=== PATIENT | female | born 1960 | race Caucasian/White ===

== ENCOUNTER → 2016-10-07 | Outpatient (CLI) | payer OTHER ==
[~2016-10-07] MED LIST: ATEN-174 PO; AZAT50TA5 PO; CALCTAB73 PO; CYCL10TA6 PO; CYCL5TAB PO; ESTR0.3T PO; GABA-113 PO; GLCSR500 PO; HYDR25TA4 PO; INSDGI SC; LISI-725 PO; LPT/40 PO; METH1TAB81 PO; MILK1CAP PO; NAPR250T43 PO; ONDA4TAB46 PO; OXYC-57 PO; PANT1TAB48 PO; PREG150C PO; PREG75CA PO; PROM25TA9 PO; PRT/20 PO; TRAM-10 PO; [UNRECOGNIZED DRUG - CODE] PO
[2016-10-10 14:39] LABS: QUANTIF TB AG-NIL 0.01 IU/ML; QUANTIFERON NIL 0.02 IU/ML
== END | disposition home or self-care (01) ==
LOC: C.LAB1850 16:31
PROVIDERS: ATTEND Physician Assistant
DX: R22.9 Localized swelling, mass and lump, unspecified (principal)

== ENCOUNTER → 2016-10-28 | Outpatient (CLI) | payer OTHER | END | disposition home or self-care (01) | LOC: C.LABSPEC 11:00 | PROVIDERS: ATTEND Orthopaedic Surgery | DX: R22.31 Localized swelling, mass and lump, right upper limb (principal) ==

== ENCOUNTER → 2016-10-28 | Outpatient (CLI) | payer OTHER | END | disposition home or self-care (01) | LOC: C.PATHSPEC 10:52 | PROVIDERS: ATTEND Orthopaedic Surgery | DX: R22.31 Localized swelling, mass and lump, right upper limb (principal) ==

== ENCOUNTER → 2017-03-08 | Outpatient (CLI) | payer OTHER ==
[~2017-03-08] MED LIST changes: -CALCTAB73 PO; -CYCL10TA6 PO; -ESTR0.3T PO; -NAPR250T43 PO; -PREG150C PO; -PREG75CA PO; -PROM25TA9 PO; -PRT/20 PO
--- NOTE | 2017-03-08 13:43 | MAMMOGRAPHY REPORT ---
BILATERAL DIGITAL SCREENING MAMMOGRAM TOMOSYNTHESIS WITH CAD: 03/08/2017 CLINICAL HISTORY: Routine screening examination. TECHNIQUE: Breast tomosynthesis in addition to standard 2D mammography was performed. Current study was also evaluated with a Computer Aided Detection (CAD) system. COMPARISON: Comparison is made to exams dated: 03/02/2016 mammogram, 02/05/2015 mammogram, 4 mammogram, 01/24/2013 mammogram, 01/23/2012 mammogram, and 01/21/2011 mammogram - [facility]. BREAST COMPOSITION: There are scattered areas of fibroglandular density in both breasts. FINDINGS: There are mild vascular calcifications bilaterally. Numerous scattered benign round and c oarse calcifications. It to stable circumscribed subcentimeter masses in the left breast are unchang ed in size dating back to at least 01/24/2013, therefore likely benign. No suspicious spiculated or irregular mass, architectural distortion or cluster of microcalcifications is seen. IMPRESSION: ACR BI-RADS CATEGORY 2: BENIGN There is no mammographic evidence of malignancy. A 1 year screening mammogram is recommended. The pa tient will receive written notification of the results. Approximately 10% of breast cancers are not detected with mammography. A negative mammographic report should not delay biopsy if a clinically suggestive mass is present. Kiera Crooks M.D. ay/:03/08/2017 12:51:45 Analysis Engineer: Jeanette KRISHNAMURTHY)(Kris), [facility] letter sent: Normal 1/2 BI-RADS Code: ACR BI-RADS Category 2: Benign
== END | disposition home or self-care (01) ==
LOC: C.MAMM 10:06
PROVIDERS: ATTEND Family Medicine
DX: Z12.31 Encounter for screening mammogram for malignant neoplasm of breast (principal)

== ENCOUNTER 2017-06-16 21:56 | Inpatient (IN) | payer OTHER ==
[~2017-06-16] VITALS: Ht 165.1 cm; Wt 79.1 kg
[~2017-06-16 21:56] MED LIST changes: +AZAT50TA33 PO; -AZAT50TA5 PO; +CEPH500C PO; +PANT1TAB3 PO; -PANT1TAB48 PO; +SULF800T23 PO
[2017-06-16 23:05] LABS: BASO % 0.2 %; BASO ABS # 0.01 K/uL (0-0.2); HEMATOCRIT 31.8 % (37-47); HEMOGLOBIN 10.7 g/dL (12.0-16.0); IG# 0.01 K/uL (0.00-0.02); LYMPH % 8.9 %; LYMPH ABS # 0.39 K/uL (1.2-3.4); MEAN CELL VOLUME 89.6 fL (80-100); MEAN CORPUSCULAR HEMOGLOBIN 30.1 pg (25-34); MEAN CORPUSCULAR HGB CONC 33.6 g/dl (32-36); MEAN PLATELET VOLUME 9.8 fL (7.4-10.4); MONO % 0.5 %; MONO ABS # 0.02 K/uL (0.11-0.59); NEUT % 90.2 %; NEUT ABS # 3.97 K/uL (1.4-6.5); PLATELET COUNT 366 K/uL (130-400); RED CELL DISTRIBUTION WIDTH CV 16.7 % (11.5-14.5); RED CELL DISTRIBUTION WIDTH SD 54.4 fL (36.4-46.3)
[2017-06-16 23:22] LABS: CALCIUM 8.9 mg/dl (8.5-10.1); CREATININE 1.28 mg/dl (0.60-1.20)
[2017-06-17] MEDS ORDERED: SODIUM CHLORIDE 0.9% IV STA (01:26)
[2017-06-17] MEDS ORDERED: VANCOMYCIN INJ 1,500 MG in SODIUM CHLORIDE 0.9% 500ML 500 ML IV SCH (01:26)
[2017-06-17] MEDS ORDERED: VANCOMYCIN IV STA (01:26)
[2017-06-17] MEDS ORDERED: VANCOMYCIN CONSULT ACTIVE PRN ×2 (01:30→02:00)
[2017-06-17] MEDS ORDERED: HYDR-5688 PO (02:16)
[2017-06-17] MEDS ORDERED: NAPR1TAB48 PO (02:17)
--- NOTE | 2017-06-17 02:17 | Pharmacy Progress Note ---
Pharmacy Antibiotic Consult Date of Service: Jun 17, 2017. Pharmacy Dosing Scope Pharmacy is consulted to initiate VANCOMYCIN IV dosing therapy, order appropriate labs and adjust drug dose/frequency. Subjective The patient is a 57 year old female admitted on 06/17/17. Objective Height (Feet): 5 Height (Inches): 5.00 Weight (Kilograms): 79.500 Lab Results (24hrs): Test 06/16/17 22:50 White Blood Count 4.40 K/uL (4.8-10.8) Red Blood Count 3.55 M/uL (4.2-5.4) Hemoglobin 10.7 g/dL (12.0-16.0) Hematocrit 31.8 % (37-47) Mean Corpuscular Volume 89.6 fL (80-100) Mean Corpuscular Hemoglobin 30.1 pg (25-34) Mean Corpuscular Hemoglobin Concent 33.6 g/dl (32-36) Platelet Count 366 K/uL (130-400) Mean Platelet Volume 9.8 fL (7.4-10.4) Neutrophils (%) (Auto) 90.2 % Lymphocytes (%) (Auto) 8.9 % Monocytes (%) (Auto) 0.5 % Eosinophils (%) (Auto) 0.0 % Basophils (%) (Auto) 0.2 % Neutrophils # (Auto) 3.97 K/uL (1.4-6.5) Lymphocytes # (Auto) 0.39 K/uL (1.2-3.4) Monocytes # (Auto) 0.02 K/uL (0.11-0.59) Eosinophils # (Auto) 0.00 K/uL (0-0.5) Basophils # (Auto) 0.01 K/uL (0-0.2) RDW Standard Deviation 54.4 fL (36.4-46.3) RDW Coefficient of Variation 16.7 % (11.5-14.5) Immature Granulocyte % (Auto) 0.2 % Immature Granulocyte # (Auto) 0.01 K/uL (0.00-0.02) Sodium Level 136 mmol/L (136-145) Potassium Level 4.0 mmol/L (3.5-5.1) Chloride Level 102 mmol/L (98-107) Carbon Dioxide Level 24 mmol/L (21-32) Anion Gap 10.0 mmol/L (3-11) Blood Urea Nitrogen 22 mg/dl (7-18) Creatinine 1.28 mg/dl (0.60-1.20) Est Creatinine Clear Calc Drug Dose 51.1 ml/min Estimated GFR () 54.1 Estimated GFR (Non- 46.7 BUN/Creatinine Ratio 17.0 (10-20) Random Glucose 211 mg/dl (70-99) Calcium Level 8.9 mg/dl (8.5-10.1) C-Reactive Protein 0.51 mg/dl (0-0.29) Assessment & Plan 57yo female ordered VANCOMYCIN for LUE cellulitis. Scr is elevated on admission at 1.28 from baseline of ~0.8. VANCOMYCIN: * Loading dose: VANCOMYCIN 1500mg (~19mg/kg) IV X 1 dose in the ER then VANCOMYCIN 1250mg (~15mg/kg) IV every 12 hours. * Estimated Pk parameters BASED ON BASELINE RENAL FUNCTION: Ke ~0.072 t1/2 ~ 10 hours * Goal trough level estimate: between 15 - 20 mcg/mL. * Dosed VANCOMYCIN assuming renal function will trend down towards her baseline. Pharmacy will adjust as needed. If no adjustment needed, will check a trough level prior to the 0200 dose on 06/19. Pharmacy will continue to follow and will adjust dose/frequency as necessary. Thank you
[2017-06-17] MEDS ORDERED: CALC-452 PO (02:18)
--- NOTE | 2017-06-17 02:20 | EMERGENCY ROOM VISIT NOTE ---
ED Visit Note First contact with patient: 22:25 Patient seen at bedside after discussion with physician magistrate assistant. Patient with area on the right lateral distal forearm of erythema and induration. Patient with 5 days of recent outpatient antibiotics with no improvement. 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 Patient with no prior similar episodes. Patient aware of her results and agreeable with plan for admission for additional antibiotics and evaluation of involved area. No evidence of systemic symptoms, I do not suspect bacteremia/sepsis, no evidence of septic arthritis.
[2017-06-17 02:30] VITALS: BP 119/69; PULSE 60; TEMP 36.5; O2SAT 93; Ht 165.1 cm; Wt 79.1 kg
--- NOTE | 2017-06-17 02:47 | EMERGENCY ROOM VISIT NOTE ---
History First contact with patient: 22:25 Chief Complaint: WRIST PAIN Stated Complaint: PAIN AND SWELLING IN R WRIST AREA History of Present Illness The patient is a 57 year old female who presents to the Emergency Room with complaints of pain and swelling of her right wrist. The patient states that she first noticed pain in her wrist one week ago. She saw her primary care provider 5 days ago and was diagnosed with cellulitis. She received an antibiotic injection and was placed on Keflex. She followed up 3 days after that and states that the symptoms had not improved, so she was also started on Bactrim. She has had no improvement of symptoms and returned to the office today for a visit. They gave her an injection of Solu-Medrol and performed x- rays which were negative. The patient reports redness on the ulnar side of her forearm. She reports a burning pain which is rated an 8/10. She denies any streaking of the arm or fevers. She has some pain with movement of the wrist, but denies difficulty moving the wrist. The patient is a diabetic. She additionally has a history of dermatomyositis. She takes prednisone chronically for this and also takes an immunosuppressant, which has been held since the onset of symptoms. Her PCP recommended that if her symptoms do not improve this afternoon, she should come here for admission. Review of Systems A complete 10 point review of systems was reviewed with the patient with pertinent positives and negatives as per history of present illness. All else were negative. Past Medical/Surgical History Medical Problems: (1) Autoimmune hepatitis (2) Cellulitis (3) Dermatomyositis (4) Diabetes (5) Hypertension (6) Trigeminal neuralgia Surgical Problems: (1) S/P cholecystectomy Family History Hypertension Social History Smoking Status: Never Smoker Alcohol Use: none Marital Status: Housing Status: lives with significant other Occupation Status: disabled Current/Historical Medications Scheduled Atenolol (Tenormin), 50 MG PO QAM Atorvastatin (Lipitor), 40 MG PO QAM Azathioprine (Imuran), 2 TABS PO QAM Calcium Carbonate-Cholecalcife (Calcium 600 + D 600-200 mg-Unit), 1 TAB PO TID Cephalexin Monohydrate (Keflex), 1 CAP PO BID Gabapentin (Neurontin), 300 MG PO TID Hydrochlorothiazide (Hctz), 25 MG PO QAM Lisinopril (Zestril), 20 MG PO QAM Metformin HCl (Metformin HCl ER), 1,000 MG PO BID Methylprednisolone (Medrol), 4 MG PO DAILY Milk Thistle (Silybum Marianum (Milk Thistle), 500 MG PO DAILY Pantoprazole (Protonix), 40 MG PO QAM Sulfamethoxazole-Trimethoprim (Bactrim Ds 800MG/160MG), 1 TAB PO Q12 Scheduled PRN Cyclobenzaprine Hcl (Flexeril), 5 MG PO HS PRN for Muscle Spasms Hydrocodone/Acetaminophen 5MG/325MG ([place] 5MG/325MG), 1 TABLET PO Q6 PRN for Mild Pain Naproxen (Naprosyn), 250 MG PO BID PRN for Pain Ondansetron Hcl (Zofran), 4 MG PO Q6 PRN for Nausea Tramadol (Ultram), 50 MG PO Q6 PRN for Pain Physical Exam Vital Signs Date Time Temp Pulse Resp B/P (MAP) Pulse Ox O2 Delivery O2 Flow Rate FiO2 06/17/17 00:43 63 18 119/72 94 Room Air 06/16/17 22:04 36.7 71 18 166/73 94 Room Air Physical Exam VITALS: Vitals are noted on the nurse's note and reviewed by myself. Vital signs stable. Afebrile. GENERAL: This is a 57-year-old female, in no acute distress, well-developed well -nourished. SKIN: There is an area of induration and erythema to the ulnar aspect of the right distal forearm which measures approximately 5 cm in diameter. There is mild surrounding erythema which extends slightly to the hand. No fluctuance. This is not circumferential. There is no lymphangitic streaking. HEART: Regular rate and rhythm without murmurs gallops or rubs. LUNGS: Clear to auscultation bilaterally without wheezes, rales or rhonchi. MUSCULOSKELETAL: Patient has chronic appearing deformities of the fingers of the right hand. Full range of motion of the right wrist. Radial pulse 2+. NEURO: Patient was alert and oriented to person place and time. Normal sensation of the right upper extremity. Medical Decision & Procedures ER Provider Diagnostic Interpretation: Per STATrad interpretation: US VENOUS RIGHT UPPER EXTREMITY: No venous thrombosis identified in the right upper extremity. Soft tissue edema noted in the lateral right forearm. No fluid collection or mass. Radiologist: Lokesh Shah MD Laboratory Results 06/16/17 22:50 Red Blood Count 3.55, Mean Corpuscular Volume 89.6, Mean Corpuscular Hemoglobin 30.1, Mean Corpuscular Hemoglobin Concent 33.6, Mean Platelet Volume 9.8, Neutrophils (%) (Auto) 90.2, Lymphocytes (%) (Auto) 8.9, Monocytes (%) (Auto) 0.5, Eosinophils (%) (Auto) 0.0, Basophils (%) (Auto) 0.2, Neutrophils # (Auto) 3.97, Lymphocytes # (Auto) 0.39, Monocytes # (Auto) 0.02, Eosinophils # (Auto) 0.00, Basophils # (Auto) 0.01 06/16/17 22:50 Test 06/16/17 22:50 White Blood Count 4.40 K/uL (4.8-10.8) Red Blood Count 3.55 M/uL (4.2-5.4) Hemoglobin 10.7 g/dL (12.0-16.0) Hematocrit 31.8 % (37-47) Mean Corpuscular Volume 89.6 fL (80-100) Mean Corpuscular Hemoglobin 30.1 pg (25-34) Mean Corpuscular Hemoglobin Concent 33.6 g/dl (32-36) Platelet Count 366 K/uL (130-400) Mean Platelet Volume 9.8 fL (7.4-10.4) Neutrophils (%) (Auto) 90.2 % Lymphocytes (%) (Auto) 8.9 % Monocytes (%) (Auto) 0.5 % Eosinophils (%) (Auto) 0.0 % Basophils (%) (Auto) 0.2 % Neutrophils # (Auto) 3.97 K/uL (1.4-6.5) Lymphocytes # (Auto) 0.39 K/uL (1.2-3.4) Monocytes # (Auto) 0.02 K/uL (0.11-0.59) Eosinophils # (Auto) 0.00 K/uL (0-0.5) Basophils # (Auto) 0.01 K/uL (0-0.2) RDW Standard Deviation 54.4 fL (36.4-46.3) RDW Coefficient of Variation 16.7 % (11.5-14.5) Immature Granulocyte % (Auto) 0.2 % Immature Granulocyte # (Auto) 0.01 K/uL (0.00-0.02) Anion Gap 10.0 mmol/L (3-11) Est Creatinine Clear Calc Drug Dose 51.1 ml/min Estimated GFR () 54.1 Estimated GFR (Non- 46.7 BUN/Creatinine Ratio 17.0 (10-20) Calcium Level 8.9 mg/dl (8.5-10.1) C-Reactive Protein 0.51 mg/dl (0-0.29) Medications Administered Medications (Trade) Dose Ordered Sig/Jesica Route Start Time Stop Time Status Last Admin Dose Admin Vancomycin HCl 1500 mg/Sodium Chloride 530 ml @ 200 mls/hr 0126 IV 06/17/17 01:26 06/17/17 04:04 06/17/17 01:59 200 MLS/HR ED Course The patient was evaluated as above. Labs were drawn and IV access was obtained. Ultrasound of the right arm was performed and read by statrad as above. Patient was reevaluated and findings were discussed. Vancomycin was ordered with the patient. Case was discussed with the [facility] hospitalist, Dr. Medina. They agreed to evaluate the patient for admission. Medical Decision Differential diagnosis includes cellulitis, abscess, inflammatory process, osteomyelitis, failed outpatient treatment, among others. The patient is a 57-year-old female with past medical history of dermatomyositis and diabetes mellitus who presents today complaining of pain and swelling in the right forearm. Patient has had ongoing symptoms for 1 week and these have not resolved despite treatment with Keflex and Bactrim. Records from the patient's outpatient visit earlier today were obtained and reviewed by myself. At that time, the patient had an x-ray of the forearm which showed osteoarthritic changes and no other acute findings. She was treated with an injection of Solu-Medrol at that time. Patient presents today stating that her symptoms have not improved, and she was told by her primary care provider to come here for admission. Labs revealed no leukocytosis. Patient mildly pancytopenic and creatinine is mildly elevated. I suspect these are baseline for the patient. CRP was found to be mildly elevated. Patient's physical exam is consistent with cellulitis, although inflammatory mass is possible given patient's history of autoimmune disease. She has failed outpatient therapy with both Keflex and Bactrim at this time and will need to be admitted for further treatment and IV antibiotics. She was given vancomycin in the ED. She was admitted to the [facility] service for further evaluation and care. The patient was independently evaluated by Dr. Adkins, ED attending physician , who agreed with my assessment and treatment plan. Medication Reconcilliation Current Medication List: was personally reviewed by me Blood Pressure Screening Patient's blood pressure: Normal blood pressure Impression Primary Impression: Cellulitis of forearm, right Additional Impression: Failure of outpatient treatment Departure Information Referrals Eddie Man M.D. (PCP) Patient Instructions [facility] Problem Qualifiers
[2017-06-17] MEDS ORDERED: ONDANSETRON INJ 2 MG/ML 2 ML VIAL IV PRN (05:00)
[2017-06-17] MEDS ORDERED: GLUCAGON FOR INJ 1 MG VIAL SQ PRN (05:00)
[2017-06-17] MEDS ORDERED: GLUCOSE 10 TABS/TUBE PO PRN (05:00)
[2017-06-17] MEDS ORDERED: GLUCOSE 40% GEL 15 GM TUBE PO PRN (05:00)
[2017-06-17] MEDS ORDERED: DEXTROSE 50% 50 ML SYR IV PRN (05:00)
[2017-06-17] MEDS ORDERED: CYCLOBENZAPRINE HCL 5 MG TAB PO PRN (05:00)
[2017-06-17] MEDS ORDERED: POLYETHYLENE (MIRALAX) 17 GM PACK PO PRN (05:00)
[2017-06-17] MEDS ORDERED: HYDROCODONE/ACETAMIN 5/325MG TAB PO PRN (05:00)
[2017-06-17] MEDS ORDERED: TRAMADOL HCL 50 MG TAB PO PRN (05:00)
[2017-06-17] MEDS ORDERED: ACETAMINOPHEN 325 MG TAB PO PRN (05:00)
--- NOTE | 2017-06-17 05:24 | History and Physical ---
History & Physical Date & Time of Service: Jun 17, 2017 at 05:12 Chief Complaint: Cellulitis Primary Care Physician: dEdie Man M.D. History of Present Illness Source: patient, clinic records, hospital records The patient is a 57-year-old female presents to the emergency room with complaints of pain and swelling in her right wrist. She first noticed the pain 1 week ago and was placed on Keflex with a Rocephin shot. She followed up 3 days later and the symptoms have not improved so she was also started on Bactrim. She remains on both antibiotics today. Today for a follow-up visit with her primary care doctor she was no better and was received and injection of Solu-Medrol and x-rays of the forearm which were negative. The patient does not denies any streaking of the redness or fevers or chills. She denies any worsening joint pain. She has a history of dermatomyositis and is on chronic steroids and immunosuppressants she is followed with beck operator Dr. Julio Oneal in [place]. She does have a history of hand nodules which were biopsied twice both of which showed necrotizing granulomas. Cultures for Mycobacterium and fungi were negative. She has a very small pulmonary nodule that needs to be follow-up followed up in 1 year. Rheumatoid factor is negative , she has no inflammatory arthritis, per rheumatology these nodules would be very myositis. Sarcoidosis remains in the differential. The patient denies any trauma to the wrist hand or forearm including trauma from manicures, gardening or other. Review of systems is negative for nausea vomiting GI upset diarrhea, shortness of breath or chest pain, or any other symptom at this time. Past Medical/Surgical History Medical Problems: (1) Autoimmune hepatitis Permanent Comment: s/p methotrexate usage Status: Resolved (2) Carpal tunnel syndrome of right wrist Status: Chronic (3) Dermatomyositis Status: Chronic (4) Diabetes Status: Chronic (5) Diabetic neuropathy Status: Chronic (6) Granulomatous disease Status: Chronic (7) H/O cytomegalovirus infection Status: Chronic (8) Hypertension Status: Chronic (9) VYAS (nonalcoholic steatohepatitis) Status: Chronic (10) Pancreatic cyst Status: Chronic (11) Renal artery aneurysm Status: Chronic (12) Splenic artery aneurysm Status: Chronic (13) Trigeminal neuralgia Status: Chronic Surgical Problems: (1) S/P cholecystectomy Status: Resolved Family History Hypertension Social History Smoking Status: Never Smoker Smokeless Tobacco Use: No Alcohol Use: none Drug Use: none Marital Status: Housing status: lives with significant other Occupational Status: disabled Immunizations History of Influenza Vaccine: Yes Influenza Vaccine Date: Mar 10, 2017 History of Tetanus Vaccine?: Yes Tetanus Immunization Date: Jul 06, 2009 History of Pneumococcal: Yes Pneumococcal Date: September 02, 2016 History of Hepatitis B Vaccine: Yes Hepatitis Immunization Date: Nov 04, 2013 Allergies Coded Allergies: No Known Allergies (Verified , 06/17/17) Home Medications Scheduled Atenolol (Tenormin), 50 MG PO QAM Atorvastatin (Lipitor), 40 MG PO QAM Azathioprine (Imuran), 2 TABS PO QAM Calcium Carbonate-Cholecalcife (Calcium 600 + D 600-200 mg-Unit), 1 TAB PO TID Cephalexin Monohydrate (Keflex), 1 CAP PO BID Gabapentin (Neurontin), 300 MG PO TID Hydrochlorothiazide (Hctz), 25 MG PO QAM Lisinopril (Zestril), 20 MG PO QAM Metformin HCl (Metformin HCl ER), 1,000 MG PO BID Methylprednisolone (Medrol), 4 MG PO DAILY Milk Thistle (Silybum Marianum (Milk Thistle), 500 MG PO DAILY Pantoprazole (Protonix), 40 MG PO QAM Sulfamethoxazole-Trimethoprim (Bactrim Ds 800MG/160MG), 1 TAB PO Q12 Scheduled PRN Cyclobenzaprine Hcl (Flexeril), 5 MG PO HS PRN for Muscle Spasms Hydrocodone/Acetaminophen 5MG/325MG ([place] 5MG/325MG), 1 TABLET PO Q6 PRN for Mild Pain Naproxen (Naprosyn), 250 MG PO BID PRN for Pain Ondansetron Hcl (Zofran), 4 MG PO Q6 PRN for Nausea Tramadol (Ultram), 50 MG PO Q6 PRN for Pain Review of Systems At least 10 systems were reviewed and negative except as indicated in HPI. Physical Exam Vital Signs Date Time Temp Pulse Resp B/P (MAP) Pulse Ox O2 Delivery O2 Flow Rate FiO2 06/17/17 02:30 36.5 60 18 119/69 93 Room Air 06/17/17 02:02 60 18 124/65 95 Room Air 06/17/17 00:43 63 18 119/72 94 Room Air 06/16/17 22:04 36.7 71 18 166/73 94 Room Air General Appearance: WD/WN, no apparent distress Head: normocephalic, atraumatic Eyes: normal inspection, sclerae normal ENT: hearing grossly normal, pharynx normal Neck: trachea midline Respiratory/Chest: lungs clear, normal breath sounds, no respiratory distress, no accessory muscle use Cardiovascular: regular rate, rhythm, no edema, no gallop, no JVD, normal peripheral pulses, + systolic murmur Abdomen/GI: normal bowel sounds, non tender, soft, no organomegaly Extremities/Musculoskelatal: + pertinent finding (Large immobile tender erythematous nodule on the ulnar side of the left wrist) 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, no motor/sensory deficits, alert, normal mood/affect, oriented x 3 Skin: normal color, warm/dry, no rash Diagnostics Laboratory Results 06/16/17 22:50 Red Blood Count 3.55, Mean Corpuscular Volume 89.6, Mean Corpuscular Hemoglobin 30.1, Mean Corpuscular Hemoglobin Concent 33.6, Mean Platelet Volume 9.8, Neutrophils (%) (Auto) 90.2, Lymphocytes (%) (Auto) 8.9, Monocytes (%) (Auto) 0.5, Eosinophils (%) (Auto) 0.0, Basophils (%) (Auto) 0.2, Neutrophils # (Auto) 3.97, Lymphocytes # (Auto) 0.39, Monocytes # (Auto) 0.02, Eosinophils # (Auto) 0.00, Basophils # (Auto) 0.01 06/16/17 22:50 Test 06/16/17 22:50 06/17/17 04:44 06/17/17 04:52 06/17/17 05:12 White Blood Count 4.40 K/uL (4.8-10.8) Red Blood Count 3.55 M/uL (4.2-5.4) Hemoglobin 10.7 g/dL (12.0-16.0) Hematocrit 31.8 % (37-47) Mean Corpuscular Volume 89.6 fL (80-100) Mean Corpuscular Hemoglobin 30.1 pg (25-34) Mean Corpuscular Hemoglobin Concent 33.6 g/dl (32-36) Platelet Count 366 K/uL (130-400) Mean Platelet Volume 9.8 fL (7.4-10.4) Neutrophils (%) (Auto) 90.2 % Lymphocytes (%) (Auto) 8.9 % Monocytes (%) (Auto) 0.5 % Eosinophils (%) (Auto) 0.0 % Basophils (%) (Auto) 0.2 % Neutrophils # (Auto) 3.97 K/uL (1.4-6.5) Lymphocytes # (Auto) 0.39 K/uL (1.2-3.4) Monocytes # (Auto) 0.02 K/uL (0.11-0.59) Eosinophils # (Auto) 0.00 K/uL (0-0.5) Basophils # (Auto) 0.01 K/uL (0-0.2) RDW Standard Deviation 54.4 fL (36.4-46.3) RDW Coefficient of Variation 16.7 % (11.5-14.5) Immature Granulocyte % (Auto) 0.2 % Immature Granulocyte # (Auto) 0.01 K/uL (0.00-0.02) Anion Gap 10.0 mmol/L (3-11) Est Creatinine Clear Calc Drug Dose 51.1 ml/min BUN/Creatinine Ratio 17.0 (10-20) Calcium Level 8.9 mg/dl (8.5-10.1) Results Past 24 Hours Test 06/16/17 22:50 06/17/17 04:44 06/17/17 04:52 Range/Units White Blood Count 4.40 4.8-10.8 K/uL Red Blood Count 3.55 4.2-5.4 M/uL Hemoglobin 10.7 12.0-16.0 g/dL Hematocrit 31.8 37-47 % Mean Corpuscular Volume 89.6 80-100 fL Mean Corpuscular Hemoglobin 30.1 25-34 pg Mean Corpuscular Hemoglobin Concent 33.6 32-36 g/dl Platelet Count 366 130-400 K/uL Mean Platelet Volume 9.8 7.4-10.4 fL Neutrophils (%) (Auto) 90.2 % Lymphocytes (%) (Auto) 8.9 % Monocytes (%) (Auto) 0.5 % Eosinophils (%) (Auto) 0.0 % Basophils (%) (Auto) 0.2 % Neutrophils # (Auto) 3.97 1.4-6.5 K/uL Lymphocytes # (Auto) 0.39 1.2-3.4 K/uL Monocytes # (Auto) 0.02 0.11-0.59 K/uL Eosinophils # (Auto) 0.00 0-0.5 K/uL Basophils # (Auto) 0.01 0-0.2 K/uL RDW Standard Deviation 54.4 36.4-46.3 fL RDW Coefficient of Variation 16.7 11.5-14.5 % Immature Granulocyte % (Auto) 0.2 % Immature Granulocyte # (Auto) 0.01 0.00-0.02 K/uL Sodium Level 136 136-145 mmol/L Potassium Level 4.0 3.5-5.1 mmol/L Chloride Level 102 98-107 mmol/L Carbon Dioxide Level 24 21-32 mmol/L Anion Gap 10.0 3-11 mmol/L Blood Urea Nitrogen 22 7-18 mg/dl Creatinine 1.28 0.60-1.20 mg/dl Est Creatinine Clear Calc Drug Dose 51.1 ml/min Estimated GFR () 54.1 Estimated GFR (Non- 46.7 BUN/Creatinine Ratio 17.0 10-20 Random Glucose 211 70-99 mg/dl Calcium Level 8.9 8.5-10.1 mg/dl C-Reactive Protein 0.51 0-0.29 mg/dl Diagnostic Radiology R VENOUS DOPPLER UPR EXT UNIL HISTORY: 57 years-old Female right wrist pain, redness, swelling acute right upper extremity pain and swelling COMPARISON: None available TECHNIQUE: Multiple real-time sonographic images of the right upper extremity deep venous structures were obtained assessing grayscale appearance, color and spectral flow FINDINGS: Within the distal forearm proximal to the right wrist. Within the area of concern there is mild subcutaneous edema within the distal lateral forearm. No focal fluid collections or masses identified. There is normal flow, phasicity, and flow within the right upper extremity deep venous structures. IMPRESSION: 1. No sonographic evidence of deep venous thrombosis. 2. Mild subcutaneous edema within the distal lateral forearm. EKG LBBB Impression Assessment and Plan 57-year-old female with history of dermatomyositis and possible sarcoid presents with erythematous nodule on ulnar side of right wrist that is painful the last week 1. Erythematous nodule on left wrist-differential diagnosis includes but is not limited to erythema nodosum, vasculitis, cellulitis. She is currently receiving IV vancomycin, however, with history of possible sarcoid and prior hand nodules, erythema nodosum is considered likely. If this is the case, supportive care and spontaneous resolution in the next 2-3 weeks would be expected. She is already taking Medrol daily. If no improvement on antibiotics would consider discharge with follow-up with PCP in that time. NSAIDs may be used for tenderness and pain. May consider rheumatology consult as well may also consider QuantiFERON. Chest x-ray in a.m. 2. Dermatomyositis-patient not in flare at this time. Imuran on hold, prednisone continued. Dr. Oneal in rheumatology at the end of aware of this. 3. Diabetes type 2-continue insulin sliding scale with carb coverage and glargine as an inpatient. 4. Hypertension controlled continue home medications including atenolol, lisinopril and hydrochlorothiazide. 5. AK I-likely secondary to Bactrim use versus NSAID use. Monitor off both for improvement. 6. Anemia-decreased from baseline, no active bleeding. Possibly related to anemia of chronic inflammation however with decreased from baseline will obtain iron studies. Colonoscopy is up-to-date. 7. Chronic left bundle branch block DVT prophylaxis-Lovenox Full code Disposition[facility] Existing Living Will: Yes Existing Power of Station Mechanic: Yes Resuscitation Status VTE Prophylaxis Will order VTE Prophylaxis: Yes
--- NOTE | 2017-06-17 06:05 | DIAGNOSTIC IMAGING REPORT ---
R VENOUS DOPPLER UPR EXT UNIL HISTORY: 57 years-old Female right wrist pain, redness, swelling acute right upper extremity pain and swelling COMPARISON: None available TECHNIQUE: Multiple real-time sonographic images of the right upper extremity deep venous structures were obtained assessing grayscale appearance, color and spectral flow FINDINGS: Within the distal forearm proximal to the right wrist. Within the area of concern there is mild subcutaneous edema within the distal lateral forearm. No focal fluid collections or masses identified. There is normal flow, phasicity, and flow within the right upper extremity deep venous structures. IMPRESSION: 1. No sonographic evidence of deep venous thrombosis. 2. Mild subcutaneous edema within the distal lateral forearm. The above report was generated using voice recognition software. It may contain grammatical, syntax or spelling errors. Electronically signed by: Gregory Graham M.D. 06/17/2017 6:03 AM Dictated Date/Time: 06/17/2017 6:01 AM
[2017-06-17] MEDS ORDERED: HYDROCHLOROTHIAZIDE 25 MG TAB PO SCH (08:00)
[2017-06-17] MEDS ORDERED: METHYLPREDNISOLONE 4 MG TAB PO SCH ×2 (08:00→19:00)
[2017-06-17 08:12] VITALS: BP 119/62; PULSE 69; TEMP 36.5; O2SAT 94
[2017-06-17] MEDS: CALCIUM 600MG + VIT D 400 IU TAB PO SCH ×2 (08:26→20:31)
[2017-06-17] MEDS: ATORVASTATIN 40 MG TAB PO SCH (08:27)
[2017-06-17] MEDS: GABAPENTIN 300 MG CAP PO SCH ×3 (08:27→20:31)
[2017-06-17] MEDS: LISINOPRIL 20 MG TAB PO SCH (08:28)
[2017-06-17] MEDS: PANTOprazole SOD 40 MG TAB PO SCH (08:28)
[2017-06-17] MEDS: INSULIN GLARGINE SOLOSTAR 100 UNITS/ML 3 ML PEN SC SCH ×2 (08:38→20:35)
[2017-06-17] MEDS: INSULIN ASPART 100 UNITS/ML 3 ML PEN SC SCH ×4 (08:38→20:35)
--- NOTE | 2017-06-17 09:09 | DIAGNOSTIC IMAGING REPORT ---
CHEST 2 VIEWS ROUTINE HISTORY: 57 years-old Female to assess for sarcoid type nodules or other abnormality on admis screening study for Sarcoidosis. Patient presents with acute cellulitis COMPARISON: Chest radiograph 06/15/2015 TECHNIQUE: PA and lateral views of the chest FINDINGS: Lungs are hypoinflated with mild bronchovascular crowding. Cardiac silhouette is mildly enlarged. Linear perihilar and bibasilar opacities suggest atelectasis. It is no pneumothorax, pleural effusion, focal airspace consolidation or overt pulmonary edema. The bones of the chest appear grossly intact. Degenerative changes noted within the shoulders and spine. Indeterminate 1.4 cm round radiodensity projects over the stomach. Cholecystectomy clips noted. IMPRESSION: 1. Hypoinflation with bronchovascular crowding and subsegmental perihilar and bibasilar atelectasis. 2. Cardiomegaly without pulmonary edema. The above report was generated using voice recognition software. It may contain grammatical, syntax or spelling errors. Electronically signed by: Gregory Graham M.D. 06/17/2017 9:08 AM Dictated Date/Time: 06/17/2017 9:05 AM
--- NOTE | 2017-06-17 09:24 | Progress Note ---
Medicine Progress Note Date & Time of Visit: Jun 17, 2017 at 09:15. Subjective seen resting in bed, comfortable states right forearm lesion seems to be less swollen, tender this morning right wrist pain also improved compared to yesterday denies other joint pains no fever/chills denies other symptoms Objective Last 8 Hrs Date Time Temp Pulse Resp B/P (MAP) Pulse Ox O2 Delivery O2 Flow Rate FiO2 06/17/17 08:12 36.5 69 20 119/62 (81) 94 Room Air 06/17/17 08:02 Room Air 06/17/17 02:30 36.5 60 18 119/69 93 Room Air 06/17/17 02:02 60 18 124/65 95 Room Air Physical Exam: General- oriented x 3, not in distress, speaks in sentences with no effort Head- atraumatic Eyes- PERRL, EOMI, anicteric ENT- oropharynx clear Neck- supple, no JVD, no adenopathy, no thyromegaly; carotids +2/2 Lungs- clear to auscultation bilaterally Heart- regular rhythm; normal rate, (+) gr 4/6 systolic murmur Abdomen- normal bowel sounds, soft, nontender Extremities- right distal forearm, ulnar aspect: around 3cm raised lesion , with moderate erythema/tenderness/warmth right wrist: no erythema/warmth/edema, mild limitation of ROM due to pain right fingers: arthritic joints but no erythema/warmth/tenderness, full ROM no pretibial edema, no calf tenderness; peripheral pulses intact Neuro- alert, oriented x 3; no gross focal deficits Skin- warm & dry Laboratory Results: Last 24 Hours Test 06/16/17 22:50 06/17/17 07:42 06/17/17 09:09 White Blood Count 4.40 K/uL Red Blood Count 3.55 M/uL Hemoglobin 10.7 g/dL Hematocrit 31.8 % Mean Corpuscular Volume 89.6 fL Mean Corpuscular Hemoglobin 30.1 pg Mean Corpuscular Hemoglobin Concent 33.6 g/dl Platelet Count 366 K/uL Mean Platelet Volume 9.8 fL Neutrophils (%) (Auto) 90.2 % Lymphocytes (%) (Auto) 8.9 % Monocytes (%) (Auto) 0.5 % Eosinophils (%) (Auto) 0.0 % Basophils (%) (Auto) 0.2 % Neutrophils # (Auto) 3.97 K/uL Lymphocytes # (Auto) 0.39 K/uL Monocytes # (Auto) 0.02 K/uL Eosinophils # (Auto) 0.00 K/uL Basophils # (Auto) 0.01 K/uL RDW Standard Deviation 54.4 fL RDW Coefficient of Variation 16.7 % Immature Granulocyte % (Auto) 0.2 % Immature Granulocyte # (Auto) 0.01 K/uL Sodium Level 136 mmol/L Potassium Level 4.0 mmol/L Chloride Level 102 mmol/L Carbon Dioxide Level 24 mmol/L Anion Gap 10.0 mmol/L Blood Urea Nitrogen 22 mg/dl Creatinine 1.28 mg/dl Est Creatinine Clear Calc Drug Dose 51.1 ml/min Estimated GFR () 54.1 Estimated GFR (Non- 46.7 BUN/Creatinine Ratio 17.0 Random Glucose 211 mg/dl Calcium Level 8.9 mg/dl C-Reactive Protein 0.51 mg/dl Bedside Glucose 230 mg/dl Assessment & Plan 57-year-old female with history of dermatomyositis and possible sarcoid presents with erythematous nodule on ulnar side of right wrist that is painful the last week RIGHT FOREARM LESION, POSSIBLE SARCOID NODULE, WITH POSSIBLE SUPERINFECTION? no response with PO Cephalexin, Bactrim started ~ 1 week ago given Solumedrol during outpatient yesterday started on Vancomycin last night this morning, lesion and right wrist improving Wrist US: no abscess will order MRI right wrist with contrast , pending crea consult Rheum consult Ortho continue usual Medrol dose Imuran on hold for possible infection Dermatomyositis Imuran has been on hold since ~1 week ago check CK level Rheum consulted Diabetes type 2 -continue insulin sliding scale with carb coverage and glargine as an inpatient. Hypertension -controlled continue home medications including atenolol, lisinopril and hydrochlorothiazide. -monitor crea AK I-likely secondary to Bactrim use versus NSAID use. - monitor crea Anemia - decreased from baseline, no active bleeding. - Possibly related to anemia of chronic inflammation however with decreased from baseline will obtain iron studies. Colonoscopy is up-to-date. - ff up anemia panel Chronic left bundle branch block DVT prophylaxis-Lovenox Full code Disposition - anticipate d/c home when medically stable Current Inpatient Medications: Current Inpatient Medications Medications (Trade) Dose Ordered Sig/Jesica Route Start Time Stop Time Status Last Admin Dose Admin Miscellaneous Information (Consult) 1 ea UD PRN N/A 06/17/17 02:00 07/17/17 01:59 Vancomycin HCl 1250 mg/Sodium Chloride 275 ml @ 125 mls/hr Q12H IV 06/17/17 14:00 06/27/17 13:59 Enoxaparin Sodium (Lovenox Inj) 40 mg DAILY SQ 06/17/17 08:00 07/17/17 07:59 UNV Acetaminophen (Tylenol Tab) 650 mg Q4H PRN PO 06/17/17 05:00 07/17/17 04:59 Polyethylene (Miralax Powder Packet) 17 gm DAILY PRN PO 06/17/17 05:00 07/17/17 04:59 Ondansetron HCl (Zofran Inj) 4 mg Q6H PRN IV 06/17/17 05:00 07/17/17 04:59 Insulin Glargine (Lantus Solostar Pen) 13 units Q12 SC 06/17/17 09:00 07/17/17 08:59 06/17/17 08:38 13 UNITS Insulin Aspart (novoLOG ASPART) SLIDING SCALE If C... ACHS SC 06/17/17 06:30 07/17/17 06:29 06/17/17 08:38 6 UNITS Glucose (Glucose 40% Gel) 15-30 GRAMS 15 GRAMS... UD PRN PO 06/17/17 05:00 07/17/17 04:59 Glucose (Glucose Chew Tab) 4-8 Tablets 4 Tabl... UD PRN PO 06/17/17 05:00 07/17/17 04:59 Dextrose (Dextrose 50% 50ML Syringe) 25-50ML OF 50% DW IV FOR... UD PRN IV 06/17/17 05:00 07/17/17 04:59 Glucagon (Glucagon Inj) 1 mg UD PRN SQ 06/17/17 05:00 07/17/17 04:59 Atenolol (Tenormin Tab) 50 mg QAM PO 06/17/17 08:00 07/17/17 07:59 06/17/17 08:27 50 MG Atorvastatin Calcium (Lipitor Tab) 40 mg QAM PO 06/17/17 08:00 07/17/17 07:59 06/17/17 08:27 40 MG Cyclobenzaprine HCl (Flexeril Tab) 5 mg HS PRN PO 06/17/17 05:00 07/17/17 04:59 Gabapentin (Neurontin Cap) 300 mg TID PO 06/17/17 08:00 07/17/17 07:59 06/17/17 08:27 300 MG Hydrochlorothiazide (Hydrochlorothiazide Tab) 25 mg QAM PO 06/17/17 08:00 07/17/17 07:59 06/17/17 08:28 25 MG Acetaminophen/ Hydrocodone Bitart ([place] 5/325 Tab) 1 tab Q6 PRN PO 06/17/17 05:00 07/01/17 04:59 Lisinopril (Zestril Tab) 20 mg QAM PO 06/17/17 08:00 07/17/17 07:59 06/17/17 08:28 20 MG Pantoprazole Sodium (Protonix Tab) 40 mg QAM PO 06/17/17 08:00 07/17/17 07:59 06/17/17 08:28 40 MG Tramadol HCl (Ultram Tab) 50 mg Q6 PRN PO 06/17/17 05:00 07/17/17 04:59 Calcium/Vitamin D (Caltrate Plus Tab) 1 tab BID PO 06/17/17 08:00 07/17/17 07:59 06/17/17 08:26 1 TAB Methylprednisolone (Medrol Tab) 4 mg DAILY PO 06/17/17 08:00 07/17/17 07:59 06/17/17 08:28 4 MG
[2017-06-17 09:34] LABS: PTT PATIENT 24.5 SECONDS (21.0-31.0)
[2017-06-17 09:58] LABS: CREATININE 0.97 mg/dl (0.60-1.20)
[2017-06-17] MEDS: SODIUM CHLORIDE 0.9% 1000ML 1,000 ML IV SCH (10:31)
[2017-06-17] MEDS: ENOXAPARIN 40 MG/0.4 ML SYR SQ SCH (10:33)
[2017-06-17] MEDS ORDERED: GADAVIST IV PRN (12:15)
--- NOTE | 2017-06-17 13:13 | DIAGNOSTIC IMAGING REPORT ---
R UPPER EXT JOINT COMBO HISTORY: 57 years-old Female r/o abscess, tenosynovitis acute swelling of the distal right forearm and wrist for one week. No improvement following oral antibiotics COMPARISON: Duplex venous Doppler of the right upper extremity 06/16/2017 TECHNIQUE: Multiplanar multisequence MRI of the right upper extremity was obtained both with and without the use of 7.5 and mild Gadavist FINDINGS: There is a moderate degree of enhancing subcutaneous and intramuscular edema about the distal forearm involving both the volar and dorsal portions, flexor and extensor compartments. Edema tracks along the myofascial boundaries. Trace fluid about the flexor compartments is likely physiologic without definite evidence of tenosynovitis. Imaged flexor and extensor tendons appear intact without tear or evidence of tendinosis. No bowing of the flexor retinaculum. Median and ulnar nerves appears unremarkable. No drainable fluid collections identified. No large joint effusion of the wrist. No acute fracture or subluxation is identified. Moderate subcortical cystic changes are noted involving the distal radius adjacent to the lunate. Moderate subcortical cystic changes are also present within the lunate and capitate to lesser extent within the triquetrum and hamate. No definite evidence of erosive arthropathy. Mild to moderate marginal spurring with joint space narrowing involves the first carpal metacarpal joint. Mild subchondral sclerosis and joint space narrowing of the radiocarpal joint. Study is not tailored to assess the pelvic structures of the wrist. IMPRESSION: 1. Moderate degree of enhancing subcutaneous and intramuscular edema about the distal forearm involving both the volar and dorsal portions, flexor and extensor compartments suggests cellulitis with myositis. No definite evidence of tenosynovitis or drainable fluid collection to suggest abscess. 2. Mild radiocarpal and mild to moderate first carpometacarpal osteoarthritis with likely degenerative subcortical cystic changes about the distal radius and carpus as above. 3. No acute fracture. The above report was generated using voice recognition software. It may contain grammatical, syntax or spelling errors. Electronically signed by: Gregory Graham M.D. 06/17/2017 1:12 PM Dictated Date/Time: 06/17/2017 12:31 PM
[2017-06-17] MEDS: VANCOMYCIN INJ 1,250 MG in SODIUM CHLORIDE 0.9% 250ML 250 ML IV SCH (13:18)
--- NOTE | 2017-06-17 15:14 | Rheumatology Consultation ---
Rheumatology Consultation Date of Consultation: Jun 17, 2017. Requesting Physician: Dr Nunez Attending Physician: Dr Nunez Reason for Consultation: Right forearm swelling, redness, pain, h/o dermatomyositis History of Present Illness Mrs Rice has a long history of dermatomyositis followed by Dr Julio Milligan ( Rheumatology in [place]) for many years. she reports she was diagnosed over 20 yrs ago and had pretty classic dermatomyositis with facial rash, myositis and gottrons papules. She has been treated with MTX and IVIG in the past with high doses of steroids and more recently has been maintained on imuran 100mg daily with medrol 4mg daily. 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 she also has had painful nodules on her right hand that were biopsied several times demonstrating a necrotizing granulomatosis disease but no signs of infection. Last weekend she started to note a painful lesion on her right forearm over the ulna. Her granddaughter was with her that and was diagnosed with strep throat. she was seen at the weekend clinic by Dr Quintero who gave her an IM recophin injection along with oral abx. Dr Milligan was contacted and he suggested stopping iumran which she did last monday. she was placed on bactrim but the lesion was not getting better. she saw Dr garcia yesterday who gave here an IM injection of medrol at 125mg and instructed her to go to the ED if not better later that day. it was not getting better so she came her last night and was admitted - concern for cellulitis vs erythema nodosum. she was placed on IV vanco as well. Her forearm is much better today and still has some nodularity and mild erythema to the ulnar aspect of the right forearm but the diffuse redness and swelling has improved. she underwent a MRI today that showed subcutaneous inflammation and underlying myositis but no tenosynovitis, inflammatory arthritis or abscess. her daughter is at bedside helping with history as well. she feels much better today. denies any flare of her DM - no muscle weakness, no worsening facial rash or rash on her hands. she has not trouble swallowing. she has seen pulmonology for 2 lung nodules that they are monitoring. there is a ? of sarcoid given her necrotizing skin nodules and now the lung nodules. her labs her showed normal ESR, slightly elevated CRP and CK slightly elevated at 245. Her CK in April was around 100. she is currently receiving another dose of vanco. she had some YANET when she was admitted felt possibly related to bactrim use which has since recovered. she has no other painful skin lesions. no GI symptoms, no cardiac issues. denies any joint pains. she does still have some mild numbness in her right hand that she mentioned to Dr Milligan in April and carpal tunnel bracing has not helped it. Past Medical/Surgical History Medical History: arthritis, diabetes, hypertension, other (dermatomyositis, autoimmune heaptitis, ? sARCOID) Surgical History: orthopedic surgery (HAND SURGERY, BIOPSY OF HAND NODULES) Family History no family history of autoimmune diseases in her parents her daughter had KARSTEN Social History Smoking Status: Never Smoker History of Alcohol Use: No Drug Use: none Marital Status: Housing Status: lives with significant other Occupation Status: disabled Review of Systems Constitutional: No fever, No chills Respiratory: No cough, No sputum, No shortness of breath Cardiac: No chest pain, No edema Abdomen: No pain, No nausea, No vomiting, No diarrhea Musculoskeletal: No joint pain, No swelling Neurologic: + numbness/tingling Skin: + see HPI All Other Systems: Reviewed and Negative Allergies Coded Allergies: No Known Allergies (Verified , 06/17/17) Medications Current Inpatient Medications Medications (Trade) Dose Ordered Sig/Jesica Route Start Time Stop Time Status Last Admin Dose Admin Miscellaneous Information (Consult) 1 ea UD PRN N/A 06/17/17 02:00 07/17/17 01:59 Vancomycin HCl 1250 mg/Sodium Chloride 275 ml @ 125 mls/hr Q12H IV 06/17/17 14:00 06/27/17 13:59 06/17/17 13:18 125 MLS/HR Enoxaparin Sodium (Lovenox Inj) 40 mg Q24H SQ 06/17/17 11:00 07/17/17 10:59 06/17/17 10:33 40 MG Acetaminophen (Tylenol Tab) 650 mg Q4H PRN PO 06/17/17 05:00 07/17/17 04:59 Polyethylene (Miralax Powder Packet) 17 gm DAILY PRN PO 06/17/17 05:00 07/17/17 04:59 Ondansetron HCl (Zofran Inj) 4 mg Q6H PRN IV 06/17/17 05:00 07/17/17 04:59 06/17/17 10:32 4 MG Insulin Glargine (Lantus Solostar Pen) 13 units Q12 SC 06/17/17 09:00 07/17/17 08:59 06/17/17 08:38 13 UNITS Insulin Aspart (novoLOG ASPART) SLIDING SCALE If C... ACHS SC 06/17/17 06:30 07/17/17 06:29 06/17/17 08:38 6 UNITS Glucose (Glucose 40% Gel) 15-30 GRAMS 15 GRAMS... UD PRN PO 06/17/17 05:00 07/17/17 04:59 Glucose (Glucose Chew Tab) 4-8 Tablets 4 Tabl... UD PRN PO 06/17/17 05:00 07/17/17 04:59 Dextrose (Dextrose 50% 50ML Syringe) 25-50ML OF 50% DW IV FOR... UD PRN IV 06/17/17 05:00 07/17/17 04:59 Glucagon (Glucagon Inj) 1 mg UD PRN SQ 06/17/17 05:00 07/17/17 04:59 Atenolol (Tenormin Tab) 50 mg QAM PO 06/17/17 08:00 07/17/17 07:59 06/17/17 08:27 50 MG Atorvastatin Calcium (Lipitor Tab) 40 mg QAM PO 06/17/17 08:00 07/17/17 07:59 06/17/17 08:27 40 MG Cyclobenzaprine HCl (Flexeril Tab) 5 mg HS PRN PO 06/17/17 05:00 07/17/17 04:59 Gabapentin (Neurontin Cap) 300 mg TID PO 06/17/17 08:00 07/17/17 07:59 06/17/17 14:39 300 MG Hydrochlorothiazide (Hydrochlorothiazide Tab) 25 mg QAM PO 06/17/17 08:00 07/17/17 07:59 06/17/17 08:28 25 MG Acetaminophen/ Hydrocodone Bitart ([place] 5/325 Tab) 1 tab Q6 PRN PO 06/17/17 05:00 07/01/17 04:59 Lisinopril (Zestril Tab) 20 mg QAM PO 06/17/17 08:00 07/17/17 07:59 06/17/17 08:28 20 MG Pantoprazole Sodium (Protonix Tab) 40 mg QAM PO 06/17/17 08:00 07/17/17 07:59 06/17/17 08:28 40 MG Tramadol HCl (Ultram Tab) 50 mg Q6 PRN PO 06/17/17 05:00 07/17/17 04:59 Calcium/Vitamin D (Caltrate Plus Tab) 1 tab BID PO 06/17/17 08:00 07/17/17 07:59 06/17/17 08:26 1 TAB Methylprednisolone (Medrol Tab) 4 mg DAILY PO 06/17/17 08:00 07/17/17 07:59 06/17/17 08:28 4 MG Sodium Chloride 1,000 ml @ 75 mls/hr [id number] IV 06/17/17 09:30 07/17/17 09:29 06/17/17 10:31 75 MLS/HR Gadobutrol (Gadavist) 7.5 mmol UD PRN IV 06/17/17 12:15 06/21/17 12:14 Physical Exam Date Time Temp Pulse Resp B/P (MAP) Pulse Ox O2 Delivery O2 Flow Rate FiO2 06/17/17 08:12 36.5 69 20 119/62 (81) 94 Room Air 06/17/17 08:02 Room Air 06/17/17 02:30 36.5 60 18 119/69 93 Room Air 06/17/17 02:02 60 18 124/65 95 Room Air 06/17/17 00:43 63 18 119/72 94 Room Air 06/16/17 22:04 36.7 71 18 166/73 94 Room Air General Appearance: WD/WN, no apparent distress Respiratory: chest non-tender, lungs clear, normal breath sounds, no respiratory distress Cardiovascular: regular rate, rhythm, no edema, + systolic murmur Abdomen: normal bowel sounds, non tender, soft Musculoskeletal: no synovitis or effusions reduced motion picture set grip strength on right as compared to left 1st CMC arthritis noted both thumbs Neurologic/Psychiatric: alert, normal mood/affect, oriented x 3, + pertinent finding (+ median nerve compression testing on right) Skin: + pertinent finding (skin nodularity noted over right ulna that was tender and mildly erythematous) Lymphatic: no adenopathy Laboratory Results Last 24 Hours Test 06/16/17 22:50 06/17/17 07:42 06/17/17 09:09 06/17/17 12:36 White Blood Count 4.40 K/uL Red Blood Count 3.55 M/uL Hemoglobin 10.7 g/dL Hematocrit 31.8 % Mean Corpuscular Volume 89.6 fL Mean Corpuscular Hemoglobin 30.1 pg Mean Corpuscular Hemoglobin Concent 33.6 g/dl Platelet Count 366 K/uL Mean Platelet Volume 9.8 fL Neutrophils (%) (Auto) 90.2 % Lymphocytes (%) (Auto) 8.9 % Monocytes (%) (Auto) 0.5 % Eosinophils (%) (Auto) 0.0 % Basophils (%) (Auto) 0.2 % Neutrophils # (Auto) 3.97 K/uL Lymphocytes # (Auto) 0.39 K/uL Monocytes # (Auto) 0.02 K/uL Eosinophils # (Auto) 0.00 K/uL Basophils # (Auto) 0.01 K/uL RDW Standard Deviation 54.4 fL RDW Coefficient of Variation 16.7 % Immature Granulocyte % (Auto) 0.2 % Immature Granulocyte # (Auto) 0.01 K/uL Sodium Level 136 mmol/L Potassium Level 4.0 mmol/L Chloride Level 102 mmol/L Carbon Dioxide Level 24 mmol/L Anion Gap 10.0 mmol/L Blood Urea Nitrogen 22 mg/dl Creatinine 1.28 mg/dl 0.97 mg/dl Est Creatinine Clear Calc Drug Dose 51.1 ml/min 67.3 ml/min Estimated GFR () 54.1 75.7 Estimated GFR (Non- 46.7 65.3 BUN/Creatinine Ratio 17.0 Random Glucose 211 mg/dl Calcium Level 8.9 mg/dl C-Reactive Protein 0.51 mg/dl 0.45 mg/dl Bedside Glucose 230 mg/dl 104 mg/dl Erythrocyte Sedimentation Rate 11 mm/hr Prothrombin Time 10.0 SECONDS Prothromb Time International Ratio 1.0 Activated Partial Thromboplast Time 24.5 SECONDS Partial Thromboplastin Ratio 0.9 Iron Level 23 mcg/dl Total Iron Binding Capacity 311 mcg/dl Ferritin 40.2 ng/ml Total Creatine Kinase 234 U/L Assessment & Plan Assessment & Plan: Assessment: Mrs Rice is a 57 y/o immunocompromised female with history of dermatomyositis and ? sarcoid who presented with worsening right forearm swelling, redness and pain. she today is significantly better today and I wonder if more related to the IM steroids than abx. if she truly had cellulitis it should of responded to the outpatient therapies she was receiving. 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 I would suggest stopping abx after today's dose (already receiving) and starting a medrol taper today. She can resume her imuran on monday and restart her medrol daily after the medrol dose pack. I also asked her to conteact her rheuamtologist next week with an update. I will also contact Dr Milligan as well. I also discussed her case with her hopsitalist Dr Nunez. Plan: 1. stop abx after today's dose 2. start medrol dose sasha today 3. can resume imuran on monday and resume daily medrol dosing once done with dose sasha 4. contact her cavalry officer Dr Milligan next week with update 5. if skin lesion worsens or develops new ones might be best to have her see dermatology for a possible biopsy 6. thank you for the consult and involving me in this patient's care
[2017-06-17 15:35] VITALS: BP 103/64; PULSE 57; TEMP 36.5; O2SAT 97
[2017-06-17] MEDS: METHYLPREDNISOLONE 4 MG TAB PO SCH ×2 (15:49→20:31)
[2017-06-17 16:00] VITALS: O2SAT 97
--- NOTE | 2017-06-17 19:20 | ORTHOPEDIC CONSULTATION ---
DATE OF CONSULTATION: 06/17/2017 REASON FOR CONSULTATION: This is a 57-year-old right hand dominant female seen at the request of Dr. Nunez and Dr. Eddie Man for right forearm pain and swelling. HISTORY OF PRESENT ILLNESS: This is a 57-year-old female who had been in her usual state of health until approximately 5-6 days ago. She noticed some redness and swelling on the ulnar aspect of her right wrist. She was then seen by her primary care provider and was diagnosed with cellulitis. She was given an antibiotic injection and was placed on oral Keflex. She followed up 3 days later and then noted the symptoms had not improved. She was also started on Bactrim. She had no improvement in her symptoms and was returned to the office on 06/16/2017 for a followup visit and was given Solu-Medrol injection, had x-rays and she was then asked to report to the Emergency Department for evaluation and admission. The patient has had autoimmune dysfunction for several years, approximately 20 years and has had recent surgery on her right hand by Dr. Whitley for granuloma excision. She had no complaints prior to that; however, had this new episode in her dorsal lateral aspect of her right wrist the last week or so. She has been on IV antibiotics after admission to the hospital and now she states she is feeling better. She has better range of motion with dorsiflexion, volar flexion, palm up and palm down. 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 PAST SURGICAL HISTORY: Cholecystectomy, excision of granuloma right hand and exostectomy of the metacarpophalangeal joint. ALLERGIES: No known drug allergies. MEDICATIONS: Tenormin 50 mg daily, Lipitor 40 mg daily, Imuran 2 tabs p.o. q.a.m., calcium 600 plus D 1 tab p.o. t.i.d., Keflex 500 mg 1 cap p.o. b.i.d., Neurontin 200 mg p.o. t.i.d., hydrochlorothiazide 25 mg p.o. q.a.m., Zestril 20 mg p.o. q.a.m., metformin 1000 mg p.o. b.i.d., Medrol 4 mg p.o. daily, milk thistle 500 mg p.o. daily, Protonix 40 mg p.o. q.a.m. and Bactrim-DS 1 tab p.o. q. 12, Flexeril 5 mg p.o. at bedtime p.r.n., [place] 5/325 mg 1 tablet p.o. q. 6 hours p.r.n. mild pain. Naprosyn 250 mg p.o. b.i.d. p.r.n. for pain, Zofran 4 mg p.o. q. 6 hours p.r.n. for nausea, Ultram 50 mg p.o. q. 6 hours p.r.n. for pain. SOCIAL HISTORY: Denies tobacco, alcohol or drug use. She is and lives with her spouse and she is disabled. PHYSICAL EXAMINATION: GENERAL: This is a 57-year-old female who is lying supine in her hospital room bed. She is alert and oriented x3. Speech clear and fluent. Affect is appropriate. She is wearing her glasses. EXTREMITIES: Examination of the right upper extremity demonstrates skin dry, warm and intact. Cap refill is brisk, less than 2 seconds. Radial pulses 2/4 bilateral upper extremities. She has full range of motion over the right upper extremity, hand, wrist and forearm for supination and pronation, radial and ulnar deviation, dorsiflexion and volar flexion. Paid Search Marketing Analyst strength is 4/5 on the right, 5/5 in the left. She has an erythematous circular region just proximal to her ulnar styloid on the dorsal ulnar aspect of her wrist measuring approximately 5 cm x 4.5 cm in an oval pattern. There appears to be no proximal or distal extension of this erythema. It is tender to palpation. There is no fluctuance, no central fluid collection and no evidence of heterogeneity within the pattern of erythema. The patient states that with palpation. This appears to feel better than over the last 24 hours. IMAGING STUDIES: MRI and upper extremity ultrasound were reviewed and no evidence of focal fluid collection or abscess formation. IMPRESSION: 1. Right forearm focal cellulitis. 2. 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 RECOMMENDATIONS: Continue IV antibiotics. Continue observation. Not a candidate for surgical intervention at this time. Thank you for the opportunity to consult in care of this patient.
[2017-06-17 23:31] VITALS: BP 132/74; PULSE 57; TEMP 36.6; O2SAT 97
[2017-06-18] MEDS: VANCOMYCIN INJ 1,250 MG in SODIUM CHLORIDE 0.9% 250ML 250 ML IV SCH (03:26)
[2017-06-18] MEDS: SODIUM CHLORIDE 0.9% 1000ML 1,000 ML IV SCH ×2 (05:45→12:31)
[2017-06-18] MEDS: METHYLPREDNISOLONE 4 MG TAB PO SCH ×2 (05:45→12:31)
[2017-06-18] MEDS: PANTOprazole SOD 40 MG TAB PO SCH (08:08)
[2017-06-18] MEDS: GABAPENTIN 300 MG CAP PO SCH ×2 (08:08→13:54)
[2017-06-18] MEDS: ATORVASTATIN 40 MG TAB PO SCH (08:08)
[2017-06-18] MEDS: LISINOPRIL 20 MG TAB PO SCH (08:08)
[2017-06-18] MEDS: CALCIUM 600MG + VIT D 400 IU TAB PO SCH (08:09)
[2017-06-18 08:18] VITALS: BP 150/68; PULSE 61; TEMP 36.5; O2SAT 95
[2017-06-18] MEDS: INSULIN GLARGINE SOLOSTAR 100 UNITS/ML 3 ML PEN SC SCH (08:31)
[2017-06-18] MEDS: INSULIN ASPART 100 UNITS/ML 3 ML PEN SC SCH ×2 (08:31→12:39)
[2017-06-18 09:28] VITALS: O2SAT 95
--- NOTE | 2017-06-18 11:11 | Orthopedic Progress Note ---
Orthopedic Progress Note Date of Service Jun 18, 2017. Subjective Reports: feeling well, pain controlled w PO medications, Denies: complaints, chest pain, SOB, nausea / vomiting, light headedness Additional Notes: Decreased pain and redness right arm/wrist since yesterday. No fever or chills. Objective calves soft nontender, N/V intact, capillary refill less than 2 sec., A&O x3 Right ulnar distal wrist with decreased erythema and warmth. Diminished swelling and induraton right wrist mass. No abscess. DNVSI. Pulses palpable. Date Time Temp Pulse Resp B/P (MAP) Pulse Ox O2 Delivery O2 Flow Rate FiO2 06/18/17 09:28 95 Room Air 06/18/17 08:18 36.5 61 16 150/68 (95) 95 Room Air 06/18/17 00:40 Room Air 06/17/17 23:31 36.6 57 18 132/74 (93) 97 Room Air 06/17/17 16:00 97 Room Air 06/17/17 15:35 36.5 57 18 103/64 (77) 97 Room Air Laboratory Results 24 Hours: Test 06/18/17 10:50 Assessment & Plan Assessment: Cellulitis right distal ulnar aspect wrist-improved Erythema nodosum right wrist-improved Plan: No heavy lifting or repetitive tasks Velcro brace for comfort Cont PO antibiotics x 5 days F/U w/ Rheumatology this week; F/U w/ Dr Joan flores Thank you
--- NOTE | 2017-06-18 11:22 | Progress Note ---
Medicine Progress Note Date & Time of Visit: Jun 18, 2017 at 11:22. Subjective seen resting in bed, comfortable states right forearm lesion is much better, pain much better no wrist or hand pain, can move them well denies other arthralgias and myalgias, fever/chills no other symptoms states she is ready for discharge today Objective Last 8 Hrs Date Time Temp Pulse Resp B/P (MAP) Pulse Ox O2 Delivery O2 Flow Rate FiO2 06/18/17 09:28 95 Room Air 06/18/17 08:18 36.5 61 16 150/68 (95) 95 Room Air Physical Exam: General- oriented x 3, not in distress, speaks in sentences with no effort Head- atraumatic Eyes- PERRL, EOMI, anicteric ENT- oropharynx clear Neck- supple, no JVD, no adenopathy Lungs- clear breath sounds bilaterally Heart- regular rhythm; normal rate, (+) gr 4/6 systolic murmur Abdomen- normal bowel sounds, soft, nontender Extremities- right distal forearm, ulnar aspect: around 3cm raised lesion- almost flat now , with moderate erythema/tenderness/warmth--> now only mild right wrist: no erythema/warmth/edema, NO limitation of ROM right fingers: arthritic joints but no erythema/warmth/tenderness, full ROM no pretibial edema, no calf tenderness; peripheral pulses intact Neuro- alert, oriented x 3; no gross focal deficits Skin- warm & dry Laboratory Results: Last 24 Hours Test 06/17/17 12:36 06/17/17 16:27 06/17/17 20:09 06/18/17 07:51 Bedside Glucose 104 mg/dl 135 mg/dl 126 mg/dl 145 mg/dl Test 06/18/17 10:50 Assessment & Plan 57-year-old female with history of dermatomyositis and possible sarcoid presents with erythematous nodule on ulnar side of right wrist that is painful the last week RIGHT FOREARM LESION, POSSIBLE SARCOID NODULE, WITH POSSIBLE SUPERINFECTION? no response with PO Cephalexin, Bactrim started ~ 1 week ago given Solumedrol during outpatient 1 day prior to admission started on Vancomycin IV on admission MRI Right forearm: IMPRESSION: 1. Moderate degree of enhancing subcutaneous and intramuscular edema about the distal forearm involving both the volar and dorsal portions, flexor and extensor compartments suggests cellulitis with myositis. No definite evidence of tenosynovitis or drainable fluid collection to suggest abscess. 2. Mild radiocarpal and mild to moderate first carpometacarpal osteoarthritis with likely degenerative subcortical cystic changes about the distal radius and carpus as above. 3. No acute fracture. evaluated by Rheum- Dr. Kirk: most likely Erythema Nodosum also consulted Ortho- Dr. Franco: possible Focal Cellulitis placed on Medrol Dosepak dosing received 3 doses of IV Vanco forearm lesion much improved wrist and hand pain resolved per discussion with Dr. Kirk and Dr. Franco: continue Medrol Dosepak dosing---> then resume 4mg po daily antibiotics x 5 more days: Clindamycin 300mg QID x 5 days and Levaquin 500mg daily x 5 days may resume Imuran 1 day post discharge ff up with [facility] S[facility] Grader this week Dr. Oneal or Dr. Kirk encouraged to drink plenty of fluids and take yogurt daily and 1 week after completion of antibiotics discussed plan of care at length with patient and she is comfortable with the plan Dermatomyositis Imuran has been on hold since 1 week prior to admission Rheum consulted Dr. Kirk- recommend to resume Imuran Diabetes type 2 - continue usual Metformin Hypertension -controlled continue home medications including atenolol, lisinopril and hydrochlorothiazide. YANET-likely secondary to Bactrim use versus NSAID use. - crea on admission 1.28, given IV NSS - now back to baseline encouraged to drink plenty of fluids monitor renal function on follow up with PCP Anemia - decreased from baseline, no active bleeding. - Possibly related to anemia of chronic inflammation however with decreased from baseline will obtain iron studies. Colonoscopy is up-to-date. - Hg ~10 - Iron level 23 will give supplement - monitor Hg and Fe levels Chronic left bundle branch block DVT prophylaxis-Lovenox Full code Disposition - d/c home ff up with PCP in 1 week ff up with [facility] S[facility] in 3-5 dayst Current Inpatient Medications: Current Inpatient Medications Medications (Trade) Dose Ordered Sig/Jesica Route Start Time Stop Time Status Last Admin Dose Admin Enoxaparin Sodium (Lovenox Inj) 40 mg Q24H SQ 06/17/17 11:00 07/17/17 10:59 06/17/17 10:33 40 MG Acetaminophen (Tylenol Tab) 650 mg Q4H PRN PO 06/17/17 05:00 07/17/17 04:59 Polyethylene (Miralax Powder Packet) 17 gm DAILY PRN PO 06/17/17 05:00 07/17/17 04:59 Ondansetron HCl (Zofran Inj) 4 mg Q6H PRN IV 06/17/17 05:00 07/17/17 04:59 06/17/17 10:32 4 MG Insulin Glargine (Lantus Solostar Pen) 13 units Q12 SC 06/17/17 09:00 07/17/17 08:59 06/18/17 08:31 13 UNITS Insulin Aspart (novoLOG ASPART) SLIDING SCALE If C... ACHS SC 06/17/17 06:30 07/17/17 06:29 06/18/17 08:31 5 UNITS Glucose (Glucose 40% Gel) 15-30 GRAMS 15 GRAMS... UD PRN PO 06/17/17 05:00 07/17/17 04:59 Glucose (Glucose Chew Tab) 4-8 Tablets 4 Tabl... UD PRN PO 06/17/17 05:00 07/17/17 04:59 Dextrose (Dextrose 50% 50ML Syringe) 25-50ML OF 50% DW IV FOR... UD PRN IV 06/17/17 05:00 07/17/17 04:59 Glucagon (Glucagon Inj) 1 mg UD PRN SQ 06/17/17 05:00 07/17/17 04:59 Atenolol (Tenormin Tab) 50 mg QAM PO 06/17/17 08:00 07/17/17 07:59 06/18/17 08:07 50 MG Atorvastatin Calcium (Lipitor Tab) 40 mg QAM PO 06/17/17 08:00 07/17/17 07:59 06/18/17 08:08 40 MG Cyclobenzaprine HCl (Flexeril Tab) 5 mg HS PRN PO 06/17/17 05:00 07/17/17 04:59 Gabapentin (Neurontin Cap) 300 mg TID PO 06/17/17 08:00 07/17/17 07:59 06/18/17 08:08 300 MG Acetaminophen/ Hydrocodone Bitart ([place] 5/325 Tab) 1 tab Q6 PRN PO 06/17/17 05:00 07/01/17 04:59 Lisinopril (Zestril Tab) 20 mg QAM PO 06/17/17 08:00 07/17/17 07:59 06/18/17 08:08 20 MG Pantoprazole Sodium (Protonix Tab) 40 mg QAM PO 06/17/17 08:00 07/17/17 07:59 06/18/17 08:08 40 MG Tramadol HCl (Ultram Tab) 50 mg Q6 PRN PO 06/17/17 05:00 07/17/17 04:59 Calcium/Vitamin D (Caltrate Plus Tab) 1 tab BID PO 06/17/17 08:00 07/17/17 07:59 06/18/17 08:09 1 TAB Methylprednisolone (Medrol Tab) 4 mg DAILY PO 06/17/17 08:00 07/17/17 07:59 Future Hold 06/17/17 08:28 4 MG Sodium Chloride 1,000 ml @ 75 mls/hr [id number] IV 06/17/17 09:30 07/17/17 09:29 06/18/17 05:45 75 MLS/HR Gadobutrol (Gadavist) 7.5 mmol UD PRN IV 06/17/17 12:15 06/21/17 12:14 Methylprednisolone (Medrol Tab) 4 mg ,,18 PO 06/18/17 07:00 06/18/17 18:01 06/18/17 05:45 4 MG Methylprednisolone (Medrol Tab) 8 mg HS PO 06/18/17 22:00 06/18/17 22:01 Methylprednisolone (Medrol Tab) 4 mg 07,13,18,21 PO 06/19/17 07:00 06/19/17 21:01 Methylprednisolone (Medrol Tab) 4 mg 07,13,21 PO 06/20/17 07:00 06/20/17 21:01 Methylprednisolone (Medrol Tab) 4 mg 07,21 PO 06/21/17 07:00 06/21/17 21:01 Methylprednisolone (Medrol Tab) 4 mg 07 PO 06/22/17 07:00 06/22/17 07:01
[2017-06-18 11:59] LABS: BASO % 0.1 %; BASO ABS # 0.01 K/uL (0-0.2); HEMATOCRIT 28.5 % (37-47); HEMOGLOBIN 9.7 g/dL (12.0-16.0); IG# 0.02 K/uL (0.00-0.02); LYMPH % 9.5 %; LYMPH ABS # 0.73 K/uL (1.2-3.4); MEAN CELL VOLUME 91.3 fL (80-100); MEAN CORPUSCULAR HEMOGLOBIN 31.1 pg (25-34); MEAN PLATELET VOLUME 10.3 fL (7.4-10.4); MONO % 9.1 %; NEUT ABS # 6.23 K/uL (1.4-6.5); PLATELET COUNT 287 K/uL (130-400); RED CELL DISTRIBUTION WIDTH CV 16.6 % (11.5-14.5); RED CELL DISTRIBUTION WIDTH SD 55.3 fL (36.4-46.3); WHITE BLOOD COUNT 7.69 K/uL (4.8-10.8)
[2017-06-18 12:01] LABS: CALCIUM 8.6 mg/dl (8.5-10.1); CREATININE 0.8 mg/dl (0.60-1.20); POTASSIUM 4.3 mmol/L (3.5-5.1)
[2017-06-18] MEDS: ENOXAPARIN 40 MG/0.4 ML SYR SQ SCH (12:31)
[2017-06-18 13:35] VITALS: BP 150/68; PULSE 61; TEMP 36.5; O2SAT 95
[2017-06-18] MEDS ORDERED: CEFD300C2 PO (14:05)
[2017-06-18] MEDS ORDERED: [UNRECOGNIZED DRUG - CODE] PO (14:05)
[2017-06-18] MEDS ORDERED: FRRS300 PO (14:08)
--- NOTE | 2017-06-18 14:12 | Discharge Summary ---
Discharge Summary Date of Service Jun 18, 2017. Discharge Summary Admission Date: Jun 17, 2017 at 01:49 Discharge Date: Jun 18, 2017 Discharge Disposition: Home Principal Diagnosis: RIGHT FOREARM LESION, POSSIBLE ERYTHEMA NODOSUM WITH FOCAL CELLULITIS Secondary Diagnoses/Problems: PLEASE REFER TO HOSPITAL COURSE BELOW. Procedures: CHEST 2 VIEWS ROUTINE HISTORY: 57 years-old Female to assess for sarcoid type nodules or other abnormality on admis screening study for Sarcoidosis. Patient presents with acute cellulitis COMPARISON: Chest radiograph 06/15/2015 TECHNIQUE: PA and lateral views of the chest FINDINGS: Lungs are hypoinflated with mild bronchovascular crowding. Cardiac silhouette is mildly enlarged. Linear perihilar and bibasilar opacities suggest atelectasis. It is no pneumothorax, pleural effusion, focal airspace consolidation or overt pulmonary edema. The bones of the chest appear grossly intact. Degenerative changes noted within the shoulders and spine. Indeterminate 1.4 cm round radiodensity projects over the stomach. Cholecystectomy clips noted. IMPRESSION: 1. Hypoinflation with bronchovascular crowding and subsegmental perihilar and bibasilar atelectasis. 2. Cardiomegaly without pulmonary edema. The above report was generated using voice recognition software. It may contain grammatical, syntax or spelling errors. Electronically signed by: Gregory Graham M.D. 06/17/2017 9:08 AM R UPPER EXT JOINT COMBO HISTORY: 57 years-old Female r/o abscess, tenosynovitis acute swelling of the distal right forearm and wrist for one week. No improvement following oral antibiotics COMPARISON: Duplex venous Doppler of the right upper extremity 06/16/2017 TECHNIQUE: Multiplanar multisequence MRI of the right upper extremity was obtained both with and without the use of 7.5 and mild Gadavist FINDINGS: There is a moderate degree of enhancing subcutaneous and intramuscular edema about the distal forearm involving both the volar and dorsal portions, flexor and extensor compartments. Edema tracks along the myofascial boundaries. Trace fluid about the flexor compartments is likely physiologic without definite evidence of tenosynovitis. Imaged flexor and extensor tendons appear intact without tear or evidence of tendinosis. No bowing of the flexor retinaculum. Median and ulnar nerves appears unremarkable. No drainable fluid collections identified. No large joint effusion of the wrist. No acute fracture or subluxation is identified. Moderate subcortical cystic changes are noted involving the distal radius adjacent to the lunate. Moderate subcortical cystic changes are also present within the lunate and capitate to lesser extent within the triquetrum and hamate. No definite evidence of erosive arthropathy. Mild to moderate marginal spurring with joint space narrowing involves the first carpal metacarpal joint. Mild subchondral sclerosis and joint space narrowing of the radiocarpal joint. Study is not tailored to assess the pelvic structures of the wrist. IMPRESSION: 1. Moderate degree of enhancing subcutaneous and intramuscular edema about the distal forearm involving both the volar and dorsal portions, flexor and extensor compartments suggests cellulitis with myositis. No definite evidence of tenosynovitis or drainable fluid collection to suggest abscess. 2. Mild radiocarpal and mild to moderate first carpometacarpal osteoarthritis with likely degenerative subcortical cystic changes about the distal radius and carpus as above. 3. No acute fracture. The above report was generated using voice recognition software. It may contain grammatical, syntax or spelling errors. Electronically signed by: Gregory Graham M.D. 06/17/2017 1:12 PM Consultations: RHEUMATOLOGY DR. KIRK, ORTHOPEDIC DR. FRANCO Pending Studies/Follow-Up: PLEASE REFER TO HOSPITAL COURSE BELOW. Medication Reconciliation New Medications: Cefdinir (Omnicef) 300 Mg Cap 1 CAP PO BID for 5 Days, #10 CAP Ferrous Sulfate (Ferrous Sulfate) 325 Mg Tab 1 TAB PO BID for 30 Days, #60 TAB 2 Refills Methylprednisolone (Medrol) 4 Mg Tab 1 TAB PO UD for 30 Days, #40 TAB 2 Refills please take as directed Continued Medications: Atenolol (Tenormin) 50 Mg Tab 50 MG PO QAM, TAB Atorvastatin (Lipitor) 40 Mg Tab 40 MG PO QAM Azathioprine (Imuran) 50 Mg Tab 2 TABS PO QAM Calcium Carbonate-Cholecalcife (Calcium 600 + D 600-200 mg-Unit) 1 Tab Tab 1 TAB PO TID Cyclobenzaprine Hcl (Flexeril) 5 Mg Tab 5 MG PO HS PRN for Muscle Spasms Gabapentin (Neurontin) 300 Mg Cap 300 MG PO TID Hydrochlorothiazide (Hctz) 25 Mg Tab 25 MG PO QAM Hydrocodone/Acetaminophen 5MG/325MG ([place] 5MG/325MG) Tab 1 TABLET PO Q6 PRN for Mild Pain Lisinopril (Zestril) 20 Mg Tab 20 MG PO QAM Metformin HCl (Metformin HCl ER) 500 Mg Tabcr 1000 MG PO BID Methylprednisolone (Medrol) 4 Mg Tab 4 MG PO DAILY Milk Thistle (Silybum Marianum (Milk Thistle) 500 Mg Cap 500 MG PO DAILY Naproxen (Naprosyn) 250 Mg Tab 250 MG PO BID PRN for Pain take with food Pantoprazole (Protonix) 40 Mg Tab 40 MG PO QAM Tramadol (Ultram) 50 Mg Tab 50 MG PO Q6 PRN for Pain Discontinued Medications: Cephalexin Monohydrate (Keflex) 500 Mg Cap 1 CAP PO BID for 7 Days Ondansetron Hcl (Zofran) 4 Mg Tab 4 MG PO Q6 PRN for Nausea Sulfamethoxazole-Trimethoprim (Bactrim Ds 800MG/160MG) 1 Tab Tab 1 TAB PO Q12 for 10 Days Admission Information HPI (per Admitting provider): The patient is a 57-year-old female presents to the emergency room with complaints of pain and swelling in her right wrist. She first noticed the pain 1 week ago and was placed on Keflex with a Rocephin shot. She followed up 3 days later and the symptoms have not improved so she was also started on Bactrim. She remains on both antibiotics today. Today for a follow-up visit with her primary care doctor she was no better and was received and injection of Solu-Medrol and x-rays of the forearm which were negative. The patient does not denies any streaking of the redness or fevers or chills. She denies any worsening joint pain. She has a history of dermatomyositis and is on chronic steroids and immunosuppressants she is followed with slotter operator helper Dr. Julio Ferguson in [place]. She does have a history of hand nodules which were biopsied twice both of which showed necrotizing granulomas. Cultures for Mycobacterium and fungi were negative. She has a very small pulmonary nodule that needs to be follow-up followed up in 1 year. Rheumatoid factor is negative , she has no inflammatory arthritis, per rheumatology these nodules would be very myositis. Sarcoidosis remains in the differential. The patient denies any trauma to the wrist hand or forearm including trauma from manicures, gardening or other. Review of systems is negative for nausea vomiting GI upset diarrhea, shortness of breath or chest pain, or any other symptom at this time. Physical Exam (per Admitting): General Appearance: WD/WN, no apparent distress Head: normocephalic, atraumatic Eyes: normal inspection, sclerae normal ENT: hearing grossly normal, pharynx normal Neck: trachea midline Respiratory/Chest: lungs clear, normal breath sounds, no respiratory distress, no accessory muscle use Cardiovascular: regular rate, rhythm, no edema, no gallop, no JVD, normal peripheral pulses, + systolic murmur Abdomen/GI: normal bowel sounds, non tender, soft, no organomegaly Extremities/Musculoskelatal: + pertinent finding (Large immobile tender erythematous nodule on the ulnar side of the left wrist) 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 Moderate degree of enhancing subcutaneous and intramuscular edema about the distal forearm involving both the volar and dorsal portions, flexor and extensor compartments suggests cellulitis with myositis. No definite evidence of tenosynovitis or drainable fluid collection to suggest abscess. 2. Mild radiocarpal and mild to moderate first carpometacarpal osteoarthritis with likely degenerative subcortical cystic changes about the distal radius and carpus as above. 3. No acute fracture. evaluated by Rheum- Dr. Kirk: most likely Erythema Nodosum also consulted Ortho- Dr. Franco: possible Focal Cellulitis Medrol increased to Medrol Dosepak received 3 doses of IV Vanco while admitted forearm lesion much improved, afebrile, no leukocytosis wrist and hand pain resolved per discussion with Dr. Kirk and Dr. Franco: continue Medrol Dosepak dosing---> then resume 4mg po daily antibiotics x 5 more days: Clindamycin 300mg QID x 5 days and Levaquin 500mg daily x 5 days may resume Imuran 1 day post discharge ff up with Assistant Football Coach this week Dr. Ferguson or Dr. Kirk encouraged to drink plenty of fluids and take yogurt daily and 1 week after completion of antibiotics discussed plan of care at length with patient and she is comfortable with the plan Dermatomyositis Imuran has been on hold since 1 week prior to admission Dr. Kirk recommends to resume Imuran 06/19/17 Diabetes type 2 - continue usual Metformin Hypertension -controlled continue home medications including atenolol, lisinopril and hydrochlorothiazide. ACUTE KIDNEY INJURY - likely secondary to Bactrim use versus NSAID use. - crea on admission 1.28, given IV NSS - now back to baseline encouraged to drink plenty of fluids monitor renal function on follow up with PCP Anemia - decreased from baseline, no active bleeding. - Possibly related to anemia of chronic inflammation however with decreased from baseline will obtain iron studies. Colonoscopy is up-to-date. - Hg ~10 - Iron level 23 will give Ferrous Gluc BID - monitor Hg and Fe levels Chronic left bundle branch block QT prolonged at 512--> hold Zofran PO monitor EKG Disposition - d/c home ff up with PCP in 1 week ff up with Assistant Football Coach in 3-5 dayst Total time spent on discharge = 35 MINUTES This includes examination of the patient, discharge planning, medication reconciliation, and communication with other providers. Discharge Instructions Discharge Instructions Date of Service Jun 18, 2017. Admission Reason for Admission: Cellulitis Discharge Discharge Diagnosis / Problem: Right Forearm Erythema Nodosum, Focal Cellulitis Discharge Goals Goal(s): Diagnostic testing, Therapeutic intervention Activity Recommendations Activity Limitations: resume your previous activity . Instructions / Follow-Up Instructions / Follow-Up PLEASE REVIEW YOUR NEW MEDICATION LIST AND FOLLOW INSTRUCTIONS CAREFULLY. TAKE MEDROL FOLLOWS: june 18, 2017: take 1 tab at 6pm and 2 tabs at bedtime june 19, 2017: take 1 tab at 7am, 1 pm, 6pm and at bedtime june 20, 2017: take 1 tab at 7am, 1 pm, 6pm june 21, 2017: take 1 tab at 7am, and 6pm june 22, 2017: resume taking 1 tab daily CALL THE [facility] OR PRIMARY CARE PHYSICIAN IF WITH WORSENING OF SYMPTOMS. FOLLOW UP WITH DR. FERGUSON OR DR. KIRK IN 3-5 DAYS. FOLLOW UP WITH DR. TOM ON FRIDAY JUNE 23, 2017 AT 10:25AM. Current Hospital Diet Patient's current hospital diet: AHA Diet (Heart Healthy), Diabetes Type 2 Diet Discharge Diet Recommended Diet: AHA Diet (Heart Healthy), Diabetes Type 2 Diet Procedures Procedures Performed: MRI RIGHT FOREARM Pending Studies Studies pending at discharge: no Medical Emergencies . Who to Call and When: Medical Emergencies: If at any time you feel your situation is an emergency, please call 911 immediately. . Non-Emergent Contact Non-Emergency issues call your: Primary Care Provider, Specialist ( [facility]) Call Non-Emergent contact if: you have a fever, your pain is not controlled, your pain is worsening, you have any medication questions . . "Provider Documentation" section prepared by Bob Nunez. .
[2017-06-18] MEDS ORDERED: METHYLPREDNISOLONE 4 MG TAB PO SCH (22:00)
[2017-06-19] MEDS ORDERED: VANCOMYCIN TROUGH ONE (01:30)
[2017-06-19] MEDS ORDERED: METHYLPREDNISOLONE 4 MG TAB PO SCH (07:00)
[2017-06-20] MEDS ORDERED: METHYLPREDNISOLONE 4 MG TAB PO SCH (07:00)
[2017-06-21] MEDS ORDERED: METHYLPREDNISOLONE 4 MG TAB PO SCH (07:00)
[2017-06-22] MEDS ORDERED: METHYLPREDNISOLONE 4 MG TAB PO SCH (07:00)
== END 2017-06-18 15:09 | disposition home or self-care (01) | DRG 596 ==
LOC: C.EDB 21:57 → C.MS4W 06-17 01:49 → ENRESERV 06-17 02:09
PROVIDERS: ADMIT Hospitalist; ATTEND Internal Medicine
DX: L52 Erythema nodosum (principal); L03.113 Cellulitis of right upper limb; M33.90 Dermatopolymyositis, unspecified, organ involvement unspecified; N17.9 Acute kidney failure, unspecified; T37.0X5A Adverse effect of sulfonamides, initial encounter; T39.315A Adverse effect of propionic acid derivatives, initial encounter; E11.9 Type 2 diabetes mellitus without complications; I10 Essential (primary) hypertension; D64.9 Anemia, unspecified; I44.7 Left bundle-branch block, unspecified; K75.4 Autoimmune hepatitis; G50.0 Trigeminal neuralgia; Z79.52 Long term (current) use of systemic steroids; Z79.84 Long term (current) use of oral hypoglycemic drugs; Z79.899 Other long term (current) drug therapy; Z90.49 Acquired absence of other specified parts of digestive tract; Z98.890 Other specified postprocedural states; Z82.61 Family history of arthritis; Z82.49 Family history of ischemic heart disease and other diseases of the circulatory system

== ENCOUNTER 2020-06-20 09:59 | Inpatient (IN) ==
[2020-06-20] MEDS ORDERED: MoRPHine SULFATE 4 MG/ML 1 ML CARP\\VIAL IV PRN (10:06)
--- NOTE | 2020-06-20 10:11 | Emergency Department Note ---
History of Present Illness General Chief complaint: Hip Pain Time Seen by Provider: 06/20/20 10:01 Source: patient Mode of arrival: EMS Limitations: patient cooperation and clinical acuity History of Present Illness Provider complaint: Fall, right hip pain Onset (ago): hour(s) Location: hip Radiation: non-radiation Severity: severe Pain Consistency: + constant Quality: + constant Exacerbated By: + movement Associated symptoms: + denies other symptoms Treatments prior to arrival: none This is a 60-year-old female brought in by EMS after a fall at home. Patient states she excellently tripped, and fell landing on her right hip. Patient denied any head injury or loss of consciousness. Patient denies any pain at her upper extremity. Patient does have history of prior back surgery she states that the lower lumbar spine. No prior hip injury or accompanying hip pain. Patient states she was feeling in her usual state of health prior to the fall. No treatment given by EMS prior to arrival. Patient unable to get up so EMS was summoned. Patient does not take any anticoagulation. Patient denies any recent exposure to coronavirus or known sick contact otherwise. Pt seen during a time of high acuity and national emergency pandemic while wearing PPE. Home Medications Medication Instructions Recorded Confirmed Type atorvastatin [Lipitor] 40 mg PO QAM 08/15/19 06/20/20 History calcium carbonate-vitamin D3 1 tab PO DAILY 08/15/19 06/20/20 History [Calcium 500 + D] cyanocobalamin (vitamin B-12) 1,000 mcg PO QPM 08/15/19 06/20/20 History [Vitamin B-12] cyclobenzaprine 5 mg PO HS 08/15/19 06/20/20 History hydrochlorothiazide 25 mg PO QAM 08/15/19 06/20/20 History hydroxychloroquine [Plaquenil] 400 mg PO HS 08/15/19 06/20/20 History methylprednisolone [Medrol] 4 mg PO QAM 08/15/19 06/20/20 History milk thistle 500 mg PO QPM 08/15/19 06/20/20 History ondansetron HCl [Zofran] 4 mg PO Q6H PRN 08/15/19 06/20/20 History pantoprazole [Protonix] 40 mg PO QAM 08/15/19 06/20/20 History pregabalin [Lyrica] 75 mg PO TID 08/15/19 06/20/20 History topiramate 50 mg PO BID 08/15/19 06/20/20 History tramadol 50 mg PO Q6H PRN #30 tab 08/22/19 06/20/20 Rx diclofenac sodium 1 g TOPICAL QID PRN 06/20/20 06/20/20 History duloxetine 60 mg PO DAILY 06/20/20 06/20/20 History losartan 25 mg PO DAILY 06/20/20 06/20/20 History metformin 1,000 mg PO DAILY 06/20/20 06/20/20 History naproxen 500 mg PO BID PRN 06/20/20 06/20/20 History potassium chloride 10 meq PO DAILY 06/20/20 06/20/20 History Allergies Allergy/AdvReac Type Severity Reaction Status Date / Time No Known Allergies Allergy Verified 06/20/20 11:30 Past Med/Surg History Medical History (Updated 06/20/20 @ 18:18 by Laura Flowers PA-C) Autoimmune hepatitis follows with GI (Dr. Rahman) Chronic back pain TO LEGS Chronic steroid use Dermatomyositis follows with rheumatology (Dr. 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- on chronic steroids*/plaquenil per rheumatology Renal artery aneurysm under surveillance Splenic artery aneurysm under surveillance Trigeminal neuralgia Surgical History History of appendectomy History of arthroscopy of left knee History of cholecystectomy History of colonoscopy W/ POLYPECTOMY History of esophagogastroduodenoscopy (EGD) History of hand surgery REMOVAL GRANULOMA RT HAND X 2 History of hernia repair left inguinal History of hysterectomy partial with left ovary and tubes History of lumbar spinal fusion (~08/2019) History of oophorectomy, unilateral right History of tonsillectomy and adenoidectomy Status post lumbar surgery Family History Other No family history of adverse response to anesthesia No significant family history Social History Smoking Status: Never smoker Second Hand Exposure: Yes (parents smoked); Hx Alcohol Use: Yes Alcohol type: wine Hx Substance Use: No Preferred Language: Estonian Communication Ability: Effective Gre Instructor Required: No Beliefs That Will Affect Care: None marital status: Current Living Situation: Spouse Other Information That Helps Us Care for You: No Feels Safe at Home: Yes Safety Concerns: Feels Safe At This Time Assistive Devices: Glasses Review of Systems See HPI for pertinent positives & negatives. and A total of 10 systems reviewed and were otherwise negative Physical Exam Vital Signs Vital Signs - 24 hr 06/20/20 10:08 06/20/20 11:16 06/20/20 12:08 Temperature 36.7 C Temperature Source Oral Pulse Rate 69 Pulse Rate [Finger] 64 63 Respiratory Rate 24 20 16 Respiratory Effort / Characteristics Non-Labored Spontaneous Respiratory Depth Normal Blood Pressure 168/69 H Blood Pressure [Right Arm] 160/61 H 146/77 H Blood Pressure Mean 102 Blood Pressure Mean [Right Arm] 94 100 Pulse Oximetry 100 97 99 Oxygen Delivery Method Room Air Room Air Room Air Sepsis Recent Fever Within 48 Hours No Sepsis New/Unexplained Change in Mental Status N/A Sepsis Action Taken by Nursing No Action Required GENERAL: alert, uncomfortable appearing, well nourished, moderate distress, non- toxic, laying left lateral recumbent EYE EXAM: normal conjunctiva, PERRL and EOM's grossly intact OROPHARYNX: no exudate, no erythema, lips, buccal mucosa, and tongue normal and mucous membranes are moist NECK: supple, no nuchal rigidity, no adenopathy, non-tender LUNGS: Clear to auscultation. Normal chest wall mechanics, no w/r/r HEART: no murmurs, S1 normal and S2 normal ABDOMEN: abdomen soft, non-tender, normo-active bowel sounds, no masses, no rebound or guarding. BACK: Back is symmetrical on inspection and there is no deformity, no midline tenderness, no CVA tenderness. SKIN: no rashes and no bruising UPPER EXTREMITIES: upper extremities are grossly normal. FROM, nml pulses b/l. LOWER EXTREMITIES: No pitting edema. nml pulses b/l. Pain over the area of the right lateral hip, no overlying ecchymosis, pain with palpation, significantly decreased range of motion secondary to pain, mild deformity noted. Sensation is intact, patient can wiggle toes. Compartments soft. No obvious joint effusions. NEURO EXAM: Normal sensorium, cranial nerves II-XII grossly intact, normal speech, no gross weakness of arms, unable to perform additional testing of the lower extremities due to pain. Gross sensation intact. Course Course 1045: Repeat exam in the patient now that she has had some pain medication and is in a supine position and appears slightly more comfortable. Patient still complains of pain at the right lateral hip, nonradiating, no accompanying numbness or tingling. Patient's pelvis is stable to compression, no pain on the left hemipelvis or over the left hip. Patient able to wiggle toes bilaterally, normal sensation bilaterally, no other evidence of obvious deformity or joint effusion. Patient again denies any other concern for pain or injury, denies head injury or LOC. Patient states she is slightly nauseated since receiving the pain medication. We will add Zofran. 1140: Patient updated on results. At the patient's request, I also updated the via her phone. Patient has previously seen Dr. Hester for back problems, he would like to stay with [facility] for any orthopedic care. 1203: Patient now states she would like to have Dr. Flowers for orthopedics. 1215: Discussed with Laura Flowers, [facility]. 1218: Discussed with Dr. Flowers, computer [facility] orthopedics. Administered Medications Acetaminophen (Acetaminophen 500 Mg Tab) 1,000 mg PO Q8 NIXON Stop: 07/20/20 16:59 Last Admin: 06/20/20 17:17 Dose: 1,000 mg Documented by: [id number] Insulin Aspart (Insulin Aspart 100 Units/Ml 3 Ml Pen) 0 units SC ACHS NIXON Stop: 07/20/20 16:59 Last Admin: 06/20/20 17:49 Dose: Not Given Documented by: [id number] Discontinued Medications Diphenhydramine HCl (Diphenhydramine 50 Mg/Ml Vial) 12.5 mg IV NOW STA Stop: 06/20/20 11:57 Last Admin: 06/20/20 12:09 Dose: 12.5 mg Documented by: [id number] Famotidine (Famotidine 20mg/5ml Iv Push) 20 mg IV ONE STA Stop: 06/20/20 10:59 Last Admin: 06/20/20 11:02 Dose: 20 mg Documented by: [id number] Lactated Ringer's (Lr) 1,000 mls @ 100 mls/hr IV .Q10H NIXON Stop: 07/20/20 10:14 Last Infusion: 06/20/20 17:12 Dose: 0 mls/hr Documented by: [id number] Admin: 06/20/20 15:49 Dose: 100 mls/hr Documented by: [id number] Infusion: 06/20/20 15:49 Dose: 150 mls/hr Documented by: [id number] Admin: 06/20/20 10:14 Dose: 150 mls/hr Documented by: [id number] Prochlorperazine (Compazine) 1 mls @ 1 mls/min IV ONE ONE Stop: 06/20/20 11:57 Last Admin: 06/20/20 12:09 Dose: 1 mls/min Documented by: [id number] Morphine Sulfate (Morphine Sulfate 4 Mg/Ml 1 Ml Carp\Vial) 4 mg IV Q1H PRN PRN Reason: Severe Pain (Rating 7,8,9,10) Stop: 07/04/20 10:05 Last Admin: 06/20/20 10:14 Dose: 4 mg Documented by: [id number] Morphine Sulfate (Morphine Sulfate 4 Mg/Ml 1 Ml Carp\Vial) 4 mg IV NOW STA Stop: 06/20/20 10:59 Last Admin: 06/20/20 11:02 Dose: 4 mg Documented by: [id number] Ondansetron HCl (Ondansetron Inj 2 Mg/Ml 2 Ml Vial) 4 mg IV NOW STA Stop: 06/20/20 10:42 Last Admin: 06/20/20 10:48 Dose: 4 mg Documented by: [id number] Ondansetron HCl (Ondansetron Inj 2 Mg/Ml 2 Ml Vial) 4 mg IV NOW STA Stop: 06/20/20 10:59 Last Admin: 06/20/20 11:02 Dose: 4 mg Documented by: [id number] Medical Decision Making Differential Diagnosis Fracture, subluxation, dislocation, contusion, ligamentous injury, neurovascular, compartment syndrome, rhabdomyolysis, as well as other pathologies. Medical Records Attestation: I reviewed the patient's medical records. Home Medications Current Medication List: was personally reviewed by me Laboratory Data Attestation: I reviewed the patient's lab results. Result diagrams: 06/20/20 10:10 06/20/20 10:10 Lab Results 06/20/20 06/20/20 06/20/20 Range/Units 10:07 10:07 10:10 WBC 7.17 (4.8-10.8) K/uL RBC 4.34 (4.2-5.4) M/uL Hgb 13.3 (12.0-16.0) g/dL Hct 40.9 (37-47) % MCV 94.2 (80-100) fL MCH 30.6 (25-34) pg MCHC 32.5 (32-36) g/dL RDW Std Deviation 45.2 (36.4-46.3) fL RDW Coeff of Maria R 13.1 (11.5-14.5) % Plt Count 233 (130-400) K/uL MPV 10.5 H (7.4-10.4) fL Immature Gran % (Auto) 0.3 % Neut % (Auto) 76.6 % Lymph % (Auto) 13.4 % Mason % (Auto) 7.8 % Eos % (Auto) 1.5 % Baso % (Auto) 0.4 % Neut # (Auto) 5.49 (1.4-6.5) K/uL Lymph # (Auto) 0.96 L (1.2-3.4) K/uL Mason # (Auto) 0.56 (0.11-0.59) K/uL Eos # (Auto) 0.11 (0-0.5) K/uL Baso # (Auto) 0.03 (0-0.2) K/uL Immature Gran # (Auto) 0.02 (0.00-0.02) K/uL PT (9.0-12.0) Seconds INR (0.9-1.1) APTT (21.0-31.0) Seconds PTT Ratio Sodium (136-145) mmol/L Potassium (3.5-5.1) mmol/L Chloride (98-107) mmol/L Carbon Dioxide (21-32) mmol/L Anion Gap (3-11) BUN (7-18) mg/dl Creatinine (0.6-1.2) mg/dl Est Cr Clr Drug Dosing ml/min Est GFR ( Amer) Est GFR (Non-Af Amer) BUN/Creatinine Ratio (10-20) Glucose (70-99) mg/dl Calcium (8.5-10.1) mg/dl Magnesium 2.1 (1.8-2.4) mg/dl Total Bilirubin (0.2-1) mg/dl AST (15-37) U/L ALT (12-78) U/L Alkaline Phosphatase (45-117) U/L Troponin I < 0.015 (0-0.045) ng/ml Total Protein (6.4-8.2) gm/dl Albumin (3.4-5.0) gm/dl Globulin (2.5-4.0) gm/dl Albumin/Globulin Ratio (0.9-2) Urine Color Urine Appearance (Clear) Urine pH (4.5-7.5) Ur Specific Jewett (1.000-1.030) Urine Protein (Negative) Urine Glucose (UA) (Negative) Urine Ketones (Negative) Urine Blood (Negative) Urine Nitrite (Negative) Urine Bilirubin (Negative) Urine Urobilinogen (Negative) Ur Leukocyte Esterase (Negative) COVID-19 Eval Order SARS-CoV-2, RNA, NAAT (NEGATIVE) 06/20/20 06/20/20 06/20/20 Range/Units 10:10 10:10 10:30 WBC (4.8-10.8) K/uL RBC (4.2-5.4) M/uL Hgb (12.0-16.0) g/dL Hct (37-47) % MCV (80-100) fL MCH (25-34) pg MCHC (32-36) g/dL RDW Std Deviation (36.4-46.3) fL RDW Coeff of Maria R (11.5-14.5) % Plt Count (130-400) K/uL MPV (7.4-10.4) fL Immature Gran % (Auto) % Neut % (Auto) % Lymph % (Auto) % Mason % (Auto) % Eos % (Auto) % Baso % (Auto) % Neut # (Auto) (1.4-6.5) K/uL Lymph # (Auto) (1.2-3.4) K/uL Mason # (Auto) (0.11-0.59) K/uL Eos # (Auto) (0-0.5) K/uL Baso # (Auto) (0-0.2) K/uL Immature Gran # (Auto) (0.00-0.02) K/uL PT 10.2 (9.0-12.0) Seconds INR 1.0 (0.9-1.1) APTT 26.8 (21.0-31.0) Seconds PTT Ratio 1.0 Sodium 141 (136-145) mmol/L Potassium 3.6 (3.5-5.1) mmol/L Chloride 107 (98-107) mmol/L Carbon Dioxide 28 (21-32) mmol/L Anion Gap 7.0 (3-11) BUN 20 H (7-18) mg/dl Creatinine 0.83 (0.6-1.2) mg/dl Est Cr Clr Drug Dosing 68.5 ml/min Est GFR ( Amer) 89.5 Est GFR (Non-Af Amer) 77.2 BUN/Creatinine Ratio 24.3 H (10-20) Glucose 106 H (70-99) mg/dl Calcium 9.7 (8.5-10.1) mg/dl Magnesium (1.8-2.4) mg/dl Total Bilirubin 0.7 (0.2-1) mg/dl AST 20 (15-37) U/L ALT 20 (12-78) U/L Alkaline Phosphatase 91 (45-117) U/L Troponin I (0-0.045) ng/ml Total Protein 6.9 (6.4-8.2) gm/dl Albumin 4.0 (3.4-5.0) gm/dl Globulin 2.9 (2.5-4.0) gm/dl Albumin/Globulin Ratio 1.4 (0.9-2) Urine Color Yellow Urine Appearance Clear (Clear) Urine pH 7.5 (4.5-7.5) Ur Specific Jewett 1.012 (1.000-1.030) Urine Protein Negative (Negative) Urine Glucose (UA) Negative (Negative) Urine Ketones Negative (Negative) Urine Blood Negative (Negative) Urine Nitrite Negative (Negative) Urine Bilirubin Negative (Negative) Urine Urobilinogen Negative (Negative) Ur Leukocyte Esterase Negative (Negative) COVID-19 Eval Order SARS-CoV-2, RNA, NAAT (NEGATIVE) 06/20/20 06/20/20 Range/Units 12:36 12:36 WBC (4.8-10.8) K/uL RBC (4.2-5.4) M/uL Hgb (12.0-16.0) g/dL Hct (37-47) % MCV (80-100) fL MCH (25-34) pg MCHC (32-36) g/dL RDW Std Deviation (36.4-46.3) fL RDW Coeff of Maria R (11.5-14.5) % Plt Count (130-400) K/uL MPV (7.4-10.4) fL Immature Gran % (Auto) % Neut % (Auto) % Lymph % (Auto) % Mason % (Auto) % Eos % (Auto) % Baso % (Auto) % Neut # (Auto) (1.4-6.5) K/uL Lymph # (Auto) (1.2-3.4) K/uL Mason # (Auto) (0.11-0.59) K/uL Eos # (Auto) (0-0.5) K/uL Baso # (Auto) (0-0.2) K/uL Immature Gran # (Auto) (0.00-0.02) K/uL PT (9.0-12.0) Seconds INR (0.9-1.1) APTT (21.0-31.0) Seconds PTT Ratio Sodium (136-145) mmol/L Potassium (3.5-5.1) mmol/L Chloride (98-107) mmol/L Carbon Dioxide (21-32) mmol/L Anion Gap (3-11) BUN (7-18) mg/dl Creatinine (0.6-1.2) mg/dl Est Cr Clr Drug Dosing ml/min Est GFR ( Amer) Est GFR (Non-Af Amer) BUN/Creatinine Ratio (10-20) Glucose (70-99) mg/dl Calcium (8.5-10.1) mg/dl Magnesium (1.8-2.4) mg/dl Total Bilirubin (0.2-1) mg/dl AST (15-37) U/L ALT (12-78) U/L Alkaline Phosphatase (45-117) U/L Troponin I (0-0.045) ng/ml Total Protein (6.4-8.2) gm/dl Albumin (3.4-5.0) gm/dl Globulin (2.5-4.0) gm/dl Albumin/Globulin Ratio (0.9-2) Urine Color Urine Appearance (Clear) Urine pH (4.5-7.5) Ur Specific Jewett (1.000-1.030) Urine Protein (Negative) Urine Glucose (UA) (Negative) Urine Ketones (Negative) Urine Blood (Negative) Urine Nitrite (Negative) Urine Bilirubin (Negative) Urine Urobilinogen (Negative) Ur Leukocyte Esterase (Negative) COVID[facility]19 [facility], RNA, NAAT NEGATIVE (NEGATIVE) Imaging Data Radiologist's Impression: XR hip RT 2V w pelvis HISTORY: 60 years-old Female trauma acute pelvic pain status post fall COMPARISON: CT abdomen and pelvis 08/31/2019 TECHNIQUE: AP view of the pelvis with crosstable lateral view of the right hip FINDINGS: There is a subcapital slightly impacted and minimally medially displaced fracture of the right femur which is new from 08/31/2019. There is no dislocation . Mild osteoarthritis of the bilateral hips. Posterior interbody henry and screw fusion with discectomy changes at L4-L5. Moderate fecal retention. IMPRESSION: Subcapital mildly impacted fracture of the right femur is new from 08/31/2019, likely acute. No dislocation. ACT 112: Negative or not required by law. The above report was generated using voice recognition software. It may contain grammatical, syntax or spelling errors. Electronically signed by: Gregory Graham M.D. 06/20/2020 11:36 AM XR chest 1V portable HISTORY: 60 years-old Female fall chest trauma status post fall COMPARISON: Chest radiograph and CTA chest 10/11/2018 TECHNIQUE: Supine AP view of the chest FINDINGS: Cardiac silhouette is enlarged. Unchanged right hemidiaphragmatic elevation. No pneumothorax, pleural effusion, airspace consolidation or overt pulmonary edema. Minimal bibasilar atelectasis. Bones of the chest appear grossly intact. Cholecystectomy. IMPRESSION: No acute process. ACT 112: Negative or not required by law. The above report was generated using voice recognition software. It may contain grammatical, syntax or spelling errors. Electronically signed by: Gregory Graham M.D. 06/20/2020 11:40 AM ECG Data Attestation: I personally reviewed and interpreted this ECG as follows: Indication: + other Rate (beats per minute): 59 Rhythm: + sinus bradycardia ECG Intervals/blocks: + Left bundle branch block ECG Mcfarland: + Left axis deviation ECG ST segments: + Nonspecific ST abnormalities Comparison ECG Date: from (08/31/2019) Change: no significant change MDM Narrative Is a 60-year-old female presents from home after mechanical trip and fall landing on the right hip. Given concern for mechanism, pain, and mild deformity noted on initial exam, labs are drawn and sent, x-rays performed, patient given morphine through the IV for pain. Repeat exam, patient still with pain over the at right hip, and x-rays positive for subcapital hip fracture. Case discussed with hospitalist and with orthopedic surgery on-call for additional inpatient management. Other preoperative measures checked including chest x-ray and EKG. Patient had no concern for any additional injury, denied any other new or evolving complaints when the emergency room. I did asked patient on more than one occasion if she had sustained any injury to her head or loss consciousness and she denied this. Patient denied any other prodromal symptoms to suggest this was a syncopal event. An order was placed for continuous cardiac monitoring. The monitor shows a rate of 70_ with normal sinus_ rhythm. Impression & Plan Closed hip fracture, Fall Discharge Plan Visit Data Chief Complaint: Hip Pain ED Provider: Maribel Adkins Discharge Problem: Closed hip fracture, Fall Patient Disposition: Admitted As Inpatient Discharge Instructions Interventions: ED Discharge Assessment Last Done: 06/20/20 13:38 Discharge Problem: Closed hip fracture Qualifiers: Encounter type: initial encounter Laterality: right Qualified Code(s): S72.001A - Fracture of unspecified part of neck of right femur, initial encounter for closed fracture Fall Qualifiers: Encounter type: initial encounter Qualified Code(s): W19.XXXA - Unspecified fall, initial encounter
[2020-06-20] MEDS: LACTATED RINGER'S 1,000 ML IV SCH ×2 (10:14→15:49)
[2020-06-20 10:23] LABS: Basophils # (auto) 0.03 K/uL (0-0.2); Basophils % (auto) 0.4 %; Eosinophils # (auto) 0.11 K/uL (0-0.5); Eosinophils % (auto) 1.5 %; Hematocrit (blood only) 40.9 % (37-47); Hemoglobin 13.3 g/dL (12.0-16.0); Immature Granulocytes # (auto) 0.02 K/uL (0.00-0.02); Immature Granulocytes % (auto) 0.3 %; Lymphocytes # (auto) 0.96 K/uL (1.2-3.4); Lymphocytes % (auto) 13.4 %; Mean Corpuscular Hemoglobin 30.6 pg (25-34); Mean Corpuscular Hgb Conc 32.5 g/dL (32-36); Mean Corpuscular Volume 94.2 fL (80-100); Mean Platelet Volume 10.5 fL (7.4-10.4); Monocytes # (auto) 0.56 K/uL (0.11-0.59); Monocytes % (auto) 7.8 %; Neutrophils # (auto) 5.49 K/uL (1.4-6.5); Neutrophils % (auto) 76.6 %; Platelet Count 233 K/uL (130-400); RDW Coefficient of Variation 13.1 % (11.5-14.5); RDW Standard Deviation 45.2 fL (36.4-46.3); Red Blood Count 4.34 M/uL (4.2-5.4); White Blood Count 7.17 K/uL (4.8-10.8)
[2020-06-20 10:34] LABS: Partial Thromboplastin Time 26.8 Seconds (21.0-31.0); Prothrombin Time 10.2 Seconds (9.0-12.0)
[2020-06-20 10:39] LABS: BUN Creatinine Ratio 24.3 (10-20); Calcium 9.7 mg/dl (8.5-10.1); Creatinine Clr Calc Pharmacy 68.5 ml/min; Est GFR (African American) 89.5; Est GFR (Non-African American) 77.2; Potassium 3.6 mmol/L (3.5-5.1)
[2020-06-20] MEDS ORDERED: ONDANSETRON INJ 2 MG/ML 2 ML VIAL IV STA ×2 (10:41→10:58)
[2020-06-20 10:42] LABS: Albumin Globulin Ratio 1.4 (0.9-2); Bilirubin,Total 0.7 mg/dl (0.2-1); Globulin 2.9 gm/dl (2.5-4.0); Total Protein 6.9 gm/dl (6.4-8.2)
[2020-06-20 10:54] LABS: Appearance Urine Clear (Clear); Bilirubin Urine Negative (Negative); Blood Urine Negative (Negative); Color Urine Yellow; Glucose Urine UA Negative (Negative); Ketones Urine Negative (Negative); Leukocyte Esterase Urine Negative (Negative); Nitrite Urine Negative (Negative); Protein Urine Negative (Negative); Specific Gravity Urine 1.012 (1.000-1.030); Urobilinogen Urine Negative (Negative); pH Urine 7.5 (4.5-7.5)
[2020-06-20] MEDS ORDERED: MoRPHine SULFATE 4 MG/ML 1 ML CARP\\VIAL IV STA (10:58)
[2020-06-20] MEDS ORDERED: FAMOTIDINE 20MG/5ML IV PUSH IV STA (10:58)
--- NOTE | 2020-06-20 11:37 | XRay Report ---
XR hip RT 2V w pelvis HISTORY: 60 years-old Female trauma acute pelvic pain status post fall COMPARISON: CT abdomen and pelvis 08/31/2019 TECHNIQUE: AP view of the pelvis with crosstable lateral view of the right hip FINDINGS: There is a subcapital slightly impacted and minimally medially displaced fracture of the right femur which is new from 08/31/2019. There is no dislocation. Mild osteoarthritis of the bilateral hips. Post erior interbody henry and screw fusion with discectomy changes at L4-L5. Moderate fecal retention. IMPRESSION: Subcapital mildly impacted fracture of the right femur is new from 08/31/2019, likely acut e. No dislocation. ACT 112: Negative or not required by law. The above report was generated using voice recognition software. It may contain grammatical, syntax o r spelling errors. Electronically signed by: Gregory Graham M.D. 06/20/2020 11:36 AM
--- NOTE | 2020-06-20 11:41 | XRay Report ---
XR chest 1V portable HISTORY: 60 years-old Female fall chest trauma status post fall COMPARISON: Chest radiograph and CTA chest 10/11/2018 TECHNIQUE: Supine AP view of the chest FINDINGS: Cardiac silhouette is enlarged. Unchanged right hemidiaphragmatic elevation. No pneumothorax, pleural effusion, airspace consolidation or overt pulmonary edema. Minimal bibasilar atelectasis. Bones of t he chest appear grossly intact. Cholecystectomy. IMPRESSION: No acute process. ACT 112: Negative or not required by law. The above report was generated using voice recognition software. It may contain grammatical, syntax o r spelling errors. Electronically signed by: Gregory Graham M.D. 06/20/2020 11:40 AM
[2020-06-20] MEDS ORDERED: diphenhydrAMINE 50 MG/ML VIAL IV STA (11:56)
[2020-06-20] MEDS ORDERED: PROCHLORPERAZINE 1 ML IV ONE (11:56)
--- NOTE | 2020-06-20 12:16 | Electrocardiogram Report ---
Test Reason : Blood Pressure : / mmHG Vent. Rate : 059 BPM Atrial Rate : 059 BPM P-R Int : 162 ms QRS Dur : 158 ms QT Int : 480 ms P-R-T Axes : 027 -27 119 degrees QTc Int : 475 ms Sinus bradycardia Left bundle branch block Abnormal ECG When compared with ECG of 31-AUG-2019 05:26, T wave inversion more evident in Lateral leads QT has shortened Confirmed by John Ramesh ([id number]) on 06/20/2020 12:16:01 PM Referred By: Confirmed By:John Ramesh
--- NOTE | 2020-06-20 13:19 | History & Physical Report ---
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 Mechanical fall earlier today resulting in subcapital mildly impacted fracture o f the right femur is new from 08/31/2019, likely acute, per R hip/pelvis XR Dr. Flowers of orthopedic surgery consulted. Planning to take patient to OR in AM Pre-op abx, coyle placed, fluids per fracture protocol CXR without acute findings. EKG with sinus bradycardia, known LBBB Per Revised Cardiac Risk Index for Pre-Operative Risk, patient with Class I risk (3.9 % 30-day risk of , AR, or cardiac arrest) Will discontinue IV fluids now in setting of known aortic stenosis Scheduled tylenol 1000mg Q8H, Toradol 50mg Q4h PRN for pain control NPO @ midnight (3) Dermatomyositis: Follows with Dr. Oneal of rheumatology On chronic steroids for dermatomyositis - will stress dose with 50mg IV hydrocortisone Q8H for the day of and after surgery Continue Plaquenil HS (4) DM type 2 (diabetes mellitus, type 2): Well controlled -a1c 5.8 in Feb 2020 Hold home agents SSI while in-patient Will plan to tighten SSI when transitioned to IV steroids BSG AC HS (5) Hypertension: Normotensive Holding hctz pre-operatively Continue Losartan (6) LBBB (left bundle branch block): Known, in setting of aortic stenosis (7) Renal artery aneurysm: (8) Splenic artery aneurysm: Stable, under surveillance DVT Ppx: SCDs Code status: FULL PCP: Magda Dispo: Admitted to med/surg. Discharge planning ordered. Patient seen in collaboration with Dr. Medina. Please see addendum. 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 Patient is in the process of moving and was staying at her family's camp when she tripped and fell onto her right side. Endorsing immediate pain at the right hip. Denies any head trauma or loss of consciousness. Denies any fever, chills or recent infection. No lightheadedness, dizziness, chest pain or shortness of breath. Minor nausea following pain medication given in ED but denies any vomiting or abdominal pain. No dysuria, diarrhea constipation. Took morning medication today. On chronic steroids for dermatomyositis. Allergies Allergy/AdvReac Type Severity Reaction Status Date / Time No Known Allergies Allergy Verified 06/20/20 11:30 Home Medications Medication Instructions Recorded Confirmed Type atorvastatin [Lipitor] 40 mg PO QAM 08/15/19 06/20/20 History calcium carbonate-vitamin D3 1 tab PO DAILY 08/15/19 06/20/20 History [Calcium 500 + D] cyanocobalamin (vitamin B-12) 1,000 mcg PO QPM 08/15/19 06/20/20 History [Vitamin B-12] cyclobenzaprine 5 mg PO HS 08/15/19 06/20/20 History hydrochlorothiazide 25 mg PO QAM 08/15/19 06/20/20 History hydroxychloroquine [Plaquenil] 400 mg PO HS 08/15/19 06/20/20 History methylprednisolone [Medrol] 4 mg PO QAM 08/15/19 06/20/20 History milk thistle 500 mg PO QPM 08/15/19 06/20/20 History ondansetron HCl [Zofran] 4 mg PO Q6H PRN 08/15/19 06/20/20 History pantoprazole [Protonix] 40 mg PO QAM 08/15/19 06/20/20 History pregabalin [Lyrica] 75 mg PO TID 08/15/19 06/20/20 History topiramate 50 mg PO BID 08/15/19 06/20/20 History tramadol 50 mg PO Q6H PRN #30 tab 08/22/19 06/20/20 Rx diclofenac sodium 1 g TOPICAL QID PRN 06/20/20 06/20/20 History duloxetine 60 mg PO DAILY 06/20/20 06/20/20 History losartan 25 mg PO DAILY 06/20/20 06/20/20 History metformin 1,000 mg PO DAILY 06/20/20 06/20/20 History naproxen 500 mg PO BID PRN 06/20/20 06/20/20 History potassium chloride 10 meq PO DAILY 06/20/20 06/20/20 History Past Med/Surg History Medical History (Updated 06/20/20 @ 19:25 by Mariana Medina, ) Autoimmune hepatitis follows with GI (Dr. Rahman) Chronic back pain TO LEGS Chronic steroid use Dermatomyositis follows with rheumatology (Dr. 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- on chronic steroids*/plaquenil per rheumatology Renal artery aneurysm under surveillance Splenic artery aneurysm under surveillance Trigeminal neuralgia Surgical History History of appendectomy History of arthroscopy of left knee History of cholecystectomy History of colonoscopy W/ POLYPECTOMY History of esophagogastroduodenoscopy (EGD) History of hand surgery REMOVAL GRANULOMA RT HAND X 2 History of hernia repair left inguinal History of hysterectomy partial with left ovary and tubes History of lumbar spinal fusion (~08/2019) History of oophorectomy, unilateral right History of tonsillectomy and adenoidectomy Status post lumbar surgery Family History Other No family history of adverse response to anesthesia No significant family history Social History Smoking Status: Never smoker Second Hand Exposure: Yes (parents smoked); Hx Alcohol Use: Yes Alcohol type: wine Hx Substance Use: No Preferred Language: Uzbek Communication Ability: Effective 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 Physical Exam Physical Exam: General Appearance: WD/WN, vitals as above, NAD, sitting up in bed, pleasant, conversing easily Head: normocephalic, atraumatic Eyes: normal inspection, PERRL, conjunctivae normal, anicteric sclerae ENT: external ear and nose normal, oropharynx normal Neck: normal visual inspection, trachea midline, no thyromegaly Respiratory: normal respiratory effort, lungs clear to auscultation, no wheeze, rales, rhonchi. No accessory muscle use Cardiovascular: regular rate, rhythm, systolic murmur, normal peripheral pulses, no BLE edema. Vessels: no JVD Chest: normal inspection of chest Abdomen/GI: normal bowel sounds, soft, nontender, no hepatosplenomegaly Extremities/Musculoskeletal: + RLE shortened, painful to lateral R hip, decreased ROM 2/2 pain. NVI. All other extremities full ROM and 5/5 MARCO. No cyanosis or clubbing Neurologic: PERRL, EOMI, accommodation nl, no face palsy, no dysarthria, CN's II-XI intact bilaterally and moves all extremities Psychiatric: A+Ox3, euthymic affect Skin: no rashes, normal color, warm/dry Results & Data Results & Data ([facility]) Vital Signs (Past 12 Hours) Vital Signs Temp Pulse Pulse Resp BP BP Pulse Ox 06/20/20 12:08 63 16 146/77 H 99 06/20/20 11:16 64 20 160/61 H 97 06/20/20 10:08 36.7 C 69 24 168/69 H 100 Laboratory Results Short CBC 06/20/20 Range/Units 10:10 WBC 7.17 (4.8-10.8) K/uL Hgb 13.3 (12.0-16.0) g/dL Hct 40.9 (37-47) % Plt Count 233 (130-400) K/uL BMP 06/20/20 10:10 Sodium 141 Potassium 3.6 Chloride 107 Carbon Dioxide 28 BUN 20 H Creatinine 0.83 Glucose 106 H Calcium 9.7 Cardiac Enzymes 06/20/20 Range/Units 10:07 Troponin I < 0.015 (0-0.045) ng/ml Liver Function 06/20/20 Range/Units 10:10 Total Bilirubin 0.7 (0.2-1) mg/dl AST 20 (15-37) U/L ALT 20 (12-78) U/L Alkaline Phosphatase 91 (45-117) U/L Albumin 4.0 (3.4-5.0) gm/dl Urine 06/20/20 Range/Units 10:30 Urine Color Yellow Urine Appearance Clear (Clear) Urine pH 7.5 (4.5-7.5) Ur Specific [place] 1.012 (1.000-1.030) Urine Protein Negative (Negative) Urine Glucose (UA) Negative (Negative) Diagnostic Findings CXR: IMPRESSION: No acute process. Hip/pelvis XR: IMPRESSION: Subcapital mildly impacted fracture of the right femur is new from 08/31/2019, likely acute. No dislocation. ECG Rhythm: sinus bradycardia Findings: + LBBB (chronic) Supervising Physician Co-Signing Physician Notes I have seen and examined the patient and have discussed the case with the provider above. I agree with the assessment and plan as stated. Ms. 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 She is also on Plaquenil chronically and has steroid-induced diabetes which is controlled. She follows with rheumatology at [facility] and was last seen January 2020. Despite daily pain, she denies having any recent flares and this is overall well controlled. She has a history of autoimmune liver disease from methotrexate taken for about a year early in her treatment for dermatomyositis. She had imaging reflecting basilar changes suggestive of interstitial lung disease with possible consideration of sarcoidosis and was sent to pulmonology. She continues to undergo surveillance for possible progression of pulmonary nodules but this is doubtful to be sarcoid. She continues to undergo annual PFTs for surveillance and denies any new symptoms, exacerbations of shortness of breath or other lung issues especially in the last 6 months. She denies any inhaler use. She has no prior history of significant cardiac disease. She does have a history of left bundle branch block and was sent to cardiology for a work-up in light of the consideration of sarcoidosis in the setting of dermatomyositis, this was 2016. She underwent a work-up that included a 2-week event monitor, and echocardiogram a nuclear stress test and a cardiac MRI. Other than the left bundle branch block none of the studies revealed any significant cardiac pathology. She continues to have no cardiac complaints and reports a normal functional status, reportedly able to perform grocery shopping duties without much limitation. She is also able to vacuum her house without much limitation. She denies any issues with anesthesia or surgery in the past. DVT prophylaxis strongly recommended. Despite multiple comorbidities, the patient appears optimized for her orthopedic surgery tomorrow. In light of her chronic steroid dependence she will receive stress dose hydrocortisone as planned above. Insulin will be dosed accordingly to achieve euglycemia. DO Adam (1) Closed hip fracture Encounter type: initial encounter Laterality: right Qualified Code(s): S72.001A - Fracture of unspecified part of neck of right femur, initial encounter for closed fracture (2) Fall Encounter type: initial encounter Qualified Code(s): W19.XXXA - Unspecified fall, initial encounter
[2020-06-20] MEDS ORDERED: bisacodyL 10 MG SUPP PR PRN (14:23)
[2020-06-20] MEDS ORDERED: POLYETHYLENE (MIRALAX) 17 GM PACK PO PRN (14:23)
[2020-06-20] MEDS ORDERED: MAGNESIUM HYDROXIDE SUSP 30 ML UDC PO PRN (14:23)
[2020-06-20] MEDS ORDERED: ACETAMINOPHEN 325 MG TAB PO PRN (14:23)
[2020-06-20] MEDS ORDERED: ONDANSETRON INJ 2 MG/ML 2 ML VIAL IV PRN (14:23)
[2020-06-20] MEDS ORDERED: NALOXONE HCL 0.4 MG/1 ML VIAL/CARP IV PRN (14:23)
--- NOTE | 2020-06-20 16:27 | Anesthesiology Consultation ---
Date of Service June 20, 2020 Assessment & Plan Chart Review Chart Review: Acceptable Risk for Surgery Consults Requested none History Surgery Operation Date: 06/21/20 07:30 Proposed Procedures p Total Hip Arthroplasty Uncemented - Frank Flowers MD Height/Weight Height: 5 ft 3 in Weight: 70 kg Allergies Allergy/AdvReac Type Severity Reaction Status Date / Time No Known Allergies Allergy Verified 06/20/20 11:30 Medications Home Medications Medication Instructions Recorded Confirmed Last Taken atorvastatin [Lipitor] 40 mg PO QAM 08/15/19 06/20/20 06/20/20 calcium carbonate-vitamin D3 1 tab PO BID 08/15/19 06/20/20 06/20/20 [Calcium 500 + D] cyanocobalamin (vitamin B-12) 1,000 mcg PO QPM 08/15/19 06/20/20 06/19/20 [Vitamin B-12] cyclobenzaprine 5 mg PO HS PRN 08/15/19 06/20/20 06/19/20 hydrochlorothiazide 25 mg PO QAM 08/15/19 06/20/20 06/20/20 hydroxychloroquine [Plaquenil] 400 mg PO HS 08/15/19 06/20/20 06/19/20 metformin 1,000 mg PO BID 08/15/19 06/20/20 06/20/20 methylprednisolone [Medrol] 4 mg PO QAM 08/15/19 06/20/20 06/20/20 milk thistle 500 mg PO QPM 08/15/19 06/20/20 06/19/20 ondansetron HCl [Zofran] 4 mg PO Q6H PRN 08/15/19 06/20/20 08/19/19 pantoprazole [Protonix] 40 mg PO QAM 08/15/19 06/20/20 06/20/20 pregabalin [Lyrica] 75 mg PO TID 08/15/19 06/20/20 06/20/20 topiramate 50 mg PO BID 08/15/19 06/20/20 06/20/20 tramadol 50 mg PO Q6H PRN #30 tab 08/22/19 06/20/20 Unknown duloxetine 60 mg PO DAILY 06/20/20 06/20/20 Unknown losartan 25 mg PO DAILY 06/20/20 06/20/20 Unknown potassium chloride 10 meq PO DAILY 06/20/20 06/20/20 06/20/20 Active Medications Generic Name Dose Route Start Last Admin Trade Name Evgeny PRN Reason Stop Dose Admin Lactated Ringer's 1,000 mls @ 100 mls/hr 06/20/20 10:15 06/20/20 15:49 Lr IV 07/20/20 10:14 100 mls/hr .Q10H NIXON Administration NPO Date Last Intake of Fluids: 06/20/20 Time Last Intake of Fluids: 23:59 Date Last Intake of Solids: 06/20/20 Time Last Intake of Solids: 23:59 Past Medical History Medical History Autoimmune hepatitis follows with GI (Dr. Rahman) Chronic back pain TO LEGS Chronic steroid use Dermatomyositis follows with rheumatology (Dr. Julio Oneal) Diabetic neuropathy DM type 2 (diabetes mellitus, type 2) NIDDM GERD (gastroesophageal reflux disease) History of colon polyps Hyperlipidemia denies, on meds d/t prednisone per pt Interstitial lung disease IPMN (intraductal papillary mucinous neoplasm) Left bundle branch block chronic dating back to at least 2016 VYAS (nonalcoholic steatohepatitis) Neurogenic claudication due to lumbar spinal stenosis Osteoarthritis Pancreatic cyst Panniculitis granulomatous panniculitis in setting of dermatomyositis- on chronic steroids*/plaquenil per rheumatology Renal artery aneurysm under surveillance Splenic artery aneurysm under surveillance Trigeminal neuralgia Past Family History Family History Other No family history of adverse response to anesthesia No significant family history Past Surgical History Surgical History History of appendectomy History of arthroscopy of left knee History of cholecystectomy History of colonoscopy W/ POLYPECTOMY History of esophagogastroduodenoscopy (EGD) History of hand surgery REMOVAL GRANULOMA RT HAND X 2 History of hernia repair left inguinal History of hysterectomy partial with left ovary and tubes History of lumbar spinal fusion (~08/2019) History of oophorectomy, unilateral right History of tonsillectomy and adenoidectomy Status post lumbar surgery Social History Smoking Status: Never smoker Hx Alcohol Use: Yes Alcohol type: wine alcohol intake frequency: holidays/special occasions only Hx Substance Use: No substance use type: does not use Physical Exam Vital Signs Last Vital Signs Temp 36.9 C 06/20/20 14:10 Pulse 61 06/20/20 14:10 Resp 18 06/20/20 14:10 BP 138/83 06/20/20 14:10 Pulse Ox 100 06/20/20 14:10 Testing Laboratory Results 06/20/20 10:10 06/20/20 10:10 PT 10.2 Seconds (9.0-12.0) 06/20/20 10:10 INR 1.0 (0.9-1.1) 06/20/20 10:10 APTT 26.8 Seconds (21.0-31.0) 06/20/20 10:10 Urine Color Yellow 06/20/20 10:30 Urine Appearance Clear (Clear) 06/20/20 10:30 Urine pH 7.5 (4.5-7.5) 06/20/20 10:30 Ur Specific [place] 1.012 (1.000-1.030) 06/20/20 10:30 Urine Protein Negative (Negative) 06/20/20 10:30 Urine Glucose (UA) Negative (Negative) 06/20/20 10:30 Urine Ketones Negative (Negative) 06/20/20 10:30 Urine Nitrite Negative (Negative) 06/20/20 10:30 Ur Leukocyte Esterase Negative (Negative) 06/20/20 10:30 Blood Type O Positive 06/20/20 12:50 Antibody Screen NEGATIVE 06/20/20 12:50 06/20/20 15:03 POC Glucose 97
[2020-06-20] MEDS ORDERED: traMADol HCL 50 MG TABLET PO PRN (16:28)
[2020-06-20] MEDS ORDERED: GLUCAGON FOR INJ 1 MG VIAL SQ PRN (16:47)
[2020-06-20] MEDS ORDERED: GLUCOSE 10 TABS/TUBE PO PRN (16:47)
[2020-06-20] MEDS ORDERED: GLUCOSE 40% GEL 15 GM TUBE PO PRN (16:47)
[2020-06-20] MEDS ORDERED: CARBOHYDRATES FOR HYPOGLYCEMIA PO PRN (16:47)
[2020-06-20] MEDS ORDERED: DEXTROSE 50% 50 ML SYRINGE IV PRN (16:47)
[2020-06-20] MEDS: ACETAMINOPHEN 500 MG TAB PO SCH ×2 (17:17→22:11)
[2020-06-20] MEDS: INSULIN ASPART 100 UNITS/ML 3 ML PEN SC SCH ×2 (17:49→21:02)
--- NOTE | 2020-06-20 18:18 | Surgery Consultation ---
Date of Consultation June 20, 2020 Assessment & Plan (1) Closed hip fracture: Patient has been admitted by the hospitalist service and medically optimized. I will plan taken the operating room. I think the most predictable operation for this patient with a displaced femoral neck fracture is a total hip replacement. Considering her underlying rheumatological disorders and chronic arthritis in other joints in her young age. The risk events of right shoulder placed were explained the patient could not limited to DVT PE infection neurological and vascular bleeding palm pain dislocation nonunion malunion and complete relief of symptoms etc. were explained. Patient understands and desires to proceed with informed consent obtained. I am going to get an x-ray of her right knee just to make sure there is no fractures but I assume her swelling is likely related to what she is describing her [id number] knee disease. Present on Admission?: Yes History of Present Illness Reason for Consultation: Left hip fracture. Attending Physician: Mariana Medina, DO History of Present Illness Patient is a 60-year-old female with multiple medical comorbidities who sustained a fall earlier this morning. She was apparently in the process of moving and after a new facility facility when she stumbled and fell on her right hip. She had acute onset of right hip pain. Is brought to emergency room was where x-rays revealed hip fracture. We are consulted for evaluation. Patient denies any history of hip problems before. She is an independent ambulator. She does have a pretty significant history of severe knee arthritis. She also history of dermatomyositis and been on chronic steroids for the past 20+ years. The patient denies any other injuries. No head injury no loss conscious no neck pain. Allergies Allergy/AdvReac Type Severity Reaction Status Date / Time No Known Allergies Allergy Verified 06/20/20 11:30 Home Medications Medication Instructions Recorded Confirmed Type atorvastatin [Lipitor] 40 mg PO QAM 08/15/19 06/20/20 History calcium carbonate-vitamin D3 1 tab PO DAILY 08/15/19 06/20/20 History [Calcium 500 + D] cyanocobalamin (vitamin B-12) 1,000 mcg PO QPM 08/15/19 06/20/20 History [Vitamin B-12] cyclobenzaprine 5 mg PO HS 08/15/19 06/20/20 History hydrochlorothiazide 25 mg PO QAM 08/15/19 06/20/20 History hydroxychloroquine [Plaquenil] 400 mg PO HS 08/15/19 06/20/20 History methylprednisolone [Medrol] 4 mg PO QAM 08/15/19 06/20/20 History milk thistle 500 mg PO QPM 08/15/19 06/20/20 History ondansetron HCl [Zofran] 4 mg PO Q6H PRN 08/15/19 06/20/20 History pantoprazole [Protonix] 40 mg PO QAM 08/15/19 06/20/20 History pregabalin [Lyrica] 75 mg PO TID 08/15/19 06/20/20 History topiramate 50 mg PO BID 08/15/19 06/20/20 History tramadol 50 mg PO Q6H PRN #30 tab 08/22/19 06/20/20 Rx diclofenac sodium 1 g TOPICAL QID PRN 06/20/20 06/20/20 History duloxetine 60 mg PO DAILY 06/20/20 06/20/20 History losartan 25 mg PO DAILY 06/20/20 06/20/20 History metformin 1,000 mg PO DAILY 06/20/20 06/20/20 History naproxen 500 mg PO BID PRN 06/20/20 06/20/20 History potassium chloride 10 meq PO DAILY 06/20/20 06/20/20 History Patient History Medical History Autoimmune hepatitis follows with GI (Dr. Rahman) Chronic back pain TO LEGS Chronic steroid use Dermatomyositis follows with rheumatology (Dr. Julio Oneal) Diabetic neuropathy DM type 2 (diabetes mellitus, type 2) NIDDM GERD (gastroesophageal reflux disease) History of colon polyps Hyperlipidemia denies, on meds d/t prednisone per pt Interstitial lung disease IPMN (intraductal papillary mucinous neoplasm) Left bundle branch block chronic dating back to at least 2017 VYAS (nonalcoholic steatohepatitis) Neurogenic claudication due to lumbar spinal stenosis Osteoarthritis Pancreatic cyst Panniculitis granulomatous panniculitis in setting of dermatomyositis- on chronic steroids*/plaquenil per rheumatology Renal artery aneurysm under surveillance Splenic artery aneurysm under surveillance Trigeminal neuralgia Surgical History History of appendectomy History of arthroscopy of left knee History of cholecystectomy History of colonoscopy W/ POLYPECTOMY History of esophagogastroduodenoscopy (EGD) History of hand surgery REMOVAL GRANULOMA RT HAND X 2 History of hernia repair left inguinal History of hysterectomy partial with left ovary and tubes History of lumbar spinal fusion (~08/2019) History of oophorectomy, unilateral right History of tonsillectomy and adenoidectomy Status post lumbar surgery Family History Other No family history of adverse response to anesthesia No significant family history Social History Smoking Status: Never smoker Second Hand Exposure: Yes (parents smoked); Hx Alcohol Use: Yes Alcohol type: wine Hx Substance Use: No Preferred Language: Croatian Communication Ability: Effective 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 She does have a history of diabetes along with dermatomyositis and will been on long-term steroids. Also history of hypertension cut, autoimmune disease, renal artery aneurysm, trigeminal neuralgia, nonalcohol alcoholic hepatitis. Physical Exam Physical Exam: General orthopedic physical examination reveals painless range of motion and palpation of her spine. She got painless range of motion of both upper extremities. She does have some mild chronic swelling of both wrists. Examination of the lower extremities reveals no obvious deformity. Examination of the right leg reveals just a slight bit of rotational deformity. She cannot do a straight leg raise. She has marked pain with any type of hip motion. She does have a moderate-sized knee effusion. There is no varus or valgus instability to her knee. She is neurologically intact. Results & Data ([facility]) Vital Signs (Past 12 Hours) Vital Signs Temp Pulse Pulse Resp BP BP Pulse Ox 06/20/20 14:10 36.9 C 61 18 138/83 100 06/20/20 13:26 62 18 150/68 H 99 06/20/20 12:08 63 16 146/77 H 99 06/20/20 11:16 64 20 160/61 H 97 06/20/20 10:08 36.7 C 69 24 168/69 H 100 Diagnostic Findings X-rays of the right hip reveal a valgus impacted femoral neck fracture. There is some slight displacement. No real underlying signs of arthritis. Some mild diffuse osteopenia. There is some slight displacement of the fracture best on the AP films of. PG Care Time/CCT Total # of Minutes Spent Total Time Spent with Patient: Total time spent is greater than 50% in coordination of care (as documented) at patient's floor/unit and/or counseling patient: Coding Level of Care Code 46069 Inpt Consult Level 5 Diagnoses Closed hip fracture S72.001A Encounter type: initial encounter Laterality: right (1) Closed hip fracture Encounter type: initial encounter Laterality: right Qualified Code(s): S72.001A - Fracture of unspecified part of neck of right femur, initial encounter for closed fracture
--- NOTE | 2020-06-20 18:51 | XRay Report ---
XR knee RT 1 or 2V routine HISTORY: 60 years-old Female Right knee pain and swelling after hip fracture acute right knee pain w ith soft tissue swelling COMPARISON: None TECHNIQUE: 3 views of the right knee FINDINGS: Severe tricompartmental osteoarthritis with moderate to large joint effusion. Mild circumferential so ft tissue swelling, most pronounced anteromedially. Dystrophic calcifications are noted within the johns prapatellar tissues measuring up to 6 mm. No acute fracture or dislocation. IMPRESSION: 1. Moderate to large joint effusion without acute fracture or dislocation. 2. Severe tricompartmental osteoarthritis. ACT 112: Negative or not required by law. The above report was generated using voice recognition software. It may contain grammatical, syntax o r spelling errors. Electronically signed by: Gregory Graham M.D. 06/20/2020 6:50 PM
[2020-06-20] MEDS: CYANOCOBALAMIN 500 MCG TABLET (VITAMIN B-12) PO SCH (20:20)
[2020-06-20] MEDS: TOPIRAMATE 50 MG TAB PO SCH (20:20)
[2020-06-20] MEDS: CYCLOBENZAPRINE HCL 5 MG TAB PO SCH (20:21)
[2020-06-20] MEDS: DOCUSATE SODIUM/SENNA 50/8.6MG TAB PO SCH (20:21)
[2020-06-20] MEDS: PREGABALIN 75 MG CAP PO SCH (20:21)
[2020-06-20] MEDS: HYDROXYCHLOROQUINE SULFATE 200 MG TAB PO SCH (20:21)
[2020-06-21] MEDS ORDERED: Nursing to Pharmacy Communication SCH ×3 (00:15→13:00)
[2020-06-21] MEDS: ACETAMINOPHEN 500 MG TAB PO SCH ×3 (05:20→21:36)
[2020-06-21] MEDS ORDERED: INSULIN ASPART 100 UNITS/ML 3 ML PEN SC SCH (06:00)
[2020-06-21] MEDS ORDERED: ceFAZolin 2000MG 2,000 MG/15 ML SYR IV SCH (06:00)
[2020-06-21 06:13] LABS: Hematocrit (blood only) 36.9 % (37-47); Hemoglobin 12.1 g/dL (12.0-16.0); Mean Corpuscular Hemoglobin 30.6 pg (25-34); Mean Corpuscular Hgb Conc 32.8 g/dL (32-36); Mean Corpuscular Volume 93.2 fL (80-100); Mean Platelet Volume 10.7 fL (7.4-10.4); Platelet Count 227 K/uL (130-400); RDW Coefficient of Variation 13.1 % (11.5-14.5); RDW Standard Deviation 45.1 fL (36.4-46.3); Red Blood Count 3.96 M/uL (4.2-5.4); White Blood Count 5.28 K/uL (4.8-10.8)
[2020-06-21 06:45] LABS: BUN Creatinine Ratio 23.8 (10-20); Calcium 9.2 mg/dl (8.5-10.1); Creatinine Clr Calc Pharmacy 75.8 ml/min; Est GFR (African American) 101.1; Est GFR (Non-African American) 87.2; Potassium 3.2 mmol/L (3.5-5.1)
[2020-06-21] MEDS ORDERED: fentaNYL citrate 100 MCG/2 ML VIAL ONE (06:52)
[2020-06-21] MEDS ORDERED: MIDAZOLAM HCL 1 MG/ML 2ML VIAL ONE (06:52)
--- NOTE | 2020-06-21 07:40 | History & Physical Bridge Note ---
Date of Service June 21, 2020 History & Physical Bridge Note I have examined the patient, reviewed the History & Physical and in the interval since the performance of the History & Physical I have noted the following changes of clinical significance: no changes noted
[2020-06-21] MEDS ORDERED: BACITRACIN INJ 50,000 UNIT VIAL ONE (07:41)
[2020-06-21] MEDS ORDERED: BUPIVACAINE/EPINEPHRINE 0.5% MPF 1:200,000 30 ML VIAL ONE (07:41)
[2020-06-21] MEDS ORDERED: HYDROmorphone INJ 2 MG/ML SYR/VIAL ONE (08:42)
--- NOTE | 2020-06-21 09:43 | Post Operative Brief Note ---
PG Immediate Post Op with CF Date of Surgery June 21, 2020 Pre & Post Diagnosis Operation Date: 06/21/20 07:30 Pre-Op Diagnosis: Closed Right displaced femoral neck/hip Fracture Post-Op Diagnosis: Closed Right displaced femoral neck/hip Fracture I identified the patient and participated in the time-out.: Yes Procedure Operation Date: 06/21/20 07:30 Actual Procedures p Right Total Hip Arthroplasty Uncemented(Right) - Frank Flowers MD Surgeon Frank Flowers MD Transmission Mechanic BERENICE Chen Estimated Blood Loss 200 Findings Consistent with Post-Op Diagnosis Fluids 1300 cc Specimens Specimen Description: A: Right Femoral Head and Neck Drains Coyle Catheter (patient arrived from floor with coyle intact) Anesthesia Type General Complications none Disposition Accompanied Patient To Recovery: Yes Disposition: Recovery Room
[2020-06-21] MEDS ORDERED: diphenhydrAMINE 50 MG/ML VIAL ONE (10:13)
[2020-06-21] MEDS ORDERED: diphenhydrAMINE 50 MG/ML VIAL IV STA (10:17)
--- NOTE | 2020-06-21 10:24 | Operative Report ---
Post Operative Report Pre & Post Diagnosis Operation Date: 06/21/20 07:30 Pre-Op Diagnosis: Closed Right displaced femoral neck/hip Fracture Post-Op Diagnosis: Closed Right displaced femoral neck/hip Fracture I identified the patient and participated in the time-out.: Yes Procedure Operation Date: 06/21/20 07:30 Actual Procedures p Right Total Hip Arthroplasty Uncemented(Right) - Frank Flowers MD Surgeon Frank Flowers MD International Guest Coordinator BERENICE Chen Estimated Blood Loss 200 Findings Consistent with Post-Op Diagnosis Operative findings revealed a valgus impacted femoral neck fracture. There was significant displacement of the femoral neck on the medial side of the calcar area. She did have some mild arthritic changes of the femoral head. Fluids 1300 cc. Specimens Right femoral head sent for pathology. Drains None. Complications none Disposition Accompanied Patient To Recovery: Yes Disposition: Recovery Room Indications Patient is a 60-year-old female with multiple medical comorbidities who sustained a fall yesterday. She had acute onset of pain and was unable to ambulate afterwards. She is brought to emergency room where x-rays ordered displaced femoral neck fracture. There is a valgus impacted but there was some displacement of the femoral neck. Considering her age and activity level independent ambulation, we elected proceed with total hip arthroplasty. Description of Procedure Operative implants consist of: 1. Biomet G7 size 48 mm acetabular shell. 2. 6.5 cancellous acetabular screws were 35 mm length and 120 mm length. 3. [place] hole investigative assistant. 4. Highly cross-linked polyethylene liner with a 48 mm outer diameter and 32 mm inner diameter. 5. [place] Corail size 12 KLA short neck femoral stem. 6. +1/32 mm ceramic articular ball. The patient was taken to the operating identified and placed on the operating table supine position. All contractors were properly padded. IV antibiotics 5 by anesthesia team. A general anesthetic was implemented at the patient's request. Patient was then placed in the left lateral decubitus position. Axillary roll was placed. A [place] hip positioner was used for positioning. The right hip and leg were then prepped and draped in usual sterile fashion. A posterior lateral approach to the right hip was then performed to a curvilinear incision centered over the greater trochanter. Sharp dissection was got through subcutaneous tissue down to level the IT band gluteal fascia. The IT band gluteal fascia then incised longitudinally in line with skin incision. The underlying greater bursa was excised. The piriformis and external rotators as well as the posterior hip joint capsule were then released from the posterior aspect the hip as a single layer. Great care was taken throughout the procedure protect the sciatic nerve at all times. Hip was then internally rotated. Femoral neck osteotomy cut was made just below the base of the fracture line medially. The femoral head and neck were then removed and sent for pathology. The femur was retracted anteriorly. Attention drawn the acetabulum. The acetabular labrum was excised. I did take a curette and curetted some of the cartilage of the acetabulum to allow more efficient reaming. I then began reaming with a 43 reamer and progressed up to 47. Even with a 47 reamer I could not place a 48 cup as it was too tight. Therefore I opened up the entrance with a 48 reamer. Even with this had difficulty placing the top so I reamed with a 49. I then placed a 48 mm cup and got excellent stability. It was fixed with two 6.5 cancellous acetabular screws. Trial liner was placed. Attention drawn the femur. The proximal femur was entered with a cookie-cutter followed by canal finder. I then broached beginning with size 8 and progressing up to 11. The 11 just seemed a little bit loose with just a little bit of rotation so we broached up to a 12. I could not quite get this down we left a just a little bit proud. Then trialed the hip and the standard neck just seemed a bit tight with soft tissues and so we used the short neck. I also placed a 1.5 articular ball which provide full stability in full extension and external rotation flexion to 9 degrees internal rotation over 50 degrees. Leg lengths seemed appropriate. Elect to place these implants. All trial implants were removed. An apex hole investigative assistant was placed but highly cross-linked polyethylene liner was placed. A [place] size 12 KLA short neck femoral stem was impacted in position. I was not able to get this down to the calcar and was leaving a little bit more proud than what our trial was. About 5 mm off the calcar and I elected not to compound this any further for fear of breaking her femur. A +1/32 mm ceramic articular ball was placed. Hip was located. Was fully stable. Leg lengths appeared appropriate. Attention then drawn toward closing. The wounds irrigated scope soft pulsatile lavage solution. I did inject locally with the 60 cc of half percent Marcaine with epinephrine. The posterior capsule and external rotators were repaired through drill holes in the posterior trochanter with #2 Tycron suture. The IT band gluteal fascia then closed in 1 PDS suture running fashion with subcutaneous tissue then closed with 2 layers the deep layer #1 Vicryl suture and subcutaneous tissues with 2-0 Dexon suture in a buried interrupted fashion. Skin was closed skin mike. Leg was then cleaned dried and sterile dressed composed Xeroform, 4 x 4's, sterile ABD pad, foam tape was applied. Patient then brought out of general incision transferred to the recovery room in stable condition. Patient tolerated procedure well and there were no complications. Ajay Chen, my physician perioperative assistant, was present for the entire procedure. His assistance was essential and required for appropriate patient positioning, prepping and draping, surgical exposure, performing the technical details of the operation, placement the implants, closure of the wound, and placement of the sterile bandage. I attest to the content of the Intraoperative Record and any orders documented therein. Any exceptions are noted below.
[2020-06-21] MEDS ORDERED: traMADol HCL 50 MG TABLET PO PRN (10:41)
[2020-06-21] MEDS ORDERED: ALUMINUM/MAGNESIUM SUSP 30 ML UDC PO PRN (10:41)
[2020-06-21] MEDS ORDERED: bisacodyL 10 MG SUPP PR PRN (10:41)
[2020-06-21] MEDS ORDERED: MAGNESIUM HYDROXIDE SUSP 30 ML UDC PO PRN (10:41)
[2020-06-21] MEDS ORDERED: SODIUM CHLORIDE 0.9% 1000ML 1,000 ML IV SCH (10:41)
[2020-06-21] MEDS ORDERED: diphenhydrAMINE Capsule 25 MG CAP PO PRN (10:41)
[2020-06-21] MEDS ORDERED: ONDANSETRON INJ 2 MG/ML 2 ML VIAL IV PRN (10:41)
[2020-06-21] MEDS ORDERED: METOCLOPRAMIDE HCL INJ 5 MG/ML 2 ML VIAL IV PRN (10:41)
[2020-06-21] MEDS ORDERED: NALOXONE HCL 0.4 MG/1 ML VIAL/CARP IV PRN (10:41)
--- NOTE | 2020-06-21 10:45 | XRay Report ---
SINGLE VIEW PELVIS; SINGLE VIEW RIGHT HIP CLINICAL HISTORY: Postoperative examination. FINDINGS: An AP portable view of the hips and pelvis with a crosstable lateral portable view of the r ight hip are obtained. No prior studies are available for comparison at the time of dictation. A bipo lar right hip arthroplasty is in near-anatomic alignment. At least 2 cortical lag screws transfix the acetabular cup. No acute fracture is identified. There are expected postoperative changes overlying the right hip including skin clips, subcutaneous gas and soft tissue swelling. IMPRESSION: Expected postoperative findings status post right hip arthroplasty. No acute fracture is seen. ACT 112: Negative or not required by law. Electronically signed by: Julio Cain M.D. 06/21/2020 10:43 AM
--- NOTE | 2020-06-21 11:17 | Anesthesiology Progress Note ---
Date of Service June 21, 2020 Anesthesia Post Procedure Vital Signs Vital Signs: Temp Pulse Pulse Resp BP Pulse Ox 06/21/20 11:10 65 16 158/77 H 100 06/21/20 10:25 36.4 C L 80 17 152/68 H 100 06/21/20 10:15 61 14 136/77 99 06/21/20 10:05 83 17 154/72 H 100 06/21/20 09:55 88 21 144/63 H 100 06/21/20 09:47 36.2 C L 80 14 154/72 H 100 06/21/20 06:59 36.9 C 61 18 135/83 94 06/20/20 22:56 36.9 C 63 16 136/75 94 06/20/20 14:10 36.9 C 61 18 138/83 100 06/20/20 13:26 62 18 150/68 H 99 06/20/20 12:08 63 16 146/77 H 99 06/20/20 11:16 64 20 160/61 H 97 Pain Intensity Right Hip: Pain Intensity: 5 Transfer of Care Handoff Completed per policy Notes Mental Status: alert / awake / arousable and participated in evaluation Patient Amnestic to Procedure: Yes Nausea / Vomiting: adequately controlled Pain: adequately controlled Airway Patency, RR, SpO2: stable & adequate BP & HR: stable & adequate Hydration State: stable & adequate Anesthetic Complications: no major complications apparent
[2020-06-21] MEDS: HYDROCORTISONE SOD 50 MG in SYRINGE 0 ML IV SCH ×3 (11:21→23:52)
[2020-06-21] MEDS: DULoxetine HCL 60 MG CAP PO SCH (12:08)
[2020-06-21] MEDS: TOPIRAMATE 50 MG TAB PO SCH ×2 (12:08→20:06)
[2020-06-21] MEDS: CALCIUM 600MG + VIT D 400 IU TAB PO SCH (12:08)
[2020-06-21] MEDS: ATORVASTATIN 40 MG TAB PO SCH (12:09)
[2020-06-21] MEDS: PANTOprazole 40 MG TAB PO SCH (12:09)
[2020-06-21] MEDS: LOSARTAN POTASSIUM 25 MG TAB PO SCH (12:09)
[2020-06-21] MEDS: POTASSIUM CHLORIDE 10 MEQ TABCR PO SCH (12:09)
[2020-06-21] MEDS: KETOROLAC 30 MG/ML VIAL IV SCH ×3 (12:10→21:36)
[2020-06-21] MEDS: PREGABALIN 75 MG CAP PO SCH ×3 (12:21→20:06)
[2020-06-21] MEDS: INSULIN ASPART 100 UNITS/ML 3 ML PEN SC SCH ×3 (13:03→20:39)
[2020-06-21] MEDS ORDERED: ACETAMINOPHEN 500 MG TAB PO SCH (14:00)
--- NOTE | 2020-06-21 15:06 | Hospitalist Progress Note ---
Date of Service June 21, 2020 Assessment & Plan (1) Fall: Mechanical fall with subsequent closed right hip fracture (2) Closed hip fracture: Postop day 0 status post right total hip arthroplasty with Dr. Santiago Flowers. Continue aggressive pain control, PT OT and wound care per orthopedics. (3) Dermatomyositis: Follows with Dr. Oneal of rheumatology On chronic steroids for dermatomyositis - will stress dose with 50mg IV hydrocortisone Q8H for the day of and after surgery, wean down to her chronic Medrol 4 mg p.o. daily Continue Plaquenil HS (4) Steroid dependence: Plan as above. (5) DM type 2 (diabetes mellitus, type 2): Well controlled -a1c 5.8 in Feb 2020 Hold home agents SSI while in-patient Will plan to tighten SSI when transitioned to IV steroids BSG AC HS (6) Hypertension: Continue losartan. Restarting hydrochlorothiazide (7) LBBB (left bundle branch block): Full outpatient work-up in 2017 by cardiology was unremarkable. See initial consult note for details. (8) DVT prophylaxis: SCD/ambulation-Per surgery Full code Disposition-pending clinical improvement postoperatively Mariana Medina DO [facility] Hospitalist Admission and Anticipated Discharge Date Admission Date: June 20, 2020 Subjective 60-year-old female status post mechanical fall with closed right hip fracture status post right total hip arthroplasty with Dr. Santiago Flowers on 06/21. She returned from surgery and was feeling well overall. Denies any nausea, chest pain, trouble breathing. Review of Systems Review of Systems: All systems reviewed & are unremarkable except as noted in Subjective Physical Exam Physical Exam: CONSTITUTIONAL: WNWD, vitals as above, generally well- appearing EYES: normal conjunctivae, no scleral icterus ENT: external ear and nose normal, MMM RESPIRATORY: clear to auscultation bilaterally, no crackles, rales or wheezes, normal respiratory effort CARDIOVASCULAR: regular rate and rhythm, S1 and 2 heard without murmurs, gallops or rubs, no JVD, no peripheral edema GASTROINTESTINAL: soft, nontender, nondistended. MUSCULOSKELETAL: head is normocephalic and atraumatic SKIN: warm and dry NEUROLOGIC: CN 2-12 grossly intact PSYCHIATRIC: alert cooperative and oriented to person, place and time. Results & Data Results & Data ([facility] [place]) Vital Signs (Past 12 Hours) Vital Signs Temp Pulse Pulse Resp BP Pulse Ox 06/21/20 14:49 36.4 C L 82 16 151/82 H 100 06/21/20 13:41 66 16 146/91 H 100 06/21/20 12:40 77 16 154/76 H 100 06/21/20 12:06 62 147/74 H 06/21/20 11:38 68 16 150/81 H 100 06/21/20 11:10 65 16 158/77 H 100 06/21/20 10:40 36.5 C 76 16 152/76 H 100 06/21/20 10:25 36.4 C L 80 17 152/68 H 100 06/21/20 10:15 61 14 136/77 99 06/21/20 10:05 83 17 154/72 H 100 06/21/20 09:55 88 21 144/63 H 100 06/21/20 09:47 36.2 C L 80 14 154/72 H 100 06/21/20 06:59 36.9 C 61 18 135/83 94 Laboratory Results Short CBC 06/21/20 Range/Units 05:29 WBC 5.28 (4.8-10.8) K/uL Hgb 12.1 (12.0-16.0) g/dL Hct 36.9 L (37-47) % Plt Count 227 (130-400) K/uL BMP 06/21/20 05:29 Sodium 139 Potassium 3.2 L Chloride 105 Carbon Dioxide 29 BUN 18 Creatinine 0.75 Glucose 83 Calcium 9.2 Medications Administered Current Inpatient Medications Acetaminophen (Acetaminophen 500 Mg Tab) 1,000 mg PO Q8 [facility] Stop: 07/20/20 16:59 Last Admin: 06/21/20 05:20 Dose: 1,000 mg Documented by: Al Hydrox/Mg Hydrox/Simethicone (Aluminum/Magnesium Susp 30 Ml Udc) 15 ml PO Q4H PRN PRN Reason: Heartburn Stop: 07/21/20 10:40 Ascorbic Acid (Ascorbic Acid 500 Mg Tab) 500 mg PO BIDM [facility] Stop: 07/21/20 16:59 Aspirin (Aspirin 81 Mg Ectab) 81 mg PO BID [facility] Stop: 07/21/20 20:59 Atorvastatin Calcium (Atorvastatin 40 Mg Tab) 40 mg PO QAM [facility] Stop: 07/21/20 08:59 Last Admin: 06/21/20 12:09 Dose: 40 mg Documented by: Bisacodyl (Bisacodyl 10 Mg Supp) 10 mg WA DAILY PRN PRN Reason: Constipation Stop: 07/20/20 14:22 Bisacodyl (Bisacodyl 10 Mg Supp) 10 mg WA DAILY PRN PRN Reason: Constipation Stop: 07/21/20 10:40 Cyanocobalamin (Cyanocobalamin 500 Mcg Tablet (Vitamin B-12)) 1,000 mcg PO QPM [facility] Stop: 07/20/20 20:59 Last Admin: 06/20/20 20:20 Dose: 1,000 mcg Documented by: Cyclobenzaprine HCl (Cyclobenzaprine Hcl 5 Mg Tab) 5 mg PO HS [facility] Stop: 07/20/20 20:59 Last Admin: 06/20/20 20:21 Dose: 5 mg Documented by: Dextrose (Dextrose 50% 50 Ml Syringe) 25 - 50 ml IV UD PRN; Protocol PRN Reason: Hypoglycemia Protocol Stop: 07/20/20 16:46 Diphenhydramine HCl (Diphenhydramine Capsule 25 Mg Cap) 25 mg PO Q8H PRN PRN Reason: Itching Stop: 07/21/20 10:40 Docusate Sodium (Docusate Sodium 100 Mg Cap) 100 mg PO BID [facility] Stop: 07/21/20 20:59 Duloxetine HCl (Duloxetine Hcl 60 Mg Cap) 60 mg PO DAILY [facility] Stop: 07/21/20 08:59 Last Admin: 06/21/20 12:08 Dose: 60 mg Documented by: Ferrous Gluconate (Ferrous Gluconate 324 Mg Tab) 324 mg PO BIDM [facility] Stop: 07/21/20 16:59 Glucagon (Glucagon For Inj 1 Mg Vial) 1 mg SQ UD PRN; Protocol PRN Reason: Hypoglycemia Protocol Stop: 07/20/20 16:46 Glucose (Glucose 10 Tabs/Tube) 4 - 8 tabs PO UD PRN; Protocol PRN Reason: Hypoglycemia Protocol Stop: 07/20/20 16:46 Glucose (Glucose 40% Gel 15 Gm Tube) 15 - 30 gm PO UD PRN; Protocol PRN Reason: Hypoglycemia Protocol Stop: 07/20/20 16:46 Hydromorphone HCl (Hydromorphone Inj 0.5 Mg/0.5 Ml Syr) 0.5 mg IV Q4H PRN PRN Reason: Pain or Pre PT Stop: 07/05/20 10:40 Hydroxychloroquine Sulfate (Hydroxychloroquine Sulfate 200 Mg Tab) 400 mg PO HS [facility] Stop: 07/20/20 20:59 Last Admin: 06/20/20 20:21 Dose: 400 mg Documented by: Cefazolin Sodium (Ancef 2000mg) 2,000 mg in 15 mls @ 3.75 mls/min IV PREOP [facility]; Protocol Stop: 06/22/20 05:59 Last Admin: 06/21/20 08:14 Dose: 3.75 mls/min Documented by: Hydrocortisone Sodium (Succinate 50 mg/ Syringe) 1 mls @ 4 mls/min IV Q8H [facility] Stop: 07/21/20 08:59 Last Admin: 06/21/20 11:21 Dose: 4 mls/min Documented by: Sodium Chloride (Nss 1000ml) 1,000 mls @ 100 mls/hr IV .Q10H [facility] Stop: 06/22/20 06:00 Last Admin: 06/21/20 12:05 Dose: 100 mls/hr Documented by: Cefazolin Sodium (Ancef 1000mg) 1,000 mg in 7.5 mls @ 2.5 mls/min IV Q8H [facility]; Protocol Stop: 06/22/20 00:02 Tranexamic Acid (Tranexamic Acid / 0.7% Nacl) 1,000 mg in 100 mls @ 600 mls/hr IV Q6H [facility] Stop: 06/21/20 15:46 Insulin Aspart (Insulin Aspart 100 Units/Ml 3 Ml Pen) 0 units SC ACHS [facility] Stop: 07/21/20 11:29 Last Admin: 06/21/20 13:03 Dose: Not Given Documented by: Ketorolac Tromethamine (Ketorolac 30 Mg/Ml Vial) 30 mg IV Q6H [facility] Stop: 06/23/20 04:42 Last Admin: 06/21/20 12:10 Dose: 30 mg Documented by: Losartan Potassium (Losartan Potassium 25 Mg Tab) 25 mg PO DAILY [facility] Stop: 07/21/20 08:59 Last Admin: 06/21/20 12:09 Dose: 25 mg Documented by: Magnesium Hydroxide (Magnesium Hydroxide Susp 30 Ml Udc) 30 ml PO DAILY PRN PRN Reason: Constipation Stop: 07/20/20 14:22 Magnesium Hydroxide (Magnesium Hydroxide Susp 30 Ml Udc) 30 ml PO Q6H PRN PRN Reason: Constipation Stop: 07/21/20 10:40 Metoclopramide HCl (Metoclopramide Hcl Inj 5 Mg/Ml 2 Ml Vial) 10 mg IV Q6H PRN PRN Reason: Nausea And Vomiting Stop: 07/21/20 10:40 Miscellaneous (Carbohydrates For Hypoglycemia ) 15 - 30 gm PO UD PRN PRN Reason: Hypoglycemia Protocol Stop: 07/20/20 16:46 Multivitamins (Multivitamin Tab) 1 tab PO QAM [facility] Stop: 07/22/20 08:59 Multivitamins/Minerals (Calcium 600mg + Vit D 400 Iu Tab) 1 tab PO DAILY [facility] Stop: 07/21/20 08:59 Last Admin: 06/21/20 12:08 Dose: 1 tab Documented by: Naloxone HCl (Naloxone Hcl 0.4 Mg/1 Ml Vial/Carp) 0.1 mg IV UD PRN PRN Reason: Opiate Overdose Stop: 07/20/20 14:22 Naloxone HCl (Naloxone Hcl 0.4 Mg/1 Ml Vial/Carp) 0.1 mg IV Q5M PRN PRN Reason: Oversedation/Resp Depression Stop: 07/21/20 10:40 Ondansetron HCl (Ondansetron Inj 2 Mg/Ml 2 Ml Vial) 4 mg IV Q6H PRN PRN Reason: Nausea Stop: 07/20/20 14:22 Last Admin: 06/21/20 11:11 Dose: 4 mg Documented by: Ondansetron HCl (Ondansetron Inj 2 Mg/Ml 2 Ml Vial) 4 mg IV Q6H PRN PRN Reason: Nausea And Vomiting Stop: 07/21/20 10:40 Pantoprazole Sodium (Pantoprazole 40 Mg Tab) 40 mg PO QAM [facility] Stop: 07/21/20 08:59 Last Admin: 06/21/20 12:09 Dose: 40 mg Documented by: Polyethylene Glycol (Polyethylene (Miralax) 17 Gm Pack) 17 gm PO DAILY PRN PRN Reason: Constipation Stop: 07/20/20 14:22 Potassium Chloride (Potassium Chloride 10 Meq Tabcr) 10 meq PO DAILY [facility] Stop: 07/21/20 08:59 Last Admin: 06/21/20 12:09 Dose: 10 meq Documented by: Pregabalin (Pregabalin 75 Mg Cap) 75 mg PO TID [facility] Stop: 07/20/20 20:59 Last Admin: 06/21/20 12:21 Dose: 75 mg Documented by: Senna/Docusate Sodium (Docusate Sodium/Senna 50/8.6mg Tab) 2 tab PO HS [facility] Stop: 07/20/20 20:59 Last Admin: 06/20/20 20:21 Dose: 2 tab Documented by: Sennosides (Senna 8.6 Mg Tab) 17.2 mg PO HS [facility] Stop: 07/21/20 20:59 Topiramate (Topiramate 50 Mg Tab) 50 mg PO BID [facility] Stop: 07/20/20 20:59 Last Admin: 06/21/20 12:08 Dose: 50 mg Documented by: Tramadol HCl (Tramadol Hcl 50 Mg Tablet) 50 mg PO Q4H PRN PRN Reason: Pain Stop: 07/20/20 16:27 Last Admin: 06/20/20 20:24 Dose: 50 mg Documented by: Tramadol HCl (Tramadol Hcl 50 Mg Tablet) 50 - 100 mg PO Q4H PRN PRN Reason: Pain & Pre PT Stop: 07/21/20 10:40 (1) Closed hip fracture Encounter type: initial encounter Laterality: right Qualified Code(s): S72.001A - Fracture of unspecified part of neck of right femur, initial encounter for closed fracture (2) Fall Encounter type: initial encounter Qualified Code(s): W19.XXXA - Unspecified fall, initial encounter
[2020-06-21] MEDS ORDERED: TRANEXAMIC ACID / 0.7% NACL 1,000 MG/100 ML BAG IV SCH (15:37)
[2020-06-21] MEDS: FERROUS GLUCONATE 324 MG TAB PO SCH (18:06)
[2020-06-21] MEDS: ASCORBIC ACID 500 MG TAB PO SCH (18:06)
[2020-06-21] MEDS: ceFAZolin 1000MG 1,000 MG/7.5 ML SYR IV SCH ×2 (18:07→23:51)
[2020-06-21] MEDS: SENNA 8.6 MG TAB PO SCH (20:05)
[2020-06-21] MEDS: CYANOCOBALAMIN 500 MCG TABLET (VITAMIN B-12) PO SCH (20:05)
[2020-06-21] MEDS: HYDROXYCHLOROQUINE SULFATE 200 MG TAB PO SCH (20:05)
[2020-06-21] MEDS: DOCUSATE SODIUM/SENNA 50/8.6MG TAB PO SCH (20:05)
[2020-06-21] MEDS: DOCUSATE SODIUM 100 MG CAP PO SCH (20:06)
[2020-06-21] MEDS: ASPIRIN 81 MG ECTAB PO SCH (20:06)
[2020-06-21] MEDS: CYCLOBENZAPRINE HCL 5 MG TAB PO SCH (20:06)
[2020-06-22] MEDS: HYDROmorphone INJ 0.5 MG/0.5 ML SYR IV PRN ×2 (03:00→23:49)
[2020-06-22] MEDS: KETOROLAC 30 MG/ML VIAL IV SCH ×4 (05:32→22:17)
[2020-06-22] MEDS: ACETAMINOPHEN 500 MG TAB PO SCH ×3 (05:32→22:17)
[2020-06-22 05:57] LABS: Estimated Average Glucose 128 mg/dl; Hemoglobin A1C 6.1 % (4.5-5.6)
[2020-06-22 06:49] LABS: Basophils # (auto) 0.01 K/uL (0-0.2); Basophils % (auto) 0.1 %; Eosinophils # (auto) 0.09 K/uL (0-0.5); Eosinophils % (auto) 1.2 %; Hematocrit (blood only) 27.4 % (37-47); Hemoglobin 9.2 g/dL (12.0-16.0); Immature Granulocytes # (auto) 0.02 K/uL (0.00-0.02); Immature Granulocytes % (auto) 0.3 %; Lymphocytes # (auto) 0.79 K/uL (1.2-3.4); Lymphocytes % (auto) 10.6 %; Mean Corpuscular Hemoglobin 30.9 pg (25-34); Mean Corpuscular Hgb Conc 33.6 g/dL (32-36); Mean Corpuscular Volume 91.9 fL (80-100); Mean Platelet Volume 9.9 fL (7.4-10.4); Monocytes # (auto) 0.76 K/uL (0.11-0.59); Monocytes % (auto) 10.2 %; Neutrophils # (auto) 5.77 K/uL (1.4-6.5); Neutrophils % (auto) 77.6 %; Platelet Count 186 K/uL (130-400); RDW Coefficient of Variation 13.2 % (11.5-14.5); RDW Standard Deviation 44.3 fL (36.4-46.3); Red Blood Count 2.98 M/uL (4.2-5.4); White Blood Count 7.44 K/uL (4.8-10.8)
[2020-06-22 06:53] LABS: BUN Creatinine Ratio 20.4 (10-20); Calcium 8.1 mg/dl (8.5-10.1); Creatinine Clr Calc Pharmacy 81.2 ml/min; Est GFR (African American) 109.9; Est GFR (Non-African American) 94.8; Potassium 3.4 mmol/L (3.5-5.1)
[2020-06-22] MEDS: INSULIN ASPART 100 UNITS/ML 3 ML PEN SC SCH ×4 (08:47→21:27)
[2020-06-22] MEDS: POTASSIUM CHLORIDE 10 MEQ TABCR PO SCH (08:53)
[2020-06-22] MEDS: DULoxetine HCL 60 MG CAP PO SCH (08:53)
[2020-06-22] MEDS: CALCIUM 600MG + VIT D 400 IU TAB PO SCH (08:53)
[2020-06-22] MEDS: ATORVASTATIN 40 MG TAB PO SCH (08:53)
[2020-06-22] MEDS: PANTOprazole 40 MG TAB PO SCH (08:54)
[2020-06-22] MEDS: ASCORBIC ACID 500 MG TAB PO SCH ×2 (08:54→17:43)
[2020-06-22] MEDS: PREGABALIN 75 MG CAP PO SCH ×3 (08:54→21:31)
[2020-06-22] MEDS: TOPIRAMATE 50 MG TAB PO SCH ×2 (08:54→21:29)
[2020-06-22] MEDS: MULTIVITAMIN TAB PO SCH (08:54)
[2020-06-22] MEDS: ASPIRIN 81 MG ECTAB PO SCH ×2 (08:54→21:26)
[2020-06-22] MEDS: FERROUS GLUCONATE 324 MG TAB PO SCH ×2 (08:54→17:43)
[2020-06-22] MEDS: LOSARTAN POTASSIUM 25 MG TAB PO SCH (08:54)
[2020-06-22] MEDS: DOCUSATE SODIUM 100 MG CAP PO SCH ×2 (08:54→21:25)
--- NOTE | 2020-06-22 08:54 | Progress Notes ---
DATE: 06/22/2020 SUBJECTIVE: A 60-year-old white female postop day 1 from right total hip replacement done for a femoral neck fracture. She is doing well this morning. Pain is controlled. No chest pain or shortness of breath. Not feeling dizzy or lightheaded. OBJECTIVE: VITAL SIGNS: Temperature 36.9. Vital signs are stable. GENERAL: Shows a pleasant, middle-aged female. She was lying in bed and talking to her when I walked in this morning. EXTREMITIES: Examination of the right hip reveals the leg lengths to be equal. Her dressing is clean, dry and intact. Her thigh is soft and supple. Hip is located. She is neurologically intact. LABORATORY DATA: Hemoglobin 9.2. Hematocrit 27.4. Electrolytes are stable. Potassium is a little low at 3.4. ASSESSMENT: A 60-year-old female with multiple medical comorbidities postoperative day 1 from right total hip replacement done for a fracture. She is doing well. She is anemic, but asymptomatic. Potassium is a little low, which should be supplemented. Her pain is controlled. Hip is located. She is neurologically intact. PLAN: 1. DVT prophylaxis including thigh-high TEDs, SCDs, and baby aspirin twice a day for 6 weeks. 2. PT/OT. She can weightbear as tolerated on the right lower extremity. 3. Pain control, doing well with current pain regimen. 4. Anemia. We will continue iron supplementation. No need for blood transfusion unless symptomatic. 5. Medical management as per the medicine service. 6. Disposition: We will see how she does in therapy today. Based on yesterday, we will likely be able to get her home with some home health. We will see how therapy goes. She will be okay for discharge at any time medically stable, likely beginning tomorrow. Any orthopedic questions can be directed to me at [phone].
[2020-06-22] MEDS: HYDROCORTISONE SOD 50 MG in SYRINGE 0 ML IV SCH (08:56)
[2020-06-22] MEDS: hydroCHLOROthiazide 25 MG TAB PO SCH (09:05)
--- NOTE | 2020-06-22 15:26 | Hospitalist Progress Note ---
Date of Service June 22, 2020 Assessment & Plan (1) Fall: Mechanical fall with subsequent closed right hip fracture (2) Closed hip fracture: S/P right total hip arthroplasty with Dr. Santiago Flowers. Pain management/DVT prophylaxis as per primary team. Continue to work with PT/OT. (3) Dermatomyositis: Follows with Dr. Oneal of rheumatology Discontinue IV hydrocortisone. Start Medrol 4 mg daily PAINTER BOTTOM dose. Continue Plaquenil HS (4) Steroid dependence: Plan as above. (5) DM type 2 (diabetes mellitus, type 2): Well controlled -a1c 5.8 in Feb 2020 Hold home agents SSI while in-patient BSG AC HS (6) Hypertension: Continue losartan and hydrochlorothiazide (7) LBBB (left bundle branch block): Full outpatient work-up in 2017 by cardiology was unremarkable. See initial consult note for details. (8) DVT prophylaxis: SCD/ambulation-Per surgery Full code Disposition-pending clinical improvement postoperatively. Admission and Anticipated Discharge Date Admission Date: June 20, 2020 Subjective Patient is doing okay. Sitting in the recliner. Currently reports pain is well controlled. Has any chest pain or shortness of breath. denies any nausea or vomiting. Denies any headache or dizziness. Denies any abdominal pain, diarrhea or dysuria. Review of Systems Review of Systems: All systems reviewed & are unremarkable except as noted in HPI & below Physical Exam Physical Exam: General: A&Ox3 HENT: NCAT, MMM, EOMI Eyes: PERRLA Neck: Supple, normal range of motion CVS: normal rate and rhythm Resp: b/l good breath Abdomen: Soft, distended nontender Extremities: No c/c/e Neuro: face symmetric, no focal deficit Skin: warm and dry, no rashes/lesions/errythema MSK: normal ROM, no joint swelling/erythema Results & Data Results & Data ([facility]) Vital Signs (Past 12 Hours) Vital Signs Temp Pulse Resp BP Pulse Ox 06/22/20 14:42 37 C 80 16 134/76 98 06/22/20 08:51 72 114/69 06/22/20 07:41 37 C 69 16 100/56 L 94 (1) Fall Encounter type: initial encounter Qualified Code(s): W19.XXXA - Unspecified fall, initial encounter (2) Closed hip fracture Encounter type: initial encounter Laterality: right Qualified Code(s): S72.001A - Fracture of unspecified part of neck of right femur, initial encounter for closed fracture
[2020-06-22] MEDS: CYCLOBENZAPRINE HCL 5 MG TAB PO SCH (21:26)
[2020-06-22] MEDS: DOCUSATE SODIUM/SENNA 50/8.6MG TAB PO SCH (21:28)
[2020-06-22] MEDS: HYDROXYCHLOROQUINE SULFATE 200 MG TAB PO SCH (21:28)
[2020-06-22] MEDS: SENNA 8.6 MG TAB PO SCH (21:28)
[2020-06-22] MEDS: CYANOCOBALAMIN 500 MCG TABLET (VITAMIN B-12) PO SCH (21:29)
[2020-06-23] MEDS: KETOROLAC 30 MG/ML VIAL IV SCH (04:29)
[2020-06-23] MEDS: ACETAMINOPHEN 500 MG TAB PO SCH ×2 (06:09→14:34)
[2020-06-23 06:28] LABS: Basophils # (auto) 0.03 K/uL (0-0.2); Basophils % (auto) 0.5 %; Eosinophils # (auto) 0.34 K/uL (0-0.5); Eosinophils % (auto) 5.5 %; Hematocrit (blood only) 26.1 % (37-47); Hemoglobin 8.8 g/dL (12.0-16.0); Immature Granulocytes # (auto) 0.02 K/uL (0.00-0.02); Immature Granulocytes % (auto) 0.3 %; Lymphocytes # (auto) 1.21 K/uL (1.2-3.4); Lymphocytes % (auto) 19.6 %; Mean Corpuscular Hemoglobin 30.8 pg (25-34); Mean Corpuscular Hgb Conc 33.7 g/dL (32-36); Mean Corpuscular Volume 91.3 fL (80-100); Mean Platelet Volume 10.2 fL (7.4-10.4); Monocytes # (auto) 0.69 K/uL (0.11-0.59); Monocytes % (auto) 11.2 %; Neutrophils # (auto) 3.87 K/uL (1.4-6.5); Neutrophils % (auto) 62.9 %; Platelet Count 182 K/uL (130-400); RDW Coefficient of Variation 13.6 % (11.5-14.5); RDW Standard Deviation 45.4 fL (36.4-46.3); Red Blood Count 2.86 M/uL (4.2-5.4); White Blood Count 6.16 K/uL (4.8-10.8)
[2020-06-23 07:05] LABS: BUN Creatinine Ratio 26.9 (10-20); Calcium 8.7 mg/dl (8.5-10.1); Creatinine Clr Calc Pharmacy 87.4 ml/min; Est GFR (African American) 112.6; Est GFR (Non-African American) 97.2
[2020-06-23] MEDS ORDERED: methylPREDNISolone 4 MG TAB PO SCH (09:00)
[2020-06-23] MEDS: INSULIN ASPART 100 UNITS/ML 3 ML PEN SC SCH ×2 (09:28→12:45)
[2020-06-23] MEDS: ATORVASTATIN 40 MG TAB PO SCH (09:59)
[2020-06-23] MEDS: ASPIRIN 81 MG ECTAB PO SCH (09:59)
[2020-06-23] MEDS: POTASSIUM CHLORIDE 10 MEQ TABCR PO SCH (09:59)
[2020-06-23] MEDS: MULTIVITAMIN TAB PO SCH (09:59)
[2020-06-23] MEDS: DULoxetine HCL 60 MG CAP PO SCH (09:59)
[2020-06-23] MEDS: PANTOprazole 40 MG TAB PO SCH (09:59)
[2020-06-23] MEDS: FERROUS GLUCONATE 324 MG TAB PO SCH (09:59)
[2020-06-23] MEDS: DOCUSATE SODIUM 100 MG CAP PO SCH (09:59)
[2020-06-23] MEDS: TOPIRAMATE 50 MG TAB PO SCH (09:59)
[2020-06-23] MEDS: CALCIUM 600MG + VIT D 400 IU TAB PO SCH (09:59)
[2020-06-23] MEDS: ASCORBIC ACID 500 MG TAB PO SCH (09:59)
[2020-06-23] MEDS: PREGABALIN 75 MG CAP PO SCH ×2 (10:04→14:34)
[2020-06-23] MEDS: hydroCHLOROthiazide 25 MG TAB PO SCH (11:13)
[2020-06-23] MEDS: LOSARTAN POTASSIUM 25 MG TAB PO SCH (11:13)
[2020-06-23] MEDS ORDERED: POTASSIUM CHLORIDE CRTAB 20 MEQ TABCR PO ONE (15:00)
--- NOTE | 2020-06-23 19:59 | Progress Notes ---
DATE: 06/23/2020 SUBJECTIVE: A 60-year-old white female postop day 2 from a right total hip replacement done for a fracture. She is doing remarkably well. She has done well in therapy. She is not having much pain. No chest pain or shortness of breath. Not feeling dizzy or lightheaded. OBJECTIVE: VITAL SIGNS: Temperature 37.1. Vital signs are stable. GENERAL: Shows a pleasant, middle-aged female. She was sitting up in her bedside chair when I visited her today. EXTREMITIES: Examination of the right hip reveals the dressing to be clean, dry and intact. Thigh is soft and supple. Leg lengths are equal. Hip is located. She is neurologically intact. LABORATORY DATA: Hemoglobin 8.8. Hematocrit 26.1. Electrolytes are stable. Potassium is still a little bit low at 3.0. ASSESSMENT: A 60-year-old white female postoperative day 2 from a right total hip replacement done for a fracture. She is doing clinically remarkably well. A little bit anemic, but asymptomatic. Potassium is a little bit low and still needs to be supplemented. PLAN: 1. DVT prophylaxis including thigh-high TEDs, SCDs, and aspirin twice a day for 6 weeks. 2. PT/OT. She will weightbear as tolerated. Does need to obey hip precautions. 3. Pain control, doing well with current pain regimen. 4. Medical management as per the medicine service. Potassium supplementation as per medicine. 5. Anemia. Continue iron supplementation. No need for blood transfusion. 6. Disposition: She is okay for discharge any time medically stable. She is going to be discharged with home health, I believe. I will see her back in 2-3 weeks out from surgery date. Any orthopedic questions can be directed to me at [phone].
--- NOTE | 2020-06-27 18:29 | Discharge Summary ---
Date of Service June 27, 2020 Admission HPI Per Admitting Provider This is a 60yo F with a PMH of type 2 diabetes, interstitial lung disease, renal artery aneurysm, splenic artery aneurysm, aortic valve stenosis, sinus bradycardia, left bundle branch block, dermatomyositis on chronic steroids and other medical problems listed below who presents after mechanical fall at home this morning. Patient is in the process of moving and was staying at her family's camp when she tripped and fell onto her right side. Endorsing immediate pain at the right hip. Denies any head trauma or loss of consciousness. Denies any fever, chills or recent infection. No lightheadedness, dizziness, chest pain or shortness of breath. Minor nausea following pain medication given in ED but denies any vomiting or abdominal pain. No dysuria, diarrhea constipation. Took morning medication today. On chronic steroids for dermatomyositis. Admission Exam Per Admitting Provider General Appearance: WD/WN, vitals as above, NAD, sitting up in bed, pleasant, conversing easily Head: normocephalic, atraumatic Eyes: normal inspection, PERRL, conjunctivae normal, anicteric sclerae ENT: external ear and nose normal, oropharynx normal Neck: normal visual inspection, trachea midline, no thyromegaly Respiratory: normal respiratory effort, lungs clear to auscultation, no wheeze, rales, rhonchi. No accessory muscle use Cardiovascular: regular rate, rhythm, systolic murmur, normal peripheral pulses, no BLE edema. Vessels: no JVD Chest: normal inspection of chest Abdomen/GI: normal bowel sounds, soft, nontender, no hepatosplenomegaly Extremities/Musculoskeletal: + RLE shortened, painful to lateral R hip, decreased ROM 2/2 pain. NVI. All other extremities full ROM and 5/5 MARCO. No cyanosis or clubbing Neurologic: PERRL, EOMI, accommodation nl, no face palsy, no dysarthria, CN's II-XI intact bilaterally and moves all extremities Psychiatric: A+Ox3, euthymic affect Skin: no rashes, normal color, warm/dry Principal Diagnosis (1) Fall: Mechanical fall with subsequent closed right hip fracture Discharge Exam General: A&Ox3 HENT: NCAT, MMM, EOMI Eyes: PERRLA Neck: Supple, normal range of motion CVS: normal rate and rhythm Resp: b/l good breath Abdomen: Soft, distended nontender Extremities: No c/c/e Neuro: face symmetric, no focal deficit Skin: warm and dry, no rashes/lesions/errythema MSK: normal ROM, no joint swelling/erythema Discharge Data Allergies Allergy/AdvReac Type Severity Reaction Status Date / Time No Known Allergies Allergy Verified 06/20/20 11:30 Consultations 06/20/20 12:19 ED Decision to Admit Stat 06/20/20 12:50 Consult Orthopedic Surgery Routine 06/20/20 14:23 Consult Anesthesiology Routine Consult Case Management - Discharge Planning Routine 06/22/20 08:00 Consult Case Management - Discharge Planning Routine Procedures Performed Operation Date: 06/21/20 07:30 Actual Procedures p Right Total Hip Arthroplasty Uncemented(Right) - Frank Flowers MD Hospital Course (1) Fall: Mechanical fall with subsequent closed right hip fracture (2) Closed hip fracture: S/P right total hip arthroplasty with Dr. Santiago Flowers. follow-up with orthopedics as an outpatient. (3) Dermatomyositis: Follows with Dr. Oneal of rheumatology discharged on DIRECTOR OF MEDICAL EDUCATION Medrol 4 mg daily DIRECTOR OF MEDICAL EDUCATION dose. Continue Plaquenil HS (4) Steroid dependence: Plan as above. (5) DM type 2 (diabetes mellitus, type 2): Well controlled -a1c 5.8 in Feb 2020 Hold home agents SSI while in-patient BSG AC HS (6) Hypertension: Continue losartan and hydrochlorothiazide (7) LBBB (left bundle branch block): Full outpatient work-up in 2017 by cardiology was unremarkable. See initial consult note for details. Total Time Total Time Spent Total Time Spent (In Minutes): 35 Discharge Plan Discharge Items Patient Disposition: Home - Home Health Services Reason For Visit: closed rt hip fracture Discharge Diagnosis: Right Hip Replacement for Fracture Activity: Per Instructions section Activity Comment: Obey hip precautions at all times. Weightbearing: Full weightbearing Weightbearing Comment: Weightbear as tolerated obeying hip precautions Non-emergency contact: Primary Care Provider Call non-emergency contact if: your symptoms worsen Follow-up/Referrals: Eddie Man MD [Primary Care Provider] - (Date & Time 07/01/2020 10:00 AM Provider Eddie Man MD Department [facility] ) Frank Flowers MD [Physician] - (Orthopedic follow-up 2-3 weeks from surgery date.) Diet: Carb Consistent or DM2 Addtl Attending Provider Instructions: Continue with aspirin 81 mg twice daily for total of 6 weeks. You will need to have repeat CBC to follow-up hemoglobin at your family care physician appointment. ACTIVITY RECOMMENDATIONS: Physical Therapy: * Aggressive physical therapy is not usually needed. You will learn to take care of yourself safely and walk. * Follow the "Hip Precautions Instructions." * In some cases, the foster care social worker at the hospital will arrange to have a therapist come to your house for the first couple of weeks to help you learn these skills. * You need to practice on your own or with the help of a family member as needed. * When you learn these skills, most of the therapy can be done on your own. Home Exercise: * You were shown a series of exercises in the hospital. Do these exercises three to four times each day including the exercises you were shown in physical therapy. Walking: * Get up and walk several times each day. For the first four weeks, try not to stand or walk for more than one hour at a time. If you do stand or walk for more than one hour, you will not hurt anything, but your leg will likely swell. * As you feel comfortable, you may change from the walker or crutches to a cane and then to independent walking. MEDICATIONS: New Medicine: * You will likely be taking one or more of these medicines: 1. Tramadol - Take, as directed, when you need it, every six hours to control your pain. 2. Iron Sulfate - Take two times each day for the month after surgery to help you replace the blood lost during surgery. 3. Aspirin - Thins your blood to lessen the chance of forming a blood clot. * The most common side effects of pain medicine and iron are nausea and constipation. If nausea or constipation is too much of a problem or if you have any questions about your new medicines or doses, call [facility] at [phone]. We will try to help you manage these issues. "VERY IMPORTANT TO READ AND REVIEW" Pain: * The immediate post-operative period after hip replacement surgery is often quite painful. * You are given a prescription for pain medicine. You should take it, as directed, when you need it, especially before physical therapy and before going to bed. Pain that interferes with sleep is very common and can last several months. * You will likely need pain medicine for the first two to four weeks. It will not stop all of the pain. The pain will lessen and as you feel better, you may change to milder pain medicine such as Tylenol. * The most common side effects of pain medicine are nausea and constipation, so don't take more than you need. SPECIAL CARE INSTRUCTIONS: TEDs/Elastic Stockings: * The white elastic stockings help limit swelling and prevent blood clots from forming in your legs. The more you wear them, the more they work. * Wear them for six weeks. Prevention of Infection: * Take antibiotics one hour before any dental cleaning, dental work, urological procedure, gastrointestinal procedure or any invasive surgery in order to prevent your new joint from getting infected. * You may get the antibiotics from the doctor performing the procedure or you may call our office at before and we will call in a prescription to the pharmacy of your choice. Things to Watch For: * Drainage from the incision site that occurs more than one week after your surgery. * Severely increased leg pain or swelling. * Increased redness at the incision site. * Fever above 102 degrees Fahrenheit. * Unusual chest pain or shortness of breath. * Unusual pain or burning with urination. Call [facility] at with any of the above problems or if you have any questions about your medicines or recovery. FOLLOW UP VISIT: Make an appointment to see your doctor for approximately two weeks after surgery for a progress check and staple removal by calling the office at . Pending Studies at Discharge: No Stand-Alone Forms: [facility] Medications and DC Order Prescriptions: New tramadol 50 mg Tablet 50 mg PO Q4H PRN (Reason: pain) Qty: 20 RF: 0 aspirin 81 mg Tablet,Delayed Release (Dr/Ec) 81 mg PO BID Qty: 80 RF: 0 ferrous gluconate 324 mg (38 mg iron) Tablet 324 mg PO BIDM Qty: 60 RF: 0 Continued atorvastatin [Lipitor] 40 mg Tablet 40 mg PO QAM RF: 0 milk thistle 500 mg Capsule 500 mg PO QPM RF: 0 ondansetron HCl [Zofran] 4 mg Tablet 4 mg PO Q6H PRN (Reason: Nausea) RF: 0 methylprednisolone [Medrol] 4 mg Tablet 4 mg PO QAM RF: 0 cyanocobalamin (vitamin B-12) [Vitamin B-12] 1,000 mcg Tablet 1,000 mcg PO QPM RF: 0 pantoprazole [Protonix] 40 mg Tablet,Delayed Release (Dr/Ec) 40 mg PO QAM RF: 0 hydrochlorothiazide 25 mg Tablet 25 mg PO QAM RF: 0 hydroxychloroquine [Plaquenil] 200 mg Tablet 400 mg PO HS RF: 0 cyclobenzaprine 5 mg Tablet 5 mg PO HS RF: 0 topiramate 50 mg Tablet 50 mg PO BID RF: 0 calcium carbonate-vitamin D3 [Calcium 500 + D] 500 mg(1,250mg) -200 unit Tablet 1 tab PO DAILY RF: 0 pregabalin [Lyrica] 75 mg Capsule 75 mg PO TID RF: 0 tramadol 50 mg tablet 50 mg PO Q6H PRN (Reason: pain, moderate) Qty: 30 RF: 0 potassium chloride 10 mEq tablet extended release 10 meq PO DAILY RF: 0 losartan 25 mg tablet 25 mg PO DAILY RF: 0 duloxetine 60 mg capsule,delayed release(DR/EC) 60 mg PO DAILY RF: 0 metformin 500 mg tablet extended release 24 hr 1,000 mg PO DAILY RF: 0 naproxen 500 mg Tablet 500 mg PO BID PRN (Reason: Pain) RF: 0 diclofenac sodium 1 % Gel 1 g TOPICAL QID PRN (Reason: Pain) RF: 0 Discharge Orders: Discharge Order (Routine); Ordered 06/23/20 Ordered By: Isaiah Mukherjee/Other Patient Handouts: DVT Post Op Prevention, Managing Type 2 Diabetes, Managing Diabetes: The A1C Test Admission Data Admit Date/Time: 06/20/20 12:47 Attending Provider: Frank Flowers Admit Provider: Frank Flowers Primary Care Provider: Eddie Man Other Providers: Frank Flowers ; Tin Wilder ; Isaiah Reeves ; [facility] Other Interventions: Discharge Summary Assessment (RN) Last Done: 06/23/20 16:11
== END 2020-06-23 16:49 | disposition home health service (06) | DRG 522 ==
LOC: ED 09:59 → 3E 12:47

== ENCOUNTER 2021-08-02 08:33 | Observation (INO) ==
--- NOTE | 2020-12-07 09:25 | PAT Medication Instructions ---
Medication Instructions Date of Service December 07, 2020 Home Medications Medication Instructions Recorded tramadol 50 mg tablet 50 mg PO Q6H PRN #30 tab 08/22/19 atorvastatin 40 mg tablet (Lipitor) 40 mg PO QAM calcium carbonate 500 mg (1,250 mg)-vitamin D3 200 unit tablet (Calcium 500 + D) 1 tab PO DAILY cyanocobalamin (vitamin B-12) 1,000 mcg tablet (Vitamin B-12) 1,000 mcg PO QPM cyclobenzaprine 5 mg tablet 5 mg PO HS hydrochlorothiazide 25 mg tablet 25 mg PO QAM hydroxychloroquine 200 mg tablet (Plaquenil) 400 mg PO HS methylprednisolone 4 mg tablet (Medrol) 4 mg PO QAM milk thistle 500 mg capsule 500 mg PO QPM pantoprazole 40 mg tablet,delayed release (Protonix) 40 mg PO QAM pregabalin 75 mg capsule (Lyrica) 75 mg PO TID topiramate 50 mg tablet 50 mg PO BID tramadol 50 mg tablet 50 mg PO Q6H PRN diclofenac sodium 1 % topical gel 1 g TOPICAL QID PRN duloxetine 60 mg capsule,delayed release 60 mg PO QAM losartan 25 mg tablet 25 mg PO QAM metformin 500 mg tablet,extended release 24 hr 1,000 mg PO QAM naproxen 500 mg tablet 500 mg PO BID PRN potassium chloride 10 mEq tablet,extended release 10 meq PO QAM doxycycline hyclate 50 mg capsule 50 mg PO QAM Continue as directed methylprednisolone 4 mg tablet (Medrol) 4 mg PO QAM ASK your surgeon for instructions naproxen 500 mg tablet 500 mg PO BID PRN ASK your prescriber and surgeon hydroxychloroquine 200 mg tablet (Plaquenil) 400 mg PO HS STOP taking 2 weeks before surgery (or as soon as possible if surgery is within 2 weeks) milk thistle 500 mg capsule 500 mg PO QPM STOP taking 24 hours before surgery diclofenac sodium 1 % topical gel 1 g TOPICAL QID PRN DO NOT take the morning of surgery calcium carbonate 500 mg (1,250 mg)-vitamin D3 200 unit tablet (Calcium 500 + D) 1 tab PO DAILY hydrochlorothiazide 25 mg tablet 25 mg PO QAM losartan 25 mg tablet 25 mg PO QAM metformin 500 mg tablet,extended release 24 hr 1,000 mg PO QAM potassium chloride 10 mEq tablet,extended release 10 meq PO QAM Take morning of surgery With a small sip of water, OTHERWISE NOTHING TO EAT OR DRINK AFTER MIDNIGHT: atorvastatin 40 mg tablet (Lipitor) 40 mg PO QAM pantoprazole 40 mg tablet,delayed release (Protonix) 40 mg PO QAM pregabalin 75 mg capsule (Lyrica) 75 mg PO TID topiramate 50 mg tablet 50 mg PO BID tramadol 50 mg tablet 50 mg PO Q6H PRN (okay to take up to 4 hours prior to surgery if needed) duloxetine 60 mg capsule,delayed release 60 mg PO QAM doxycycline hyclate 50 mg capsule 50 mg PO QAM Take evening before surgery cyanocobalamin (vitamin B-12) 1,000 mcg tablet (Vitamin B-12) 1,000 mcg PO QPM cyclobenzaprine 5 mg tablet 5 mg PO HS pregabalin 75 mg capsule (Lyrica) 75 mg PO TID topiramate 50 mg tablet 50 mg PO BID tramadol 50 mg tablet 50 mg PO Q6H PRN (if needed) Other Notes If you have any questions please call us at [phone] or [phone] or [phone] or [phone]
--- NOTE | 2020-12-09 09:26 | Anesthesiology Consultation ---
Date of Service December 09, 2020 Assessment & Plan (1) Encounter for pre-operative examination: - Awaiting cardiology office visit note. - COVID screening: Per assessment on 12/09: Travel screen negative, no known COVID-19 positive contacts or current COVID-19 related symptoms. Surgeon arranging preop COVID testing. Awaiting results. - Check BSG AM DOS - S/P Right ZULEIKA (06/21/20): Grade view 1, MAC#3, ETT 7.5 at [facility] ("general anesthetic was implemented at the patient's request" per operative report). Reviewed SAB vs. GA for upcoming Right TKA. Patient wishes to again be done under general anesthesia if possible. Advised patient to discuss further AM DOS. Chart Review Chart Review: Patient seen in Pre Admission Testing Teaching & Discussion Pre-Anesthesia Teaching/Discussion Notes: Instructed NPO after midnight before surgery,except medications with 15 cc of water. Medication instructions provided according to the PAT guidelines. History Surgery Operation Date: 01/05/21 10:40 Proposed Procedures p Right Total Knee Replacement - Frank Flowers MD Height/Weight Height: 5 ft 4 in Weight: 67.8 kg Allergies Allergy/AdvReac Type Severity Reaction Status Date / Time No Known Allergies Allergy Verified 12/01/20 13:10 Medications Home Medications Medication Instructions Recorded Confirmed Last Taken atorvastatin 40 mg tablet (Lipitor) 40 mg PO QAM 08/15/19 12/01/20 09/08/20 calcium carbonate 500 mg (1,250 1 tab PO DAILY 08/15/19 12/01/20 06/20/20 mg)-vitamin D3 200 unit tablet (Calcium 500 + D) cyanocobalamin (vitamin B-12) 1,000 mcg PO QPM 08/15/19 12/01/20 06/19/20 1,000 mcg tablet (Vitamin B-12) cyclobenzaprine 5 mg tablet 5 mg PO HS 08/15/19 12/01/20 06/19/20 hydrochlorothiazide 25 mg tablet 25 mg PO QAM 08/15/19 12/01/20 09/08/20 hydroxychloroquine 200 mg tablet 400 mg PO HS 08/15/19 12/01/20 06/19/20 (Plaquenil) methylprednisolone 4 mg tablet 4 mg PO QAM 08/15/19 12/01/20 06/20/20 (Medrol) milk thistle 500 mg capsule 500 mg PO QPM 08/15/19 12/01/20 06/19/20 pantoprazole 40 mg tablet,delayed 40 mg PO QAM 08/15/19 12/01/20 09/08/20 release (Protonix) pregabalin 75 mg capsule (Lyrica) 75 mg PO TID 08/15/19 12/01/20 09/08/20 topiramate 50 mg tablet 50 mg PO BID 08/15/19 12/01/20 09/08/20 tramadol 50 mg tablet 50 mg PO Q6H PRN #30 tab 08/22/19 12/01/20 Unknown diclofenac sodium 1 % topical gel 1 g TOPICAL QID PRN 06/20/20 12/01/20 Unknown duloxetine 60 mg capsule,delayed 60 mg PO QAM 06/20/20 12/01/20 09/08/20 release losartan 25 mg tablet 25 mg PO QAM 06/20/20 12/01/20 09/08/20 metformin 500 mg tablet,extended 1,000 mg PO QAM 06/20/20 12/01/20 09/08/20 release 24 hr naproxen 500 mg tablet 500 mg PO BID PRN 06/20/20 12/01/20 09/08/20 potassium chloride 10 mEq 10 meq PO QAM 06/20/20 12/01/20 09/08/20 tablet,extended release doxycycline hyclate 50 mg capsule 50 mg PO QAM 09/09/20 12/01/20 09/08/20 Past Medical History Medical History Autoimmune hepatitis follows with GI (Dr. Rahman) Bilateral primary osteoarthritis of knee Carotid artery stenosis Chronic back pain + LE radiation Dermatomyositis follows with rheumatology (Dr. 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 dermatomyositis- on chronic steroids*/plaquenil per rheumatology Pulmonary nodules Under surveillance Renal artery aneurysm under surveillance Splenic artery aneurysm under surveillance Trigeminal neuralgia Exercise / Class Metabolic Activity II 4-5 Yardwork/Stairs/Walk up hill Past Family History Family History Other No family history of adverse response to anesthesia No significant family history Past Surgical History Surgical History History of appendectomy History of arthroscopy of left knee History of cholecystectomy History of colonoscopy + polypectomy History of esophagogastroduodenoscopy (EGD) History of hand surgery Granuloma excision (right hand x2) History of hernia repair Left inguinal History of hysterectomy Partial + LSO + with left ovary and salpingectomy History of lumbar spinal fusion History of oophorectomy, unilateral Right History of right hip replacement Right ZULEIKA (06/21/20): Grade view 1, MAC#3, ETT 7.5 at [facility] ("general anesthetic was implemented at the patient's request" per operative report) History of tonsillectomy and adenoidectomy Hx of bilateral cataract extraction Past Anesthesia History No Hx of Anesthesia Complications and No Family Hx of Anesthesia Complications History of PONV No Hx of PONV and No Hx of Motion Sickness Social History Smoking Status: Never smoker Do You Dip or Chew Tobacco: No Hx Alcohol Use: Yes Alcohol type: wine alcohol intake frequency: holidays/special occasions only Hx Substance Use: No substance use type: does not use Review of Systems Patient denies chest pain, shortness of breath, dyspnea on exertion, fever, chills, cough, wheezing, palpitations. Physical Exam Vital Signs VITALS BP 117/69 P 82 TEMP 98.4 SP02 97%RA RESP 18 PHYSICAL Full cervical extension range of motion. Full TMJ range of motion. TMD 3 finger breaths Mallampati Score 3 Dentition: missing teeth (molars) Lungs: clear throughout to auscultation Cardiac: regular rate and rhythm, III/ systolic murmur Spine: cervical fat pad Carotid arteries: faint carotid bruit vs. murmur radiation Extremities: no edema Lab Results Anesthesia Preop Results Results Anesthesia Widget: PT 10.1 Seconds (9.0-12.0) 12/09/20 PTT 25.6 Seconds (21.0-31.0) 12/09/20 INR 1.0 (0.9-1.1) 12/09/20 Blood Type O Positive 12/09/20 Antibody Screen NEGATIVE 12/09/20 Testing Laboratory Results 11/19/20 WBC 6.29 H/H 12.0/37.4 PLATELETS 292 SODIUM 142 POTASSIUM 4.3 CHLORIDE 105 CO2 27 BUN 25 CREATININE 0.7 GLUCOSE 106 HGBA1C 6.6% Electrocardiogram Date: 09/09/20 Sinus rhythm at 64 bpm. Left bundle branch block (chronic). Paired to 06/20/2020, T wave inversion less evident in lateral leads. Echo done 11/19/2020. Echocardiogram Date: 11/19/20 LVEF 51%. Septal motion consistent with left bundle branch block. The regional left ventricular wall motion is otherwise normal. Moderately increased concentric LV wall thickness. Moderate focal calcification of the left coronary aortic valve cusp. AV sclerosis without stenosis. Mild MR. Stress Test Date: 01/05/17 Type: nuclear Gated SPECT imaging reveals normal myocardial thickening and wall motion. LVEF 64%. Lexiscan nuclear cardiac stress test negative for ischemia. 81% MPHR. Other Testing CTA Chest (09/09/20): There is no evidence of pulmonary embolus in the main, lobar, or segmental pulmonary arteries. There is no airspace consolidation or pleural effusion. A 6 mm pulmonary nodule is noted in the left lower lobe. This was not seen on the 10/11/2018 examination and may be on an inflammatory basis. Findings from CTA under surveillance per pt. Carotid artery duplex (10/29/20): The right vertebral artery demonstrates antegrade flow. The left vertebral artery demonstrates antegrade flow. Right carotid artery duplex examination indicates evidence of less than 50% stenosis of the internal carotid artery. Left carotid artery duplex examination indicates evidence of 50-69% stenosis of the internal carotid artery. Cardiac CT (10/19/20): The Agatston calcium score is 0. The coronary arteries are normal: absence of plaque and no luminal stenosis. 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 1 cm cyst in the tail of the pancreas. Follow up MRI of the pancreas with MRCP could be performed in 12 months for further evaluation. Peribronchial ground glass and reticular opacities may represent bronchiolitis.
--- NOTE | 2021-07-30 08:54 | Anesthesiology Consultation ---
Date of Service July 30, 2021 Assessment & Plan (1) Encounter for pre-operative examination: - COVID screening: Per assessment on 07/29: No known COVID-19 positive contacts or current COVID-19 related symptoms. Travel screen negative. Preop Covid test done 07/29 ([place]) was negative. Pt requiring admission post-operatively. Plan for recheck with COVID Lobo AM DOS due to possibility that patient may have a roommate. OR aware. Lobo order placed. -S/P Right ZULEIKA (06/21/20): Grade view 1, MAC#3, ETT 7.5 at [facility] ("general anestheticwas implemented at the patient's request" per operative report). Reviewed SAB vs. GA for upcoming Right TKA. Patient wishes to again be done under general anesthesia if possible. Advised patient to discuss further AM DOS. -Cardiology office visit (09/24/20): "Patient is referred for evaluation after ER visit on September 09, 2020. Patient noted day prior to ER visit having developed severe midsternal chest discomfort with associated diaphoresis and nausea while driving. Symptoms are severe enough to require patient to pull off the road. No cell phone service she attempted to summon help from bystanders unsuccessfully. Symptoms ultimately [place] or associated with nausea and headache. She sought evaluation from PCP and was referred to emergency room after phone call due to persistent low-grade ache in chest. ER evaluation included CT aid chest without evidence of pulmonary emboli. Cardiac enzymes were negative, EKG chronic left bundle-branch unchanged.. She is referred now for further evaluation. She denies prior history of angina or congestive heart failure. Notes no history of myocardial infarction. Has not been aware of any tachy palpitations or bradycardia and did not sense an elevated heart rate during current event. No fevers chills or unexplained infections. She is tapering corticosteroids. Uses nonsteroidals due to chronic knee and hip pain.. Has chronic indigestion the symptoms appear different past also has chest wall tenderness.. Given concerning episode of severe chest discomfort will further evaluate patient.. Echocardiogram will be reordered to assess valve disease and structural heart.. Carotid duplex ordered given referred murmur to bilateral carotids history of vascular aneurysm, splenic and renal artery.. Coronary CT angiogram ordered to assess for colindres obstructive disease as well as aneurysmal disease of the vessels.. No changes made medical therapy..May consider re- evaluation of possible arrhythmias if no findings on above" Patient johns bsequently seen at [facility] 12/09/20 and denied cardiopulmonary complaints or further chest pain. Cardiology-ordered Cardiac CT, ECHO and carotid artery duplex results listed in testing section below. -Cardiology note (10/22/20): "Coronary arteries are normal on cardiac CT, there was no plaque or narrowing. Calcium score is 0. (Excellent).. Study demonstrates a 1 cm cyst in the pancreas known from prior evaluations. There is mild thickening of the thymus but should be followed by CT scan in 6 months time sooner if indicated though not specifically concerning given recent past chest CT scans." -Cardiology note (11/24/20): "Echocardiogram is not significantly changed from prior study aortic valve is calcified and mildly narrowed overall heart function is still within normal limits." - Graves disease/hyperthyroidism: on methimazole. Endocrine had patient update labs given patient complaints of: fatigue, tiredness, hot flashes and jitters. Free T4/T3 WNL but TSH 0.01. Endocrine aware of upcoming surgery. Per response from Shavon JACOB at endocrine (07/30/21): "Reviewed patient's test results. She is scheduled for knee surgery on Monday morning. I am going to recommend an increase of methimazole dosing. Free T4 and Free T3 remain in the normal range. No reason to postpone surgery. Plan: Methimazole 15 mg daily." Message from endocrine to patient: "Since your TSH is back in the below normal range and you were having some symptoms that could be thyroid related, I would recommend increasing methimazole dosing. Methimazole 20 mg daily was too much and 10 mg is not enough so let's try 15 mg daily, that would be 1 1/2 tablets daily. You can take an extra 1/2 tablet today and then take full dose 15 mg in AM starring tomorrow morning" > Per verbal from Shavon JACOB, she does not recommend rechecking thyroid levels AM DOS as she notes that TSH often takes time to change and T3/T4 were already WNL so she doesn't anticipate seeing much of a change since DOS in near future. At anesthesiologist discretion AM DOS if repeat thyroid levels needed from their perspective. Chart Review Chart Review: Acceptable Risk for Surgery (pending evaluation AM DOS) and Patient NOT seen in Pre Admission Testing History Surgery Operation Date: 05/14/21 07:00 Proposed Procedures p Right Total Knee Replacement - Frank Flowers MD Operation Date: 08/02/21 10:40 Proposed Procedures p Right Total Knee Replacement - Frank Flowers MD Height/Weight Height: 5 ft 4 in Weight: 61.235 kg Allergies Allergy/AdvReac Type Severity Reaction Status Date / Time No Known Allergies Allergy Verified 07/29/21 15:39 Medications Home Medications Medication Instructions Recorded Confirmed Last Taken atorvastatin 40 mg tablet (Lipitor) 40 mg PO QAM 08/15/19 07/29/21 09/08/20 calcium carbonate 500 mg-vitamin 1 tab PO QAM 08/15/19 07/29/21 06/20/20 D3 5 mcg (200 unit) tablet (Calcium 500 + D) cyanocobalamin (vitamin B-12) 1,000 mcg PO QPM 08/15/19 07/29/21 06/19/20 1,000 mcg tablet (Vitamin B-12) cyclobenzaprine 5 mg tablet 5 mg PO HS 08/15/19 07/29/21 06/19/20 hydrochlorothiazide 25 mg tablet 25 mg PO QAM 08/15/19 07/29/21 09/08/20 hydroxychloroquine 200 mg tablet 400 mg PO HS 08/15/19 07/29/21 06/19/20 (Plaquenil) methylprednisolone 4 mg tablet 4 mg PO QAM 08/15/19 07/29/21 06/20/20 (Medrol) milk thistle 500 mg capsule 500 mg PO QAM 08/15/19 07/29/21 06/19/20 pantoprazole 40 mg tablet,delayed 40 mg PO QAM 08/15/19 07/29/21 09/08/20 release (Protonix) pregabalin 75 mg capsule (Lyrica) 75 mg PO TID 08/15/19 07/29/21 09/08/20 topiramate 50 mg tablet 50 mg PO BID 08/15/19 07/29/21 09/08/20 tramadol 50 mg tablet 50 mg PO Q6H PRN #30 tab 08/22/19 07/29/21 Unknown diclofenac sodium 1 % topical gel 1 g TOPICAL QID PRN 06/20/20 07/29/21 Unknown duloxetine 60 mg capsule,delayed 60 mg PO QAM 06/20/20 07/29/21 09/08/20 release losartan 25 mg tablet 25 mg PO QAM 06/20/20 07/29/21 09/08/20 metformin 500 mg tablet,extended 1,000 mg PO QAM 06/20/20 07/29/21 09/08/20 release 24 hr naproxen 500 mg tablet 500 mg PO BID PRN 06/20/20 07/29/21 09/08/20 potassium chloride 10 mEq 10 meq PO QAM 06/20/20 07/29/21 09/08/20 tablet,extended release amoxicillin 500 mg tablet 2,000 mg PO ONCE #4 tab 04/22/21 07/29/21 Unknown famotidine 20 mg tablet (Pepcid) 20 mg PO HS 07/29/21 07/29/21 Unknown methimazole 10 mg tablet 10 mg PO QAM 07/29/21 07/29/21 Unknown Past Medical History Medical History Autoimmune hepatitis follows with GI (Dr. Rahman) Bilateral primary osteoarthritis of knee Carotid artery stenosis Chronic back pain + LE radiation Degenerative arthritis of knee, bilateral Dermatomyositis follows with rheumatology (Dr. Julio Oneal) [place]WILL NOW [place] [facility] [place] for plaquenil/methylprednisolone 4mg daily per pt Diabetic neuropathy DM type 2 (diabetes mellitus, type 2) NIDDM GERD (gastroesophageal reflux disease) Graves disease History of blood transfusion r/t childbirth History of COVID-19 02/2021 > slight cough, low grade fever, treated with antibodies > resolved Hyperlipidemia Pt denies, HLD noted per [facility] records Hyperthyroidism Interstitial lung disease IPMN (intraductal papillary mucinous neoplasm) Left bundle branch block chronic dating back to at least 2017-F/U DR [place] VYAS (nonalcoholic steatohepatitis) Neurogenic claudication due to lumbar spinal stenosis Pancreatic cyst Panniculitis granulomatous panniculitis in setting of dermatomyositis- on chronic steroids*/plaquenil per rheumatology Pulmonary nodules Under surveillance Renal artery aneurysm under surveillance Splenic artery aneurysm under surveillance Thymus disorder Recent diagnosis, under surveillance Trigeminal neuralgia Past Family History Family History Other No family history of adverse response to anesthesia No significant family history Past Surgical History Surgical History History of appendectomy History of arthroscopy of left knee History of cholecystectomy History of colonoscopy + polypectomy History of esophagogastroduodenoscopy (EGD) History of hand surgery Granuloma excision (right hand x2) History of hernia repair Left inguinal History of hysterectomy Partial + LSO + with left ovary and salpingectomy History of lumbar spinal fusion History of oophorectomy, unilateral Right History of right hip replacement Right ZULEIKA (06/21/20): Grade view 1, MAC#3, ETT 7.5 at [facility] ("general anesthetic was implemented at the patient's request" per operative report) History of tonsillectomy and adenoidectomy Hx of bilateral cataract extraction Social History Smoking Status: Never smoker Do You Dip or Chew Tobacco: No Hx Alcohol Use: No Alcohol type: wine alcohol intake frequency: holidays/special occasions only Hx Substance Use: No substance use type: does not use Lab Results Anesthesia Preop Results Results Anesthesia Widget: WBC 7.19 K/uL (4.8-10.8) 07/09/21 Hgb 13.5 g/dL (12.0-16.0) 07/09/21 Hct 40.4 % (37-47) 07/09/21 Plt 250 K/uL (130-400) 07/09/21 Na 143 mmol/L (136-145) 07/09/21 K 3.8 mmol/L (3.5-5.1) 07/09/21 Cl 107 mmol/L (98-107) 07/09/21 CO2 31 mmol/L (21-32) 07/09/21 BUN 17 mg/dl (6-23) 07/09/21 Creat 0.73 mg/dl (0.6-1.2) 07/09/21 Glucose Level 86 mg/dl (70-99(Fasting)) 07/09/21 PT 10.6 Seconds (9.0-12.0) 07/09/21 PTT 29.2 Seconds (21.0-31.0) 07/09/21 INR 1.0 (0.9-1.1) 07/09/21 Blood Type O Positive 07/09/21 Antibody Screen NEGATIVE 07/09/21 Testing Laboratory Results 07/29/21 LFTs WNL TSH 0.01 FREE T4 1.1 (WNL) FREE T3 4.0 (WNL) Electrocardiogram Date: 02/23/21 ST at 117 bpm. Possible LAE. LAD. LBBB. Echocardiogram Date: 11/19/20 LVEF 51%. Septal motion consistent with left bundle branch block. The regional left ventricular wall motion is otherwise normal. Moderately increased concentric LV wall thickness. Moderate focal calcification of the left coronary aortic valve cusp. AV sclerosis without stenosis. Mild MR. Stress Test Date: 01/05/17 Type: nuclear Type:nuclear Gated SPECT imaging reveals normal myocardial thickening and wall motion. LVEF 64%. Lexiscan nuclear cardiac stress test negative for ischemia. 81% MPHR. Other Testing Carotid artery duplex (10/29/20) The right vertebral artery demonstrates antegrade flow. The left vertebral artery demonstrates antegrade flow. Right carotid artery duplex examination indicates evidence of less than 50% stenosis of the internal carotid artery. Left carotid artery duplex examination indicates evidence of 50-69% stenosis of the internal carotid artery. Cardiac CT (10/19/20) The Agatston calcium score is 0. The coronary arteries are normal: absence of plaque and no luminal stenosis. 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 1 cm cyst in the tail of the pancreas. Follow up MRI of the pancreas with MRCP could be performed in 12 months for further evaluation. Peribronchial ground glass and reticular opacities may represent bronchiolitis. Chest CT (05/10/21) Progressive soft tissue density within the thymus now measuring 3.5 cm with low level enhancement. Findings are concerning for a thymic epithelial lesion or less likely thymic hyperplasia. Recommend an MRI chest/thymic protocol with contrast for further evaluation. A couple left supraclavicular lymph nodes slightly larger compared to 06/21/2019, indeterminate. Scattered ground-glass, inflammatory/postinflammatory. No pleural based lesion. Unchanged cystic lesion in the tail the pancreas. Chest MRI (05/28/21) Anterior mediastinal soft tissue mass demonstrates intracellular lipid suggestive of benign thymic hyperplasia. Consider continued imaging surveillance to ensure stability. Under surveillance per patient*
[~2021-08-02 08:33] MED LIST changes: +ACETAMINOPHEN 500 MG TAB PO SCH; -ATEN-174 PO; -AZAT50TA33 PO; +BUPIVACAINE LIPOSOME/PF 266 MG, BUPIVACAINE/EPINEPHRINE 50 ML, SODIUM CHLORIDE 0.9% 30 ... INFIL SCH; -CEPH500C PO; -CYCL5TAB PO; +FAMOTIDINE 20 MG TAB PO SCH; -GABA-113 PO; +GABAPENTIN 600 MG DOSE PO SCH; -GLCSR500 PO; -HYDR25TA4 PO; -INSDGI SC; -LISI-725 PO; -LPT/40 PO; +LR 500ML BOLUS, THEN 15ML/HR IV SCH; +LR 60ML/HR IV SCH; -METH1TAB81 PO; -MILK1CAP PO; -ONDA4TAB46 PO; -OXYC-57 PO; -PANT1TAB3 PO; -SULF800T23 PO; -TRAM-10 PO; +TRANEXAMIC ACID 1,000 MG **IV Intra-op IV SCH; -[UNRECOGNIZED DRUG - CODE] PO; +ceFAZolin 2000MG 2,000 MG/15 ML SYR IV SCH
--- NOTE | 2021-08-02 09:02 | History & Physical Bridge Note ---
Date of Service August 02, 2021 History & Physical Bridge Note I have examined the patient, reviewed the History & Physical and in the interval since the performance of the History & Physical I have noted the following changes of clinical significance: no changes noted
[2021-08-02] MEDS ORDERED: PROPOFOL IV EMULSION 10 MG/ML 20 ML VIAL IV ONE (09:24)
[2021-08-02] MEDS ORDERED: MIDAZOLAM HCL 1 MG/ML 2ML VIAL ONE (09:24)
[2021-08-02 09:33] LABS: Estimated Average Glucose 134 mg/dl; Hemoglobin A1C 6.3 % (4.5-5.6)
[2021-08-02] MEDS ORDERED: ATROPINE SULFATE 0.1 MG/ML 10ML SYR IV PRN (10:08)
[2021-08-02] MEDS ORDERED: fentaNYL citrate 100 MCG/2 ML VIAL IV PRN (10:08)
[2021-08-02] MEDS ORDERED: ONDANSETRON INJ 2 MG/ML 2 ML VIAL IV PRN ×2 (10:08→16:27)
[2021-08-02] MEDS ORDERED: HYDROmorphone INJ 2 MG/ML SYR/VIAL IV PRN (10:08)
[2021-08-02] MEDS ORDERED: ePHEDrine sulfate 50 MG/ML AMP IV PRN (10:08)
[2021-08-02] MEDS ORDERED: SODIUM CHLORIDE 0.9% PF 50 ML VIAL ONE (11:27)
[2021-08-02] MEDS ORDERED: BUPIVACAINE/EPINEPHRINE 0.25% 1:200,000 30 ML VIAL ONE ×2 (11:27→11:50)
[2021-08-02] MEDS ORDERED: BUPIVACAINE LIPOSOME 1.3% 266 MG/20 ML VIAL ONE (11:28)
[2021-08-02] MEDS ORDERED: VANCOMYCIN HCL 1000MG/20ML VIAL ONE (11:29)
--- NOTE | 2021-08-02 14:17 | Operative Report ---
PG Post Operative Report Pre & Post Diagnosis Operation Date: 05/14/21 07:00 <No data on this case meets the specified criteria> Operation Date: 08/02/21 10:40 Pre-Op Diagnosis: 1. Right Knee Osteoarthritis 2. Left hip mass Post-Op Diagnosis: 1. Right Knee Osteoarthritis 2. Left hip mass I identified the patient and participated in the time-out.: Yes Procedure Operation Date: 05/14/21 07:00 <No data on this case meets the specified criteria> Operation Date: 08/02/21 10:40 Actual Procedures p Right Total Knee Replacement(Right) - Frank Flowers MD s Minor excisional biopsy Left Hip Mass (Left) - Frank Flowers MD Surgeon Frank Flowers MD Saw Runner John Delcid PA-C Estimated Blood Loss 55 (50ml EBL for knee, 5ml EBL hip) Findings Consistent with Post-Op Diagnosis Right knee operative findings revealed extensive very erosive grade 3 [id number] bone disease in all 3 compartments with a large osteophytes in all 3 compartments. Diffuse osteopenia. Large knee joint effusion. Extensive chronic synovitis and pannus formation. Left hip revealed a calcified nodule in the subcutaneous tissues adherent to the underlying fascia. Specimens Left hip mass sent for pathology Drains None Anesthesia Type Spinal MAC Complications none Disposition Accompanied Patient To Recovery: No Indications Patient is a 61-year-old female long-term rheumatoid patient's had a long history of bilateral knee pain discomfort is gotten worse over time. She is markedly debilitated by her disease. Minimal response to conservative treatment anymore. She had a right hip fracture last year and got through hip replacement surgery subsequent to that now is elected proceed with knee replacement. The right knee is bothering more than the left. The patient is also noted a mass that was markedly tender and symptomatic in the left hip. She had persistent pain. X-ray showed calcified lesion. MRI showed a lesion localized lesion in the deep subcutaneous tissues just adherent to the fascia. She elected to have this excised at the same time. Description of Procedure Operative implants consist of: 1. Biomet Vanguard size 57.5 right posterior stabilized femoral component. 2. Biomet size 67 tibial tray. 3. 12 mm posterior stabilized polyethylene insert. 4. 28 x 8 all polypatella. The patient was taken the operating, identified, placed on the operating table supine position protectors were properly padded. IV antibiotics 5 by anesthesia team. A spinal anesthetic and abductor canal block had provided in the holding area. A Diaz catheter was placed in sterile fashion. Right thigh tent was then placed in the right lower extremities and prepped and draped in usual sterile fashion. The right leg was elevated exsanguinated with use of an Esmarch in terms playset 300 mmHg. An anterior approach to the right knee was then performed through longitudinal incision centered over the patella. Sharp dissection was carried through subcutaneous tissue down the extensor mechanism. A medial parapatellar arthrotomy incision was made. Some subperiosteal dissection was carried out medially. The fat pad was resected beneath patella tendon. Lateral patellofemoral ligament was released. Patella was subluxated laterally. There are large osteophytes on the patella and I had to remove these in order to subluxate it. The lateral patellofemoral ligament was released. The knee was flexed and the osteophytes were taken off distal femur. The ACL and PCL were then released from distal femur the tibia subluxated anteriorly. The external tibial alignment jig was then placed in the interface of the tibia and adjusted 12 mm medially. Proximal tibial cut was made to remove about a millimeter bone at most from the most deficient aspect medial tibial plateau. Osteophytes were taken off medial and posterior medially. The tibia was sized to a size 67. Attention drawn the femur. The distal femur turned the sharp drill bit intramedullary canal was suction. A right 5 degree valgus cutting guide was placed. The distal femoral cutting block was placed pinned in place. The distal femoral cut was made to take an additional 3 mm of bone off distal femur. The femur was then sized to a size 57.5. It size exactly to a size 57.5. The AP canal cutting block was pinned parallel to the epicondylar axis which was 3 degrees of external rotation. The anterior cut, anterior chamfer, posterior cut, posterior chamfer cuts were made. These did take large bone fragments from the periphery of the knee. The of the box cutting guide was placed in the box cut was made. The knee was flexed. The remnants of the medial and lateral menisci were excised. The osteophytes taken off the posterior aspect of the femur. A trial femoral component was placed. The tibial tray was pinned in maximum external rotation and the drill and stem punch were used to create defect in proximal tibia for the tibial tray. Knee was then trialed and the 12 mm insert fit most appropriately. Attention drawn the patella. The patella was cleaned of all soft tissues. Patella thickness measured 22 mm in thickness and was cut down about 14. There were large osteophytes around the patella which were removed. The patella was sized to a size 28. The lug holes were drilled for the 28 patella. The lateral osteophyte was removed. Patella button was placed. Knee was taken through range of motion patella tracked nicely with no thumbs test. Attention drawn to placing permanent components. Nupathe all trial components were removed. Bone plug was placed in the distal femur limit blood loss. Double batch Palacos G cement was mixed. I did add an additional gram of vancomycin due to her immunocompromise status. A Biomet Vanguard size 57.5 right posterior stabilized femoral component, size 67 tibial tray, a 12 mm posterior stabilized polyethylene insert, and a 28 x 8 all polypatella were then cemented in place. New spreadout into full extension total cement hardened. Final cement check was then performed. The pericapsular tissues were injected with total 100 cc of combination of 20 cc of Exparel, 30 cc normal saline, 50 cc of quarter percent Marcaine with epinephrine. Patient did receive 1 g tranexamic acid. The tourniquet was let down for turn time 67 minutes. Hemostasis reduced electrocautery. Extensor mechanism closed with combination 1 PDS suture #1 Vicryl suture in [id number] fashion with extensor mechanism checked found to be intact with subcutaneous tissue then closed 2 Dexon suture in a buried erupted fashion skin was closed skin mike. Leg was then cleaned and dried and sterile dressed with Xeroform, 4 x 4's, sterile cast padding, Sushant bandage were applied. Attention was then drawn to the left hip.. A bump was placed underneath the left hip. The left hip area was then squared off and then prepped with ChloraPrep and draped in usual sterile fashion. Longitudinal incision was made directly over the mass for a distance about 4 cm. Sharp dissection carried through subcutaneous tissue. I then bluntly dissected down to the fascia. I could easily feel this a calcified nodule and I very carefully dissected this off the fascia. It was not adherent to the fascia but just on the surface. This was removed and sent for pathology. I irrigated the wound extensively. I injected locally with 10 cc of half percent Marcaine with epinephrine. The subcutaneous tissue was then closed with a 2-0 Vicryl suture in a buried interrupted fashion. Skin was closed with 3-0 nylon suture in a simple fashion. A sterile dressing both Xeroform, 4 x 4's, Tegaderm dressing were applied. The patient was then transferred to the recovery room in stable condition peer the patient tolerated the procedure well and there were no complications. Dino Mcbride, my physician nurses assistant, was present for the entire procedure. His assistance was required for proper patient positioning, prepping and draping, surgical exposure, perform the technical details the operation, retraction, placement of the implants, closure of the wound and placement of the sterile bandages. I attest to the content of the Intraoperative Record and any orders documented therein. Any exceptions are noted below.
[2021-08-02] MEDS ORDERED: HYDROCORTISONE SOD SUCCINATE 100 MG/2 ML VIAL ONE (14:34)
--- NOTE | 2021-08-02 14:53 | Anesthesiology Progress Note ---
Date of Service August 02, 2021 Anesthesia Post Procedure Vital Signs Vital Signs: Temp Pulse Resp BP Pulse Ox 08/02/21 14:45 64 16 145/63 H 95 08/02/21 14:30 37.0 C 72 16 157/65 H 99 08/02/21 14:20 69 16 153/80 H 97 08/02/21 14:10 63 16 161/60 H 100 08/02/21 14:00 36.9 C 76 21 163/69 H 100 08/02/21 09:04 36.7 C 68 18 139/68 98 Pain Intensity Bilateral Knee: Pain Intensity: 5 Transfer of Care Handoff Completed per policy Notes Mental Status: alert / awake / arousable and participated in evaluation Patient Amnestic to Procedure: Yes Nausea / Vomiting: adequately controlled Pain: adequately controlled Airway Patency, RR, SpO2: stable & adequate BP & HR: stable & adequate Hydration State: stable & adequate Anesthetic Complications: no major complications apparent and Pt Satisfied with anesthetic care
--- NOTE | 2021-08-02 15:04 | XRay Report ---
XR knee RT 1 or 2V routine CLINICAL HISTORY: Surgical Post Op TECHNIQUE: 2 views of the right knee were obtained. Comparison: Comparison is made to knee radiographs 06/20/2020 FINDINGS: Patient is status post total knee arthroplasty with expected postsurgical changes including soft tiss ue swelling, subcutaneous emphysema, and surgical staple placement. No periarticular lucency or hardw are fracture is seen. IMPRESSION: Expected postoperative appearance status post placement of total knee arthroplasty. ACT 112: Negative or not required by law. Electronically signed by: Ino Lorenz M.D. 08/02/2021 3:03 PM
[2021-08-02] MEDS ORDERED: HYDROmorphone INJ 0.5 MG/0.5 ML SYR IV PRN (16:27)
[2021-08-02] MEDS ORDERED: PHARMACY GLYCEMIC MGMT CONSULT PRN (16:27)
[2021-08-02] MEDS ORDERED: bisacodyL 10 MG SUPP PR PRN (16:27)
[2021-08-02] MEDS ORDERED: NALOXONE HCL 0.4 MG/1 ML VIAL/CARP IV PRN (16:27)
[2021-08-02] MEDS ORDERED: MAGNESIUM HYDROXIDE SUSP 30 ML UDC PO PRN (16:27)
[2021-08-02] MEDS ORDERED: oxyCODONE HCL IR 5 MG TAB (IMMEDIATE RELEASE) PO PRN (16:27)
[2021-08-02] MEDS ORDERED: CARBOHYDRATES FOR HYPOGLYCEMIA PO PRN (16:27)
[2021-08-02] MEDS ORDERED: DEXTROSE 50% 50 ML SYRINGE IV PRN (16:27)
[2021-08-02] MEDS ORDERED: diphenhydrAMINE Capsule 25 MG CAP PO PRN (16:27)
[2021-08-02] MEDS ORDERED: METOCLOPRAMIDE HCL INJ 5 MG/ML 2 ML VIAL IV PRN (16:27)
[2021-08-02] MEDS ORDERED: GLUCAGON FOR INJ 1 MG VIAL SQ PRN (16:27)
[2021-08-02] MEDS ORDERED: GLUCOSE 10 TABS/TUBE PO PRN (16:27)
[2021-08-02] MEDS ORDERED: ALUMINUM/MAGNESIUM SUSP 30 ML UDC PO PRN (16:27)
[2021-08-02] MEDS ORDERED: GLUCOSE 40% GEL 15 GM TUBE PO PRN (16:27)
[2021-08-02] MEDS: SODIUM CHLORIDE 0.9% 1000ML 1,000 ML IV SCH (17:23)
[2021-08-02] MEDS: PREGABALIN 75 MG CAP PO SCH ×2 (17:44→21:41)
[2021-08-02] MEDS: KETOROLAC 30 MG/ML VIAL IV SCH (18:01)
[2021-08-02] MEDS: ASCORBIC ACID 500 MG TAB PO SCH (18:02)
[2021-08-02] MEDS: INSULIN ASPART PER UNIT SC SCH ×2 (18:07→21:47)
[2021-08-02] MEDS: TOPIRAMATE 50 MG TAB PO SCH (20:13)
[2021-08-02] MEDS: ASPIRIN 81 MG ECTAB PO SCH (20:13)
[2021-08-02] MEDS: DOCUSATE SODIUM 100 MG CAP PO SCH (20:14)
[2021-08-02] MEDS ORDERED: TRANEXAMIC ACID / 0.7% NACL 1,000 MG/100 ML BAG IV SCH (20:15)
[2021-08-02] MEDS: ceFAZolin 1000MG 1,000 MG/7.5 ML SYR IV SCH (20:24)
[2021-08-02] MEDS ORDERED: CYCLOBENZAPRINE HCL 5 MG TAB PO SCH (21:00)
[2021-08-02] MEDS ORDERED: HYDROXYCHLOROQUINE SULFATE 200 MG TAB PO SCH (21:00)
[2021-08-02] MEDS ORDERED: CYANOCOBALAMIN (B-12) 500 MCG TABLET PO SCH (21:00)
[2021-08-02] MEDS ORDERED: NON-FORMULARY MEDICATION (Amino Acids [Amino Acid] Capsule) PO SCH (21:00)
[2021-08-02] MEDS ORDERED: SENNA 8.6 MG TAB PO SCH (21:00)
[2021-08-02] MEDS ORDERED: FAMOTIDINE 20 MG TAB PO SCH (21:00)
[2021-08-02] MEDS: ACETAMINOPHEN 500 MG TAB PO SCH (21:41)
[2021-08-02] MEDS: TAPENTADOL HCL ER 50 MG TABCR PO SCH (21:42)
[2021-08-03] MEDS: SODIUM CHLORIDE 0.9% 1000ML 1,000 ML IV SCH (03:17)
[2021-08-03] MEDS: ceFAZolin 1000MG 1,000 MG/7.5 ML SYR IV SCH (04:39)
[2021-08-03] MEDS: KETOROLAC 30 MG/ML VIAL IV SCH ×3 (05:49→12:55)
[2021-08-03] MEDS: ACETAMINOPHEN 500 MG TAB PO SCH ×2 (05:50→14:00)
[2021-08-03 07:20] LABS: Hematocrit (blood only) 29.6 % (37-47); Hemoglobin 9.7 g/dL (12.0-16.0); Mean Corpuscular Hgb Conc 32.8 g/dL (32-36); Mean Corpuscular Volume 94.6 fL (80-100); Mean Platelet Volume 9.8 fL (7.4-10.4); Platelet Count 180 K/uL (130-400); RDW Coefficient of Variation 13.8 % (11.5-14.5); RDW Standard Deviation 47.7 fL (36.4-46.3); Red Blood Count 3.13 M/uL (4.2-5.4); White Blood Count 6.83 K/uL (4.8-10.8)
[2021-08-03 07:40] LABS: BUN Creatinine Ratio 26.2 (10-20); Calcium 8.1 mg/dl (8.5-10.1); Creatinine Clr Calc Pharmacy 84.7 ml/min; Est GFR (African American) 114.2 ml/min; Est GFR (Non-African American) 98.5 ml/min; Potassium 3.2 mmol/L (3.5-5.1)
[2021-08-03] MEDS: INSULIN ASPART PER UNIT SC SCH ×2 (08:33→12:55)
[2021-08-03] MEDS: DOCUSATE SODIUM 100 MG CAP PO SCH (08:35)
--- NOTE | 2021-08-03 08:35 | Pharmacy Report ---
Glycemic Ortho Sign Off Note - Date of Service August 03, 2021 - Scope Glycemic Pharmacist consulted for glycemic control and to write orders per [facility] inpatient glycemic control protocol. - Objective Accuchecks BSG (last 24hrs):: 08/02/21 08/02/21 08/02/21 09:09 16:58 20:56 Glucose POC Glucose 93 122 H 104 H 08/03/21 08/03/21 07:03 08:10 Glucose 82 POC Glucose 89 HbA1c:: Hemoglobin A1c 6.3 % (4.5-5.6) H 08/02/21 08:49 - Assessment * Pt is maintained on metforminas anoutpatient with excellent control per recent A1c (6.3%) * Renal function appears to be at baseline (SCr: 0.61 mg/dL today) * Will restart home metformin and utilize loose Novolog CF only * Low stress weight based insulin dosing appropriate since patient has minimal risk factors for insulin resistance (i.e. no postoperative steroids, only methylprednisolone 4 mg PO daily which is a home medication). * Appropriate to DC insulin and resume outpatient antidiabetic regimen at discharge * Goal is to maintain BSGs <200 mg/dl (ideally <150 mg/dl) to prevent post op complications - Plan For Inpatient Glycemic Control * Basal insulin * Not needed based on A1c, pre-op BSGs, and minimal risk factors for insulin resistance * Bolus insulin * Utilize low stress weight based NovoLog parameters (no carb coverage) per scale ACHS * Restart home metformin XR 1000 mg PO daily * Pharmacy has entered glycemic orders and is signing off of the glycemic consult. We will no longer be making adjustments to inpatient regimen. Please feel free to re-consult if needed. Thank you.
[2021-08-03] MEDS: TAPENTADOL HCL ER 50 MG TABCR PO SCH (08:39)
[2021-08-03] MEDS: TOPIRAMATE 50 MG TAB PO SCH (08:39)
[2021-08-03] MEDS: PREGABALIN 75 MG CAP PO SCH ×2 (08:39→13:59)
[2021-08-03] MEDS: ASPIRIN 81 MG ECTAB PO SCH (08:40)
[2021-08-03] MEDS: ASCORBIC ACID 500 MG TAB PO SCH (08:41)
[2021-08-03] MEDS ORDERED: DOCUSATE SODIUM/SENNA 50/8.6MG TAB PO SCH (09:00)
[2021-08-03] MEDS ORDERED: POTASSIUM CHLORIDE 10 MEQ TABCR PO SCH (09:00)
[2021-08-03] MEDS ORDERED: CALCIUM 600MG + VIT D 400 IU TAB PO SCH (09:00)
[2021-08-03] MEDS ORDERED: methylPREDNISolone 4 MG TAB PO SCH (09:00)
[2021-08-03] MEDS ORDERED: LOSARTAN POTASSIUM 25 MG TAB PO SCH (09:00)
[2021-08-03] MEDS ORDERED: methIMAzole 5 MG TABLET PO SCH (09:00)
[2021-08-03] MEDS ORDERED: hydroCHLOROthiazide 25 MG TAB PO SCH (09:00)
[2021-08-03] MEDS ORDERED: metFORMIN HCL ER 500 MG TABCR PO SCH (09:00)
[2021-08-03] MEDS ORDERED: ATORVASTATIN 40 MG TAB PO SCH (09:00)
[2021-08-03] MEDS ORDERED: NON-FORMULARY MEDICATION (Biotin 1,000 mcg Tablet,Chewable) PO SCH (09:00)
[2021-08-03] MEDS ORDERED: NON-FORMULARY MEDICATION (Milk Thistle 500 mg Capsule) PO SCH (09:00)
[2021-08-03] MEDS ORDERED: PANTOprazole 40 MG TAB PO SCH (09:00)
[2021-08-03] MEDS ORDERED: MULTIVITAMIN TAB PO SCH (09:00)
[2021-08-03] MEDS ORDERED: DULoxetine HCL 60 MG CAP PO SCH (09:00)
--- NOTE | 2021-08-03 22:20 | Progress Notes ---
DATE OF SERVICE: 08/03/2021. SUBJECTIVE: A 61-year-old female with underlying rheumatoid disease, now postoperative day 1 from a right knee replacement and excision of a left hip mass. She is doing well. She has got a little bit lightheaded earlier today. She is waiting for a second therapy session. She is hoping to go home. OBJECTIVE: VITAL SIGNS: Temperature 37.1. Vital signs are stable. PHYSICAL EXAMINATION: GENERAL: Shows a frail, middle-aged female. She is lying in bed and I had to wake her. She looks p retty comfortable. LUNGS: Clear to auscultation. HEART: Has regular rate and rhythm. ABDOMEN: Soft, nontender, nondistended. EXTREMITIES: Grossly neurovascularly intact except as follows: Examination of the right leg reveals the dressing to be clean, dry and intact. She can dorsiflex and plantarflex her foot appropriately. She is neurologically intact. Cannot quite do a straight leg raise. Examination of the left hip reveals the Tegaderm dressing to be in place. No signs of problems. Min imal tenderness. LABORATORY DATA: Hemoglobin 9.7, hematocrit 29.6. Electrolytes are stable. Potassium is a little b it low at 3.2. ASSESSMENT: A 61-year-old female postoperative day 1 from a right knee replacement and excision of l eft hip mass. She has got underlying rheumatoid disease. She has not quite finished therapy. PLAN: 1. DVT prophylaxis includes thigh-high TEDs, SCDs, and aspirin twice a day. 2. PT, OT, weightbear as tolerated. Right total knee protocol. 3. Pain control, doing okay with current med regimen. 4. Disposition: She is going to see how she does in her second therapy session today. If she passe s, we will get her home with home health. If not, we will keep her overnight. Job ID: [id number]
--- NOTE | 2021-08-04 08:29 | Discharge Summary ---
Date of Service August 04, 2021 Admission HPI (Per Admitting) Chief Complaint: 1. Persistent bilateral knee pain and discomfort, right side greater than left. 2. Left lateral hip pain. History of Present Illness:The patient is a 61-year-old female with multiple medical comorbidities including significant rheumatoid disease. She is well known to me from a previous right hip replacement done for fracture back in early 2020. She has done well from this. She has been debilitated by knee pain for many years. She has been through extensive conservative treatment, which really did not help much anymore. She got through the hip surgery pretty well and now hoping to have her knees replaced. She would like both of them done. In the past, she has been told she was not a candidate for knee replacement surgery. She has also developed significant pain in the lateral hip. We put some shots in it in the past. She has developed some exquisite tenderness along a subcutaneous mass in her hip and she would like this taken out if it all possible. She had seen Dr. Miranda for this. Past Medical History: 1. Long-term rheumatoid arthritis. 2. Hypertension. 3. Diabetes. Past Surgical History: 1. Right hybrid total hip replacement. 2. L4-L5 fusion. 3. Cholecystectomy. 4. Hysterectomy. 5. Hand surgery. 6. Appendectomy. Allergies:None. Current Medications:Lipitor, calcium, vitamin B12, cyclobenzaprine, topical diclofenac, doxycycline, duloxetine, naproxen, Protonix, Medrol Dosepak, Metformin, Losartan, Plaquenil, hydrochlorothiazide, propranolol, methimazole, tramadol, topiramate, Lyrica, and potassium chloride. Family/Social History:Significant for a 61-year-old female. She is . Does not smoke. Occasional alcohol intake. Family history is noncontributory. Review of Systems: Significant for underlying rheumatoid disease. Denies any chest pain or shortness of breath. No history of DVT or PE. No bleeding problems. OBJECTIVE:Physical Exam:Gen: A pleasant middle-aged female. She looks to be in reasonably good health. HEENT: Benign. Neck: Supple. No lymphadenopathy. Lungs: Clear to auscultation. Heart: Regular rate and rhythm. Abdomen: Soft, nontender, and nondistended. Extremities: Grossly neurovascularly intact except as follows: Examination of the right knee reveals bony hypertrophy to the knee. She has got fairly neutral alignment, but a pretty stiff knee. Her range of motion is about 15 degrees to about 95. No pain with hip motion. She is neurologically intact. Examination of the left hip reveals a tenderness right over the subcutaneous mass. It measures about a 1 cm x 1 cm,very small. No particular pain with hip motion. She has got very stiff knee on the left side as well with similar range of motion about 5-110. No instability. XR Exam:Previous x-rays of her knee from 10/30/2020 were reviewed. They show severe advanced bilateral knee DJD. She has got extensive tricompartment disease in both knees. She has got large osteophytes, diffuse osteopenia. X-rays of the hips were reviewed. They show right uncemented total hip replacement. Components look to be in good position. She has got evidence of previous spine fusion. She does have a calcified area lateral to her trochlea entering the left hip. MRI: MRI of the left hip was reviewed. It shows a mass in the subcutaneous tissues, measuring about 1.5 cm x 1 cm. This is in the area where she is tender. ASSESSMENT/DIAGNOSES:This is a 61-year-old female, status post right total hip replacement after a fracture with severe underlying rheumatoid disease with: 1. Advanced bilateral knee DJD. 2. Left subcutaneous mass, painful with some vascular calcification. PLAN: Encounter Actions:We talked about treatment. She has been scheduled for surgery in the past and canceled due to the COVID issues. She would like to proceed with knee replacement. We are going to proceed with right knee replacement. As soon as she does well with that, we will proceed with the left knee replacement in the future. We are also going to excise this left hip mass while she is under anesthesia. We will probably do the knee replacement first and then just turn her up on her side and do this afterwards. The risks and benefits of total knee replacement and hip mass excision were reviewed with the patient including but not limited to DVT, PE, , infection, neurological injury, vascular injury, bleeding problem, pain, limited range of motion, stiffness, failure to relieve her symptoms, and incomplete relief of her symptoms, etc. The patient understands and desires to proceed. Informed consent was obtained. Admission Exam (Per Admitting) Gen: A pleasant middle-aged female. She looks to be in reasonably good health. HEENT: Benign. Neck: Supple. No lymphadenopathy. Lungs: Clear to auscultation. Heart: Regular rate and rhythm. Abdomen: Soft, nontender, and nondistended. Extremities: Grossly neurovascularly intact except as follows: Examination of the right knee reveals bony hypertrophy to the knee. She has got fairly neutral alignment, but a pretty stiff knee. Her range of motion is about 15 degrees to about 95. No pain with hip motion. She is neurologically intact. Examination of the left hip reveals a tenderness right over the subcutaneous mass. It measures about a 1 cm x 1 cm,very small. No particular pain with hip motion. She has got very stiff knee on the left side as well with similar range of motion about 5-110. No instability. Principal Diagnosis Same as "Discharge Diagnosis" noted below under Discharge Instructions. Discharge Data Procedures Performed Operation Date: 05/14/21 07:00 <No data on this case meets the specified criteria> Operation Date: 08/02/21 10:40 Actual Procedures p Right Total Knee Replacement(Right) - Frank Flowers MD s Minor Excision Left Hip Mass (Left) - Frank Flowers MD Ordered Studies 01/05/21 05:00 US - OR guided needle placemen Routine 08/02/21 11:21 US - OR guided needle placemen Routine Hospital Course (1) Status post total right knee replacement: (2) Hx of excision of mass: Admitted post operatively after right total knee replacement and left hip mass excision. No major post operative complications. Did well with PT evaluation and was discharged home with home health on POD 1. PG Care Time/CCT Total # of Minutes Spent Total Time Spent with Patient: Total time spent is greater than 50% in coordination of care (as documented) at patient's floor/unit and/or counseling patient: Discharge Plan Discharge Items Patient Disposition: Home - Home Health Services Reason For Visit: Right Knee Osteoarthritis Discharge Diagnosis: Right Knee Replacement Activity: Per Instructions section Weightbearing: Full weightbearing Non-emergency contact: Surgeon Call non-emergency contact if: you have any medication questions Follow-up/Referrals: Eddie Man MD [Primary Care Provider] - Diet: Carb Consistent or DM2 Addtl Attending Provider Instructions: ACTIVITY RECOMMENDATIONS: Physical Therapy: * You will go to physical therapy three times each week for four to six weeks after your surgery in order to regain your knee range of motion and to retrain your knee to work properly. * It is just as important to make sure you are getting your knee perfectly straight as it is to regain your knee bend. * Taking a pain pill an hour before therapy can help you have a more productive and comfortable therapy session. Home Exercise: * You were shown a series of exercises (heel props, heel slides, etc.) in the hospital. Do these exercises three to four times each day including the exercises you were shown in physical therapy. Walking: * Get up and walk several times each day. For the first four weeks, try not to stand or walk for more than one hour at a time. If you do stand or walk for more than one hour, you will not hurt anything, but your knee and leg will likely swell. * As you feel comfortable, you may change from the walker or crutches to a cane and then to independent walking. MEDICATIONS: New Medicine: * You will likely be taking one or more of these medications: 1. Oxycodone - A quick and shorter-acting pain medication. Take one to two tablets every six hours to lessen your pain. 2. Aspirin - Thins your blood to lessen the chance of forming a blood clot. * The most common side effects of pain medicine and iron are nausea and constipation. If nausea or constipation is too much of a problem or if you have any questions about your new medicines or doses, call [facility] at . We will try to help you manage these issues. "VERY IMPORTANT TO READ AND REVIEW" Pain: * The immediate post-operative period after knee replacement surgery is often quite painful. * You are given a prescription for pain medicine. You should take it, as directed, when you need it, especially before physical therapy and before going to bed. Pain that interferes with sleep is very common and can last several months. * You will likely need pain medicine for the first four to six weeks. It will not stop all of the pain. The pain will lessen and as you feel better, you may change to milder pain medicine such as Tylenol. * The most common side effects of pain medicine are nausea and constipation, so don't take more than you need. SPECIAL CARE INSTRUCTIONS: TEDs/Elastic Stockings: * The white elastic stockings help limit swelling and prevent blood clots from forming in your legs. The more you wear them, the more they work. * Wear them for six weeks after knee replacement surgery and four weeks after partial knee replacement. Incision Site Care: * Remove dressing postoperative day 2 and then shower. Keep direct shower pressure off the incision site. * After showering, cover mike with dry gauze and change daily or more frequently if the dressing is getting saturated with drainage. * Use the MAGO stockings to hold dressing in place. DO NOT apply tape on the skin. * May completely stop using bandage if wound is dry and no drainage * Mike are removed between 2 and 3 weeks post-op. If your follow-up appointment is made before 2 weeks, please have your appointment re- scheduled. It is too early to remove the mike. Prevention of Infection: * Take antibiotics one hour before any dental cleaning, dental work, urological procedure, gastrointestinal procedure or any invasive surgery in order to prevent your new joint from getting infected. * You may get the antibiotics from the doctor performing the procedure or you may call our office at [phone] before and we will call in a prescription to the pharmacy of your choice. Things to Watch For: * Drainage from the incision site that occurs more than one week after your surgery. * Severely increased knee/leg pain or swelling. * Increased redness at the incision site. * Fever above 102 degrees Fahrenheit. * Unusual chest pain or shortness of breath. * Unusual pain or burning with urination. Call [facility] at [phone] with any of the above problems or if you have any questions about your medicines or recovery. FOLLOW UP VISIT: Make an appointment to see your doctor for approximately two weeks after surgery for a progress check and staple removal by calling the office at [phone]. Pending Studies at Discharge: No Stand-Alone Forms: [facility], Opioid Pain Management, Smoking Cessation Medications and DC Order Prescriptions: Continued oxycodone 5 mg tablet 5 - 10 mg PO Q6 PRN (Reason: pain) Qty: 40 RF: 0 ondansetron HCl 4 mg tablet 4 mg PO Q6 PRN (Reason: nausea) Qty: 30 RF: 0 ketorolac 10 mg tablet 10 mg PO Q6 Qty: 20 RF: 0 acetaminophen 500 mg capsule 1,000 mg PO TID 30 Days Qty: 180 RF: 0 aspirin [Aspirin Low Dose] 81 mg tablet,delayed release (DR/EC) 81 mg PO BID 45 Days Qty: 90 RF: 0 sennosides-docusate sodium [Senokot-S] 8.6-50 mg tablet 1 tab-cap PO DAILY Qty: 14 RF: 0 amoxicillin 500 mg tablet 2,000 mg PO ONCE Qty: 4 RF: 2 atorvastatin [Lipitor] 40 mg Tablet 40 mg PO QAM RF: 0 milk thistle 500 mg Capsule 500 mg PO QAM RF: 0 methylprednisolone [Medrol] 4 mg Tablet 4 mg PO QAM RF: 0 cyanocobalamin (vitamin B-12) [Vitamin B-12] 1,000 mcg Tablet 1,000 mcg PO QPM RF: 0 pantoprazole [Protonix] 40 mg Tablet,Delayed Release (Dr/Ec) 40 mg PO QAM RF: 0 hydrochlorothiazide 25 mg Tablet 25 mg PO QAM RF: 0 hydroxychloroquine [Plaquenil] 200 mg Tablet 400 mg PO HS RF: 0 cyclobenzaprine 5 mg Tablet 5 mg PO HS RF: 0 topiramate 50 mg Tablet 50 mg PO BID RF: 0 calcium carbonate-vitamin D3 [Calcium 500 + D] 500 mg(1,250mg) -200 unit Tablet 1 tab PO QAM RF: 0 pregabalin [Lyrica] 75 mg Capsule 75 mg PO TID RF: 0 methimazole 10 mg Tablet 10 mg PO QAM RF: 0 famotidine [Pepcid] 20 mg Tablet 20 mg PO HS RF: 0 biotin 1,000 mcg Tablet,Chewable 1,000 mcg PO DAILY RF: 0 Amino Acid Capsule 1 cap PO BID RF: 0 potassium chloride 10 mEq tablet extended release 10 meq PO QAM RF: 0 losartan 25 mg tablet 25 mg PO QAM RF: 0 duloxetine 60 mg capsule,delayed release(DR/EC) 60 mg PO QAM RF: 0 metformin 500 mg tablet extended release 24 hr 1,000 mg PO QAM RF: 0 diclofenac sodium 1 % Gel 1 g TOPICAL QID PRN (Reason: Pain) RF: 0 Discontinued tramadol 50 mg tablet 50 mg PO Q6H PRN (Reason: pain, moderate) Qty: 30 RF: 0 naproxen 500 mg Tablet 500 mg PO BID PRN (Reason: Pain) RF: 0 Discharge Orders: Discharge Order (Routine); Ordered 08/03/21 Ordered By: Frank Mukherjee/Other Patient Handouts: Nutrition for Wound Healing, Managing Type 2 Diabetes, Special Foot Care for Diabetes Admission Data Admit Date/Time: 08/02/21 14:05 Attending Provider: Frank Flowers Admit Provider: Frank Flowers Primary Care Provider: Eddie Man Other Providers: [facility],Home Health Other Interventions: Discharge Summary Assessment (RN) Last Done: 08/03/21 15:34
== END 2021-08-03 17:36 | disposition home health service (06) ==
LOC: ASU 08:33 → 3E 08:33

== ENCOUNTER 2022-02-02 06:16 | Inpatient (IN) ==
--- NOTE | 2022-01-31 12:47 | Anesthesiology Consultation ---
Date of Service January 31, 2022 Assessment & Plan (1) Encounter for pre-operative examination: Chart Review Chart Review: Acceptable Risk for Surgery and Patient NOT seen in Pre Admission Testing Consults Requested none History Surgery Operation Date: 02/02/22 07:15 Proposed Procedures p Left Total Knee Arthroplasty - Frank Flowers MD Height/Weight Height: 5 ft 3 in Weight: 61.235 kg Allergies Allergy/AdvReac Type Severity Reaction Status Date / Time No Known Allergies Allergy Verified 01/28/22 16:05 Medications Home Medications Medication Instructions Recorded Confirmed Last Taken atorvastatin 40 mg tablet (Lipitor) 40 mg PO QAM 08/15/19 01/28/22 11/17/21 04:10 calcium carbonate 500 mg-vitamin 1 tab PO QAM 08/15/19 01/28/22 11/16/21 09:00 D3 5 mcg (200 unit) tablet (Calcium 500 + D) cyanocobalamin (vitamin B-12) 1,000 mcg PO HS 08/15/19 01/28/22 11/16/21 09:00 1,000 mcg tablet (Vitamin B-12) cyclobenzaprine 5 mg tablet 5 mg PO HS 08/15/19 01/28/22 11/16/21 21:00 hydrochlorothiazide 25 mg tablet 25 mg PO QAM 08/15/19 01/28/22 11/16/21 09:00 hydroxychloroquine 200 mg tablet 400 mg PO HS 08/15/19 01/28/22 11/16/21 21:00 (Plaquenil) methylprednisolone 4 mg tablet 4 mg PO QAM 08/15/19 01/28/22 11/17/21 04:10 (Medrol) milk thistle 500 mg capsule 500 mg PO QAM 08/15/19 01/28/22 1 Week Ago ~11/10/21 pantoprazole 40 mg tablet,delayed 40 mg PO QAM 08/15/19 01/28/22 11/17/21 04:10 release (Protonix) pregabalin 75 mg capsule (Lyrica) 75 mg PO TID 08/15/19 01/28/22 11/17/21 04:10 topiramate 50 mg tablet 50 mg PO BID 08/15/19 01/28/22 11/17/21 04:10 diclofenac sodium 1 % topical gel 1 g topical QID PRN Pain 06/20/20 01/28/22 1 Month Ago ~10/17/21 duloxetine 60 mg capsule,delayed 60 mg PO QAM 06/20/20 01/28/22 11/17/21 04:10 release losartan 25 mg tablet 25 mg PO QAM 06/20/20 01/28/22 11/16/21 09:00 metformin 500 mg tablet,extended 1,000 mg PO QAM 06/20/20 01/28/22 11/16/21 09:00 release 24 hr potassium chloride 10 mEq 10 meq PO QAM 06/20/20 01/28/22 11/16/21 09:00 tablet,extended release famotidine 20 mg tablet (Pepcid) 20 mg PO HS 07/29/21 01/28/22 11/16/21 21:00 methimazole 10 mg tablet 20 mg PO QAM 07/29/21 01/28/22 11/17/21 04:10 aspirin 81 mg tablet,delayed 81 mg PO BID 45 days #90 tabs 07/31/21 01/28/22 Unknown release (Mare Low Dose Aspirin) biotin 1,000 mcg chewable tablet 1,000 mcg PO HS 08/02/21 01/28/22 11/16/21 09:00 ferrous sulfate 325 mg (65 mg 325 mg PO Q OTHER DAY 11/03/21 01/28/22 2 Days Ago iron) tablet ~11/15/21 ondansetron HCl 4 mg tablet 4 mg PO Q6H PRN nausea 11/03/21 01/28/22 Unknown sennosides 8.6 mg-docusate sodium 1 tab-cap PO QAM PRN Constipation 11/03/21 01/28/22 1 Week Ago 50 mg tablet (Senokot-S) ~11/10/21 amoxicillin 500 mg tablet 2,000 mg PO ONCE #4 tabs 12/20/21 01/28/22 Unknown Past Medical History Medical History Anemia Autoimmune hepatitis Follows with GI (Dr. Rahman) Carotid artery stenosis <50% stenosis to bilateral ICAs per 10/2021 carotid doppler (cardio recommends repeat study in two years) Chronic back pain + LE radiation Chronic steroid use Methylprednisolone 4mg daily Dermatomyositis [place]s [place]ology [place] [place] for plaquenil/methylprednisolone 4mg daily per pt Diabetic neuropathy DM type 2 (diabetes mellitus, type 2) NIDDM GERD (gastroesophageal reflux disease) Graves disease Last seen by endo 10/20/21- methimazole increased to bring patient into high normal range with TSH; follow up in office in six months History of blood transfusion r/t childbirth History of COVID-19 02/2021 > slight cough, low grade fever, treated with antibodies > resolved Hyperlipidemia Pt denies, HLD noted per S records Interstitial lung disease IPMN (intraductal papillary mucinous neoplasm) Left bundle branch block Chronic dating back to at least 2017-F/U DR [place] VYAS (nonalcoholic steatohepatitis) Neurogenic claudication due to lumbar spinal stenosis Pancreatic cyst Under observation Panniculitis 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- on chronic steroids*/plaquenil per rheumatology Pulmonary nodules Under surveillance Renal artery aneurysm Under surveillance Splenic artery aneurysm Under surveillance Thymus disorder Recent diagnosis, under surveillance Trigeminal neuralgia Past Family History Family History Other No family history of adverse response to anesthesia No significant family history Past Surgical History Surgical History History of appendectomy History of arthroscopy of left knee History of cholecystectomy History of colonoscopy + polypectomy History of esophagogastroduodenoscopy (EGD) History of hand surgery Granuloma excision (right hand x2) History of hernia repair Left inguinal History of hysterectomy Partial + LSO + with left ovary and salpingectomy History of lumbar spinal fusion History of oophorectomy, unilateral Right History of right hip replacement Right ZULEIKA (06/21/20): Grade view 1, MAC#3, ETT 7.5 at [facility] ("general anesthetic was implemented at the patient's request" per operative report) History of surgery excisional biopsy left hip mass @ [facility] Dr. Flowers 11/17/21 History of tonsillectomy and adenoidectomy History of total right knee replacement Hx of bilateral cataract extraction Social History Smoking Status: Never smoker Do You Dip or Chew Tobacco: No Hx Alcohol Use: No Alcohol type: wine alcohol intake frequency: holidays/special occasions only Hx Substance Use: No substance use type: does not use Lab Results Anesthesia Preop Results Results Anesthesia Widget: WBC 7.06 K/ul (4.8-10.8) 01/21/22 Hgb 12.9 g/dl (12.0-16.0) 01/21/22 Hct 39.3 % (34.1-44.9) 01/21/22 Plt 260 K/uL (130-400) 01/21/22 Na 142 mmol/L (136-145) 01/21/22 K 3.4 mmol/L (3.5-5.1) L 01/21/22 Cl 104 mmol/L (98-107) 01/21/22 CO2 32 mmol/L (21-32) 01/21/22 BUN 19 mg/dl (6-23) 01/21/22 Creat 0.94 mg/dl (0.6-1.2) 01/21/22 Glucose Level 156 mg/dl (70-99(Fasting)) H 01/21/22 PT 10.9 Seconds (9.0-12.0) 01/21/22 PTT 28.8 Seconds (21.0-31.0) 01/21/22 INR 1.0 (0.9-1.1) 01/21/22 Blood Type O Positive 01/21/22 Antibody Screen NEGATIVE 01/21/22 Testing Electrocardiogram Date: 09/09/20 Normal sinus rhythm, rate 64 bpm Left bundle branch block Abnormal ECG When compared with ECG of 20-JUN-2020 10:28, T wave inversion less evident in Lateral leads Confirmed by Daren Young ([id number]) on 09/09/2020 2:46:21 PM Chest X-Ray Date: 09/09/20 FINDINGS: Cardiac silhouette is mildly enlarged. Chronic appearing interstitial coarsening of the lung bases. No pneumothorax, pleural effusion, airspace consolidation or overt pulmonary edema. The bones of the chest appear grossly intact. Partially imaged lumbar spinal fusion hardware. IMPRESSION: No acute process. Other Testing Carotid doppler 11/03/21= <50% stenosis to bilateral ICAs. Antegrade flow to bilateral vertebral arteries. Abdomen/Pelvis CTA 09/08/21=Stable distal splenic artery aneurysm measuring 1 cm. Stable left main renal artery aneurysm measuring 1.37 cm. MRI of the Chest 05/28/21=Anterior mediastinal soft tissue mass demonstrates intracellular lipid suggestive of benign thymic hyperplasia. Consider continued imaging surveillance to ensure stability. Chest CT 05/05/21= Progressive soft tissue density within the thymus now measuring 3.5 cm with low level enhancement. Findings are concerning for a thymic epithelial lesion or less likely thymic hyperplasia. Recommend an MRI chest/thymic protocol with contrast for further evaluation. A couple left supraclavicular lymph nodes slightly larger compared to 06/21/2019, indeterminate. Scattered ground-glass, inflammatory/postinflammatory. No pleural based lesion. Unchanged cystic lesion in the tail the pancreas. Cardiac CT 10/15/20= The Agatston calcium score is 0. The coronary arteries are normal: absence of plaque and no luminal stenosis. 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 Attention on follow up CT scan of the chest or an MRI of the chest with chemical shift imaging could be performed for further evaluation. 1 cm cyst in the tail of the pancreas. Follow up MRI of the pancreas with MRCP could be performed in 12 months for further evaluation. Peribronchial ground glass and reticular opacities may represent bronchiolitis.
[~2022-02-02 06:16] MED LIST changes: +BUPIVACAINE 0.5 % 5 MG/1 ML PF 10ML VIAL ONE; +CeleBREX 200 MG CAP PO SCH; +EPINEPHrine INJ 1 MG/ML AMP ONE; -GABAPENTIN 600 MG DOSE PO SCH; +LR 15ML/HR IV SCH; -LR 500ML BOLUS, THEN 15ML/HR IV SCH; +METOCLOPRAMIDE HCL 10 MG TABLET PO SCH; +ROPIVACAINE 0.5% 5 MG/ML 30 ML VIAL ONE
--- NOTE | 2022-02-02 07:00 | History & Physical Bridge Note ---
Date of Service February 02, 2022 History & Physical Bridge Note I have examined the patient, reviewed the History & Physical and in the interval since the performance of the History & Physical I have noted the following changes of clinical significance: no changes noted
[2022-02-02] MEDS: Scopolamine 1 MG TDSY TD SCH ×2 (07:08→16:46)
[2022-02-02] MEDS ORDERED: PHENYLEPHRINE 100MCG/ML 5ML SYR IV PRN (08:00)
[2022-02-02] MEDS ORDERED: fentaNYL citrate 100 MCG/2 ML VIAL IV PRN (08:00)
[2022-02-02] MEDS ORDERED: ATROPINE SULFATE 0.1 MG/ML 10ML SYR IV PRN (08:00)
[2022-02-02] MEDS ORDERED: ePHEDrine sulfate 50 MG/ML AMP IV PRN (08:00)
[2022-02-02] MEDS ORDERED: ONDANSETRON INJ 2 MG/ML 2 ML VIAL IV PRN ×2 (08:00→13:33)
[2022-02-02] MEDS ORDERED: MEPERIDINE HCL 25 MG/ML CARP/VIAL IV PRN (08:00)
[2022-02-02] MEDS ORDERED: LABETALOL HCL IV 5 MG/ML 20ML IV PRN (08:00)
[2022-02-02] MEDS ORDERED: HYDROmorphone INJ 1 MG/ML SYRINGE IV PRN (08:00)
[2022-02-02] MEDS ORDERED: LIDOCAINE 2% MPF LOCAL 5 ML VIAL INFIL ONE (08:33)
[2022-02-02] MEDS ORDERED: DEXAMETHASONE SOD INJ 4 MG/ML VIAL ONE (08:33)
[2022-02-02] MEDS ORDERED: PROPOFOL IV EMULSION 10 MG/ML 20 ML VIAL IV ONE (08:33)
[2022-02-02] MEDS ORDERED: MIDAZOLAM HCL 1 MG/ML 2ML VIAL ONE ×2 (08:34→11:46)
[2022-02-02] MEDS ORDERED: BUPIVACAINE LIPOSOME 1.3% 266 MG/20 ML VIAL ONE (09:22)
[2022-02-02] MEDS ORDERED: VANCOMYCIN HCL 1000MG/20ML VIAL ONE (09:22)
[2022-02-02] MEDS ORDERED: BUPIVACAINE/EPINEPHRINE 0.25% 1:200,000 30 ML VIAL ONE (09:22)
[2022-02-02] MEDS ORDERED: SODIUM CHLORIDE 0.9% PF 50 ML VIAL ONE (09:22)
[2022-02-02] MEDS ORDERED: fentaNYL citrate 100 MCG/2 ML VIAL ONE ×2 (09:28→12:06)
[2022-02-02] MEDS ORDERED: ONDANSETRON INJ 2 MG/ML 2 ML VIAL ONE (09:28)
[2022-02-02] MEDS ORDERED: ROCURONIUM BROMIDE 10 MG/ML 5 ML VIAL IV ONE (09:28)
[2022-02-02 10:25] LABS: Estimated Average Glucose 131 mg/dl; Hemoglobin A1C 6.2 % (4.5-5.6)
[2022-02-02] MEDS ORDERED: NEOSTIGMINE METHYLSULFATE 1 MG/ML 10ML VIAL ONE (10:51)
[2022-02-02] MEDS ORDERED: GLYCOPYRROLATE 0.2 MG/ML VIAL ONE (10:51)
[2022-02-02] MEDS ORDERED: SUGAMMADEX SODIUM 200 MG/2 ML VIAL IV ONE (11:38)
[2022-02-02] MEDS ORDERED: AMIODARONE HCL INJ 50 MG/ML 3 ML VIAL IV ONE (11:49)
[2022-02-02] MEDS ORDERED: ATROPINE SULFATE 0.1 MG/ML 10 ML SYR IV ONE (11:49)
[2022-02-02] MEDS ORDERED: DEXTROSE 5% 100 ML BAG IV ONE (11:49)
--- NOTE | 2022-02-02 12:22 | Operative Report ---
PG Post Operative Report Pre & Post Diagnosis Operation Date: 02/02/22 09:05 Pre-Op Diagnosis: Left Knee Degenerative Joint Disease Post-Op Diagnosis: Left Knee Degenerative Joint Disease I identified the patient and participated in the time-out.: Yes Procedure Operation Date: 02/02/22 09:05 Actual Procedures p Left Total Knee Arthroplasty(Left) - Frank Flowers MD Surgeon Frank Flowers MD Flash Developer Ajay Chen PA-C Estimated Blood Loss 50 Findings Consistent with Post-Op Diagnosis Operative findings were revealed extensive tricompartment knee arthritis. She had [id number] disease in all 3 compartments with large osteophytes in all 3 compartments. Multiple loose bodies throughout the knee. Moderate-sized joint effusion. A chronic synovitis. Diffuse osteopenia. Specimens Left knee sent for pathology Drains None Anesthesia Type General Regional Complications Just before moving the patient from the OR table at the end of the surgery to the transport bed the patient went into an abnormal heart rhythm. She was resuscitated on the table. She had did receive chest compressions but no electronic shock. Further details are as described in the anesthesia note. She was eventually transported to the ICU intubated and sedated in sinus rhythm. Disposition Accompanied Patient To Recovery: Yes Indications Patient is a 61-year-old female with long-term rheumatoid disease who has had a long history of multiple joint problems. She had a right hip replacement due to a fracture in the past as well as a right knee replacement. She is to continue to be debilitated by left knee pain. She failed all conservative measures. She elected proceed with total knee arthroplasty. Description of Procedure Operative implants consist of: 1. Biomet Vanguard size 60 left posterior stabilized femoral component. 2. Biomet size 67 tibial tray. 3. 12 mm posterior stabilized polyethylene insert. 4. 28 x 8 and half all Paller patella. The patient was taken the operating, identified, placed on the operating table supine position protectors were properly padded. IV antibiotics tried by anesthesia team. An abductor canal block had provided in the holding area. A general anesthetic was implemented. Diaz catheter was placed in sterile fashion. Left factor was then placed in the left lower extremities and prepped and draped in usual sterile fashion. The left leg was elevated exsanguinated with use of an Esmarch and the tourniquet was set at 300 mmHg. An anterior posterior left knee was then performed to longitudinal incision centered over the patella. Sharp dissection was carried through the subcutaneous tissue down to the extensor mechanism. A medial parapatellar arthrotomy incision was made. Some subperiosteal dissection was carried out medially. I did do a synovectomy of the suprapatellar pouch and medial lateral gutters. The fat pad was dissected from Neath patella tendon. The patella subluxated laterally. Lateral patellofemoral ligament was released. The knee was flexed. The osteophytes were taken off distal femur. The ACL was absent. PCL was released from distal femur the tibia subluxated anteriorly. The external tibial alignment jig was then placed the interface the tibia and adjusted 12 mm medially. Proximal tibial cut was made essentially flush with the most deficient aspect medial tibial plateau. Tibia sized to a size 67. Some large osteophytes were removed. Attention drawn the femur. The distal femur was entered with a sharp drill. Intramedullary canal was suction. A left 5 degree valgus cutting guide was placed. Distal femoral cutting block was pinned in place. Distal femoral cut was made to take an ajay tional 3 mm of bone off distal femur. The femur was then sized to a size 60. The AP cutting block was pinned parallel to the epicondylar axis which was 5 degrees of external rotation. The anterior cut, anterior chamfer, posterior cut, posterior chamfer cuts were made. The box cutting guide was placed in just slight lateral box cut was made. The knee was flexed. The remnants of the medial lateral menisci were excised. The osteophytes were taken off the posterior aspect of the femur. A trial femoral component was placed. The tibial tray was pinned in maximum external rotation and the drill and stem punch were used to create defect in proximal tibia for the tibial tray. The knee was then trialed and the 12 mm insert fit most appropriately. Attention drawn the patella. The patella was cleaned of all soft tissues. Patella thickness measured 20 mm in thickness. It was cut to 14. Was sized to a size 28 patella. The lug holes were drilled for the 28 patella. The lateral osteophyte was removed. Patella button was placed. Knee was taken through range of motion patella tracked nicely with no thumbs test. Attention drawn to place the permanent components. Nupathe all trial components were removed. Bone plug was placed in the distal femur to limit blood loss. Double batch Palacos G cement was mixed with an additional gram of vancomycin due to immunocompromise state. A Biomet Vanguard size 60 left posterior stabilized femoral component, size 67 tibial tray, a 12 mm posterior stabilized polyethylene insert, and a 28 x 8 all Paller patella then cemented in place. Knee was brought out in full extension total cement hardened. Final cement check was then performed. The pericapsular tissues were injected with total 100 cc of combination of 20 cc of Exparel, 30 cc normal saline, 50 cc of quarter percent Marcaine with epinephrine. Patient did receive 1 g tranexamic acid. The tourniquet was then let down for final turn time of 57 minutes. Hemostasis surgeons electrocautery. Extensor mechanism then closed with combination 1 PDS suture #1 Vicryl suture in a [id number] fashion. Stents Macrotec found to be intact. Subcutaneous tissue then closed 2 Dexon suture buried knot fashion skin was closed skin mike. Leg was then cleaned and dried a sterile dressing was Xeroform, 4 x 4's, sterile cast padding, Sushant bandage were applied. About this time that is when the patient went into an abnormal cardiac rhythm which was managed by the anesthesiologist. She had received chest compressions and no electronic shock was provided. She was restored back into a sinus rhythm and stabilized and taken to the ICU in guarded condition. Ajay Chen, my physician delivery assistant, was present for the entire procedure. His assistance was essential and required for appropriate patient positioning, prepping and draping, surgical exposure, performing the technical details of the operation, placement the implants, closure of the wound, and placement of the sterile bandage. I attest to the content of the Intraoperative Record and any orders documented therein. Any exceptions are noted below.
--- NOTE | 2022-02-02 12:42 | Anesthesiology Progress Note ---
Date of Service February 02, 2022 Anesthesia Post Procedure Vital Signs Vital Signs: Temp Pulse Resp BP Pulse Ox O2 Del Method 02/02/22 06:46 36.7 C 69 20 133/80 100 Room Air Transfer of Care Handoff Completed per policy Notes Mental Status: alert / awake / arousable Patient Amnestic to Procedure: Yes Nausea / Vomiting: adequately controlled Pain: adequately controlled Airway Patency, RR, SpO2: stable & adequate BP & HR: stable & adequate and see Notes below Hydration State: stable & adequate Anesthetic Complications: see Notes below and Pt Satisfied with anesthetic care Notes: The patient underwent a left total knee replacement. She had an adductor canal block preoperatively for postoperative pain control. She arrived in the OR at 0943. Her vital signs were stable and she was in normal sinus rhythm. She was planned for general anesthesia and was intubated without incident. A tourniquet was started on her left thigh at 1012. The patient underwent the procedure by Dr. Flowers. A local anesthetic mix including bupivacaine and Exparel was injected into her left knee by the surgical team. At 1110 the tourniquet was let down. The patient remained stable and in normal sinus rhythm until 1116 when she was noted by Jeremie, the MATHEMATICIAN to develop a strange arrhythmia. At 1117 Jeremie called me to the OR room. On my arrival the patient appeared to be in possible bigeminy with multiple ectopic beats. Her SpO2 was 100, HR 50s to 60s, and BP 130s/60s. I told Jeremie to maintain the patient's vital signs in a stable range and ordered a 12 lead EKG to be obtained immediately upon arrival to PACU. I told him to let me know if her vital signs become unstable. At 1133 I was called by Jeremie as the patient had a run of Vfib. A code was called and multiple anesthesia providers and nurses came back to the OR. Chest compressions were started and Zoll pads were placed on the patient. A pulse was noted soon after the compressions were started so compressions were stopped. The patient did not require a shock. Intralipid was called for and an infusion was started. Dr. Iniguez was able to obtain an arterial line. The patient was given a dose of atropine. A low dose amiodarone infusion was started. The patient's rhythm was noted to go in and out of sinus rhythm but she had a strong pulse and her SBP remained in the 160s. The patient was noted to start breathing spontaneously and was given neuromuscular reversal. The ICU team including Dr. Herrera was contacted and the patient was brought intubated and on monitors to the ICU. On arrival the patient was noted to be in sinus rhythm and her vital signs were stable. Dr. Herrera stopped the amiodarone infusion and did not want to start a second bag of intralipid. The patient was awake and following commands so the decision was made with Dr. Herrera to extubate the patient. The patient was extubated without incident. She was able to state her last name and that she feels well with no chest pain, sob, or surgical site pain. The patient will be monitored overnight in the ICU. Her was able to come back and see her in the ICU.
--- NOTE | 2022-02-02 13:05 | Critical Care Consultation ---
Date of Consultation February 02, 2022 Assessment & Plan (1) Ventricular fibrillation by electrocardiogram: Reason Critically Ill: 61-year-old female status post ventricular fibrillation PLAN: Neuro: Less than 50% bilateral carotid artery stenosis -Continue observation as outpatient Resp: Interstitial lung disease: Not on supplemental oxygen -Suggestive of autoimmune in nature currently on Plaquenil and methylprednisolone with rheumatology CV: Ventricular fibrillation -Suspect secondary to local anesthetic -Trend troponins: Anticipate elevation given arrhythmia and CPR -Check echocardiogram for segmental wall motion abnormalities -No ongoing dysrhythmia, discontinue amiodarone and Intralipid Fluids/Renal: Optimize electrolytes: Potassium greater than 4 magnesium greater than 2 GI/Nutrition: Autoimmune hepatitis Hyperlipidemia -Continue statin therapy Heme: DVT prophylaxis: Defer to orthopedic surgery for DVT prophylaxis in the postoperative setting Endocrine: ICU hyperglycemia protocol [id number]-kyovpijmp diabetes mellitus Vascular access: Peripheral IVs Code Status: Full code Disposition: ICU (2) Autoimmune hepatitis: (3) Hypertension: (4) LBBB (left bundle branch block): (5) Steroid dependence: (6) DM type 2 (diabetes mellitus, type 2): (7) Dermatomyositis: (8) Splenic artery aneurysm: (9) Renal artery aneurysm: Supervising Physician Co-Signing Physician Notes I have personally spent 40 minutes of critical care time in the direct management of this patient. This is a life/limb threatening event. This includes time spent evaluating patient, direct bedside care, chart review, placing orders, interpretation of diagnostic studies, discussion with consultants, patient, and/or family members regarding treatment decisions, as well as other required patient management activities. This time is exclusive of all separately billable procedures, and teaching time and separate from and in addition to any other critical care service time. History of Present Illness Reason for Consultation: Ventricular fibrillation Requesting Physician: Black Del Castillo Attending Physician: Frank Flowers MD History of Present Illness Patient is a 61-year-old female with a past medical history of autoimmune hepatitis followed by Dr. Rahman, bilateral carotid artery stenosis less than 50%, chronic steroid use: Methylprednisolone 4 mg daily, dermatomyositis, diabetes, Graves' disease, hyperlipidemia, interstitial lung disease, left bundle branch block follows with [place] Verdugo of cardiology, renal artery aneurysm, splenic artery aneurysm who underwent a left total knee replacement today. She was given local anesthetic in the preoperative period and had a uneventful operative course. At the end of the case she was administered additional bupivacaine for the local analgesia. A few minutes after lowering the tourniquet the patient was noted to have bigeminy and eventually her rhythm deteriorated into ventricular fibrillation. CPR was initiated, she had return of spontaneous circulation with approximately 2 minutes or less of CPR. She was started on Intralipid as well as amiodarone. She was transferred to the ICU for further evaluation management. When I evaluated the patient she was intubated, easily arousable and following complex commands. Denied chest pain or shortness of breath desire to have the breathing tube removed. There had been greater than 30 minutes of no ectopy and the Intralipid and amiodarone was discontinued. She was successfully extubated, alert and oriented. She denied chest pain or shortness of breath immediately after extubation. Allergies Allergy/AdvReac Type Severity Reaction Status Date / Time No Known Allergies Allergy Verified 02/02/22 06:32 Home Medications Medication Instructions Recorded Confirmed Type atorvastatin 40 mg tablet (Lipitor) 40 mg PO QAM 08/15/19 02/02/22 History calcium carbonate 500 mg-vitamin 1 tab PO QAM 08/15/19 02/02/22 History D3 5 mcg (200 unit) tablet (Calcium 500 + D) cyanocobalamin (vitamin B-12) 1,000 mcg PO HS 08/15/19 02/02/22 History 1,000 mcg tablet (Vitamin B-12) cyclobenzaprine 5 mg tablet 5 mg PO HS 08/15/19 02/02/22 History hydrochlorothiazide 25 mg tablet 25 mg PO QAM 08/15/19 02/02/22 History hydroxychloroquine 200 mg tablet 400 mg PO HS 08/15/19 02/02/22 History (Plaquenil) methylprednisolone 4 mg tablet 4 mg PO QAM 08/15/19 02/02/22 History (Medrol) milk thistle 500 mg capsule 500 mg PO QAM 08/15/19 02/02/22 History pantoprazole 40 mg tablet,delayed 40 mg PO QAM 08/15/19 02/02/22 History release (Protonix) pregabalin 75 mg capsule (Lyrica) 75 mg PO TID 08/15/19 02/02/22 History topiramate 50 mg tablet 50 mg PO BID 08/15/19 02/02/22 History diclofenac sodium 1 % topical gel 1 g topical QID PRN Pain 06/20/20 02/02/22 History duloxetine 60 mg capsule,delayed 60 mg PO QAM 06/20/20 02/02/22 History release losartan 25 mg tablet 25 mg PO QAM 06/20/20 02/02/22 History metformin 500 mg tablet,extended 1,000 mg PO QAM 06/20/20 02/02/22 History release 24 hr potassium chloride 10 mEq 10 meq PO QAM 06/20/20 02/02/22 History tablet,extended release famotidine 20 mg tablet (Pepcid) 20 mg PO HS 07/29/21 02/02/22 History methimazole 10 mg tablet 20 mg PO QAM 07/29/21 02/02/22 History biotin 1,000 mcg chewable tablet 1,000 mcg PO HS 08/02/21 02/02/22 History ferrous sulfate 325 mg (65 mg 325 mg PO Q OTHER DAY 11/03/21 02/02/22 History iron) tablet ondansetron HCl 4 mg tablet 4 mg PO Q6H PRN nausea 11/03/21 02/02/22 History sennosides 8.6 mg-docusate sodium 1 tab-cap PO QAM PRN Constipation 11/03/21 02/02/22 History 50 mg tablet (Senokot-S) amoxicillin 500 mg tablet 2,000 mg PO ONCE #4 tabs 12/20/21 02/02/22 Rx acetaminophen 500 mg capsule 1,000 mg PO TID Pain 30 days #180 01/31/22 02/02/22 Rx caps aspirin 81 mg tablet,delayed 81 mg PO BID 45 days #90 tabs 01/31/22 02/02/22 Rx release (Mare Low Dose Aspirin) cefadroxil 500 mg capsule 500 mg PO BID 7 days #14 caps 01/31/22 02/02/22 Rx ketorolac 10 mg tablet 10 mg PO Q6 Pain 5 days #20 tabs 01/31/22 Rx oxycodone 5 mg tablet 5 mg PO Q6 PRN pain #30 tabs 01/31/22 02/02/22 Rx sennosides 8.6 mg-docusate sodium 1 tab-cap PO DAILY #14 tabs 01/31/22 02/02/22 Rx 50 mg tablet (Senokot-S) Patient History Medical History Anemia Autoimmune hepatitis Follows with GI (Dr. Rahman) Carotid artery stenosis <50% stenosis to bilateral ICAs per 10/2021 carotid doppler (cardio recommends repeat study in two years) Chronic back pain + LE radiation Chronic steroid use Methylprednisolone 4mg daily Dermatomyositis Follows with rheumatology f/u Dr. [facility] Reason for plaquenil/methylprednisolone 4mg daily per pt Diabetic neuropathy DM type 2 (diabetes mellitus, type 2) NIDDM GERD (gastroesophageal reflux disease) Graves disease Last seen by endo 10/20/21- methimazole increased to bring patient into high normal range with TSH; follow up in office in six months History of blood transfusion r/t childbirth History of COVID-19 02/2021 > slight cough, low grade fever, treated with antibodies > resolved Hyperlipidemia Pt denies, HLD noted per S records Interstitial lung disease IPMN (intraductal papillary mucinous neoplasm) Left bundle branch block Chronic dating back to at least 2016-F/U DR [place] VYAS (nonalcoholic steatohepatitis) Neurogenic claudication due to lumbar spinal stenosis Pancreatic cyst Under observation Panniculitis 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- on chronic steroids*/plaquenil per rheumatology Pulmonary nodules Under surveillance Renal artery aneurysm Under surveillance Splenic artery aneurysm Under surveillance Thymus disorder Recent diagnosis, under surveillance Trigeminal neuralgia Surgical History History of appendectomy History of arthroscopy of left knee History of cholecystectomy History of colonoscopy + polypectomy History of esophagogastroduodenoscopy (EGD) History of hand surgery Granuloma excision (right hand x2) History of hernia repair Left inguinal History of hysterectomy Partial + LSO + with left ovary and salpingectomy History of lumbar spinal fusion History of oophorectomy, unilateral Right History of right hip replacement Right ZULEIKA (06/21/20): Grade view 1, MAC#3, ETT 7.5 at [facility] ("general anesthetic was implemented at the patient's request" per operative report) History of surgery excisional biopsy left hip mass @ [facility] Dr. Flowers 11/17/21 History of tonsillectomy and adenoidectomy History of total right knee replacement Hx of bilateral cataract extraction Family History Other No family history of adverse response to anesthesia No significant family history Social History Smoking Status: Never smoker Second Hand Exposure: No; Do You Dip or Chew Tobacco: No; Tobacco Cessation Education Requested by Patient: No Hx Alcohol Use: No Hx Substance Use: No Preferred Language: Amharic Communication Ability: Effective Visual Impairment: No Limitations Middle Card Tender Required: No Beliefs That Will Affect Care: None marital status: Current Living Situation: Spouse current occupational status: disabled Other Information That Helps Us Care for You: No Feels Safe at Home: Yes Safety Concerns: Feels Safe At This Time Assistive Devices: Glasses Physical Exam Physical Exam: General: Alert. nontoxic. Neuro: Able to follow complex commands Skin: Warm, dry, Head: Atraumatic Ears, nose, mouth and throat: airway patent Cardiovascular: Normal peripheral perfusion Normal sinus rhythm on bedside personnel monitor Respiratory: no respiratory distress Gastrointestinal: Non distended Musculoskeletal: Left lower extremity in Sushant wraps Results & Data Results & Data ([facility]) Vital Signs (Past 12 Hours) Vital Signs Temp Pulse Resp BP Pulse Ox O2 Del Method 02/02/22 06:46 36.7 C 69 20 133/80 100 Room Air Critical Care Results & Data Vital Signs (Past 12 Hours) Vital Signs Temp Pulse Resp BP Pulse Ox O2 Del Method 02/02/22 06:46 36.7 C 69 20 133/80 100 Room Air Lab & Micro Results (Past 24 Hours) RBC Pending 02/02/22 WBC Pending 02/02/22 Hgb Pending 02/02/22 Hct Pending 02/02/22 MCV Pending 02/02/22 MCH Pending 02/02/22 MCHC Pending 02/02/22 Plt Count Pending 02/02/22 Na Pending 02/02/22 K Pending 02/02/22 Cl Pending 02/02/22 CO2 Pending 02/02/22 Anion Gap Pending 02/02/22 BUN Pending 02/02/22 Creatinine Pending 02/02/22 Estimated GFR ( Amer) Pending 02/02/22 Estimated GFR (Non-Af Amer) Pending 02/02/22 BUN/Creatinine Ratio Pending 02/02/22 Glu Pending 02/02/22 Ca Pending 02/02/22 Total Bilirubin Pending 02/02/22 AST Pending 02/02/22 ALT Pending 02/02/22 Alkaline Phosphatase Pending 02/02/22 TP Pending 02/02/22 Albumin Pending 02/02/22 Globulin Pending 02/02/22 Albumin/Globulin Ratio Pending 02/02/22 Mg Pending 02/02/22 12:03 Calcium Level Pending 02/02/22 12:03 Prothromb Time International Ratio Pending 02/02/22 12:3 5 Arterial Blood pH Pending 02/02/22 12:03 Arterial Blood Partial Pressure CO2 Pending 02/02/22 12: 03 Arterial Blood Partial Pressure O2 Pending 02/02/22 12:0 3 Arterial Blood HCO3 Pending 02/02/22 12:03 Arterial Blood Base Excess Pending 02/02/22 12:03 Arterial Blood Oxygen Saturation Pending 02/02/22 12:03 Blood Gas Oxygen Given Pending 02/02/22 12:03 Amauri Test Pending 02/02/22 12:03 I & O Totals 24 Hours 02/01/22 02/02/22 02/03/22 06:59 06:59 06:59 Intake Total 0 / 0 Balance 0 / 0 Cumulative 12/03/21 13:18 thru 02/02/22 09:39 Intake Total 0 Balance 0 RT Ventilator Mngmt (Last Documented) Ventilator Ordered Settings Respiratory Rate 20 02/02/22 06:46 Ventilator - PT Measurements Respiratory Rate 20 Coding Level of Care Code Critical Care 1st 30-74 mins Diagnoses Ventricular fibrillation by electrocardiogram I49.01 Autoimmune hepatitis K75.4 Hypertension I10 LBBB (left bundle branch block) I44.7 Steroid dependence F19.20 DM type 2 (diabetes mellitus, type 2) E11.9 Dermatomyositis M33.90 Splenic artery aneurysm I72.8 Renal artery aneurysm I72.2
--- NOTE | 2022-02-02 13:23 | XRay Report ---
XR chest 1V portable HISTORY: 61 years-old Female V. Fib Arrest acute cardiac arrest COMPARISON: Chest radiograph and CTA chest 09/09/2020 TECHNIQUE: Portable AP view of the chest FINDINGS: Cardiac silhouette is enlarged. Mild right hemidiaphragmatic elevation. No pneumothorax, pleural effu aldo, airspace consolidation or overt pulmonary edema. Bones appear grossly intact. Cholecystectomy. IMPRESSION: No acute process. ACT 112: Negative or not required by law. The above report was generated using voice recognition software. It may contain grammatical, syntax o r spelling errors. Electronically signed by: Ciro Graham M.D. 02/02/2022 1:22 PM
[2022-02-02] MEDS ORDERED: bisacodyL 10 MG SUPP PR PRN (13:33)
[2022-02-02] MEDS ORDERED: PHARMACY GLYCEMIC MGMT CONSULT PRN (13:33)
[2022-02-02] MEDS ORDERED: DOCUSATE SODIUM/SENNA 50/8.6MG TAB PO PRN (13:33)
[2022-02-02] MEDS ORDERED: MAGNESIUM HYDROXIDE SUSP 30 ML UDC PO PRN (13:33)
[2022-02-02] MEDS ORDERED: ALUMINUM/MAGNESIUM SUSP 30 ML UDC PO PRN (13:33)
[2022-02-02] MEDS ORDERED: NALOXONE HCL 0.4 MG/1 ML VIAL/CARP IV PRN (13:33)
[2022-02-02] MEDS ORDERED: HYDROmorphone INJ 0.5 MG/0.5 ML SYR IV PRN (13:33)
[2022-02-02] MEDS ORDERED: oxyCODONE HCL IR 5 MG TAB (IMMEDIATE RELEASE) PO PRN (13:33)
[2022-02-02] MEDS ORDERED: SODIUM CHLORIDE 0.9% 1000ML 1,000 ML IV SCH (13:33)
[2022-02-02] MEDS ORDERED: ICU PROTOCOL FOR HYPERGLYCEMIA PRN (13:33)
[2022-02-02] MEDS ORDERED: METOCLOPRAMIDE HCL INJ 5 MG/ML 2 ML VIAL IV PRN (13:33)
[2022-02-02] MEDS ORDERED: HYDROmorphone INJ 0.5 MG/0.5 ML SYR IV STA (13:36)
[2022-02-02 13:41] LABS: Hematocrit (blood only) 33.9 % (34.1-44.9); Hemoglobin 9.6 g/dl (12.0-16.0); Mean Corpuscular Hemoglobin 33.9 pg (25.0-34.0); Mean Corpuscular Hgb Conc 35.4 g/dL (32.0-36.0); Mean Corpuscular Volume 95.8 fL (80.0-100.0); Mean Platelet Volume 11.6 fL (9.4-12.3); Nucleated RBC # (auto) 0.03 K/uL (0-0); Nucleated RBC % (auto) 0.3 %; Platelet Count 276 K/uL (130-400); RDW Coefficient of Variation 14.2 % (11.5-14.5); RDW Standard Deviation 49.1 fL (36.4-46.3); Red Blood Count 3.58 M/uL (3.93-5.22); White Blood Count 9.48 K/ul (4.8-10.8)
[2022-02-02 13:41] LABS: Albumin Globulin Ratio 1.6 (0.9-2); Albumin Level 3.4 gm/dl (3.4-5.0); BUN Creatinine Ratio 16.7 (10-20); Bilirubin,Total 0.8 mg/dl (0.2-1.0); Creatinine Clr Calc Pharmacy 72.9 ml/min; Est GFR (African American) 95.8 ml/min; Est GFR (Non-African American) 82.6 ml/min; Globulin 2.1 gm/dl (2.5-4.0); Potassium 3.6 mmol/L (3.5-5.1); Total Protein 5.5 gm/dl (6.0-8.3)
[2022-02-02 13:42] LABS: Acanthocytes 2+; Basophils # (auto) 0.05 K/uL (0-0.2); Basophils % (auto) 0.5 %; Echinocytes 1+; Eosinophils # (auto) 0.04 K/uL (0-0.50); Eosinophils % (auto) 0.4 %; Immature Granulocytes # (auto) 0.15 K/uL (0.00-0.02); Immature Granulocytes % (auto) 1.6 %; Lymphocytes # (auto) 0.79 K/uL (1.2-3.4); Lymphocytes % (auto) 8.3 %; Monocytes # (auto) 0.22 K/uL (0.24-0.82); Monocytes % (auto) 2.3 %; Neutrophils # (auto) 8.23 K/uL (1.4-6.5); Neutrophils % (auto) 86.9 %; Polychromasia 1+; Tear Drop Cells 1+
[2022-02-02 13:50] LABS: Partial Thromboplastin Time 27.7 Seconds (21.0-31.0); Prothrombin Time 11.1 Seconds (9.0-12.0)
[2022-02-02] MEDS: KETOROLAC 30 MG/ML VIAL IV SCH ×2 (14:06→19:31)
[2022-02-02] MEDS: PREGABALIN 75 MG CAP PO SCH ×2 (14:06→20:20)
[2022-02-02] MEDS: ACETAMINOPHEN 500 MG TAB PO SCH ×2 (14:10→21:33)
[2022-02-02] MEDS ORDERED: GLUCAGON FOR INJ 1 MG VIAL IM PRN (14:15)
[2022-02-02] MEDS ORDERED: DEXTROSE 50% 50 ML SYRINGE IV PRN (14:15)
[2022-02-02] MEDS ORDERED: GLUCOSE 40% GEL 15 GM TUBE PO PRN (14:15)
[2022-02-02] MEDS ORDERED: GLUCOSE 10 TAB/TUBE PO PRN (14:15)
[2022-02-02] MEDS ORDERED: CARBOHYDRATES FOR HYPOGLYCEMIA PO PRN (14:15)
--- NOTE | 2022-02-02 14:18 | XRay Report ---
XR knee LT 1 or 2V routine CLINICAL HISTORY: Postoperative evaluation. COMPARISON: Knee radiographs January 20, 2022. FINDINGS: Alignment of the total left knee arthroplasty is anatomic. There is no periprosthetic frac ture or unexpected radiopaque foreign body. There are skin mike. IMPRESSION: Expected findings following total left knee arthroplasty. ACT 112: Negative or not required by law. Electronically signed by: Shar Petty M.D. 02/02/2022 2:16 PM
--- NOTE | 2022-02-02 14:32 | Pharmacy Report ---
Pharmacy Glycemic Short Note 2 - Date of Service February 02, 2022 - Glycemic Short BSG Results (Last 24 hours): 02/02/22 02/02/22 02/02/22 06:31 12:03 14:02 Glucose 232 H POC Glucose 122 H 185 H OUTPATIENT ANTIDIABETIC REGIMEN: * Metformin 1000 mg PO BIDM * HbA1c = 6.2% (02/02/22) ASSESSMENT: * 61 yo F admitted to ICU post-operatively following TKA complicated by episode of VFib in the OR. Type 2 diabetic as an outpatient on Metformin monotherapy with a controlled A1c. No diet is ordered as of yet. Chronically on Methylprednisolone 4 mg PO daily at home which will continue inpatient. * Pre-op BSG was 122 mg/dL this AM. Post-op BSG was 232 mg/dL. Patient has been extubated. Expecting hyperglycemia this evening due to stress response. * Will start Novolog ACHS based on weight/stress of 2.5. Adding overnight checks for first night only. Believe patient will require some basal insulin so ordering Lantus scale for bedtime. Holding Metformin. PLAN FOR INPATIENT GLYCEMIC CONTROL: * Hold outpatient oral diabetes medications * Basal insulin * Lantus 0-15 units SC HS per scale (see eMAR for more details) * Bolus insulin * NovoLog per scale ACHS or Q6hrs while NPO * Goal Range: Low 110 mg/dL - High 140 mg/dL * Correction Factor: 25 mg/dL/unit * Nutritional / Prandial insulin per carb ratio of 1 unit per 8 grams CHO consumed
[2022-02-02] MEDS: LOSARTAN POTASSIUM 25 MG TAB PO SCH (16:46)
[2022-02-02] MEDS: Scopolamine CHECK PATCH PLACEMENT SCH (16:46)
[2022-02-02] MEDS: ASCORBIC ACID 500 MG TAB PO SCH (16:48)
[2022-02-02] MEDS ORDERED: POTASSIUM CHLORIDE CRTAB 20 MEQ TABCR PO STA (17:15)
[2022-02-02] MEDS: INSULIN ASPART PER UNIT SC SCH ×2 (17:40→20:36)
[2022-02-02] MEDS: ceFAZolin 2000MG 2,000 MG/15 ML SYR IV SCH (17:42)
--- NOTE | 2022-02-02 17:42 | Cardiology Consultation ---
Date of Consultation February 02, 2022 Assessment & Plan (1) Drug-induced torsades de pointes: (2) LBBB (left bundle branch block): Plan Patient is a 61-year-old female with chronic left bundle branch block with associated QT prolongation who in the perioperative period following left total knee replacement had arrhythmic degeneration possibly in response to local anesthetic bupivacaine. Review of rhythm strips suggest probable drug-induced torsade over V. fib with spontaneous recovery of rhythm and pulse following brief CPR. No electrical shock administered Currently hemodynamically stable. EKG without acute changes echocardiogram unchanged from prior study. Currently hemodynamically stable Plan: Continue current following ICU, maintain telemetry. Repeat EKG in a.m. We will review multiple medical regimen suspect combination of drug drug interactions. Discussed with patient and . May consider genetic testing post hospital discharge for risk stratification of future recurrence. We will follow History of Present Illness Reason for Consultation: Arrhythmia Requesting Physician: Dr. Zavaleta Attending Physician: Frank Flowers MD History of Present Illness Patient is a 61-year-old female whose ongoing cardiac concerns include 1. Dermatomyositis with chronic interstitial lung disease on chronic corticosteroid therapy, Plaquenil 2. Chronic left bundle-branch block 3. Hypertension 4. Hyperlipidemia on therapy 5. Calcified aortic valve without obstruction 6. Incidentally noted renal and splenic artery aneurysms stable on CTA 09/09/2020 7. Normal coronary CTA 10/15/2020, calcium score 0 normal vessels without plaque or obstruction 8. Hypothyroidism/Graves' disease on chronic methimazole 9. Iron deficiency anemia Patient is referred for evaluation after having undergone left knee replacement earlier today. Surgery was performed with local anesthetic with additional bupivacaine given just prior to completion. Once tourniquet was completely removed patient had deterioration in rhythm with increasing ventricular ectopy bigeminy and ultimately pulseless wide-complex tachycardia. CPR was initiated with spontaneous recovery of pulse and rhythm. No countershock was administered per review of records and report. Patient treated with IV amiodarone transiently but ultimately it was discontinued and extubated. Patient referred for further care. Currently she is awake in the ICU notes no complaints. No oxygen demands. Specifically notes no chest pains, shortness of breath, tachypalpitations. Notes underwent right knee replacement in July 2021 without issues. Patient on multiple drug regimen at home EKG this afternoon demonstrates sinus rhythm with chronic left bundle branch block at 84 bpm QT corrected 550 but similar to prior tracings Rhythm strips reviewed with findings likely reflecting torsade versus reported V. fib given spontaneous resolve Echocardiogram today demonstrates no change from prior studies with dyssynergic septum consistent with left bundle branch block EF 5055% moderate aortic sclerosis Allergies Allergy/AdvReac Type Severity Reaction Status Date / Time No Known Allergies Allergy Verified 02/02/22 06:32 Home Medications Medication Instructions Recorded Confirmed Type atorvastatin 40 mg tablet (Lipitor) 40 mg PO QAM 08/15/19 02/02/22 History calcium carbonate 500 mg-vitamin 1 tab PO QAM 08/15/19 02/02/22 History D3 5 mcg (200 unit) tablet (Calcium 500 + D) cyanocobalamin (vitamin B-12) 1,000 mcg PO HS 08/15/19 02/02/22 History 1,000 mcg tablet (Vitamin B-12) cyclobenzaprine 5 mg tablet 5 mg PO HS 08/15/19 02/02/22 History hydrochlorothiazide 25 mg tablet 25 mg PO QAM 08/15/19 02/02/22 History hydroxychloroquine 200 mg tablet 400 mg PO HS 08/15/19 02/02/22 History (Plaquenil) methylprednisolone 4 mg tablet 4 mg PO QAM 08/15/19 02/02/22 History (Medrol) milk thistle 500 mg capsule 500 mg PO QAM 08/15/19 02/02/22 History pantoprazole 40 mg tablet,delayed 40 mg PO QAM 08/15/19 02/02/22 History release (Protonix) pregabalin 75 mg capsule (Lyrica) 75 mg PO TID 08/15/19 02/02/22 History topiramate 50 mg tablet 50 mg PO BID 08/15/19 02/02/22 History diclofenac sodium 1 % topical gel 1 g topical QID PRN Pain 06/20/20 02/02/22 History duloxetine 60 mg capsule,delayed 60 mg PO QAM 06/20/20 02/02/22 History release losartan 25 mg tablet 25 mg PO QAM 06/20/20 02/02/22 History metformin 500 mg tablet,extended 1,000 mg PO QAM 06/20/20 02/02/22 History release 24 hr potassium chloride 10 mEq 10 meq PO QAM 06/20/20 02/02/22 History tablet,extended release famotidine 20 mg tablet (Pepcid) 20 mg PO HS 07/29/21 02/02/22 History methimazole 10 mg tablet 20 mg PO QAM 07/29/21 02/02/22 History biotin 1,000 mcg chewable tablet 1,000 mcg PO HS 08/02/21 02/02/22 History ferrous sulfate 325 mg (65 mg 325 mg PO Q OTHER DAY 11/03/21 02/02/22 History iron) tablet ondansetron HCl 4 mg tablet 4 mg PO Q6H PRN nausea 11/03/21 02/02/22 History sennosides 8.6 mg-docusate sodium 1 tab-cap PO QAM PRN Constipation 11/03/21 02/02/22 History 50 mg tablet (Senokot-S) amoxicillin 500 mg tablet 2,000 mg PO ONCE #4 tabs 12/20/21 02/02/22 Rx acetaminophen 500 mg capsule 1,000 mg PO TID Pain 30 days #180 01/31/22 02/02/22 Rx caps aspirin 81 mg tablet,delayed 81 mg PO BID 45 days #90 tabs 01/31/22 02/02/22 Rx release (Mare Low Dose Aspirin) cefadroxil 500 mg capsule 500 mg PO BID 7 days #14 caps 01/31/22 02/02/22 Rx ketorolac 10 mg tablet 10 mg PO Q6 Pain 5 days #20 tabs 01/31/22 Rx oxycodone 5 mg tablet 5 mg PO Q6 PRN pain #30 tabs 01/31/22 02/02/22 Rx sennosides 8.6 mg-docusate sodium 1 tab-cap PO DAILY #14 tabs 01/31/22 02/02/22 Rx 50 mg tablet (Senokot-S) Patient History Medical History Anemia Autoimmune hepatitis Follows with GI (Dr. Rahman) Carotid artery stenosis <50% stenosis to bilateral ICAs per 10/2021 carotid doppler (cardio recommends repeat study in two years) Chronic back pain + LE radiation Chronic steroid use Methylprednisolone 4mg daily Dermatomyositis Follows with rheumatology f/u [facility] [place] Reason for plaquenil/methylprednisolone 4mg daily per pt Diabetic neuropathy DM type 2 (diabetes mellitus, type 2) NIDDM GERD (gastroesophageal reflux disease) Graves disease Last seen by endo 10/20/21- methimazole increased to bring patient into high normal range with TSH; follow up in office in six months History of blood transfusion r/t childbirth History of COVID-19 02/2021 > slight cough, low grade fever, treated with antibodies > resolved Hyperlipidemia Pt denies, HLD noted per [facility] records Interstitial lung disease IPMN (intraductal papillary mucinous neoplasm) Left bundle branch block Chronic dating back to at least 2017-F/U DR [place] VYAS (nonalcoholic steatohepatitis) Neurogenic claudication due to lumbar spinal stenosis Pancreatic cyst Under observation Panniculitis 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- on chronic steroids*/plaquenil per rheumatology Pulmonary nodules Under surveillance Renal artery aneurysm Under surveillance Splenic artery aneurysm Under surveillance Thymus disorder Recent diagnosis, under surveillance Trigeminal neuralgia Surgical History History of appendectomy History of arthroscopy of left knee History of cholecystectomy History of colonoscopy + polypectomy History of esophagogastroduodenoscopy (EGD) History of hand surgery Granuloma excision (right hand x2) History of hernia repair Left inguinal History of hysterectomy Partial + LSO + with left ovary and salpingectomy History of lumbar spinal fusion History of oophorectomy, unilateral Right History of right hip replacement Right ZULEIKA (06/21/20): Grade view 1, MAC#3, ETT 7.5 at [facility] ("general anesthetic was implemented at the patient's request" per operative report) History of surgery excisional biopsy left hip mass @ [facility] Dr. Flowers 11/17/21 History of tonsillectomy and adenoidectomy History of total right knee replacement Hx of bilateral cataract extraction Family History Other No family history of adverse response to anesthesia No significant family history Social History Smoking Status: Never smoker Second Hand Exposure: No; Do You Dip or Chew Tobacco: No; Tobacco Cessation Education Requested by Patient: No Hx Alcohol Use: No Hx Substance Use: No Preferred Language: Honduran Communication Ability: Effective Visual Impairment: No Limitations Speech And Language Clinician Required: No Beliefs That Will Affect Care: None marital status: Current Living Situation: Spouse current occupational status: disabled Other Information That Helps Us Care for You: No Feels Safe at Home: Yes Safety Concerns: Feels Safe At This Time Assistive Devices: Glasses Review of Systems Review of Systems: All systems reviewed & are unremarkable except as noted in HPI & below Physical Exam Constitutional: + ill appearing; no acute distress Eyes: PERRL, conjunctivae normal, anicteric sclerae ENMT: external ear and nose normal, oropharynx normal Neck: trachea midline, no thyromegaly Respiratory: normal respiratory effort, lungs clear to auscultation Cardiovascular: RRR, no murmur, no edema Gastrointestinal (Abdomen): normal bowel sounds, soft, nontender, no hepatosplenomegaly Musculoskeletal: Left knee bandage Psychiatric: Orientation: alert and oriented x 3 Results & Data ([facility]) Vital Signs (Past 12 Hours) Vital Signs Temp Pulse Pulse Pulse Resp BP BP 02/02/22 17:00 73 16 113/74 02/02/22 16:00 91 H 17 146/81 H 02/02/22 16:00 84 02/02/22 12:50 02/02/22 15:00 37.0 C 96 H 18 125/81 02/02/22 13:35 88 18 175/75 H 02/02/22 13:20 90 18 171/72 H 02/02/22 14:00 97 H 18 137/76 02/02/22 12:50 36.5 C 85 15 177/71 H 02/02/22 12:50 02/02/22 12:50 85 02/02/22 12:32 84 02/02/22 12:21 79 16 02/02/22 13:00 90 15 02/02/22 12:55 86 15 02/02/22 12:50 83 14 02/02/22 12:50 158/75 H 02/02/22 12:45 85 14 02/02/22 12:45 143/91 H 02/02/22 12:40 88 21 02/02/22 12:40 155/80 H 02/02/22 12:35 84 18 02/02/22 12:35 155/78 H 02/02/22 12:30 81 18 02/02/22 12:30 152/75 H 02/02/22 12:25 85 16 02/02/22 12:22 80 17 02/02/22 12:22 163/75 H 02/02/22 12:20 80 16 02/02/22 06:46 36.7 C 69 20 BP Pulse Ox O2 Del Method O2 Flow Rate FiO2 02/02/22 17:00 155/71 H 94 Room Air 02/02/22 16:00 158/75 H 95 Room Air 02/02/22 16:00 02/02/22 12:50 Nasal Cannula 2 02/02/22 15:00 169/72 H 93 Room Air 02/02/22 13:35 138/76 98 Room Air 02/02/22 13:20 141/78 H 18 L Nasal Cannula 2 02/02/22 14:00 168/72 H 93 Room Air 02/02/22 12:50 158/75 H 100 Nasal Cannula 2 02/02/22 12:50 Nasal Cannula 2 02/02/22 12:50 02/02/22 12:32 100 02/02/22 12:21 100 30 02/02/22 13:00 02/02/22 12:55 100 Room Air 02/02/22 12:50 100 Room Air 02/02/22 12:50 02/02/22 12:45 100 Room Air 02/02/22 12:45 02/02/22 12:40 100 Nasal Cannula 2 02/02/22 12:40 02/02/22 12:35 100 Oxymask 4 02/02/22 12:35 02/02/22 12:30 100 02/02/22 12:30 02/02/22 12:25 100 Mechanical Vent 02/02/22 12:22 100 Mechanical Vent 02/02/22 12:22 02/02/22 12:20 100 Mechanical Vent 02/02/22 06:46 133/80 100 Room Air Laboratory Results Laboratory Results - last 24 hr 02/02/22 02/02/22 02/02/22 06:20 06:31 06:42 WBC RBC Hgb Hct MCV MCH MCHC RDW Std Deviation RDW Coeff of Maria R Plt Count MPV Immature Gran % (Auto) Neut % (Auto) Lymph % (Auto) [place] % (Auto) Eos % (Auto) Baso % (Auto) Neut # (Auto) Lymph # (Auto) [place] # (Auto) Eos # (Auto) Baso # (Auto) Immature Gran # (Auto) Absolute Nucleated RBC Nucleated RBC % (auto) Polychromasia Tear Drop Cells Echinocytes Acanthocytes (Spur) PT INR APTT PTT Ratio ABG pH ABG pCO2 ABG pO2 ABG HCO3 ABG O2 Saturation ABG Base Excess Amauri Test Barometric Pressure Oxygen Given Sodium Potassium Chloride Carbon Dioxide Anion Gap BUN Creatinine Est Cr Clr Drug Dosing Est GFR ( Amer) Est GFR (Non-Af Amer) BUN/Creatinine Ratio Glucose POC Glucose 122 H Estimat Average Glucose 131 Hemoglobin A1c 6.2 H Calcium Magnesium Total Bilirubin AST ALT Alkaline Phosphatase Total Protein Albumin Globulin Albumin/Globulin Ratio Nasal Screen MRSA (PCR) SARS-CoV-2, RNA, NAAT NEGATIVE 02/02/22 02/02/22 02/02/22 12:03 12:03 12:03 WBC RBC Hgb Hct MCV MCH MCHC RDW Std Deviation RDW Coeff of Maria R Plt Count MPV Immature Gran % (Auto) Neut % (Auto) Lymph % (Auto) [place] % (Auto) Eos % (Auto) Baso % (Auto) Neut # (Auto) Lymph # (Auto) [place] # (Auto) Eos # (Auto) Baso # (Auto) Immature Gran # (Auto) Absolute Nucleated RBC Nucleated RBC % (auto) Polychromasia Tear Drop Cells Echinocytes Acanthocytes (Spur) PT 11.1 INR 1.0 APTT 27.7 PTT Ratio 1.0 ABG pH Cancelled ABG pCO2 Cancelled ABG pO2 Cancelled ABG HCO3 Cancelled ABG O2 Saturation Cancelled ABG Base Excess Cancelled Amauri Test Cancelled Barometric Pressure Cancelled Oxygen Given Cancelled Sodium 136 Potassium 3.6 Chloride 105 Carbon Dioxide 23 Anion Gap 8 BUN 13 Creatinine 0.78 Est Cr Clr Drug Dosing 72.9 Est GFR ( Amer) 95.8 Est GFR (Non-Af Amer) 82.6 BUN/Creatinine Ratio 16.7 Glucose 232 H POC Glucose Estimat Average Glucose Hemoglobin A1c Calcium 8.0 L Magnesium 2.0 Total Bilirubin 0.8 AST 72 H ALT 38 Alkaline Phosphatase 61 Total Protein 5.5 L Albumin 3.4 Globulin 2.1 L Albumin/Globulin Ratio 1.6 Nasal Screen MRSA (PCR) SARS-CoV-2, RNA, NAAT 02/02/22 02/02/22 02/02/22 12:35 14:02 14:15 WBC 9.48 RBC 3.58 L Hgb 9.6 L Hct 33.9 L MCV 95.8 MCH 33.9 MCHC 35.4 RDW Std Deviation 49.1 H RDW Coeff of Maria R 14.2 Plt Count 276 MPV 11.6 Immature Gran % (Auto) 1.6 Neut % (Auto) 86.9 Lymph % (Auto) 8.3 [place] % (Auto) 2.3 Eos % (Auto) 0.4 Baso % (Auto) 0.5 Neut # (Auto) 8.23 H Lymph # (Auto) 0.79 L [place] # (Auto) 0.22 L Eos # (Auto) 0.04 Baso # (Auto) 0.05 Immature Gran # (Auto) 0.15 H Absolute Nucleated RBC 0.03 H Nucleated RBC % (auto) 0.3 Polychromasia 1+ Tear Drop Cells 1+ Echinocytes 1+ Acanthocytes (Spur) 2+ PT INR APTT PTT Ratio ABG pH ABG pCO2 ABG pO2 ABG HCO3 ABG O2 Saturation ABG Base Excess Amauri Test Barometric Pressure Oxygen Given Sodium Potassium Chloride Carbon Dioxide Anion Gap BUN Creatinine Est Cr Clr Drug Dosing Est GFR ( Amer) Est GFR (Non-Af Amer) BUN/Creatinine Ratio Glucose POC Glucose 185 H Estimat Average Glucose Hemoglobin A1c Calcium Magnesium Total Bilirubin AST ALT Alkaline Phosphatase Total Protein Albumin Globulin Albumin/Globulin Ratio Nasal Screen MRSA (PCR) Negative SARS-CoV-2, RNA, NAAT 02/02/22 16:52 WBC RBC Hgb Hct MCV MCH MCHC RDW Std Deviation RDW Coeff of Maria R Plt Count MPV Immature Gran % (Auto) Neut % (Auto) Lymph % (Auto) [place] % (Auto) Eos % (Auto) Baso % (Auto) Neut # (Auto) Lymph # (Auto) [place] # (Auto) Eos # (Auto) Baso # (Auto) Immature Gran # (Auto) Absolute Nucleated RBC Nucleated RBC % (auto) Polychromasia Tear Drop Cells Echinocytes Acanthocytes (Spur) PT INR APTT PTT Ratio ABG pH ABG pCO2 ABG pO2 ABG HCO3 ABG O2 Saturation ABG Base Excess Amauri Test Barometric Pressure Oxygen Given Sodium Potassium Chloride Carbon Dioxide Anion Gap BUN Creatinine Est Cr Clr Drug Dosing Est GFR ( Amer) Est GFR (Non-Af Amer) BUN/Creatinine Ratio Glucose POC Glucose 133 H Estimat Average Glucose Hemoglobin A1c Calcium Magnesium Total Bilirubin AST ALT Alkaline Phosphatase Total Protein Albumin Globulin Albumin/Globulin Ratio Nasal Screen MRSA (PCR) SARS-CoV-2, RNA, NAAT
[2022-02-02] MEDS ORDERED: TRANEXAMIC ACID / 0.7% NACL 1,000 MG/100 ML BAG IV SCH (18:15)
[2022-02-02] MEDS: CYCLOBENZAPRINE HCL 5 MG TAB PO SCH (20:15)
[2022-02-02] MEDS: CYANOCOBALAMIN (B-12) 500 MCG TABLET PO SCH (20:16)
[2022-02-02] MEDS: SENNA 8.6 MG TAB PO SCH (20:16)
[2022-02-02] MEDS: TOPIRAMATE 50 MG TAB PO SCH (20:17)
[2022-02-02] MEDS: FAMOTIDINE 20 MG TAB PO SCH (20:17)
[2022-02-02] MEDS: DOCUSATE SODIUM 100 MG CAP PO SCH (20:17)
[2022-02-02] MEDS: ASPIRIN 81 MG ECTAB PO SCH (20:18)
[2022-02-02] MEDS ORDERED: HYDROXYCHLOROQUINE SULFATE 200 MG TAB PO SCH (21:00)
[2022-02-02] MEDS ORDERED: LANTUS PER UNIT CHARGE SQ SCH (21:00)
[2022-02-02] MEDS ORDERED: NON-FORMULARY MEDICATION (Biotin 1,000 mcg Tablet,Chewable) PO SCH (21:00)
[2022-02-03] MEDS: KETOROLAC 30 MG/ML VIAL IV SCH ×4 (01:06→20:12)
[2022-02-03] MEDS: ceFAZolin 2000MG 2,000 MG/15 ML SYR IV SCH (01:06)
[2022-02-03] MEDS: Scopolamine CHECK PATCH PLACEMENT SCH ×4 (01:06→23:03)
[2022-02-03] MEDS: INSULIN ASPART PER UNIT SC SCH ×6 (01:12→20:16)
[2022-02-03 03:44] LABS: Hematocrit (blood only) 29.2 % (34.1-44.9); Hemoglobin 9.8 g/dl (12.0-16.0); Mean Corpuscular Hemoglobin 31.7 pg (25.0-34.0); Mean Corpuscular Hgb Conc 33.6 g/dL (32.0-36.0); Mean Corpuscular Volume 94.5 fL (80.0-100.0); Mean Platelet Volume 10.1 fL (9.4-12.3); Platelet Count 182 K/uL (130-400); RDW Coefficient of Variation 13.6 % (11.5-14.5); RDW Standard Deviation 46.5 fL (36.4-46.3); Red Blood Count 3.09 M/uL (3.93-5.22)
[2022-02-03 04:04] LABS: BUN Creatinine Ratio 14.6 (10-20); Calcium 7.6 mg/dl (8.5-10.1); Creatinine Clr Calc Pharmacy 70.9 ml/min; Est GFR (African American) 90.1 ml/min; Est GFR (Non-African American) 77.8 ml/min; Magnesium 1.9 mg/dl (1.7-2.4); Phosphorus 2.5 mg/dl (2.5-4.9); Potassium 3.9 mmol/L (3.5-5.1)
[2022-02-03] MEDS: ACETAMINOPHEN 500 MG TAB PO SCH ×3 (04:59→21:16)
--- NOTE | 2022-02-03 07:38 | Critical Care Progress Note ---
Date of Service February 03, 2022 Assessment & Plan (1) Left knee DJD: Plan: Reason Critically Ill: 61-year-old female here with a PMHx significant for left knee degenerative joint disease POD #1 s/p left knee arthroplasty who presented to the ICU with anesthetic-induced torsades de point. Patient is doing well and awaiting transfer to med telemetry. Neuro CAM ICU: NEGATIVE Sedation: None Analgesia: Tylenol, Toradol, Lyrica. As needed Dilaudid Cardiac V. fib/hypertension: V. fib/torsades de point resolved. No dysrhythmia on cardiac monitoring overnight. As above, patient stable for downgrade. Signing off. * Deferring to cardiology for further management. Otherwise, continue home meds. Respiratory - Patient saturating well on room air. Thank you for allowing us to be part of this patient's care. Please refer to Dr. Herrera's documentation for any further recommendations. (2) GERD (gastroesophageal reflux disease): (3) Ventricular fibrillation by electrocardiogram: (4) Hypertension: (5) DM type 2 (diabetes mellitus, type 2): (6) Diabetic neuropathy: Admission and Anticipated Discharge Date Admission Date: February 02, 2022 Supervising Physician Co-Signing Physician Notes Dr. Bush was resident physician during care of patient. I separately evaluated patient for kirby portions of the history and the exam. I was present during the critical portion of medical decision making, and I discussed the case with the resident. I generally agree with the findings and plan. No significant dysrhythmia on cardiac monitoring. Tolerating diet, stable for downgrade out of ICU. Critical care will sign off. Subjective No acute events overnight. Patient had no acute complaints at bedside this morning. Review of Systems Review of Systems: All systems reviewed & are unremarkable except as noted in HPI & below Physical Exam Physical Exam: General: No acute distress HEENT: PERRLA. Normal conjunctiva, anicteric sclera. Oropharynx normal. Respiratory: Normal respiratory effort, CTA BL. Cardiovascular: RRR without murmurs, gallops, or rubs. No edema. GI: Soft abdomen with normal bowel sounds heard on auscultation. Nontender x4 quadrants Neuro: Alert and oriented x3. Results & Data Results & Data ([facility]) Vital Signs (Past 12 Hours) Vital Signs Temp Pulse Resp BP Pulse Ox O2 Del Method 02/03/22 06:00 61 17 136/63 94 02/03/22 05:00 63 15 132/63 96 02/03/22 04:00 66 12 118/73 96 02/03/22 04:00 36.7 C 02/03/22 03:00 59 L 12 140/69 95 02/03/22 02:00 64 12 129/68 95 02/03/22 01:01 60 13 145/78 H 94 02/03/22 00:00 57 L 14 110/68 02/02/22 23:00 60 14 149/73 H 98 02/02/22 23:25 59 L 02/02/22 20:23 47 L 02/02/22 22:00 62 12 129/71 97 Room Air 02/02/22 21:48 36.5 C 02/02/22 21:00 59 L 12 96 02/02/22 21:00 130/91 02/02/22 20:25 54 L 16 134/87 100 02/02/22 20:01 61 25 H 122/82 98 Resident Activity Tracking Resident Involvement: Resident Care Provided Care Provided: Adult Hospital Medicine
[2022-02-03] MEDS: DULoxetine HCL 60 MG CAP PO SCH (08:15)
[2022-02-03] MEDS: hydroCHLOROthiazide 25 MG TAB PO SCH (08:15)
[2022-02-03] MEDS: MULTIVITAMIN TAB PO SCH (08:16)
[2022-02-03] MEDS: POTASSIUM CHLORIDE 10 MEQ TABCR PO SCH (08:16)
[2022-02-03] MEDS: CALCIUM 600MG + VIT D 400 IU TAB PO SCH (08:16)
[2022-02-03] MEDS: ATORVASTATIN 40 MG TAB PO SCH (08:17)
[2022-02-03] MEDS: methylPREDNISolone 4 MG TAB PO SCH (08:17)
[2022-02-03] MEDS: ASCORBIC ACID 500 MG TAB PO SCH ×2 (08:17→16:58)
[2022-02-03] MEDS: LOSARTAN POTASSIUM 25 MG TAB PO SCH (08:21)
[2022-02-03] MEDS: methIMAzole 5 MG TABLET PO SCH (08:22)
[2022-02-03] MEDS: ASPIRIN 81 MG ECTAB PO SCH ×2 (08:22→20:12)
[2022-02-03] MEDS: DOCUSATE SODIUM 100 MG CAP PO SCH ×2 (08:26→20:15)
--- NOTE | 2022-02-03 08:27 | Hospitalist Progress Note ---
Date of Service February 03, 2022 Assessment & Plan (1) Ventricular fibrillation by electrocardiogram: Plan: Attending: Dr. Deal Impression: This is a 61-year-old female status post ventricular fibrillation at the completion of a left TKA. Hx of prior LBBB with prolonged QtC. CPR X 2 cycles. No shock delivered. Patient extubated shortly after arriving in the ICU. Cardiology following. Electrolytes are balanced Patient denies any awareness of tachyarrhythmia overnight. No chest pain or tightness today. Troponin is negative Patient is hemodynamically stable We will continue on telemetry status for another 24 hours (2) Hypertension: Plan: Hemodynamically stable. Would resume home medications including hydrochlorothiazide and losartan Monitor on telemetry 1 more day Vitals per protocol (3) LBBB (left bundle branch block): Plan: Present on previous EKG in 2019 Cardiology following (4) Steroid dependence: Plan: Per rheumatology for rheumatoid arthritis Steroids per orthopedics (5) DM type 2 (diabetes mellitus, type 2): Plan: Diabetes well controlled with hemoglobin A1c of 6.2%. Medications include metformin 1 g p.o. daily Insulin Glargine (Lantus) scheduled as well as sliding scale insulin as needed Would recommend glycemic consult with pharmacy for insulin management as patient is on chronic steroids and stress of knee replacement Continue with BSG's and diabetic/heart healthy diet (6) Splenic artery aneurysm: Plan: Incidental finding on CT 09/09/2020 Stable. Continue outpatient management (7) Renal artery aneurysm: Plan: Incidental finding on CT 09/09/2020 Stable. Continue outpatient management (8) Interstitial lung disease: Plan: Patient oxygenating well on room air Patient is not on any outpatient bronchodilators No adventitious breath sounds on examination Continue to follow-up patient (9) VYAS (nonalcoholic steatohepatitis): Plan: No pain AST slightly elevated 72. Other LFTs are within normal limits No elevation of bilirubin Repeat labs tomorrow morning (10) Diabetic neuropathy: Plan: No complaints of pain today Patient on pregabalin (Lyrica) as an outpatient at 75 mg p.o. 3 times daily - okay to continue inpatient (11) GERD (gastroesophageal reflux disease): Plan: No acute complaints Continue pantoprazole 40 mg p.o. daily Continue famotidine 20 mg p.o. daily (12) Graves disease: Plan: Followed by endocrine as an outpatient Continue methimazole Plan Thank you very much for including us in the care of this patient. The hospitalist service will continue to follow along with you. Admission and Anticipated Discharge Date Admission Date: February 02, 2022 Supervising Physician Co-Signing Physician Notes case d/w E Cathleenmallorie PAC. agree w above Subjective Attending: Dr. Deal Is a 61-year-old female that presented yesterday for elective total knee arthroplasty with Dr. Flowers. She did well throughout the procedure and had 50 mL blood loss. The tourniquet was taken down and the patient was being closed and she developed acute ventricular fibrillation requiring 2 cycles of CPR. She did not receive any electrical cardioversion. She was started on amiodarone drip and was transferred to the intensive care unit for further management. Within 1 hour she was extubated and was hemodynamically stable. The amiodarone drip was discontinued and patient did well. Overnight she is remained hemodynamically stable with no arrhythmia. Electrolytes are all balanced including potassium, magnesium, and phosphorus. Drop in calcium from 9.8 mg/Yasmin to 7.6 g/Yasmin this morning. Troponins have been negative. EKG remains in normal sinus rhythm with a prolonged QTC of 538 ms. There is a left bundle branch block. This appears consistent since at least 2018. Echocardiogram performed yesterday shows preserved left ventricular ejection fraction of 50 to 55%. There is septal motion consistent with conduction abnormality. There is some minimal valvular disease including aortic valve sclerosis without significant stenosis. Right ventricular systolic pressure is mildly elevated 30 to 40 mmHg. Cardiology has been consulted and is following the patient. Patient denies any chest pain or tightness. She is unaware of any new arrhythmias. She has no fever or chills. She states that her pain is generally controlled from her knee arthroplasty yesterday. She has no other acute complaints at this time. Review of Systems Review of Systems: A total of 10 systems was reviewed and is negative other than as listed in the HPI Physical Exam Physical Exam: GENERAL : No acute distress EYES: No icterus, gaze conjugate NOSE: No evidence of epistaxis MOUTH: No lesions or candidiasis NECK: Supple LUNGS: CTA B/L, no wheezes, rales or rhonchi HEART: Regular, rate controlled ABDOMEN: Soft, NT, ND, BS Present EXTREMITIES: No LE edema, pedal pulses intact. Sushant wrap dressing is intact on the left leg. Dressing is dry and intact NEURO: A&OX3 Results & Data Results & Data ([facility]) Vital Signs (Past 12 Hours) Vital Signs Temp Pulse Resp BP Pulse Ox O2 Del Method 02/03/22 07:35 Room Air 02/03/22 06:00 61 17 136/63 94 02/03/22 05:00 63 15 132/63 96 02/03/22 04:00 66 12 118/73 96 02/03/22 04:00 36.7 C 02/03/22 03:00 59 L 12 140/69 95 02/03/22 02:00 64 12 129/68 95 02/03/22 01:01 60 13 145/78 H 94 02/03/22 00:00 57 L 14 110/68 02/02/22 23:00 60 14 149/73 H 98 02/02/22 23:25 59 L 02/02/22 20:23 47 L 02/02/22 22:00 62 12 129/71 97 Room Air 02/02/22 21:48 36.5 C 02/02/22 21:00 59 L 12 96 02/02/22 21:00 130/91 02/02/22 20:25 54 L 16 134/87 100 Critical Care Results & Data Vital Signs (Past 12 Hours) Vital Signs Temp Pulse Resp BP Pulse Ox O2 Del Method 02/03/22 07:35 Room Air 02/03/22 06:00 61 17 136/63 94 02/03/22 05:00 63 15 132/63 96 02/03/22 04:00 66 12 118/73 96 02/03/22 04:00 36.7 C 02/03/22 03:00 59 L 12 140/69 95 02/03/22 02:00 64 12 129/68 95 02/03/22 01:01 60 13 145/78 H 94 02/03/22 00:00 57 L 14 110/68 02/02/22 23:00 60 14 149/73 H 98 02/02/22 23:25 59 L 02/02/22 20:23 47 L 02/02/22 22:00 62 12 129/71 97 Room Air 02/02/22 21:48 36.5 C 02/02/22 21:00 59 L 12 96 02/02/22 21:00 130/91 02/02/22 20:25 54 L 16 134/87 100 Lab & Micro Results (Past 24 Hours) RBC 3.09 M/uL (3.93-5.22) L 02/03/22 WBC 9.10 K/ul (4.8-10.8) 02/03/22 Hgb 9.8 g/dl (12.0-16.0) L 02/03/22 Hct 29.2 % (34.1-44.9) L 02/03/22 MCV 94.5 fL (80.0-100.0) 02/03/22 MCH 31.7 pg (25.0-34.0) 02/03/22 MCHC 33.6 g/dL (32.0-36.0) 02/03/22 RDW Standard Deviation 46.5 fL (36.4-46.3) H 02/03/22 RDW Coefficient of Variation 13.6 % (11.5-14.5) 02/03/22 Plt Count 182 K/uL (130-400) 02/03/22 MPV 10.1 fL (9.4-12.3) 02/03/22 Na 135 mmol/L (136-145) L 02/03/22 K 3.9 mmol/L (3.5-5.1) 02/03/22 Cl 105 mmol/L (98-107) 02/03/22 CO2 25 mmol/L (21-32) 02/03/22 Anion Gap 5 (3-11) 02/03/22 BUN 12 mg/dl (6-23) 02/03/22 Creatinine 0.82 mg/dl (0.6-1.2) 02/03/22 Estimated GFR ( Amer) 90.1 ml/min 02/03/22 Estimated GFR (Non-Af Amer) 77.8 ml/min 02/03/22 BUN/Creatinine Ratio 14.6 (10-20) 02/03/22 Glu 92 mg/dl (70-99(Fasting)) 02/03/22 Ca 7.6 mg/dl (8.5-10.1) L 02/03/22 Phosphorus Level 2.5 mg/dl (2.5-4.9) 02/03/22 Mg 1.9 mg/dl (1.7-2.4) 02/03/22 03:36 Calcium Level 7.6 mg/dl (8.5-10.1) L 02/03/22 03:36 Diagnostic Findings (Past 24 Hours) Knee X-Ray 02/02/22 12:05 XR knee LT 1 or 2V routine CLINICAL HISTORY: Postoperative evaluation. COMPARISON: Knee radiographs January 20, 2022. FINDINGS: Alignment of the total left knee arthroplasty is anatomic. There is no periprosthetic fracture or unexpected radiopaque foreign body. There are skin mike. IMPRESSION: Expected findings following total left knee arthroplasty. ACT 112: Negative or not required by law. Electronically signed by: Shar Petty M.D. 02/02/2022 2:16 PM Chest X-Ray 02/02/22 12:46 XR chest 1V portable HISTORY: 61 years-old Female V. Fib Arrest acute cardiac arrest COMPARISON: Chest radiograph and CTA chest 09/09/2020 TECHNIQUE: Portable AP view of the chest FINDINGS: Cardiac silhouette is enlarged. Mild right hemidiaphragmatic elevation. No pneumothorax, pleural effusion, airspace consolidation or overt pulmonary edema. Bones appear grossly intact. Cholecystectomy. IMPRESSION: No acute process. ACT 112: Negative or not required by law. The above report was generated using voice recognition software. It may contain grammatical, syntax or spelling errors. Electronically signed by: Ciro Graham M.D. 02/02/2022 1:22 PM I & O Totals 24 Hours 02/02/22 02/03/22 02/04/22 06:59 06:59 06:59 Intake Total 2700 / 2700 Output Total 2074 / 2074 Balance 625 / 625 Cumulative 12/03/21 13:18 thru 02/03/22 06:07 Intake Total 2700 Output Total 2074 Balance 625 RT Ventilator Mngmt (Last Documented) Ventilator Ordered Settings Ventilator Support Mode Assist Control 02/02/22 12:21 Respiratory Rate 17 02/03/22 06:00 Ventilator Tidal Volume 365 02/02/22 12:21 Setting Minute Ventilation 5.8 02/02/22 12:21 Positive End Expiratory 5 02/02/22 12:21 Pressure Fraction of Inspired Oxygen 30 02/02/22 12:21 Ventilator - PT Measurements Respiratory Rate 17 Exhaled Tidal Volume 361 Minute Ventilation 5.8 Peak Inspiratory Airway 21 Pressure Plateau Pressure 21.1 Respiratory Cycle Inspiratory: 1:2.8 Expiratory Ratio Inspiratory Phase Time 1.0 End-Tidal CO2 36 Static Lung Compliance 22.42 Dynamic Lung Compliance 22.56 Normal Static Lung Compliance 46.00 Patient Measurements Comment pt following commands, pt extubated to NC. ETCO2 in use via NC. pt vocalized words post extubation, no stridor. pt tolerated well. PG Care Time/CCT Total # of Minutes Spent Total Time Spent with Patient: Total time spent is greater than 50% in coordination of care (as documented) at patient's floor/unit and/or counseling patient: Coding Level of Care Code 40059 Subseq Hosp Care Lvl 3 Diagnoses Ventricular fibrillation by electrocardiogram I49.01 Hypertension I10 LBBB (left bundle branch block) I44.7 Steroid dependence F19.20 DM type 2 (diabetes mellitus, type 2) E11.9 Splenic artery aneurysm I72.8 Renal artery aneurysm I72.2 Interstitial lung disease J84.9 VYAS (nonalcoholic steatohepatitis) K75.81 Diabetic neuropathy E11.40 GERD (gastroesophageal reflux disease) K21.9 Graves disease E05.00
[2022-02-03] MEDS: PREGABALIN 75 MG CAP PO SCH ×3 (08:28→20:21)
[2022-02-03] MEDS: TOPIRAMATE 50 MG TAB PO SCH ×2 (08:28→20:17)
--- NOTE | 2022-02-03 08:40 | Billing Data ---
Date of Service February 03, 2022 Coding Level of Care Code 09122 Subseq Hosp Care Lvl 1
[2022-02-03] MEDS ORDERED: NON-FORMULARY MEDICATION (Milk Thistle 500 mg Capsule) PO SCH (09:00)
[2022-02-03] MEDS ORDERED: FERROUS SULFATE 325 MG TAB PO SCH (09:00)
[2022-02-03] MEDS ORDERED: LOSARTAN POTASSIUM 25 MG TAB PO SCH (09:00)
[2022-02-03] MEDS ORDERED: PANTOprazole 40 MG TAB PO SCH (09:00)
[2022-02-03] MEDS ORDERED: DOCUSATE SODIUM/SENNA 50/8.6MG TAB PO SCH (09:00)
[2022-02-03] MEDS ORDERED: MAGNESIUM OXIDE 400 MG TAB PO ONE (10:30)
--- NOTE | 2022-02-03 12:29 | Anesthesiology Progress Note ---
Date of Service February 03, 2022 Anesthesia Post Procedure Vital Signs Vital Signs: Temp Pulse Pulse Resp BP BP BP 02/03/22 11:30 81 15 02/03/22 11:00 63 20 02/03/22 11:00 125/67 02/03/22 10:30 74 02/03/22 10:11 128/62 02/03/22 10:11 85 12 02/03/22 10:01 109/62 02/03/22 10:01 67 17 02/03/22 10:00 63 18 02/03/22 09:30 63 21 02/03/22 09:14 140/81 02/03/22 09:14 84 21 02/03/22 08:00 36.9 C 02/03/22 08:00 02/03/22 09:07 75 16 02/03/22 09:07 118/90 02/03/22 09:01 107/80 02/03/22 09:01 59 L 19 02/03/22 09:00 64 13 02/03/22 08:30 68 22 02/03/22 08:30 114/59 L 02/03/22 08:00 69 18 02/03/22 07:30 78 17 02/03/22 07:00 67 16 02/03/22 07:00 107/64 02/03/22 06:30 69 14 02/03/22 07:35 02/03/22 06:00 61 17 136/63 02/03/22 05:00 63 15 132/63 02/03/22 04:00 66 12 118/73 02/03/22 04:00 36.7 C 02/03/22 03:00 59 L 12 140/69 02/03/22 02:00 64 12 129/68 02/03/22 01:01 60 13 145/78 H 02/03/22 00:00 57 L 14 110/68 02/02/22 23:00 60 14 149/73 H 02/02/22 23:25 59 L 02/02/22 20:23 47 L 02/02/22 18:40 68 02/02/22 22:00 62 12 129/71 02/02/22 21:48 36.5 C 02/02/22 21:00 59 L 12 02/02/22 21:00 130/91 02/02/22 20:25 54 L 16 134/87 02/02/22 20:01 61 25 H 122/82 02/02/22 19:30 74 15 02/02/22 19:00 64 12 02/02/22 19:00 143/73 H 02/02/22 18:00 86 16 140/80 158/81 H 02/02/22 17:00 73 16 113/74 155/71 H 02/02/22 16:00 91 H 17 146/81 H 158/75 H 02/02/22 16:00 84 02/02/22 12:50 02/02/22 15:00 37.0 C 96 H 18 125/81 169/72 H 02/02/22 13:35 88 18 175/75 H 138/76 02/02/22 13:20 90 18 171/72 H 141/78 H 02/02/22 14:00 97 H 18 137/76 168/72 H 02/02/22 12:50 36.5 C 85 15 177/71 H 158/75 H 02/02/22 12:50 02/02/22 12:50 85 02/02/22 12:32 84 02/02/22 13:00 90 15 02/02/22 12:55 86 15 02/02/22 12:50 83 14 02/02/22 12:50 158/75 H 02/02/22 12:45 85 14 02/02/22 12:45 143/91 H 02/02/22 12:40 88 21 02/02/22 12:40 155/80 H 02/02/22 12:35 84 18 02/02/22 12:35 155/78 H 02/02/22 12:30 81 18 02/02/22 12:30 152/75 H Pulse Ox O2 Del Method O2 Flow Rate 02/03/22 11:30 96 02/03/22 11:00 99 02/03/22 11:00 02/03/22 10:30 99 02/03/22 10:11 02/03/22 10:11 02/03/22 10:01 02/03/22 10:01 95 02/03/22 10:00 98 02/03/22 09:30 99 02/03/22 09:14 02/03/22 09:14 92 02/03/22 08:00 02/03/22 08:00 Room Air 10/27/22 09:07 99 02/03/22 09:07 02/03/22 09:01 02/03/22 09:01 93 02/03/22 09:00 97 02/03/22 08:30 02/03/22 08:30 02/03/22 08:00 94 02/03/22 07:30 97 02/03/22 07:00 95 02/03/22 07:00 02/03/22 06:30 94 02/03/22 07:35 Room Air 02/03/22 06:00 94 02/03/22 05:00 96 02/03/22 04:00 96 02/03/22 04:00 02/03/22 03:00 95 02/03/22 02:00 95 02/03/22 01:01 94 02/03/22 00:00 02/02/22 23:00 98 02/02/22 23:25 02/02/22 20:23 02/02/22 18:40 02/02/22 22:00 97 Room Air 02/02/22 21:48 02/02/22 21:00 96 02/02/22 21:00 02/02/22 20:25 100 02/02/22 20:01 98 02/02/22 19:30 95 02/02/22 19:00 95 02/02/22 19:00 02/02/22 18:00 95 Room Air 02/02/22 17:00 94 Room Air 02/02/22 16:00 95 Room Air 02/02/22 16:00 02/02/22 12:50 Nasal Cannula 2 02/02/22 15:00 93 Room Air 02/02/22 13:35 98 Room Air 02/02/22 13:20 18 L Nasal Cannula 2 02/02/22 14:00 93 Room Air 02/02/22 12:50 100 Nasal Cannula 2 02/02/22 12:50 Nasal Cannula 2 02/02/22 12:50 02/02/22 12:32 100 02/02/22 13:00 02/02/22 12:55 100 Room Air 02/02/22 12:50 100 Room Air 02/02/22 12:50 02/02/22 12:45 100 Room Air 02/02/22 12:45 02/02/22 12:40 100 Nasal Cannula 2 02/02/22 12:40 02/02/22 12:35 100 Oxymask 4 02/02/22 12:35 02/02/22 12:30 100 02/02/22 12:30 Pain Intensity Bilateral Ribs: Pain Intensity: 2 Transfer of Care Handoff Completed per policy Notes Mental Status: alert / awake / arousable Patient Amnestic to Procedure: Yes Nausea / Vomiting: adequately controlled Pain: adequately controlled Airway Patency, RR, SpO2: stable & adequate BP & HR: stable & adequate Hydration State: stable & adequate Anesthetic Complications: see Notes below and Pt Satisfied with anesthetic care Notes: The patient is POD #1 s/p left TKA. She had an arrhythmic degeneration during her surgery which led to brief chest compressions with no shock necessary. She was extubated in stable condition in the ICU soon after the procedure ended. The patient was evaluated by cardiology yesterday and the event appears to be transitive with no lasting issues, however the patient may have genetic testing in the future as an outpatient for risk stratification. Today she is awake and comfortable. She is eating her lunch. Her vital signs are stable. I discussed the intraoperative event with the patient and her . They had some concerns about the preoperative adductor canal block as they did not think she had one with her R TKA in July,. I informed them that as per the anesthesia record she actually did have an adductor canal block for her R TKA. I also discussed that her adductor canal block yesterday was placed around 0930. She did not have any rhythm abnormalities until 1116. Her adductor canal block was ropivacaine with epinephrine which would have caused tachycardia much sooner if it was intravascular. Based on the timing of her arrhythmia it was more likely due to the bupivacaine/Exparel mix injected into her knee prior to the tourniquet release at 1110. Other possible factors are intravascular bone cement or a fat emboli that caused cardiac irritation. The patient will stay one more night in the hospital for likely discharge to home tomorrow.
--- NOTE | 2022-02-03 13:18 | Progress Notes ---
DATE OF SERVICE: 02/03/2022 SUBJECTIVE: A 61-year-old female postoperative day 1 from a left knee replacement. At the end of e procedure, she went into an abnormal ventricular rhythm. She did respond to medical management. S he was transferred to the ICU and doing well. She was extubated shortly after transfer here. She re covered fairly well. Fairly tired yesterday, but feeling much better this morning. She is complaini ng of a little bit of chest pain likely from the chest compressions. Really no knee pain to speak of . No shortness of breath. OBJECTIVE: VITAL SIGNS: Temperature 36.9. Vital signs are stable. PHYSICAL EXAMINATION: GENERAL: Shows a frail, elderly female. She is lying in bed, looks reasonably comfortable. EXTREMITIES: Examination of the left leg reveals the dressing to be clean, dry and intact. She can dorsiflex and plantarflex her foot appropriately. NEUROLOGIC: She is neurologically intact. LABORATORY DATA: Hemoglobin 9.8. Hematocrit 29.2. Electrolytes are stable. ASSESSMENT: A 61-year-old female postoperative day 1 from a left knee replacement complicated by abn ormal cardiac rhythm at the end of the case. She is converted back into sinus rhythm. She is extuba rolanda and doing well. She is neurologically intact. Pain is controlled. She probably has some degree of rib injury from the chest compressions. PLAN: 1. DVT prophylaxis includes thigh-high TEDs, SCDs, and aspirin twice a day. 2. PT/OT, weightbear as tolerated. Left total knee protocol. 3. Pain control. She seems to be doing okay with current pain regimen. Really not having much knee pain. 4. Medical management as per the medicine service and the ICU staff. 5. Disposition: She is planning to be discharged to home with some home health once recovered. Hop eful transfer out of the ICU today to the floor and therapy tomorrow. Hopefully, ready for discharge tomorrow after her therapy. Job ID: [id number]
--- NOTE | 2022-02-03 13:26 | Cardiology Progress Note ---
Date of Service February 03, 2022 Assessment & Plan (1) Drug-induced torsades de pointes: (2) LBBB (left bundle branch block): Plan Patient is a 61-year-old female with chronic left bundle branch block with associated QT prolongation who in the perioperative period following left total knee replacement had arrhythmic degeneration possibly in response to local anesthetic bupivacaine. Review of rhythm strips suggest probable drug-induced torsade over V. fib with spontaneous recovery of rhythm and pulse following brief CPR. No electrical shock administered Currently hemodynamically stable. EKG without acute changes echocardiogram unchanged from prior study. Currently hemodynamically stable Plan: Agree with transfer to telemetry observe edition overnight increase activities in hospital. We will plan on scheduling for genetic testing post hospital discharge. Assess for predisposition, family history of sudden in father Would hold Plaquenil until evaluation complete Admission and Anticipated Discharge Date Admission Date: February 02, 2022 Subjective Patient seen and examined, chart, medications, telemetry reviewed. Looks well this morning. No arrhythmias overnight. Has been out of bed without difficulty Review of Systems Review of Systems: All systems reviewed & are unremarkable except as noted in Subjective Physical Exam Constitutional: WD/WN, vitals as above no acute distress Eyes: PERRL, conjunctivae normal, anicteric sclerae ENMT: external ear and nose normal, oropharynx normal Neck: trachea midline, no thyromegaly Respiratory: normal respiratory effort, lungs clear to auscultation Cardiovascular: RRR, no murmur, no edema Gastrointestinal (Abdomen): normal bowel sounds, soft, nontender, no hepatosplenomegaly Psychiatric: Orientation: alert and oriented x 3 Results & Data ([facility]) Vital Signs (Past 12 Hours) Vital Signs Temp Pulse Resp BP Pulse Ox O2 Del Method 02/03/22 11:30 81 15 96 02/03/22 11:00 63 20 99 02/03/22 11:00 125/67 02/03/22 10:30 74 99 02/03/22 10:11 128/62 02/03/22 10:11 85 12 02/03/22 10:01 109/62 02/03/22 10:01 67 17 95 02/03/22 10:00 63 18 98 02/03/22 09:30 63 21 99 02/03/22 09:14 140/81 02/03/22 09:14 84 21 92 02/03/22 08:00 36.9 C 10/27/22 08:00 Room Air 02/03/22 09:07 75 16 99 02/03/22 09:07 118/90 02/03/22 09:01 107/80 02/03/22 09:01 59 L 19 93 02/03/22 09:00 64 13 97 02/03/22 08:30 68 22 02/03/22 08:30 114/59 L 02/03/22 08:00 69 18 94 02/03/22 07:30 78 17 97 02/03/22 07:00 67 16 95 02/03/22 07:00 107/64 02/03/22 06:30 69 14 94 02/03/22 07:35 Room Air 02/03/22 06:00 61 17 136/63 94 02/03/22 05:00 63 15 132/63 96 02/03/22 04:00 66 12 118/73 96 02/03/22 04:00 36.7 C 02/03/22 03:00 59 L 12 140/69 95 02/03/22 02:00 64 12 129/68 95 Laboratory Results Laboratory Results - last 24 hr 02/02/22 02/02/22 02/02/22 12:03 12:03 12:35 WBC 9.48 RBC 3.58 L Hgb 9.6 L Hct 33.9 L MCV 95.8 MCH 33.9 MCHC 35.4 RDW Std Deviation 49.1 H RDW Coeff of Maria R 14.2 Plt Count 276 MPV 11.6 Immature Gran % (Auto) 1.6 Neut % (Auto) 86.9 Lymph % (Auto) 8.3 Campbell % (Auto) 2.3 Eos % (Auto) 0.4 Baso % (Auto) 0.5 Neut # (Auto) 8.23 H Lymph # (Auto) 0.79 L Campbell # (Auto) 0.22 L Eos # (Auto) 0.04 Baso # (Auto) 0.05 Immature Gran # (Auto) 0.15 H Absolute Nucleated RBC 0.03 H Nucleated RBC % (auto) 0.3 Polychromasia 1+ Tear Drop Cells 1+ Echinocytes 1+ Acanthocytes (Spur) 2+ PT 11.1 INR 1.0 APTT 27.7 PTT Ratio 1.0 Sodium 136 Potassium 3.6 Chloride 105 Carbon Dioxide 23 Anion Gap 8 BUN 13 Creatinine 0.78 Est Cr Clr Drug Dosing 72.9 Est GFR ( Amer) 95.8 Est GFR (Non-Af Amer) 82.6 BUN/Creatinine Ratio 16.7 Glucose 232 H POC Glucose Calcium 8.0 L Phosphorus Magnesium 2.0 Total Bilirubin 0.8 AST 72 H ALT 38 Alkaline Phosphatase 61 Troponin I High Sens Total Protein 5.5 L Albumin 3.4 Globulin 2.1 L Albumin/Globulin Ratio 1.6 Nasal Screen MRSA (PCR) 02/02/22 02/02/22 02/02/22 14:02 14:15 16:52 WBC RBC Hgb Hct MCV MCH MCHC RDW Std Deviation RDW Coeff of Maria R Plt Count MPV Immature Gran % (Auto) Neut % (Auto) Lymph % (Auto) Campbell % (Auto) Eos % (Auto) Baso % (Auto) Neut # (Auto) Lymph # (Auto) Campbell # (Auto) Eos # (Auto) Baso # (Auto) Immature Gran # (Auto) Absolute Nucleated RBC Nucleated RBC % (auto) Polychromasia Tear Drop Cells Echinocytes Acanthocytes (Spur) PT INR APTT PTT Ratio Sodium Potassium Chloride Carbon Dioxide Anion Gap BUN Creatinine Est Cr Clr Drug Dosing Est GFR ( Amer) Est GFR (Non-Af Amer) BUN/Creatinine Ratio Glucose POC Glucose 185 H 133 H Calcium Phosphorus Magnesium Total Bilirubin AST ALT Alkaline Phosphatase Troponin I High Sens Total Protein Albumin Globulin Albumin/Globulin Ratio Nasal Screen MRSA (PCR) Negative 02/02/22 02/02/22 02/03/22 20:07 21:04 01:09 WBC RBC Hgb Hct MCV MCH MCHC RDW Std Deviation RDW Coeff of Maria R Plt Count MPV Immature Gran % (Auto) Neut % (Auto) Lymph % (Auto) Campbell % (Auto) Eos % (Auto) Baso % (Auto) Neut # (Auto) Lymph # (Auto) Campbell # (Auto) Eos # (Auto) Baso # (Auto) Immature Gran # (Auto) Absolute Nucleated RBC Nucleated RBC % (auto) Polychromasia Tear Drop Cells Echinocytes Acanthocytes (Spur) PT INR APTT PTT Ratio Sodium Potassium Chloride Carbon Dioxide Anion Gap BUN Creatinine Est Cr Clr Drug Dosing Est GFR ( Amer) Est GFR (Non-Af Amer) BUN/Creatinine Ratio Glucose POC Glucose 130 H 112 H Calcium Phosphorus Magnesium Total Bilirubin AST ALT Alkaline Phosphatase Troponin I High Sens 11.2 Total Protein Albumin Globulin Albumin/Globulin Ratio Nasal Screen MRSA (PCR) 02/03/22 02/03/22 02/03/22 03:36 03:36 03:36 WBC 9.10 RBC 3.09 L Hgb 9.8 L Hct 29.2 L MCV 94.5 MCH 31.7 MCHC 33.6 RDW Std Deviation 46.5 H RDW Coeff of Maria R 13.6 Plt Count 182 MPV 10.1 Immature Gran % (Auto) Neut % (Auto) Lymph % (Auto) Campbell % (Auto) Eos % (Auto) Baso % (Auto) Neut # (Auto) Lymph # (Auto) Campbell # (Auto) Eos # (Auto) Baso # (Auto) Immature Gran # (Auto) Absolute Nucleated RBC Nucleated RBC % (auto) Polychromasia Tear Drop Cells Echinocytes Acanthocytes (Spur) PT INR APTT PTT Ratio Sodium 135 L Potassium 3.9 Chloride 105 Carbon Dioxide 25 Anion Gap 5 BUN 12 Creatinine 0.82 Est Cr Clr Drug Dosing 70.9 Est GFR ( Amer) 90.1 Est GFR (Non-Af Amer) 77.8 BUN/Creatinine Ratio 14.6 Glucose 92 POC Glucose Calcium 7.6 L Phosphorus 2.5 Magnesium 1.9 Total Bilirubin AST ALT Alkaline Phosphatase Troponin I High Sens 11.1 Total Protein Albumin Globulin Albumin/Globulin Ratio Nasal Screen MRSA (PCR) 02/03/22 02/03/22 02/03/22 07:25 08:38 11:21 WBC RBC Hgb Hct MCV MCH MCHC RDW Std Deviation RDW Coeff of Maria R Plt Count MPV Immature Gran % (Auto) Neut % (Auto) Lymph % (Auto) Campbell % (Auto) Eos % (Auto) Baso % (Auto) Neut # (Auto) Lymph # (Auto) Campbell # (Auto) Eos # (Auto) Baso # (Auto) Immature Gran # (Auto) Absolute Nucleated RBC Nucleated RBC % (auto) Polychromasia Tear Drop Cells Echinocytes Acanthocytes (Spur) PT INR APTT PTT Ratio Sodium Potassium Chloride Carbon Dioxide Anion Gap BUN Creatinine Est Cr Clr Drug Dosing Est GFR ( Amer) Est GFR (Non-Af Amer) BUN/Creatinine Ratio Glucose POC Glucose 90 71 Calcium Phosphorus Magnesium Total Bilirubin AST ALT Alkaline Phosphatase Troponin I High Sens 11.0 Total Protein Albumin Globulin Albumin/Globulin Ratio Nasal Screen MRSA (PCR)
[2022-02-03] MEDS ORDERED: PHARMACY GLYCEMIC MGMT CONSULT PRN (14:37)
[2022-02-03] MEDS: CYCLOBENZAPRINE HCL 5 MG TAB PO SCH (20:14)
[2022-02-03] MEDS: CYANOCOBALAMIN (B-12) 500 MCG TABLET PO SCH (20:14)
[2022-02-03] MEDS: FAMOTIDINE 20 MG TAB PO SCH (20:16)
[2022-02-03] MEDS: SENNA 8.6 MG TAB PO SCH (20:17)
[2022-02-04] MEDS: KETOROLAC 30 MG/ML VIAL IV SCH ×2 (01:08→08:12)
[2022-02-04] MEDS: ACETAMINOPHEN 500 MG TAB PO SCH (05:08)
--- NOTE | 2022-02-04 07:48 | Progress Notes ---
DATE OF SERVICE: 02/04/2022. SUBJECTIVE: A 61-year-old female with multiple medical comorbidities. Postop day 2 from a left knee replacement, complicated by rapid ventricular rhythm. She has done well. Ever since acute episode during the surgery, she has done well. A little bit of chest discomfort. Minimal knee pain. Hoping to go home. OBJECTIVE: VITAL SIGNS: Temperature 36.8. Vital signs are stable. GENERAL: Physical examination shows a pleasant middle-aged female. They had to wake her this schuylern g. She looks completely comfortable. EXTREMITIES: Examination of the left leg reveals dressing to be clean, dry and intact. She can dors iflex and plantarflex her foot appropriately. She is neurologically intact. ASSESSMENT: A 61-year-old female postoperative day 2 from a left knee replacement complicated by rap id ventricular rhythm, which is back in sinus rhythm. She has been stable for the past 24 hours. Pa in is controlled. PLAN: 1. DVT prophylaxis includes thigh-high TEDs, SCDs, and aspirin twice a day. 2. PT/OT, weightbear as tolerated. Left total knee protocol. 3. Pain control, doing okay with current pain regimen. 4. Disposition: Plan is to discharge to home later today if she does okay in therapy. Job ID: [id number]
[2022-02-04 08:07] LABS: Hematocrit (blood only) 28.2 % (34.1-44.9); Hemoglobin 9.5 g/dl (12.0-16.0); Mean Corpuscular Hemoglobin 31.3 pg (25.0-34.0); Mean Corpuscular Hgb Conc 33.7 g/dL (32.0-36.0); Mean Corpuscular Volume 92.8 fL (80.0-100.0); Mean Platelet Volume 11.3 fL (9.4-12.3); Platelet Count 193 K/uL (130-400); RDW Coefficient of Variation 14.1 % (11.5-14.5); RDW Standard Deviation 47.9 fL (36.4-46.3); Red Blood Count 3.04 M/uL (3.93-5.22); White Blood Count 6.76 K/ul (4.8-10.8)
[2022-02-04] MEDS: MULTIVITAMIN TAB PO SCH (08:10)
[2022-02-04] MEDS: methIMAzole 5 MG TABLET PO SCH (08:10)
[2022-02-04] MEDS: DULoxetine HCL 60 MG CAP PO SCH (08:10)
[2022-02-04] MEDS: hydroCHLOROthiazide 25 MG TAB PO SCH (08:10)
[2022-02-04] MEDS: LOSARTAN POTASSIUM 25 MG TAB PO SCH (08:10)
[2022-02-04] MEDS: POTASSIUM CHLORIDE 10 MEQ TABCR PO SCH (08:10)
[2022-02-04] MEDS: CALCIUM 600MG + VIT D 400 IU TAB PO SCH (08:10)
[2022-02-04] MEDS: ATORVASTATIN 40 MG TAB PO SCH (08:11)
[2022-02-04] MEDS: ASCORBIC ACID 500 MG TAB PO SCH (08:11)
[2022-02-04] MEDS: methylPREDNISolone 4 MG TAB PO SCH (08:11)
[2022-02-04] MEDS: ASPIRIN 81 MG ECTAB PO SCH (08:11)
[2022-02-04] MEDS: TOPIRAMATE 50 MG TAB PO SCH (08:11)
[2022-02-04] MEDS: DOCUSATE SODIUM 100 MG CAP PO SCH (08:11)
[2022-02-04] MEDS: Scopolamine CHECK PATCH PLACEMENT SCH (08:12)
[2022-02-04] MEDS: PREGABALIN 75 MG CAP PO SCH (08:21)
[2022-02-04] MEDS: INSULIN ASPART PER UNIT SC SCH (08:23)
[2022-02-04 08:40] LABS: BUN Creatinine Ratio 19.3 (10-20); Calcium 7.8 mg/dl (8.5-10.1); Creatinine Clr Calc Pharmacy 64.7 ml/min; Est GFR (African American) 82.8 ml/min; Est GFR (Non-African American) 71.4 ml/min; Magnesium 2.1 mg/dl (1.7-2.4); Potassium 3.4 mmol/L (3.5-5.1)
--- NOTE | 2022-02-04 09:51 | Anesthesiology Progress Note ---
Date of Service February 04, 2022 Anesthesia Post Procedure Vital Signs Vital Signs: Temp Pulse Pulse Pulse Resp BP BP 02/04/22 07:55 36.9 C 65 16 02/04/22 07:41 65 02/04/22 03:00 36.8 C 81 20 124/75 02/03/22 23:00 37 C 70 18 02/03/22 22:05 83 02/03/22 19:50 36.9 C 72 20 02/03/22 15:33 72 02/03/22 15:24 36.6 C 68 18 02/03/22 15:25 02/03/22 11:30 81 15 02/03/22 11:00 63 20 02/03/22 11:00 125/67 02/03/22 10:30 74 02/03/22 10:11 128/62 02/03/22 10:11 85 12 02/03/22 10:01 109/62 02/03/22 10:01 67 17 02/03/22 10:00 63 18 BP Pulse Ox O2 Del Method 02/04/22 07:55 122/73 99 Room Air 02/04/22 07:41 02/04/22 03:00 98 Room Air 02/03/22 23:00 127/62 96 Room Air 02/03/22 22:05 02/03/22 19:50 132/72 97 Room Air 02/03/22 15:33 02/03/22 15:24 123/65 99 Room Air 02/03/22 15:25 Room Air 02/03/22 11:30 96 02/03/22 11:00 99 02/03/22 11:00 02/03/22 10:30 99 02/03/22 10:11 02/03/22 10:11 02/03/22 10:01 02/03/22 10:01 95 02/03/22 10:00 98 Transfer of Care Handoff Completed per policy Notes Mental Status: alert / awake / arousable Patient Amnestic to Procedure: Yes Nausea / Vomiting: adequately controlled Pain: adequately controlled Airway Patency, RR, SpO2: stable & adequate BP & HR: stable & adequate Hydration State: stable & adequate Anesthetic Complications: Pt Satisfied with anesthetic care Notes: The patient was doing physical therapy when I saw her. She feels well today and is hoping to go home.
--- NOTE | 2022-02-04 11:18 | Cardiology Progress Note ---
Date of Service February 04, 2022 Assessment & Plan (1) Drug-induced torsades de pointes: (2) LBBB (left bundle branch block): Plan Patient is a 61-year-old female with chronic left bundle branch block with associated QT prolongation who in the perioperative period following left total knee replacement had arrhythmic degeneration possibly in response to local anesthetic bupivacaine. Review of rhythm strips suggest probable drug-induced torsade over V. fib with spontaneous recovery of rhythm and pulse following brief CPR. No electrical shock administered Currently hemodynamically stable. EKG without acute changes echocardiogram unchanged from prior study. Currently hemodynamically stable Plan: Discussed events in detail with patient. We will plan on scheduling for genetic testing post hospital discharge. Assess for predisposition, family history of sudden in father Would hold Plaquenil until evaluation complete Cardiology follow-up post discharge being arranged Admission and Anticipated Discharge Date Admission Date: February 02, 2022 Subjective Patient seen and examined, chart, medications, telemetry reviewed. Overall feels well is exercising in room. No cardiac implants chest pain shortness of breath dizziness or lightheadedness. Good knee mobility. Telemetry without arrhythmias Review of Systems Review of Systems: All systems reviewed & are unremarkable except as noted in Subjective Physical Exam Constitutional: WD/WN, vitals as above no acute distress Eyes: PERRL, conjunctivae normal, anicteric sclerae ENMT: external ear and nose normal, oropharynx normal Neck: trachea midline, no thyromegaly Respiratory: normal respiratory effort, lungs clear to auscultation Cardiovascular: Rate/Rhythm: regular rate and regular rhythm Heart Sounds: + murmur (Grade 2/6 systolic murmur) Gastrointestinal (Abdomen): normal bowel sounds, soft, nontender, no hepatosplenomegaly Musculoskeletal: Left knee bandaged without significant edema below Psychiatric: Orientation: alert and oriented x 3 Results & Data ([facility]) Vital Signs (Past 12 Hours) Vital Signs Temp Pulse Pulse Resp BP BP Pulse Ox 02/04/22 07:55 36.9 C 65 16 122/73 99 02/04/22 07:41 65 02/04/22 03:00 36.8 C 81 20 124/75 98 O2 Del Method 02/04/22 07:55 Room Air 02/04/22 07:41 02/04/22 03:00 Room Air Laboratory Results Laboratory Results - last 24 hr 02/03/22 02/03/22 02/03/22 11:21 16:45 20:05 WBC RBC Hgb Hct MCV MCH MCHC RDW Std Deviation RDW Coeff of Maria R Plt Count MPV Sodium Potassium Chloride Carbon Dioxide Anion Gap BUN Creatinine Est Cr Clr Drug Dosing Est GFR ( Amer) Est GFR (Non-Af Amer) BUN/Creatinine Ratio Glucose POC Glucose 71 122 H 103 H Calcium Magnesium 02/04/22 02/04/22 02/04/22 07:06 07:06 07:40 WBC 6.76 RBC 3.04 L Hgb 9.5 L Hct 28.2 L MCV 92.8 MCH 31.3 MCHC 33.7 RDW Std Deviation 47.9 H RDW Coeff of Maria R 14.1 Plt Count 193 MPV 11.3 Sodium 140 Potassium 3.4 L Chloride 107 Carbon Dioxide 28 Anion Gap 5 BUN 17 Creatinine 0.88 Est Cr Clr Drug Dosing 64.7 Est GFR ( Amer) 82.8 Est GFR (Non-Af Amer) 71.4 BUN/Creatinine Ratio 19.3 Glucose 113 H POC Glucose 112 H Calcium 7.8 L Magnesium 2.1
--- NOTE | 2022-02-04 22:29 | Electrocardiogram Report ---
Test Reason : Blood Pressure : / mmHG Vent. Rate : 084 BPM Atrial Rate : 084 BPM P-R Int : 204 ms QRS Dur : 164 ms QT Int : 466 ms P-R-T Axes : 076 -36 118 degrees QTc Int : 550 ms Normal sinus rhythm Left axis deviation Left bundle branch block Abnormal ECG When compared with ECG of 09-SEP-2020 14:04, No significant change was found Confirmed by Jovanny Griffin ([id number]) on 02/04/2022 10:29:39 PM Referred By: Frank Flowers Confirmed By:Jovanny Griffin
--- NOTE | 2022-02-04 23:02 | Electrocardiogram Report ---
Test Reason : Blood Pressure : / mmHG Vent. Rate : 060 BPM Atrial Rate : 060 BPM P-R Int : 180 ms QRS Dur : 170 ms QT Int : 538 ms P-R-T Axes : 055 -17 116 degrees QTc Int : 538 ms Normal sinus rhythm Left bundle branch block Abnormal ECG When compared with ECG of 02-FEB-2022 17:59, No significant change was found Confirmed by Jovanny Griffin ([id number]) on 02/04/2022 11:01:27 PM Referred By: Frank Flowers Confirmed By:Jovanny Griffin
--- NOTE | 2022-02-05 18:29 | Discharge Summary ---
Date of Service February 05, 2022 Discharge Data Consultations 02/02/22 12:05 Consult Hospitalist Stat 02/02/22 13:33 Consult Efficiency Clerk Routine 02/02/22 17:06 Consult Cardiology Routine Procedures Performed Operation Date: 02/02/22 09:05 Actual Procedures p Left Total Knee Arthroplasty(Left) - Frank Flowers MD Hospital Course (1) Status post total left knee replacement: This is a 61 year old patient admitted on 02/02/22 and underwent total knee arthroplasty. At the end of the procedure she developed a ventricular arrhythmia, torsades/v. fib and cpr was performed. She returned to sinus rhythm. She was given amiodarone. She was transferred to the ICU post op for further care. Amiodorane was then stopped, she was stable, and extubated. She was followed by the hospitalist and cardiology services during her stay. She was given ancef for antibiotic prophylaxis. She was also given MAGO stockings, SCDs, and aspirin for DVT prophylaxis. Hemoglobin, hematocrit, and vital signs were monitored during the remainder of her hospital stay and remained stable. Did not require any blood transfusions. There were no other complications during her hospital stay. By post op day #2 the patient was tolerating a regular diet, pain was reasonably controlled with oral pain medicine, and she was participating in physical the rapy. On post op day #2 the patient was discharged home and set up with home health care. She was given printed discharge instructions including prescriptions for extra strength tylenol, aspirin, ketorolac, zofran, senokot, and oxycodone. Continue physical therapy, weight bearing as tolerated. Continue MAGO stockings. Follow up approximately 2 weeks post op or sooner if there are problems or concerns. She was instructed to follow up with cardiology as well. Coding Level of Care Code None Diagnoses Status post total left knee replacement Z96.652
== END 2022-02-04 11:50 | disposition home health service (06) | DRG 469 ==
LOC: ASU 06:16 → 1E 12:05 → 2N 02-03 09:31

== ENCOUNTER 2022-07-29 15:38 | Inpatient (IN) ==
[2022-07-29 16:27] LABS: Basophils # (auto) 0.05 K/uL (0-0.2); Basophils % (auto) 0.5 %; Eosinophils # (auto) 0.07 K/uL (0-0.50); Eosinophils % (auto) 0.8 %; Hematocrit (blood only) 41.3 % (37.0-47.0); Hemoglobin 13.7 g/dl (12.0-16.0); Immature Granulocytes # (auto) 0.02 K/uL (0.01-0.20); Immature Granulocytes % (auto) 0.2 %; Lymphocytes # (auto) 1.04 K/uL (1.2-3.4); Lymphocytes % (auto) 11.3 %; Mean Corpuscular Hemoglobin 29.5 pg (25.0-34.0); Mean Corpuscular Hgb Conc 33.2 g/dL (32.0-36.0); Mean Corpuscular Volume 88.8 fL (80.0-100.0); Mean Platelet Volume 10.8 fL (9.4-12.4); Monocytes % (auto) 6.5 %; Neutrophils % (auto) 80.7 %; Platelet Count 324 K/uL (130-400); RDW Coefficient of Variation 15.2 % (11.5-14.5); RDW Standard Deviation 49.6 fL (36.4-46.3); Red Blood Count 4.65 M/uL (4.20-5.40); White Blood Count 9.18 K/ul (4.8-10.8)
[2022-07-29 16:39] LABS: Albumin Globulin Ratio 1.7 (0.9-2); Albumin Level 4.7 gm/dl (3.4-5.0); BUN Creatinine Ratio 23.7 (10-20); Bilirubin,Total 0.7 mg/dl (0.2-1.0); Calcium 10.2 mg/dl (8.6-10.3); Creatinine Clr Calc Pharmacy 75.2 ml/min; Est GFR (African American) 98.1 ml/min; Est GFR (Non-African American) 84.7 ml/min; Globulin 2.7 gm/dl (2.5-4.0); Potassium 4.1 mmol/L (3.5-5.1); Total Protein 7.4 gm/dl (6.0-8.3)
[2022-07-29 17:03] LABS: Partial Thromboplastin Time 29.3 Seconds (21.0-31.0); Prothrombin Time 10.6 Seconds (9.0-12.0)
[2022-07-29 17:30] LABS: Magnesium 1.7 mg/dl (1.7-2.4)
--- NOTE | 2022-07-29 18:07 | XRay Report ---
SINGLE VIEW CHEST CLINICAL HISTORY: Atypical chest pain FINDINGS: An AP, portable, upright chest radiograph is compared to study dated 02/11/2022 and correlat ed with chest CT dated 09/09/2020. The heart is mildly enlarged. The pulmonary vasculature is nonconges tive. Atelectasis is seen at the lung bases. The lungs and pleural spaces are otherwise clear. No pne umothorax is seen. The bony thorax is grossly intact. IMPRESSION: No active disease in the chest. ACT 112: Negative or not required by law. Electronically signed by: Julio Cain M.D. 07/29/2022 6:06 PM
--- NOTE | 2022-07-29 19:39 | History & Physical Report ---
Date of Service July 29, 2022 Assessment & Plan (1) Chest pain: (2) History of torsades de pointe due to drug: Plan: Patient is 62 y/o F with PMH drug-induced torsades de points, LBBB, dermatomyositis, on chronic steroid, interstitial lung disease, HTN, HLD, Grav es' disease with recurrent episodes of lightheadedness, diaphoresis, nausea chest pain with exertion. Last episode occurred yesterday. In ER vitals stable. No significant electrolyte abnormality Initial high-sensitivity troponin: 13 EKG sinus bradycardia, chronic LBBB, no acute ST changes R/O ACS, arrhythmia Repeat EKG in am Will trend troponin Echo Lipid panel in am Cardiology consult. ER provider spoke to on-call who recommended patient being n.p.o. midnight for possible stress test in the a.m. (3) Hypertension: Plan: Continue losartan, HCTZ (4) DM type 2 (diabetes mellitus, type 2): Plan: A1c: 6.2 on 03/11/2022 Hold home metformin NovoLog sliding scale per protocol (5) Dermatomyositis: Plan: On chronic steroid Continue methylprednisone Follows with rheumatology outpatient (6) LBBB (left bundle branch block): Plan: Chronic LBBB (7) Graves disease: Plan: Continue methimazole DVT Prophylaxis Lovenox SQ Full code as per discussion with pt Follows with Dr Man for routine care Pt was seen and care coordinated with Dr Byrd. See addendum I spent a total of 79 minutes reviewing notes, outpatient records, labs, medication, coordinating, documenting and providing care for this patient excluding time spent in the performance of separately billed services. History of Present Illness Chief Complaint: episode of dizziness/chest pain Primary Care Provider: Eddie Man MD Patient is 62 y/o F with PMH drug-induced torsades de points, LBBB, dermatomyositis, on chronic steroid, interstitial lung disease, HTN, HLD, Graves' disease with recurrent episodes of dizziness, chest pain. Patient states yesterday was staining a wood swing and approximately 20 minutes later developed lightheaded sensation, diaphoresis, nausea, and heart pounding sensation. Doesn't feel like heart was racing or skipping. Also had tightness around left breast lasted approximately 1 hour. She checked her blood sugar at the time and was 189. No vomiting. Did have couple episodes of loose stool. Rested and fell asleep and when woke up symptoms were gone. 2 weeks ago was mopping had same symptoms of nausea, heart pounding, lightheadedness. Had another episode prior to this also when she was exerting herself. Today went to PCP office for f/u of symptom and was referred to ER. Today no symptoms. States feels well today. 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 Has been having back pain and following up with PCP. Denies fever/chills, PHILLIPS, syncope, vision changes, neck pain, SOB, orthopnea, cough, sore throat, rhinorrhea, abdominal pain, paresthesias, weakness, extremity edema, rashes, urinary symptoms. Allergies Allergy/AdvReac Type Severity Reaction Status Date / Time No Known Allergies Allergy Verified 07/29/22 18:24 Home Medications Medication Instructions Recorded Confirmed Type atorvastatin 40 mg tablet (Lipitor) 40 mg PO QAM 08/15/19 07/29/22 History calcium carbonate 500 mg-vitamin 1 tab PO QAM 08/15/19 07/29/22 History D3 5 mcg (200 unit) tablet (Calcium 500 + D) cyanocobalamin (vitamin B-12) 1,000 mcg PO HS 08/15/19 07/29/22 History 1,000 mcg tablet (Vitamin B-12) cyclobenzaprine 5 mg tablet 5 mg PO HS PRN Muscle Spasm 08/15/19 07/29/22 History hydrochlorothiazide 25 mg tablet 25 mg PO QAM 08/15/19 07/29/22 History methylprednisolone 4 mg tablet 4 mg PO QAM 08/15/19 07/29/22 History (Medrol) milk thistle 500 mg capsule 500 mg PO QAM 08/15/19 07/29/22 History pantoprazole 40 mg tablet,delayed 40 mg PO QAM 08/15/19 07/29/22 History release (Protonix) pregabalin 75 mg capsule (Lyrica) 75 mg PO TID 08/15/19 07/29/22 History diclofenac sodium 1 % topical gel 1 g topical QID PRN Pain 06/20/20 07/29/22 History losartan 25 mg tablet 25 mg PO QAM 06/20/20 07/29/22 History metformin 500 mg tablet,extended 1,000 mg PO QAM 06/20/20 07/29/22 History release 24 hr methimazole 10 mg tablet 20 mg PO QAM 07/29/21 07/29/22 History biotin 1,000 mcg chewable tablet 1,000 mcg PO HS 08/02/21 07/29/22 History ferrous sulfate 325 mg (65 mg 325 mg PO Q OTHER DAY 11/03/21 07/29/22 History iron) tablet acetaminophen 500 mg capsule 1,000 mg PO DIRECTED PRN Pain 07/29/22 07/29/22 History amoxicillin 500 mg tablet 2,000 mg PO DIRECTED PRN 1 HOUR 07/29/22 07/29/22 History PRIOR TO DENTAL APPT. erythromycin 5 mg/gram (0.5 %) eye 1 applic ophthalmic (eye) HS 07/29/22 07/29/22 History ointment potassium chloride 20 mEq 20 meq PO DAILY 07/29/22 07/29/22 History tablet,extended release(part/cryst) Past Med/Surg History Medical History Aftercare following right hip joint replacement surgery Anemia Autoimmune hepatitis Follows with GI (Dr. Rahman) Carotid artery stenosis <50% stenosis to bilateral ICAs per 10/2021 carotid doppler (cardio recommends repeat study in two years) Chronic back pain + LE radiation Chronic steroid use Methylprednisolone 4mg daily Dermatomyositis Follows with rheumatology f/u Dr. [facility] Reason for plaquenil/methylprednisolone 4mg daily per pt Diabetic neuropathy DM type 2 (diabetes mellitus, type 2) NIDDM DVT prophylaxis Encounter for pre-operative examination GERD (gastroesophageal reflux disease) Graves disease Last seen by endo 10/20/21- methimazole increased to bring patient into high normal range with TSH; follow up in office in six months History of blood transfusion r/t childbirth History of COVID-19 02/2021 > slight cough, low grade fever, treated with antibodies > resolved History of torsades de pointe due to drug Hyperlipidemia Pt denies, HLD noted per S records Interstitial lung disease IPMN (intraductal papillary mucinous neoplasm) Left bundle branch block Chronic dating back to at least 2016-F/U DR ARGENT[place] VYAS (nonalcoholic steatohepatitis) Neurogenic claudication due to lumbar spinal stenosis Pancreatic cyst Under observation Panniculitis 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- on chronic steroids*/plaquenil per rheumatology Pulmonary nodules Under surveillance Renal artery aneurysm Under surveillance Splenic artery aneurysm Under surveillance Thymus disorder Recent diagnosis, under surveillance Trigeminal neuralgia Surgical History History of appendectomy History of arthroscopy of left knee History of cholecystectomy History of colonoscopy + polypectomy History of esophagogastroduodenoscopy (EGD) History of hand surgery Granuloma excision (right hand x2) History of hernia repair Left inguinal History of hysterectomy Partial + LSO + with left ovary and salpingectomy History of lumbar spinal fusion History of oophorectomy, unilateral Right History of right hip replacement Right ZULEIKA (06/21/20): Grade view 1, MAC#3, ETT 7.5 at [facility] ("general anesthetic was implemented at the patient's request" per operative report) History of surgery excisional biopsy left hip mass @ [facility] Dr. Flowers 11/17/21 History of tonsillectomy and adenoidectomy History of total right knee replacement Hx of bilateral cataract extraction Status post right knee replacement Family History Other No family history of adverse response to anesthesia No significant family history Social History Smoking Status: Never smoker Second Hand Exposure: No; Hx Alcohol Use: No Hx Substance Use: No Preferred Language: Algerian Communication Ability: Effective Visual Impairment: No Limitations Journal Entry Audit Clerk Required: No Beliefs That Will Affect Care: None marital status: Current Living Situation: Spouse current occupational status: disabled Other Information That Helps Us Care for You: No Feels Safe at Home: Yes Safety Concerns: Feels Safe At This Time Assistive Devices: Glasses Review of Systems Review of Systems: All systems reviewed & are unremarkable except as noted in HPI & below Physical Exam Physical Exam: General: no distress, WDWN Head: normocephalic, atraumatic Eyes: conjunctiva non-injected, anicteric ENT: normal inspection external ears, nose, mucous membranes moist Neck: supple, trachea midline, non-tender Lungs: clear, no respiratory distress, no wheezing/rhonchi/rales Chest wall: +tenderness to palpation left chest wall, no discoloration noted CV: RRR, no murmur, no pretibial edema Abd: normal BS, soft, non-tender Ext: no cyanosis, no calf tenderness Neuro: A&O x 3, no focal deficits noted, normal affect Skin: warm, dry Results & Data Results & Data Vital Signs (Past 12 Hours) Vital Signs Temp Pulse Pulse Resp BP BP Pulse Ox 07/29/22 17:30 07/29/22 18:45 58 L 20 152/82 H 98 07/29/22 18:45 58 L 20 96 07/29/22 17:48 52 L 07/29/22 17:37 55 L 16 143/86 H 100 07/29/22 15:46 36.6 C 67 18 152/82 H 98 O2 Del Method 07/29/22 17:30 Room Air 07/29/22 18:45 Room Air 07/29/22 18:45 Room Air 07/29/22 17:48 07/29/22 17:37 Room Air 07/29/22 15:46 Room Air Laboratory Results Short CBC 07/29/22 Range/Units 16:04 WBC 9.18 (4.8-10.8) K/ul Hgb 13.7 (12.0-16.0) g/dl Hct 41.3 (37.0-47.0) % Plt Count 324 (130-400) K/uL BMP 07/29/22 16:04 Sodium 138 Potassium 4.1 Chloride 101 Carbon Dioxide 29 BUN 18 Creatinine 0.76 Glucose 93 Calcium 10.2 Liver Function 07/29/22 Range/Units 16:04 Total Bilirubin 0.7 (0.2-1.0) mg/dl AST 23 (13-39) U/L ALT 18 (7-52) U/L Alkaline Phosphatase 63 (34-104) U/L Albumin 4.7 (3.4-5.0) gm/dl Diagnostic Findings Chest X-Ray 07/29/22 17:05 SINGLE VIEW CHEST CLINICAL HISTORY: Atypical chest pain FINDINGS: An AP, portable, upright chest radiograph is compared to study dated 02/11/2022 and correlated with chest CT dated 09/09/2020. The heart is mildly enlarged. The pulmonary vasculature is noncongestive. Atelectasis is seen at the lung bases. The lungs and pleural spaces are otherwise clear. No pneumothorax is seen. The bony thorax is grossly intact. IMPRESSION: No active disease in the chest. ACT 112: Negative or not required by law. Electronically signed by: Julio Cain M.D. 07/29/2022 6:06 PM ECG Rate (beats per minute): 57 Rhythm: sinus bradycardia Findings: + LBBB Supervising Physician Co-Signing Physician Notes Pt was seen and examined. Agreed with Agnle NG exam, assessment and plan. 62 y/o F with PMH drug-induced torsades de points, LBBB, dermatomyositis, on chronic steroid, interstitial lung disease, HTN, HLD, Graves' disease with recurrent episodes of dizziness, chest discomfort. Pt said that that yesterday while staining a wood swing, she became lightheaded, diaphoresis, nausea, and heart pounding sensation. She said that she felt a pressure in her heart and a tightness around left breast lasted approximately 1 hour.She said that she went to lie down and and when woke up symptoms were gone. She said that prior to this episode that she had 2 episodes, one about 2 weeks ago while mopping and another episode with exertion. She was seen at PCP office today that sent her to the ER for eval. Currently she feels fine. Denies fever/chills, PHILLIPS, syncope, vision changes, neck pain, SOB, orthopnea. EKG on admission showed chronic left BBB with no evidence of acute ischemia. Will admit to telemetry. Will get resting echo. Will consult cardiology. Will monitor troponin. Continue aspirin, statin. Will make NPO after midnight. Continue monitor closely. MD Rochelle (1) Chest pain Chest pain type: unspecified Qualified Code(s): R07.9 - Chest pain, un specified
--- NOTE | 2022-07-29 20:01 | Electrocardiogram Report ---
Test Reason : Blood Pressure : / mmHG Vent. Rate : 057 BPM Atrial Rate : 057 BPM P-R Int : 158 ms QRS Dur : 162 ms QT Int : 476 ms P-R-T Axes : 023 -35 114 degrees QTc Int : 463 ms Poor data quality, interpretation may be adversely affected Sinus bradycardia Left axis deviation Left bundle branch block Abnormal ECG When compared with ECG of 11-FEB-2022 19:46, No significant change was found Confirmed by Bartolo Pimentel ([id number]) on 07/29/2022 6:14:03 PM Referred By: Confirmed By:Jeffrey Pimentel
[2022-07-29] MEDS ORDERED: POLYETHYLENE (MIRALAX) 17 GM PACK PO PRN (20:51)
[2022-07-29] MEDS ORDERED: ACETAMINOPHEN 325 MG TAB PO PRN (20:51)
[2022-07-29] MEDS ORDERED: CYCLOBENZAPRINE HCL 5 MG TAB PO PRN (20:56)
[2022-07-29] MEDS ORDERED: GLUCOSE 40% GEL 15 GM TUBE PO PRN (20:59)
[2022-07-29] MEDS ORDERED: CARBOHYDRATES FOR HYPOGLYCEMIA PO PRN (20:59)
[2022-07-29] MEDS ORDERED: GLUCAGON FOR INJ 1 MG VIAL SQ PRN (20:59)
[2022-07-29] MEDS ORDERED: GLUCOSE 10 TAB/TUBE PO PRN (20:59)
[2022-07-29] MEDS ORDERED: DEXTROSE 50% 50 ML SYRINGE IV PRN (20:59)
[2022-07-29] MEDS: INSULIN ASPART PER UNIT CHARGE SC SCH (21:12)
[2022-07-29] MEDS: FERROUS SULFATE 325 MG TAB PO SCH (21:50)
[2022-07-29] MEDS: ENOXAPARIN INJ 40 MG/0.4 ML SYR SQ SCH (21:50)
[2022-07-29] MEDS: ERYTHROMYCIN OP OINT 5 MG/GM 3.5 GM TUBE OP SCH (21:51)
[2022-07-29] MEDS: PREGABALIN 75 MG CAP PO SCH (21:53)
[2022-07-29 22:30] LABS: Appearance Urine Clear (Clear); Bacteria Urine Automated Negative (Negative); Bilirubin Urine Negative (Negative); Blood Urine Negative (Negative); Cast Urine Automated 0 /lpf (0-5); Color Urine Yellow; Glucose Urine UA Negative (Negative); Ketones Urine Negative (Negative); Leukocyte Esterase Urine 1+ (Negative); Nitrite Urine Negative (Negative); Protein Urine Negative (Negative); RBC Urine Automated 0-4 /hpf (0-4); Specific Gravity Urine 1.013 (1.000-1.030); Urobilinogen Urine Negative (Negative)
--- NOTE | 2022-07-30 01:19 | Emergency Department Note ---
ED Provider Note History of Present Illness Chief Complaint: Cardiac Assessment Stated Complaint: REF BY DEJUAN,BLOOD QWORK Time Seen by Provider: 07/29/22 16:40 Source: patient Mode of arrival: ambulatory Limitations: no limitations This patient is a 62-year-old female who presents to the emergency department for evaluation of episodes of dizziness. Patient states that over the past 6 weeks, she has had 3 episodes of lightheadedness/nausea and feeling like she was going to pass out. She had an episode of symptoms yesterday, when she was applying stain to something. She began to feel lightheaded, nausea and diaphoresis and felt like she was going to pass out. She does admit that at this time, she had some discomfort in her left side, under her breast. She laid down and symptoms slightly improved, but they did last for between 30 and 60 minutes. She states that last time she had similar symptoms, she was also doing light activity, using a swiffer. This time she had had adequate amounts to eat prior to this. She checked her blood sugar and it was normal. She checked her heart rate yesterday and it was normal, but she does state that her heart felt like it was pounding. She had some fatigue after these episodes but otherwise feels fine at this time. Patient notes that she has a history of torsades after having her total knee replacement and required CPR at that time. Home Medications Medication Instructions Recorded Confirmed Type atorvastatin 40 mg tablet (Lipitor) 40 mg PO QAM 08/15/19 07/29/22 History calcium carbonate 500 mg-vitamin 1 tab PO QAM 08/15/19 07/29/22 History D3 5 mcg (200 unit) tablet (Calcium 500 + D) cyanocobalamin (vitamin B-12) 1,000 mcg PO HS 08/15/19 07/29/22 History 1,000 mcg tablet (Vitamin B-12) cyclobenzaprine 5 mg tablet 5 mg PO HS PRN Muscle Spasm 08/15/19 07/29/22 History hydrochlorothiazide 25 mg tablet 25 mg PO QAM 08/15/19 07/29/22 History methylprednisolone 4 mg tablet 4 mg PO QAM 08/15/19 07/29/22 History (Medrol) milk thistle 500 mg capsule 500 mg PO QAM 08/15/19 07/29/22 History pantoprazole 40 mg tablet,delayed 40 mg PO QAM 08/15/19 07/29/22 History release (Protonix) pregabalin 75 mg capsule (Lyrica) 75 mg PO TID 08/15/19 07/29/22 History diclofenac sodium 1 % topical gel 1 g topical QID PRN Pain 06/20/20 07/29/22 History losartan 25 mg tablet 25 mg PO QAM 06/20/20 07/29/22 History metformin 500 mg tablet,extended 1,000 mg PO QAM 06/20/20 07/29/22 History release 24 hr methimazole 10 mg tablet 20 mg PO QAM 07/29/21 07/29/22 History biotin 1,000 mcg chewable tablet 1,000 mcg PO HS 08/02/21 07/29/22 History ferrous sulfate 325 mg (65 mg 325 mg PO Q OTHER DAY 11/03/21 07/29/22 History iron) tablet acetaminophen 500 mg capsule 1,000 mg PO DIRECTED PRN Pain 07/29/22 07/29/22 History amoxicillin 500 mg tablet 2,000 mg PO DIRECTED PRN 1 HOUR 07/29/22 07/29/22 History PRIOR TO DENTAL APPT. erythromycin 5 mg/gram (0.5 %) eye 1 applic ophthalmic (eye) HS 07/29/22 07/29/22 History ointment potassium chloride 20 mEq 20 meq PO DAILY 07/29/22 07/29/22 History tablet,extended release(part/cryst) Allergies Allergy/AdvReac Type Severity Reaction Status Date / Time No Known Allergies Allergy Verified 07/29/22 18:24 Past Med/Surg History Medical History Aftercare following right hip joint replacement surgery Anemia Autoimmune hepatitis Follows with GI (Dr. Rahman) Carotid artery stenosis <50% stenosis to bilateral ICAs per 10/2021 carotid doppler (cardio recommends repeat study in two years) Chronic back pain + LE radiation Chronic steroid use Methylprednisolone 4mg daily Dermatomyositis Follows with rheumatology f/u [facility]. 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 Hyperlipidemia Pt denies, HLD noted per [facility] records Interstitial lung disease IPMN (intraductal papillary mucinous neoplasm) Left bundle branch block Chronic dating back to at least 2017-F/U DR ARGENT[place] VYAS (nonalcoholic steatohepatitis) Neurogenic claudication due to lumbar spinal stenosis Pancreatic cyst Under observation Panniculitis 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- on chronic steroids*/plaquenil per rheumatology Pulmonary nodules Under surveillance Renal artery aneurysm Under surveillance Splenic artery aneurysm Under surveillance Thymus disorder Recent diagnosis, under surveillance Trigeminal neuralgia Surgical History History of appendectomy History of arthroscopy of left knee History of cholecystectomy History of colonoscopy + polypectomy History of esophagogastroduodenoscopy (EGD) History of hand surgery Granuloma excision (right hand x2) History of hernia repair Left inguinal History of hysterectomy Partial + LSO + with left ovary and salpingectomy History of lumbar spinal fusion History of oophorectomy, unilateral Right History of right hip replacement Right ZULEIKA (06/21/20): Grade view 1, MAC#3, ETT 7.5 at [facility] ("general anesthetic was implemented at the patient's request" per operative report) History of surgery excisional biopsy left hip mass @ [facility] Dr. Flowers 11/17/21 History of tonsillectomy and adenoidectomy History of total right knee replacement Hx of bilateral cataract extraction Status post right knee replacement Family History Other No family history of adverse response to anesthesia No significant family history Social History Smoking Status: Never smoker Second Hand Exposure: No; Hx Alcohol Use: No Hx Substance Use: No Preferred Language: Nepali Communication Ability: Effective Visual Impairment: No Limitations Safety And Security Officer Required: No Beliefs That Will Affect Care: None marital status: Current Living Situation: Spouse current occupational status: disabled Other Information That Helps Us Care for You: No Feels Safe at Home: Yes Safety Concerns: Feels Safe At This Time Assistive Devices: Glasses Physical Exam Vital Signs Vital Signs - 24 hr 07/29/22 15:46 07/29/22 17:37 07/29/22 17:48 Temperature 36.6 C Temperature Source Temporal Artery Scan Pulse Rate 67 52 L Pulse Rate [Apical] 55 L Pulse Rhythm Pulse Rhythm [Apical] Regular Pulse Strength [Apical] Normal Respiratory Rate 18 16 Respiratory Effort / Characteristics Non-Labored Spontaneous Non-Labored Spontaneous Respiratory Depth Normal Normal Respiratory Pattern Regular Regular Blood Pressure 152/82 H Blood Pressure [Left Arm] 143/86 H Blood Pressure Mean 105 Blood Pressure Mean [Left Arm] 105 Blood Pressure Position Sitting Blood Pressure Position [Left Arm] Sitting Pulse Oximetry 98 100 Oxygen Delivery Method Room Air Room Air Sepsis Recent Fever Within 48 Hours No Sepsis New/Unexplained Change in Mental Status No Sepsis Action Taken by Nursing No Action Required 07/29/22 18:45 07/29/22 18:45 07/29/22 17:30 Temperature Temperature Source Pulse Rate 58 L Pulse Rate [Apical] 58 L Pulse Rhythm Regular Pulse Rhythm [Apical] Regular Pulse Strength [Apical] Normal Respiratory Rate 20 20 Respiratory Effort / Characteristics Non-Labored Spontaneous Non-Labored Spontaneous Respiratory Depth Normal Normal Respiratory Pattern Regular Blood Pressure Blood Pressure [Left Arm] 152/82 H Blood Pressure Mean Blood Pressure Mean [Left Arm] 105 Blood Pressure Position Blood Pressure Position [Left Arm] Sitting Pulse Oximetry 96 98 Oxygen Delivery Method Room Air Room Air Room Air Sepsis Recent Fever Within 48 Hours Sepsis New/Unexplained Change in Mental Status Sepsis Action Taken by Nursing VITALS: Vitals are noted on the nurse's note and reviewed by myself. GENERAL: This is a 62-year-old female, in no acute distress, well-developed well-nourished. SKIN: The skin was without rashes. EARS: External auditory canals clear, tympanic membranes pearly yanes without erythema or effusion bilaterally. EYES: Pupils equal round and reactive to light and accommodation. MOUTH: Mucous membranes moist. HEART: Regular rate and rhythm without murmurs gallops or rubs. LUNGS: Clear to auscultation bilaterally without wheezes, rales or rhonchi. No retractions or accessory muscle use. NEURO: Patient was alert and oriented to person place and time. Course Administered Medications Enoxaparin Sodium (Enoxaparin Inj 40 Mg/0.4 Ml Syr) 40 mg SQ Q24H NIXON Stop: 08/28/22 20:59 Last Admin: 07/29/22 21:50 Dose: 40 mg Documented By: RH Erythromycin (Erythromycin Op Oint 5 Mg/Gm 3.5 Gm Tube) 1 appln OP HS NIXON Stop: 08/08/22 20:59 Last Admin: 07/29/22 21:51 Dose: 1 appln Documented By: RH Ferrous Sulfate (Ferrous Sulfate 325 Mg Tab) 325 mg PO Q48H NIXON Stop: 08/28/22 21:05 Last Admin: 07/29/22 21:50 Dose: 325 mg Documented By: RH Insulin Aspart (Insulin Aspart Per Unit Charge) 0 units SC ACHS NIXON Stop: 08/28/22 20:59 Last Admin: 07/29/22 21:12 Dose: Not Given Documented By: RH Miscellaneous (Carbohydrates For Hypoglycemia ) 15 - 30 gm PO UD PRN PRN Reason: Hypoglycemia Protocol Stop: 08/28/22 20:58 Last Admin: 07/29/22 20:35 Dose: 15 gm Documented By: RH Pregabalin (Pregabalin 75 Mg Cap) 75 mg PO TID NIXON Stop: 08/28/22 20:59 Last Admin: 07/29/22 21:53 Dose: 75 mg Documented By: RH Medical Decision Making Differential Diagnosis Cardiac ischemia, aortic dissection, pulmonary embolism, pneumothorax, pneumonia, pericarditis, myocarditis, esophageal rupture, GERD, cholecystitis, pancreatitis, musculoskeletal, as well as other pathologies. Home Medications was personally reviewed by me Laboratory Data Attestation: I reviewed the patient's lab results. 07/29/22 16:04 07/29/22 16:04 Lab Results 07/29/22 07/29/22 07/29/22 Range/Units 16:04 16:04 16:04 WBC 9.18 (4.8-10.8) K/ul RBC 4.65 (4.20-5.40) M/uL Hgb 13.7 (12.0-16.0) g/dl Hct 41.3 (37.0-47.0) % MCV 88.8 (80.0-100.0) fL MCH 29.5 (25.0-34.0) pg MCHC 33.2 (32.0-36.0) g/dL RDW Std Deviation 49.6 H (36.4-46.3) fL RDW Coeff of Maria R 15.2 H (11.5-14.5) % Plt Count 324 (130-400) K/uL MPV 10.8 (9.4-12.4) fL Immature Gran % (Auto) 0.2 % Neut % (Auto) 80.7 % Lymph % (Auto) 11.3 % Vigo % (Auto) 6.5 % Eos % (Auto) 0.8 % Baso % (Auto) 0.5 % Neut # (Auto) 7.40 H (1.40-6.50) K/uL Lymph # (Auto) 1.04 L (1.2-3.4) K/uL Vigo # (Auto) 0.60 H (0.11-0.59) K/uL Eos # (Auto) 0.07 (0-0.50) K/uL Baso # (Auto) 0.05 (0-0.2) K/uL Immature Gran # (Auto) 0.02 (0.01-0.20) K/uL PT 10.6 (9.0-12.0) Seconds INR 1.0 (0.9-1.1) APTT 29.3 (21.0-31.0) Seconds PTT Ratio 1.0 Sodium 138 (136-145) mmol/L Potassium 4.1 (3.5-5.1) mmol/L Chloride 101 (98-107) mmol/L Carbon Dioxide 29 (21-32) mmol/L Anion Gap 8 (3-11) BUN 18 (6-23) mg/dl Creatinine 0.76 (0.6-1.2) mg/dl Est Cr Clr Drug Dosing 75.2 ml/min Est GFR ( Amer) 98.1 ml/min Est GFR (Non-Af Amer) 84.7 ml/min BUN/Creatinine Ratio 23.7 H (10-20) Glucose 93 (70-99(Fasting)) mg/dl Calcium 10.2 (8.6-10.3) mg/dl Magnesium 1.7 (1.7-2.4) mg/dl Total Bilirubin 0.7 (0.2-1.0) mg/dl AST 23 (13-39) U/L ALT 18 (7-52) U/L Alkaline Phosphatase 63 (34-104) U/L Troponin I High Sens 13.0 (0-14) pg/ml Total Protein 7.4 (6.0-8.3) gm/dl Albumin 4.7 (3.4-5.0) gm/dl Globulin 2.7 (2.5-4.0) gm/dl Albumin/Globulin Ratio 1.7 (0.9-2) SARS-CoV-2, RNA, NAAT (NEGATIVE) 07/29/22 Range/Units 19:03 WBC (4.8-10.8) K/ul RBC (4.20-5.40) M/uL Hgb (12.0-16.0) g/dl Hct (37.0-47.0) % MCV (80.0-100.0) fL MCH (25.0-34.0) pg MCHC (32.0-36.0) g/dL RDW Std Deviation (36.4-46.3) fL RDW Coeff of Maria R (11.5-14.5) % Plt Count (130-400) K/uL MPV (9.4-12.4) fL Immature Gran % (Auto) % Neut % (Auto) % Lymph % (Auto) % Vigo % (Auto) % Eos % (Auto) % Baso % (Auto) % Neut # (Auto) (1.40-6.50) K/uL Lymph # (Auto) (1.2-3.4) K/uL Vigo # (Auto) (0.11-0.59) K/uL Eos # (Auto) (0-0.50) K/uL Baso # (Auto) (0-0.2) K/uL Immature Gran # (Auto) (0.01-0.20) K/uL PT (9.0-12.0) Seconds INR (0.9-1.1) APTT (21.0-31.0) Seconds PTT Ratio Sodium (136-145) mmol/L Potassium (3.5-5.1) mmol/L Chloride (98-107) mmol/L Carbon Dioxide (21-32) mmol/L Anion Gap (3-11) BUN (6-23) mg/dl Creatinine (0.6-1.2) mg/dl Est Cr Clr Drug Dosing ml/min Est GFR ( Amer) ml/min Est GFR (Non-Af Amer) ml/min BUN/Creatinine Ratio (10-20) Glucose (70-99(Fasting)) mg/dl Calcium (8.6-10.3) mg/dl Magnesium (1.7-2.4) mg/dl Total Bilirubin (0.2-1.0) mg/dl AST (13-39) U/L ALT (7-52) U/L Alkaline Phosphatase (34-104) U/L Troponin I High Sens (0-14) pg/ml Total Protein (6.0-8.3) gm/dl Albumin (3.4-5.0) gm/dl Globulin (2.5-4.0) gm/dl Albumin/Globulin Ratio (0.9-2) SARS-CoV-2, RNA, NAAT NEGATIVE (NEGATIVE) Imaging Data Attestation: I personally reviewed and interpreted this imaging study as follows: Radiologist's Impression: Chest X-Ray 07/29/22 17:05 SINGLE VIEW CHEST CLINICAL HISTORY: Atypical chest pain FINDINGS: An AP, portable, upright chest radiograph is compared to study dated 02/11/2022 and correlated with chest CT dated 09/09/2020. The heart is mildly enlarged. The pulmonary vasculature is noncongestive. Atelectasis is seen at the lung bases. The lungs and pleural spaces are otherwise clear. No pneumothorax is seen. The bony thorax is grossly intact. IMPRESSION: No active disease in the chest. ACT 112: Negative or not required by law. Electronically signed by: Julio Cain M.D. 07/29/2022 6:06 PM ECG Data Attestation: I personally reviewed and interpreted this ECG as follows: Indication: + chest pain Rate (beats per minute): 57 Rhythm: + sinus bradycardia ECG Intervals/blocks: + Left bundle branch block Change: no significant change MDM Narrative Continuous bus driver/monitor: Order was placed for continuous bus driver/monitor. Patient was placed on the bus driver/monitor. Patient was noted to be in normal sinus rhythm at an initial rate of 60 bpm. The patient is a 62-year-old female who presents today complaining of episodes of lightheadedness/presyncope. Patient is asymptomatic at this time. Labs today are unremarkable, with no leukocytosis, anemia or concerning electrolyte abnormalities. Troponin is not elevated. EKG shows a left bundle branch block and is unchanged from previous. I spoke with the patient's primary wildlife management professor, Dr. Verdugo, who recommended admitting the patient for stress testing tomorrow morning. Case was then discussed with the [facility] service, who agreed to evaluate the patient for further care. Patient was agreeable with the treatment plan. Impression Pre-syncope Discharge Plan Visit Data Chief Complaint: Cardiac Assessment Stated Complaint: REF BY DOC,BLOOD QWORK ED Provider: Jeffrey Villafuerte ED Midlevel Provider: Verna Gan Discharge Problem: Pre-syncope Patient Disposition: Admitted As Inpatient Discharge Instructions Interventions: ED Discharge Assessment Last Done: 07/29/22 19:53
[2022-07-30 06:19] LABS: Hematocrit (blood only) 37.1 % (37.0-47.0); Hemoglobin 12.4 g/dl (12.0-16.0); Mean Corpuscular Hemoglobin 29.5 pg (25.0-34.0); Mean Corpuscular Hgb Conc 33.4 g/dL (32.0-36.0); Mean Corpuscular Volume 88.3 fL (80.0-100.0); Mean Platelet Volume 10.6 fL (9.4-12.4); Platelet Count 269 K/uL (130-400); RDW Coefficient of Variation 15.1 % (11.5-14.5); RDW Standard Deviation 49.1 fL (36.4-46.3); White Blood Count 7.09 K/ul (4.8-10.8)
[2022-07-30 06:41] LABS: BUN Creatinine Ratio 22.1 (10-20); Calcium 9.4 mg/dl (8.6-10.3); Chol HDL Ratio 2.4 (0-5); Creatinine Clr Calc Pharmacy 75.2 ml/min; Est GFR (African American) 96.6 ml/min; Est GFR (Non-African American) 83.3 ml/min; Potassium 3.5 mmol/L (3.5-5.1)
[2022-07-30] MEDS: INSULIN ASPART PER UNIT CHARGE SC SCH ×4 (07:35→20:11)
[2022-07-30] MEDS: LOSARTAN POTASSIUM 25 MG TAB PO SCH (09:34)
[2022-07-30] MEDS: PANTOprazole 40 MG TAB PO SCH (09:34)
[2022-07-30] MEDS: methIMAzole 5 MG TABLET PO SCH (09:34)
[2022-07-30] MEDS: POTASSIUM CHLORIDE CRTAB 20 MEQ TABCR PO SCH (09:34)
[2022-07-30] MEDS: methylPREDNISolone 4 MG TAB PO SCH (09:34)
[2022-07-30] MEDS: PREGABALIN 75 MG CAP PO SCH ×3 (09:34→20:48)
[2022-07-30] MEDS: hydroCHLOROthiazide 25 MG TAB PO SCH (09:35)
[2022-07-30] MEDS: ATORVASTATIN 40 MG TAB PO SCH (09:35)
[2022-07-30 09:48] LABS: Thyroid Stimulating Hormone 0.126 uIu/ml (0.300-4.500)
[2022-07-30 10:21] LABS: T4 Free Thyroxine 0.8 ng/dl (0.61-1.60)
[2022-07-30 10:26] LABS: Estimated Average Glucose 177 mg/dl; Hemoglobin A1C 7.8 % (4.5-5.6)
--- NOTE | 2022-07-30 13:11 | Electrocardiogram Report ---
Test Reason : Blood Pressure : / mmHG Vent. Rate : 058 BPM Atrial Rate : 058 BPM P-R Int : 180 ms QRS Dur : 160 ms QT Int : 510 ms P-R-T Axes : 052 -20 122 degrees QTc Int : 500 ms Sinus bradycardia Left bundle branch block Abnormal ECG When compared with ECG of 29-JUL-2022 15:59, No significant change was found Confirmed by John Ramesh ([id number]) on 07/30/2022 1:11:10 PM Referred By: Eddie Man Confirmed By:John Ramesh
--- NOTE | 2022-07-30 14:01 | Cardiology Consultation ---
Date of Consultation July 30, 2022 Assessment & Plan (1) Pre-syncope: (2) LBBB (left bundle branch block): (3) Hypertension: Plan Patient is a 62-year-old female with complex history as outlined but notable for left bundle branch block chronically, hypertension with left hypertrophy and past medication induced torsades. She presents now with exertional symptoms of chest tightness diaphoresis and lightheadedness and heart pounding but not racing Troponins mildly elevated EKG not helpful given left bundle branch block Echocardiogram as in past demonstrates dyssynergy of the septum without distinct regional wall motion abnormality but low normal LV function Discussed options of management patient given recurrent symptoms and concerning substrate will need additional evaluation of ischemic heart disease. Stress testing not likely to be helpful given conduction abnormalities symptoms now occurring on multiple episodes at low-level exertion We will plan on proceeding with diagnostic coronary angiography on Monday Gentle hydration to be ordered tomorrow No change in current medications History of Present Illness Reason for Consultation: Exertional chest tightness weakness, left bundle branch Requesting Physician: Dr. Blackman Attending Physician: Conrado Blackman MD History of Present Illness Patient is a 62-year-old female with history 1. Dermatomyositis with chronic interstitial lung disease on chronic corticosteroid therapy, Plaquenil 2. Chronic left bundle-branch block 3. Hypertension 4. Hyperlipidemia on therapy 5. Calcified aortic valve without obstruction 6. Incidentally noted renal and splenic artery aneurysms stable on CTA 09/09/2020 7. Normal coronary CTA 10/15/2020, calcium score 0 normal vessels without plaque or obstruction 8. Hypothyroidism/Graves' disease on chronic methimazole 9. Iron deficiency anemia 10. Medication induced torsade January 2022 Patient presents now noting 3-4 episodes of exertional chest tightness and diaphoresis resulting in ER presentation 24 hours after last examination. Initial troponins minimally elevated. Patient currently comfortable but concerned regarding episodes described as chest pressure nausea and near syncope. She denies tachypalpitations but did feel heart was pounding harder at the time. No fevers or chills. No recent illnesses. No bleeding difficulties melena hematochezia Tolerating current medications without difficulty Allergies Allergy/AdvReac Type Severity Reaction Status Date / Time No Known Allergies Allergy Verified 07/29/22 18:24 Home Medications Medication Instructions Recorded Confirmed Type atorvastatin 40 mg tablet (Lipitor) 40 mg PO QAM 08/15/19 07/29/22 History calcium carbonate 500 mg-vitamin 1 tab PO QAM 08/15/19 07/29/22 History D3 5 mcg (200 unit) tablet (Calcium 500 + D) cyanocobalamin (vitamin B-12) 1,000 mcg PO HS 08/15/19 07/29/22 History 1,000 mcg tablet (Vitamin B-12) cyclobenzaprine 5 mg tablet 5 mg PO HS PRN Muscle Spasm 08/15/19 07/29/22 History hydrochlorothiazide 25 mg tablet 25 mg PO QAM 08/15/19 07/29/22 History methylprednisolone 4 mg tablet 4 mg PO QAM 08/15/19 07/29/22 History (Medrol) milk thistle 500 mg capsule 500 mg PO QAM 08/15/19 07/29/22 History pantoprazole 40 mg tablet,delayed 40 mg PO QAM 08/15/19 07/29/22 History release (Protonix) pregabalin 75 mg capsule (Lyrica) 75 mg PO TID 08/15/19 07/29/22 History diclofenac sodium 1 % topical gel 1 g topical QID PRN Pain 06/20/20 07/29/22 History losartan 25 mg tablet 25 mg PO QAM 06/20/20 07/29/22 History metformin 500 mg tablet,extended 1,000 mg PO QAM 06/20/20 07/29/22 History release 24 hr methimazole 10 mg tablet 20 mg PO QAM 07/29/21 07/29/22 History biotin 1,000 mcg chewable tablet 1,000 mcg PO HS 08/02/21 07/29/22 History ferrous sulfate 325 mg (65 mg 325 mg PO Q OTHER DAY 11/03/21 07/29/22 History iron) tablet acetaminophen 500 mg capsule 1,000 mg PO DIRECTED PRN Pain 07/29/22 07/29/22 History amoxicillin 500 mg tablet 2,000 mg PO DIRECTED PRN 1 HOUR 07/29/22 07/29/22 History PRIOR TO DENTAL APPT. erythromycin 5 mg/gram (0.5 %) eye 1 applic ophthalmic (eye) HS 07/29/22 07/29/22 History ointment potassium chloride 20 mEq 20 meq PO DAILY 07/29/22 07/29/22 History tablet,extended release(part/cryst) Patient History Medical History Aftercare following right hip joint replacement surgery Anemia Autoimmune hepatitis Follows with GI (Dr. Rahman) Carotid artery stenosis <50% stenosis to bilateral ICAs per 10/2021 carotid doppler (cardio recommends repeat study in two years) Chronic back pain + LE radiation Chronic steroid use Methylprednisolone 4mg daily Dermatomyositis Follows with rheumatology f/u [facility]. 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 Hyperlipidemia Pt denies, HLD noted per S records Interstitial lung disease IPMN (intraductal papillary mucinous neoplasm) Left bundle branch block Chronic dating back to at least 2017-F/U DR ARGENT[place] VYAS (nonalcoholic steatohepatitis) Neurogenic claudication due to lumbar spinal stenosis Pancreatic cyst Under observation Panniculitis 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- on chronic steroids*/plaquenil per rheumatology Pulmonary nodules Under surveillance Renal artery aneurysm Under surveillance Splenic artery aneurysm Under surveillance Thymus disorder Recent diagnosis, under surveillance Trigeminal neuralgia Surgical History History of appendectomy History of arthroscopy of left knee History of cholecystectomy History of colonoscopy + polypectomy History of esophagogastroduodenoscopy (EGD) History of hand surgery Granuloma excision (right hand x2) History of hernia repair Left inguinal History of hysterectomy Partial + LSO + with left ovary and salpingectomy History of lumbar spinal fusion History of oophorectomy, unilateral Right History of right hip replacement Right ZULEIKA (06/21/20): Grade view 1, MAC#3, ETT 7.5 at [facility] ("general anesthetic was implemented at the patient's request" per operative report) History of surgery excisional biopsy left hip mass @ [facility] Dr. Flowers 08/10/22 History of tonsillectomy and adenoidectomy History of total right knee replacement Hx of bilateral cataract extraction Status post right knee replacement Family History Other No family history of adverse response to anesthesia No significant family history Social History Smoking Status: Never smoker Second Hand Exposure: No; Hx Alcohol Use: No Hx Substance Use: No Preferred Language: Colombian Communication Ability: Effective Visual Impairment: No Limitations Eye Specialist Required: No Beliefs That Will Affect Care: None marital status: Current Living Situation: Spouse current occupational status: disabled Other Information That Helps Us Care for You: No Feels Safe at Home: Yes Safety Concerns: Feels Safe At This Time Assistive Devices: Glasses Physical Exam Constitutional: WD/WN, vitals as above Eyes: PERRL, conjunctivae normal, anicteric sclerae ENMT: external ear and nose normal, oropharynx normal Neck: trachea midline, no thyromegaly Respiratory: normal respiratory effort, lungs clear to auscultation Cardiovascular: Rate/Rhythm: regular rate and regular rhythm Heart Sounds: normal S1 and normal S2; no gallop and no murmur Palpation: normal PMI Vessels: normal carotid upstroke and radial pulses present; no JVD and no carotid bruit Extremities: no edema Gastrointestinal (Abdomen): normal bowel sounds, soft, nontender, no hepatosplenomegaly Musculoskeletal: no cyanosis or clubbing, extremities motor strength 5/5 Skin: no rashes, warm and dry Neurologic: PERRL, EOMI, accommodation nl, no face palsy, no dysarthria Psychiatric: A+Ox3, euthymic affect Results & Data Vital Signs (Past 12 Hours) Vital Signs Temp Pulse Resp BP Pulse Ox O2 Del Method 07/30/22 12:41 36.8 C 54 L 16 127/68 100 Room Air 07/30/22 07:04 36.7 C 55 L 16 148/71 H 94 Room Air 07/30/22 02:57 36.6 C 54 L 18 133/69 99 Room Air Laboratory Results Laboratory Results - last 24 hr 07/29/22 07/29/22 07/29/22 16:04 16:04 16:04 WBC 9.18 RBC 4.65 Hgb 13.7 Hct 41.3 MCV 88.8 MCH 29.5 MCHC 33.2 RDW Std Deviation 49.6 H RDW Coeff of Maria R 15.2 H Plt Count 324 MPV 10.8 Immature Gran % (Auto) 0.2 Neut % (Auto) 80.7 Lymph % (Auto) 11.3 [place] % (Auto) 6.5 Eos % (Auto) 0.8 Baso % (Auto) 0.5 Neut # (Auto) 7.40 H Lymph # (Auto) 1.04 L [place] # (Auto) 0.60 H Eos # (Auto) 0.07 Baso # (Auto) 0.05 Immature Gran # (Auto) 0.02 PT 10.6 INR 1.0 APTT 29.3 PTT Ratio 1.0 Sodium 138 Potassium 4.1 Chloride 101 Carbon Dioxide 29 Anion Gap 8 BUN 18 Creatinine 0.76 Est Cr Clr Drug Dosing 75.2 Est GFR ( Amer) 98.1 Est GFR (Non-Af Amer) 84.7 BUN/Creatinine Ratio 23.7 H Glucose 93 POC Glucose Estimat Average Glucose Hemoglobin A1c Calcium 10.2 Magnesium 1.7 Total Bilirubin 0.7 AST 23 ALT 18 Alkaline Phosphatase 63 Troponin I High Sens 13.0 Total Protein 7.4 Albumin 4.7 Globulin 2.7 Albumin/Globulin Ratio 1.7 Triglycerides Cholesterol LDL Cholesterol, Calc VLDL Cholesterol, Calc HDL Cholesterol Cholesterol/HDL Ratio TSH Free T4 Urine Color Urine Appearance Urine pH Ur Specific [place] Urine Protein Urine Glucose (UA) Urine Ketones Urine Blood Urine Nitrite Urine Bilirubin Urine Urobilinogen Ur Leukocyte Esterase Urine WBC (Auto) Urine RBC (Auto) U Hyaline Cast (Auto) U Epithel Cells (Auto) Urine Bacteria (Auto) SARS-CoV-2, RNA, NAAT 07/29/22 07/29/22 07/29/22 16:04 19:03 20:00 WBC RBC Hgb Hct MCV MCH MCHC RDW Std Deviation RDW Coeff of Maria R Plt Count MPV Immature Gran % (Auto) Neut % (Auto) Lymph % (Auto) [place] % (Auto) Eos % (Auto) Baso % (Auto) Neut # (Auto) Lymph # (Auto) [place] # (Auto) Eos # (Auto) Baso # (Auto) Immature Gran # (Auto) PT INR APTT PTT Ratio Sodium Potassium Chloride Carbon Dioxide Anion Gap BUN Creatinine Est Cr Clr Drug Dosing Est GFR ( Amer) Est GFR (Non-Af Amer) BUN/Creatinine Ratio Glucose POC Glucose Estimat Average Glucose Hemoglobin A1c Calcium Magnesium Total Bilirubin AST ALT Alkaline Phosphatase Troponin I High Sens 15.4 H Total Protein Albumin Globulin Albumin/Globulin Ratio Triglycerides Cholesterol LDL Cholesterol, Calc VLDL Cholesterol, Calc HDL Cholesterol Cholesterol/HDL Ratio TSH 0.126 L Free T4 0.80 Urine Color Urine Appearance Urine pH Ur Specific [place] Urine Protein Urine Glucose (UA) Urine Ketones Urine Blood Urine Nitrite Urine Bilirubin Urine Urobilinogen Ur Leukocyte Esterase Urine WBC (Auto) Urine RBC (Auto) U Hyaline Cast (Auto) U Epithel Cells (Auto) Urine Bacteria (Auto) SARS-CoV-2, RNA, NAAT NEGATIVE 07/29/22 07/29/22 07/29/22 20:35 20:36 20:37 WBC RBC Hgb Hct MCV MCH MCHC RDW Std Deviation RDW Coeff of Maria R Plt Count MPV Immature Gran % (Auto) Neut % (Auto) Lymph % (Auto) [place] % (Auto) Eos % (Auto) Baso % (Auto) Neut # (Auto) Lymph # (Auto) [place] # (Auto) Eos # (Auto) Baso # (Auto) Immature Gran # (Auto) PT INR APTT PTT Ratio Sodium Potassium Chloride Carbon Dioxide Anion Gap BUN Creatinine Est Cr Clr Drug Dosing Est GFR ( Amer) Est GFR (Non-Af Amer) BUN/Creatinine Ratio Glucose POC Glucose 59 L* 77 78 Estimat Average Glucose Hemoglobin A1c Calcium Magnesium Total Bilirubin AST ALT Alkaline Phosphatase Troponin I High Sens Total Protein Albumin Globulin Albumin/Globulin Ratio Triglycerides Cholesterol LDL Cholesterol, Calc VLDL Cholesterol, Calc HDL Cholesterol Cholesterol/HDL Ratio TSH Free T4 Urine Color Urine Appearance Urine pH Ur Specific [place] Urine Protein Urine Glucose (UA) Urine Ketones Urine Blood Urine Nitrite Urine Bilirubin Urine Urobilinogen Ur Leukocyte Esterase Urine WBC (Auto) Urine RBC (Auto) U Hyaline Cast (Auto) U Epithel Cells (Auto) Urine Bacteria (Auto) SARS-CoV-2, RNA, NAAT 07/29/22 07/29/22 07/29/22 20:57 21:57 22:15 WBC RBC Hgb Hct MCV MCH MCHC RDW Std Deviation RDW Coeff of Maria R Plt Count MPV Immature Gran % (Auto) Neut % (Auto) Lymph % (Auto) [place] % (Auto) Eos % (Auto) Baso % (Auto) Neut # (Auto) Lymph # (Auto) [place] # (Auto) Eos # (Auto) Baso # (Auto) Immature Gran # (Auto) PT INR APTT PTT Ratio Sodium Potassium Chloride Carbon Dioxide Anion Gap BUN Creatinine Est Cr Clr Drug Dosing Est GFR ( Amer) Est GFR (Non-Af Amer) BUN/Creatinine Ratio Glucose POC Glucose 79 123 H Estimat Average Glucose Hemoglobin A1c Calcium Magnesium Total Bilirubin AST ALT Alkaline Phosphatase Troponin I High Sens Total Protein Albumin Globulin Albumin/Globulin Ratio Triglycerides Cholesterol LDL Cholesterol, Calc VLDL Cholesterol, Calc HDL Cholesterol Cholesterol/HDL Ratio TSH Free T4 Urine Color Yellow Urine Appearance Clear Urine pH 5.0 Ur Specific [place] 1.013 Urine Protein Negative Urine Glucose (UA) Negative Urine Ketones Negative Urine Blood Negative Urine Nitrite Negative Urine Bilirubin Negative Urine Urobilinogen Negative Ur Leukocyte Esterase 1+ H Urine WBC (Auto) 1-5 Urine RBC (Auto) 0-4 U Hyaline Cast (Auto) 0 U Epithel Cells (Auto) 10-20 H Urine Bacteria (Auto) Negative SARS-CoV-2, RNA, NAAT 07/30/22 07/30/22 07/30/22 00:14 01:33 05:19 WBC RBC Hgb Hct MCV MCH MCHC RDW Std Deviation RDW Coeff of Maria R Plt Count MPV Immature Gran % (Auto) Neut % (Auto) Lymph % (Auto) [place] % (Auto) Eos % (Auto) Baso % (Auto) Neut # (Auto) Lymph # (Auto) [place] # (Auto) Eos # (Auto) Baso # (Auto) Immature Gran # (Auto) PT INR APTT PTT Ratio Sodium Potassium Chloride Carbon Dioxide Anion Gap BUN Creatinine Est Cr Clr Drug Dosing Est GFR ( Amer) Est GFR (Non-Af Amer) BUN/Creatinine Ratio Glucose POC Glucose 141 H Estimat Average Glucose Hemoglobin A1c Calcium Magnesium Total Bilirubin AST ALT Alkaline Phosphatase Troponin I High Sens 19.4 H D 18.7 H Total Protein Albumin Globulin Albumin/Globulin Ratio Triglycerides Cholesterol LDL Cholesterol, Calc VLDL Cholesterol, Calc HDL Cholesterol Cholesterol/HDL Ratio TSH Free T4 Urine Color Urine Appearance Urine pH Ur Specific [place] Urine Protein Urine Glucose (UA) Urine Ketones Urine Blood Urine Nitrite Urine Bilirubin Urine Urobilinogen Ur Leukocyte Esterase Urine WBC (Auto) Urine RBC (Auto) U Hyaline Cast (Auto) U Epithel Cells (Auto) Urine Bacteria (Auto) SARS-CoV-2, RNA, NAAT 04/22/23 04/22/23 04/22/23 05:19 05:19 05:19 WBC 7.09 RBC 4.20 Hgb 12.4 Hct 37.1 MCV 88.3 MCH 29.5 MCHC 33.4 RDW Std Deviation 49.1 H RDW Coeff of Maria R 15.1 H Plt Count 269 MPV 10.6 Immature Gran % (Auto) Neut % (Auto) Lymph % (Auto) [place] % (Auto) Eos % (Auto) Baso % (Auto) Neut # (Auto) Lymph # (Auto) [place] # (Auto) Eos # (Auto) Baso # (Auto) Immature Gran # (Auto) PT INR APTT PTT Ratio Sodium 140 Potassium 3.5 Chloride 103 Carbon Dioxide 28 Anion Gap 9 BUN 17 Creatinine 0.77 Est Cr Clr Drug Dosing 75.2 Est GFR ( Amer) 96.6 Est GFR (Non-Af Amer) 83.3 BUN/Creatinine Ratio 22.1 H Glucose 111 H POC Glucose Estimat Average Glucose 177 Hemoglobin A1c 7.8 H Calcium 9.4 Magnesium Total Bilirubin AST ALT Alkaline Phosphatase Troponin I High Sens Total Protein Albumin Globulin Albumin/Globulin Ratio Triglycerides 125 Cholesterol 149 LDL Cholesterol, Calc 63 VLDL Cholesterol, Calc 25 HDL Cholesterol 61 Cholesterol/HDL Ratio 2.4 TSH Free T4 Urine Color Urine Appearance Urine pH Ur Specific [place] Urine Protein Urine Glucose (UA) Urine Ketones Urine Blood Urine Nitrite Urine Bilirubin Urine Urobilinogen Ur Leukocyte Esterase Urine WBC (Auto) Urine RBC (Auto) U Hyaline Cast (Auto) U Epithel Cells (Auto) Urine Bacteria (Auto) SARS-CoV-2, RNA, NAAT 07/30/22 07/30/22 06:02 11:51 WBC RBC Hgb Hct MCV MCH MCHC RDW Std Deviation RDW Coeff of Maria R Plt Count MPV Immature Gran % (Auto) Neut % (Auto) Lymph % (Auto) [place] % (Auto) Eos % (Auto) Baso % (Auto) Neut # (Auto) Lymph # (Auto) [place] # (Auto) Eos # (Auto) Baso # (Auto) Immature Gran # (Auto) PT INR APTT PTT Ratio Sodium Potassium Chloride Carbon Dioxide Anion Gap BUN Creatinine Est Cr Clr Drug Dosing Est GFR ( Amer) Est GFR (Non-Af Amer) BUN/Creatinine Ratio Glucose POC Glucose 115 H 188 H Estimat Average Glucose Hemoglobin A1c Calcium Magnesium Total Bilirubin AST ALT Alkaline Phosphatase Troponin I High Sens Total Protein Albumin Globulin Albumin/Globulin Ratio Triglycerides Cholesterol LDL Cholesterol, Calc VLDL Cholesterol, Calc HDL Cholesterol Cholesterol/HDL Ratio TSH Free T4 Urine Color Urine Appearance Urine pH Ur Specific [place] Urine Protein Urine Glucose (UA) Urine Ketones Urine Blood Urine Nitrite Urine Bilirubin Urine Urobilinogen Ur Leukocyte Esterase Urine WBC (Auto) Urine RBC (Auto) U Hyaline Cast (Auto) U Epithel Cells (Auto) Urine Bacteria (Auto) SARS-CoV-2, RNA, NAAT Diagnostic Findings Echocardiogram demonstrates moderate left hypertrophy with dyssynergy septal contractility secondary to conduction abnormalities EF 5055%. Moderate aortic sclerosis without stenosis
--- NOTE | 2022-07-30 16:13 | Hospitalist Progress Note ---
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 Last episode occurred yesterday. Chest pain H/O left bundle branch block Mild elevation of troponins --CXR:No active disease in the chest. --ECHO: Left ventricle is normal in size. Moderate to severe left ventricle hypertrophy with mild asymmetric thickening of the basilar septum. Septal motion is consistent with conduction abnormality. No regional wall motion abnormality. EF 50 to 55% aortic valve sclerosis moderate, without significant aortic valvular stenosis -- Lipid panel within normal limits Continue aspirin, Lipitor Appreciate cardiology input Plan for cardiac catheterization on Monday (3) Hypertension: Plan: Continue losartan, HCTZ (4) DM type 2 (diabetes mellitus, type 2): Plan: A1c: 6.2 on 03/11/2022 Hold home metformin NovoLog sliding scale per protocol (5) Dermatomyositis: Plan: On chronic steroid Continue methylprednisone Follows with rheumatology outpatient (6) LBBB (left bundle branch block): Plan: Chronic LBBB (7) Graves disease: Plan: Continue methimazole TSH low, normal free T4 Follows with endocrinology as outpatient: BERENICE Sheth Advised to follow-up as outpatient DVT Prophylaxis Lovenox SQ Code Status Full code Admission and Anticipated Discharge Date Admission Date: July 29, 2022 Subjective Patient is seen and examined at bedside Currently denies any chest pain this morning Had mild chest tenderness on palpation Denies any dyspnea, dizziness, nausea, abdominal pain, palpitations No other complaints Review of Systems Review of Systems: All systems reviewed & are unremarkable except as noted in Subjective Physical Exam Physical Exam: Physical Exam: Vitals signs as noted above General Appearance:Moderately built and nourished, no apparent distress Head: normocephalic, Atraumatic Eyes: normal inspection, EOMI Neck: supple, Trachea midline Respiratory/Chest: Normal breath sounds, CTA, +left mild tender, No accessory muscle use Cardiovascular: S1, S2, + murmur Abdomen/GI:Soft, Non tender, Bowel sounds present Extremities/Musculoskeletal:normal inspection, no edema Neurologic/Psych:AAOX3, grossly no focal neurological deficits Skin: normal color, warm Results & Data Results & Data Vital Signs (Past 12 Hours) Vital Signs Temp Pulse Resp BP Pulse Ox O2 Del Method 07/30/22 12:41 36.8 C 54 L 16 127/68 100 Room Air 07/30/22 07:04 36.7 C 55 L 16 148/71 H 94 Room Air Laboratory Results Short CBC 07/29/22 07/30/22 Range/Units 16:04 05:19 WBC 9.18 7.09 (4.8-10.8) K/ul Hgb 13.7 12.4 (12.0-16.0) g/dl Hct 41.3 37.1 (37.0-47.0) % Plt Count 324 269 (130-400) K/uL BMP 07/29/22 07/30/22 16:04 05:19 Sodium 138 140 Potassium 4.1 3.5 Chloride 101 103 Carbon Dioxide 29 28 BUN 18 17 Creatinine 0.76 0.77 Glucose 93 111 H Calcium 10.2 9.4 Liver Function 07/29/22 Range/Units 16:04 Total Bilirubin 0.7 (0.2-1.0) mg/dl AST 23 (13-39) U/L ALT 18 (7-52) U/L Alkaline Phosphatase 63 (34-104) U/L Albumin 4.7 (3.4-5.0) gm/dl Urine 07/29/22 Range/Units 22:15 Urine Color Yellow Urine Appearance Clear (Clear) Urine pH 5.0 (4.5-7.5) Ur Specific [place] 1.013 (1.000-1.030) Urine Protein Negative (Negative) Urine Glucose (UA) Negative (Negative) (1) Chest pain Chest pain type: unspecified Qualified Code(s): R07.9 - Chest pain, unspecified
[2022-07-30] MEDS: ASPIRIN 81 MG ECTAB PO SCH (16:59)
[2022-07-30] MEDS: ERYTHROMYCIN OP OINT 5 MG/GM 3.5 GM TUBE OP SCH (20:45)
[2022-07-30] MEDS: ENOXAPARIN INJ 40 MG/0.4 ML SYR SQ SCH (20:46)
[2022-07-31 06:02] LABS: Hematocrit (blood only) 37.4 % (37.0-47.0); Hemoglobin 12.3 g/dl (12.0-16.0); Mean Corpuscular Hemoglobin 29.6 pg (25.0-34.0); Mean Corpuscular Hgb Conc 32.9 g/dL (32.0-36.0); Mean Corpuscular Volume 89.9 fL (80.0-100.0); Mean Platelet Volume 10.4 fL (9.4-12.4); Platelet Count 276 K/uL (130-400); RDW Coefficient of Variation 15.1 % (11.5-14.5); RDW Standard Deviation 49.9 fL (36.4-46.3); Red Blood Count 4.16 M/uL (4.20-5.40); White Blood Count 6.45 K/ul (4.8-10.8)
[2022-07-31 06:23] LABS: BUN Creatinine Ratio 32.9 (10-20); Calcium 9.3 mg/dl (8.6-10.3); Creatinine Clr Calc Pharmacy 79.2 ml/min; Est GFR (Non-African American) 88.9 ml/min; Magnesium 1.9 mg/dl (1.7-2.4); Potassium 3.5 mmol/L (3.5-5.1)
[2022-07-31] MEDS: INSULIN ASPART PER UNIT CHARGE SC SCH ×4 (08:00→20:36)
[2022-07-31] MEDS: LOSARTAN POTASSIUM 25 MG TAB PO SCH (09:36)
[2022-07-31] MEDS: hydroCHLOROthiazide 25 MG TAB PO SCH (09:36)
[2022-07-31] MEDS: methIMAzole 5 MG TABLET PO SCH (09:36)
[2022-07-31] MEDS: POTASSIUM CHLORIDE CRTAB 20 MEQ TABCR PO SCH (09:37)
[2022-07-31] MEDS: PANTOprazole 40 MG TAB PO SCH (09:37)
[2022-07-31] MEDS: methylPREDNISolone 4 MG TAB PO SCH (09:37)
[2022-07-31] MEDS: PREGABALIN 75 MG CAP PO SCH ×3 (09:37→20:04)
[2022-07-31] MEDS: ASPIRIN 81 MG ECTAB PO SCH (09:37)
[2022-07-31] MEDS: ATORVASTATIN 40 MG TAB PO SCH (09:38)
--- NOTE | 2022-07-31 11:15 | Cardiology Progress Note ---
Date of Service July 31, 2022 Assessment & Plan (1) Pre-syncope: (2) LBBB (left bundle branch block): (3) Hypertension: Plan Patient is a 62-year-old female with complex history as outlined but notable for left bundle branch block chronically, hypertension with left hypertrophy and past medication induced torsades. She presents now with exertional symptoms of chest tightness diaphoresis and lightheadedness and heart pounding but not racing Troponins mildly elevated EKG not helpful given left bundle branch block Echocardiogram as in past demonstrates dyssynergy of the septum without distinct regional wall motion abnormality but low normal LV function Discussed options of management patient given recurrent symptoms and concerning substrate will need additional evaluation of ischemic heart disease. Stress testing not likely to be helpful given conduction abnormalities symptoms now occurring on multiple episodes at low-level exertion We will plan on proceeding with diagnostic coronary angiography on Monday morning Preprocedural hydration ordered, patient n.p.o. after midnight Lovenox and hydrochlorothiazide placed on hold Procedure and risks explained in detail Admission and Anticipated Discharge Date Admission Date: July 30, 2022 Subjective Patient seen and examined, chart, medications, telemetry reviewed. No complaints overnight. Rhythm sinus bradycardia only no ventricular arrhythmias no pauses No chest pains or shortness of breath Review of Systems Review of Systems: All systems reviewed & are unremarkable except as noted in Subjective Physical Exam Constitutional: WD/WN, vitals as above Eyes: PERRL, conjunctivae normal, anicteric sclerae ENMT: external ear and nose normal, oropharynx normal Neck: trachea midline, no thyromegaly Respiratory: normal respiratory effort, lungs clear to auscultation Cardiovascular: Rate/Rhythm: regular rate and regular rhythm Heart Sounds: normal S1 and normal S2; no gallop and no murmur Palpation: normal PMI Vessels: normal carotid upstroke and radial pulses present; no JVD and no carotid bruit Extremities: no edema Gastrointestinal (Abdomen): normal bowel sounds, soft, nontender, no hepatosplenomegaly Musculoskeletal: no cyanosis or clubbing, extremities motor strength 5/5 Skin: no rashes, warm and dry Neurologic: PERRL, EOMI, accommodation nl, no face palsy, no dysarthria Psychiatric: A+Ox3, euthymic affect Results & Data Vital Signs (Past 12 Hours) Vital Signs Temp Pulse Resp BP Pulse Ox O2 Del Method 07/31/22 08:27 36.5 C 53 L 18 152/80 H 95 Room Air 07/31/22 03:09 36.6 C 54 L 16 144/70 H 94 Room Air Laboratory Results Laboratory Results - last 24 hr 07/30/22 07/30/22 07/30/22 11:51 16:52 20:04 WBC RBC Hgb Hct MCV MCH MCHC RDW Std Deviation RDW Coeff of Maria R Plt Count MPV Sodium Potassium Chloride Carbon Dioxide Anion Gap BUN Creatinine Est Cr Clr Drug Dosing Est GFR ( Amer) Est GFR (Non-Af Amer) BUN/Creatinine Ratio Glucose POC Glucose 188 H 137 H 144 H Calcium Magnesium 07/31/22 07/31/22 07/31/22 05:28 05:28 08:07 WBC 6.45 RBC 4.16 L Hgb 12.3 Hct 37.4 MCV 89.9 MCH 29.6 MCHC 32.9 RDW Std Deviation 49.9 H RDW Coeff of Maria R 15.1 H Plt Count 276 MPV 10.4 Sodium 140 Potassium 3.5 Chloride 105 Carbon Dioxide 29 Anion Gap 6 BUN 24 H Creatinine 0.73 Est Cr Clr Drug Dosing 79.2 Est GFR ( Amer) 103.0 Est GFR (Non-Af Amer) 88.9 BUN/Creatinine Ratio 32.9 H Glucose 154 H POC Glucose 121 H Calcium 9.3 Magnesium 1.9 Medications Administered Current Medications Acetaminophen (Acetaminophen 325 Mg Tab) 650 mg PO Q4H PRN PRN Reason: Pain or Fever Stop: 08/28/22 20:50 Aspirin (Aspirin 81 Mg Ectab) 81 mg PO [facility] Stop: 08/29/22 16:14 Last Admin: 07/31/22 09:37 Dose: 81 mg Atorvastatin Calcium (Atorvastatin 40 Mg Tab) 40 mg PO QAM [facility] Stop: 08/29/22 08:59 Last Admin: 07/31/22 09:38 Dose: 40 mg Cyclobenzaprine HCl (Cyclobenzaprine Hcl 5 Mg Tab) 5 mg PO HS PRN PRN Reason: Muscle Spasm Stop: 08/28/22 20:55 Dextrose (Dextrose 50% 50 Ml Syringe) 25 - 50 ml IV UD PRN; Protocol PRN Reason: Hypoglycemia Protocol Stop: 08/28/22 20:58 Enoxaparin Sodium (Enoxaparin Inj 40 Mg/0.4 Ml Syr) 40 mg SQ Q24H [facility] Stop: 08/28/22 20:59 Last Admin: 07/30/22 20:46 Dose: 40 mg Erythromycin (Erythromycin Op Oint 5 Mg/Gm 3.5 Gm Tube) 1 appln OP HS [facility] Stop: 08/08/22 20:59 Last Admin: 07/30/22 20:45 Dose: 1 appln Ferrous Sulfate (Ferrous Sulfate 325 Mg Tab) 325 mg PO Q48H [facility] Stop: 08/28/22 21:05 Last Admin: 07/29/22 21:50 Dose: 325 mg Glucagon (Glucagon For Inj 1 Mg Vial) 1 mg SQ UD PRN; Protocol PRN Reason: Hypoglycemia Protocol Stop: 08/28/22 20:58 Glucose (Glucose 10 Tab/Tube) 4 - 8 tab PO UD PRN; Protocol PRN Reason: Hypoglycemia Treatment Stop: 08/28/22 20:58 Glucose (Glucose 40% Gel 15 Gm Tube) 15 - 30 gm PO UD PRN; Protocol PRN Reason: Hypoglycemia Protocol Stop: 08/28/22 20:58 Hydrochlorothiazide (Hydrochlorothiazide 25 Mg Tab) [facility] [place] Stop: 08/29/22 08:59 Last Admin: 07/31/22 09:36 Dose: 25 mg Insulin Aspart (Insulin Aspart Per Unit Charge) 0 units SC ACHS [facility] Stop: 08/28/22 20:59 Last Admin: 07/31/22 08:00 Dose: Not Given Losartan Potassium (Losartan Potassium 25 Mg Tab) [facility] [place] Stop: 08/29/22 08:59 Last Admin: 07/31/22 09:36 Dose: 25 mg Methimazole (Methimazole 5 Mg Tablet) 20 [facility] [place] Stop: 08/29/22 08:59 Last Admin: 07/31/22 09:36 Dose: 20 mg Methylprednisolone (Methylprednisolone 4 Mg Tab) 4 mg PO QAM [facility] Stop: 08/29/22 08:59 Last Admin: 07/31/22 09:37 Dose: 4 mg Miscellaneous (Carbohydrates For Hypoglycemia ) 15 - 30 gm PO UD PRN PRN Reason: Hypoglycemia Protocol Stop: 08/28/22 20:58 Last Admin: 07/29/22 20:35 Dose: 15 gm Pantoprazole Sodium (Pantoprazole 40 Mg Tab) 40 mg PO QAM [facility] Stop: 08/29/22 08:59 Last Admin: 07/31/22 09:37 Dose: 40 mg Polyethylene Glycol (Polyethylene (Miralax) 17 Gm Pack) 17 gm PO DAILY PRN PRN Reason: Constipation Stop: 08/28/22 20:50 Potassium Chloride (Potassium Chloride Crtab 20 Meq Tabcr) 20 meq PO DAILY [facility] Stop: 08/29/22 08:59 Last Admin: 07/31/22 09:37 Dose: 20 meq Pregabalin (Pregabalin 75 Mg Cap) 75 mg PO TID [facility] Stop: 08/28/22 20:59 Last Admin: 07/31/22 09:37 Dose: 75 mg
--- NOTE | 2022-07-31 16:54 | Hospitalist Progress Note ---
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 Last episode occurred yesterday. Chest pain H/O left bundle branch block Mild elevation of troponins --CXR:No active disease in the chest. --ECHO: Left ventricle is normal in size. Moderate to severe left ventricle hypertrophy with mild asymmetric thickening of the basilar septum. Septal motion is consistent with conduction abnormality. No regional wall motion abnormality. EF 50 to 55% aortic valve sclerosis moderate, without significant aortic valvular stenosis -- Lipid panel within normal limits Continue aspirin, Lipitor Appreciate cardiology input NPO after midnight for cardiac catheterization tomorrow (3) Hypertension: Plan: Continue losartan HCTZ held today (4) DM type 2 (diabetes mellitus, type 2): Plan: A1c: 6.2 on 03/11/2022 Hold home metformin NovoLog sliding scale per protocol (5) Dermatomyositis: Plan: On chronic steroid Continue methylprednisone Follows with rheumatology outpatient (6) LBBB (left bundle branch block): Plan: Chronic LBBB (7) Graves disease: Plan: Continue methimazole TSH low, normal free T4 Follows with endocrinology as outpatient: BERENICE Sheth Advised to follow-up as outpatient DVT Prophylaxis Lovenox SQ Code Status Full code Admission and Anticipated Discharge Date Admission Date: July 30, 2022 Subjective Patient is seen and examined at bedside Had a brief episode of dizziness, diaphoresis, nausea after having a shower this morning Symptoms later resolved No recurrence of chest pain, palpitations Denies any dyspnea, abdominal pain Plan for cardiac catheterization tomorrow Review of Systems Review of Systems: All systems reviewed & are unremarkable except as noted in Subjective Physical Exam Physical Exam: Physical Exam: Vitals signs as noted above General Appearance:Moderately built and nourished, no apparent distress Head: normocephalic, Atraumatic Eyes: normal inspection, EOMI Neck: supple, Trachea midline Respiratory/Chest: Normal breath sounds, CTA, +left mild tender, No accessory muscle use Cardiovascular: S1, S2, + murmur Abdomen/GI:Soft, Non tender, Bowel sounds present Extremities/Musculoskeletal:normal inspection, no edema Neurologic/Psych:AAOX3, grossly no focal neurological deficits Skin: normal color, warm Results & Data Results & Data Vital Signs (Past 12 Hours) Vital Signs Temp Pulse Resp BP Pulse Ox O2 Del Method 07/31/22 16:16 36.6 C 54 L 18 132/79 97 Room Air 07/31/22 11:34 36.7 C 90 18 151/89 H 96 Room Air 07/31/22 08:27 36.5 C 53 L 18 152/80 H 95 Room Air Laboratory Results Short CBC 07/31/22 Range/Units 05:28 WBC 6.45 (4.8-10.8) K/ul Hgb 12.3 (12.0-16.0) g/dl Hct 37.4 (37.0-47.0) % Plt Count 276 (130-400) K/uL BMP 07/31/22 05:28 Sodium 140 Potassium 3.5 Chloride 105 Carbon Dioxide 29 BUN 24 H Creatinine 0.73 Glucose 154 H Calcium 9.3 (1) Chest pain Chest pain type: unspecified Qualified Code(s): R07.9 - Chest pain, unspecified
[2022-07-31] MEDS: ENOXAPARIN INJ 40 MG/0.4 ML SYR SQ SCH (20:04)
[2022-07-31] MEDS: ERYTHROMYCIN OP OINT 5 MG/GM 3.5 GM TUBE OP SCH (20:04)
[2022-07-31] MEDS: FERROUS SULFATE 325 MG TAB PO SCH (20:05)
[2022-08-01] MEDS ORDERED: SODIUM CHLORIDE 0.9% 1000ML 1,000 ML IV SCH
[2022-08-01] MEDS ORDERED: Nursing to Pharmacy Communication SCH (06:30)
[2022-08-01] MEDS: INSULIN ASPART PER UNIT CHARGE SC SCH ×2 (06:45→16:18)
[2022-08-01] MEDS ORDERED: LIDOCAINE 1% LOCAL 20 ML VIAL ONE (07:08)
[2022-08-01 07:57] LABS: Calcium 9.2 mg/dl (8.6-10.3); Creatinine Clr Calc Pharmacy 85.7 ml/min; Est GFR (African American) 109.4 ml/min; Est GFR (Non-African American) 94.4 ml/min; Potassium 3.5 mmol/L (3.5-5.1)
--- NOTE | 2022-08-01 11:16 | Pre Anesthesia Assessment ---
Date of Service August 01, 2022 Pre Sedation Assessment Vital Signs Temp Pulse Pulse Resp BP BP Pulse Ox 08/01/22 07:44 36.5 C 55 L 18 147/66 H 97 07/31/22 22:07 56 L 08/01/22 02:48 36.6 C 50 L 16 164/59 H 96 07/31/22 23:12 36.3 C L 57 L 16 153/73 H 97 07/31/22 19:04 36.7 C 54 L 19 145/76 H 100 07/31/22 16:16 36.6 C 54 L 18 132/79 97 07/31/22 11:34 36.7 C 90 18 151/89 H 96 O2 Del Method 08/01/22 07:44 Room Air 07/31/22 22:07 08/01/22 02:48 Room Air 07/31/22 23:12 Room Air 07/31/22 19:04 Room Air 07/31/22 16:16 Room Air 07/31/22 11:34 Room Air Cardiovascular RRR, no murmur, no edema Respiratory normal respiratory effort, lungs clear to auscultation Pre-Sedation Airway Assessment Smoking Status: Never smoker Hx Sleep Apnea: No Short, Thick Neck: No Thyromental Distance: > or= 3.5 Finger Breadths Oral Cavity: + WNL Mallampati Class: III ASA: ASA3 NPO Status Date of Last Intake of Fluids: 07/31/22 Date of Last Intake of Solid Food: 07/31/22 Notes The planned sedation has been discussed with the patient. Informed Consent was obtained. I have identified the patient, determined the appropriateness of sedation and have assessed the patient immediately prior to the procedure. All medicine(s) and interventions are by my order.
[2022-08-01] MEDS ORDERED: niCARdipine HCL INJ 2.5 MG/ML 10 ML AMP ONE (11:17)
[2022-08-01] MEDS ORDERED: MIDAZOLAM HCL 1 MG/ML 2ML VIAL ONE (11:17)
[2022-08-01] MEDS ORDERED: HEPARIN (PORCINE) 1000 UNIT/ML 10 ML (CATH LAB USE ONLY) ONE (11:17)
[2022-08-01] MEDS ORDERED: fentaNYL citrate PF 100 MCG/2 ML VIAL ONE (11:18)
[2022-08-01] MEDS ORDERED: NITROGLYCERIN/D5W 100MCG/ML 20ML SYR ONE (11:18)
--- NOTE | 2022-08-01 12:01 | Cardiac Catheterization ---
Cardiac Cath Procedure Brief Procedure Date August 01, 2022 Pre-Procedure Diagnosis Pre-Procedure Diagnosis: Angina and Arrhythmia AUC Score AUC Score: 8 Post-Procedure Diagnosis Post-Procedure Diagnosis: Normal Coronary Arteries and Normal LV Systolic Function Procedure(s) Performed Procedure(s) Performed: Coronary Angiography and LV Angiography Rodent Control Worker Jose Verdugo MD Estimated Blood Loss Estimated Blood Loss: <15cc Medication(s) Medication(s): Fentanyl (12.5 mcg IV), Heparin (5000 units IV), Lidocaine 1% (Local infiltration access site), Nicardipine (250 mcg intra-arterial after arterial sheath insertion) and Versed (1 mg IV) Preliminary Findings Impression: Right dominant coronary anatomy with normal coronary arteries and normal LV systolic function, left end-diastolic pressure Recommendations Recommendations: Medical Therapy and/or Counseling Specimens Specimens: None Anesthesia Start time: 1132, stop time: 1146 Procedural Complication(s) None Disposition [employer] [facility] [employer]/Recovery
--- NOTE | 2022-08-01 12:11 | Cardiac Catheterization ---
Cardiac Cath Procedure Full Procedure Date August 01, 2022 Pre-Procedure Diagnosis Pre-Procedure Diagnosis: Angina and Arrhythmia AUC Score AUC Score: 8 Post-Procedure Diagnosis Post-Procedure Diagnosis: Normal Coronary Arteries and Normal LV Systolic Function Procedure(s) Performed Procedure(s) Performed: Coronary Angiography, Left Heart Cath and LV Angiography Perianesthesia Rn Jose Verdugo MD Estimated Blood Loss Estimated Blood Loss: Less than 15 cc Medication(s) Medication(s): Fentanyl (12.5 mcg IV), Lidocaine 1% (Local infiltration access site), Nicardipine (250 mcg intra-arterial after sheath insertion) and Versed (1 mg IV) Summary of Findings Impression: Right dominant coronary anatomy with normal coronary arteries and normal LV systolic function, normal left end-diastolic pressure Procedure: Left heart catheterization, coronary, LV angiography via right radial access without difficulty Catheters: Long 6 Malian glide radial artery sheath, 5 Malian [place], 5 Malian straight pigtail Coronary angiography: Right dominant anatomy Left main: Normal length and caliber without disease or calcification. Left anterior descending: Type II in distribution. Gives rise to a large diagonal branch at the end of its proximal third and a modest caliber diagonal branch in its midportion. The vessel is tortuous in its coursing but free of disease Left circumflex: Nondominant but large in caliber. It gives rise to a long high marginal branch, a large trifurcating obtuse marginal then turns along the AV groove giving rise to a long posterior lateral branch. There is no disease in the left circumflex Right coronary artery: Dominant distribution. Gives rise to a conus branch a modest caliber right ventricular branch in its midportion and early takeoff posterior descending artery and along the AV groove 2 posterior ventricular branches. There is no disease in the right coronary artery LV angiography: The left ventricle is nondilated all wall segments contract normally EF 60% there is no mitral insufficiency. LVEDP 3 Hemodynamics Rest Ao:: 144/64/100 Final Ao: 144/51/81 LV: 132/0/3 Recommendations Recommendations: Medical Therapy and/or Counseling Specimens Specimens: None Radiation Exposure (mGy) 541 Contrast (mls) 80 Fluids (cc crystalloids) Fluids (cc crystalloids): 49 Anesthesia Start time: 1132, stop time: 1146 Procedural Complication(s) None Disposition [employer]/Recovery I attest to the content of the Intraoperative Record and any orders documented therein. Any exceptions are noted below. ACC Data: [employer] Cardiac Status Clinical evaluation leading to the procedure 62-year-old female with chronic left bundle branch block, past history of ventricular arrhythmia with torsade who presented with symptoms of exertional chest pressure lightheadedness and dizziness CAD Presenation: Stable angina (Exertional chest pressure and dizziness) Anginal Classification: CCS III Heart Failure: No Cardiogenic Shock within 24 Hours: No Cardiac Arrest within 24 Hours: No Imaging Studies Past 6 Months: Yes Stress Studies Past 6 Months: No Standard Exercise Test: No Stress Echocardiogram: No Stress Testing w/SPECT MPI: No Cardiac CTA: No Coronary Anatomy Dominant: Right Left Main (% Stenosis): Normal LAD (% Stenosis): Normal D1 (% Stenosis): Normal D2 (% Stenosis): Normal Circumflex (% Stenosis): Normal OM1 (% Stenosis): Normal OM2 (% Stenosis): Normal L PL1 (% Stenosis): Normal RCA (% Stenosis): Normal R PDA (% Stenosis): Normal R PL1 (% Stenosis): Normal R PL2 (% Stenosis): Normal Left Ventricular Angiography EF (%): 60 Mitral Regurgitation: None Diagnostic Physicians Name: Jose Verdugo MD Closure Device Recommendations: Medical Therapy and/or Counseling
--- NOTE | 2022-08-01 12:21 | Post Anesthesia Assessment ---
Date of Service August 01, 2022 Post Sedation Assessment Vital Signs Temp Pulse Pulse Pulse Resp BP BP 08/01/22 12:08 56 L 18 155/70 H 141/56 H 08/01/22 11:55 49 L 18 155/70 H 08/01/22 07:44 36.5 C 55 L 18 147/66 H 07/31/22 22:07 56 L 08/01/22 02:48 36.6 C 50 L 16 164/59 H 07/31/22 23:12 36.3 C L 57 L 16 153/73 H 07/31/22 19:04 36.7 C 54 L 19 145/76 H 07/31/22 16:16 36.6 C 54 L 18 132/79 Pulse Ox O2 Del Method 08/01/22 12:08 96 Room Air 08/01/22 11:55 Room Air 08/01/22 07:44 97 Room Air 07/31/22 22:07 08/01/22 02:48 96 Room Air 07/31/22 23:12 97 Room Air 07/31/22 19:04 100 Room Air 07/31/22 16:16 97 Room Air Recovery Score Activity: Moves 4 extremities Respiration: Deep Breath/Cough Circulation: +/-20% PreAnes Value Consciousness: Fully Awake Oxygen Saturation: > 92% On Room Air Post Anesthesia Score: 10 Discharge Sedation Level of Care: Phase I Post Sedation Plan On clinical assessment, the patient appears to have tolerated the sedation without complications. Patient is recovering as anticipated. Patient will continue to be monitored by nursing and may be discharged when sedation discharge criteria are met per below protocol. Upon Completions of procedure up to 15 minutes continue every 5 minute vital signs and the P.A.R. score; then discharge to a Phase I or Fast Track to Phase II per the following guidelines: * Discharge Patient to appropriate Phase II area if PAR is 8 or greater or return to pre- procedure baseline. The post - procedure orders will be as directed. * If PAR score is less than 8 or not return to pre-procedure baseline then patient will follow Phase I monitoring till PAR is reached for Phase II. The Phase I may be done in procedure room or may call to secure a Phase I area. * If naloxone or flumazenil are used for reversal, hold in Phase I for continued monitoring from when last reversal dose was given for a minimum of 60 minutes or longer pending the nurse and/or physician discretion of patient condition before discharge to Phase II. Please call the Sedation Physician to re-evaluate and complete post-note for discharge to Phase II area. Do NOT discharge from procedure sedation or Phase 1 until post- sedation evaluation note is complete by procedure /sedation MD Sedation Discharge Instructions to be given to the patient at discharge to home.
[2022-08-01] MEDS: PREGABALIN 75 MG CAP PO SCH ×2 (13:23→16:17)
[2022-08-01] MEDS: LOSARTAN POTASSIUM 25 MG TAB PO SCH (13:23)
[2022-08-01] MEDS: methylPREDNISolone 4 MG TAB PO SCH (13:23)
[2022-08-01] MEDS: methIMAzole 5 MG TABLET PO SCH (13:24)
[2022-08-01] MEDS: PANTOprazole 40 MG TAB PO SCH (13:24)
[2022-08-01] MEDS: ATORVASTATIN 40 MG TAB PO SCH (13:24)
[2022-08-01] MEDS: ASPIRIN 81 MG ECTAB PO SCH (13:24)
[2022-08-01] MEDS: POTASSIUM CHLORIDE CRTAB 20 MEQ TABCR PO SCH (13:24)
--- NOTE | 2022-08-01 14:23 | Hospitalist Progress Note ---
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 Last episode occurred yesterday. Chest pain Presyncope on 08/01/23 H/O left bundle branch block Mild elevation of troponin --CXR:No active disease in the chest. --ECHO: Left ventricle is normal in size. Moderate to severe left ventricle hypertrophy with mild asymmetric thickening of the basilar septum. Septal motion is consistent with conduction abnormality. No regional wall motion abnormality. EF 50 to 55% aortic valve sclerosis moderate, without significant aortic valvular stenosis -- Lipid panel within normal limits --S/P Cardiac Cath:Right dominant coronary anatomy with normal coronary arteries and normal LV systolic function, normal left end-diastolic pressure Continue aspirin, Lipitor Appreciate cardiology input Needs follow up with Cardiology upon discharge Needs [employer] Department Manager for 14 days as outpatient (3) Hypertension: Plan: Continue losartan HCTZ held today (4) DM type 2 (diabetes mellitus, type 2): Plan: A1c: 6.2 on 03/11/2022 Hold home metformin NovoLog sliding scale per protocol (5) Dermatomyositis: Plan: On chronic steroid Continue methylprednisone Follows with rheumatology outpatient (6) LBBB (left bundle branch block): Plan: Chronic LBBB (7) Graves disease: Plan: Continue methimazole TSH low, normal free T4 Follows with endocrinology as outpatient: BERENICE Sheth Advised to follow-up with counselor marriage and family as outpatient Plan DVT Prophylaxis Lovenox SQ Code Status Full code Admission and Anticipated Discharge Date Admission Date: July 30, 2022 Subjective Patient is seen and examined at bedside States feeling well today Had cardiac catheterization earlier today No recurrence of dizziness, nausea, chest pain, dyspnea Offers no complaints Family at bedside Review of Systems Review of Systems: All systems reviewed & are unremarkable except as noted in Subjective Physical Exam Physical Exam: Physical Exam: Vitals signs as noted above General Appearance:Moderately built and nourished, no apparent distress Head: normocephalic, Atraumatic Eyes: normal inspection, EOMI Neck: supple, Trachea midline Respiratory/Chest: Normal breath sounds, CTA, No accessory muscle use Cardiovascular: S1, S2, + murmur Abdomen/GI:Soft, Non tender, Bowel sounds present Extremities/Musculoskeletal:normal inspection, no edema Neurologic/Psych:AAOX3, grossly no focal neurological deficits Skin: normal color, warm Results & Data Results & Data Vital Signs (Past 12 Hours) Vital Signs Temp Pulse Pulse Resp BP BP Pulse Ox 08/01/22 12:42 64 16 123/72 99 08/01/22 12:12 36.8 C 54 L 14 134/73 99 08/01/22 12:08 56 L 18 155/70 H 141/56 H 96 08/01/22 11:55 49 L 18 155/70 H 08/01/22 07:44 36.5 C 55 L 18 147/66 H 97 08/01/22 02:48 36.6 C 50 L 16 164/59 H 96 O2 Del Method 08/01/22 12:42 Room Air 08/01/22 12:12 Room Air 08/01/22 12:08 Room Air 08/01/22 11:55 Room Air 08/01/22 07:44 Room Air 08/01/22 02:48 Room Air Laboratory Results BMP 08/01/22 07:12 Sodium 141 Potassium 3.5 Chloride 104 Carbon Dioxide 30 BUN 17 Creatinine 0.68 Glucose 125 H Calcium 9.2 (1) Chest pain Chest pain type: unspecified Qualified Code(s): R07.9 - Chest pain, unspecified
[2022-08-01] MEDS: hydroCHLOROthiazide 25 MG TAB PO SCH (16:17)
--- NOTE | 2022-08-01 16:59 | Discharge Summary ---
Date of Service August 01, 2022 Admission HPI Per Admitting Provider Patient is 62 y/o F with PMH drug-induced torsades de points, LBBB, dermatomyositis, on chronic steroid, interstitial lung disease, HTN, HLD, Graves' disease with recurrent episodes of dizziness, chest pain. Patient ates yesterday was staining a wood swing and approximately 20 minutes later developed lightheaded sensation, diaphoresis, nausea, and heart pounding sensation. Doesn't feel like heart was racing or skipping. Also had tightness around left breast lasted approximately 1 hour. She checked her blood sugar at the time and was 189. No vomiting. Did have couple episodes of loose stool. Rested and fell asleep and when woke up symptoms were gone. 2 weeks ago was mopping had same symptoms of nausea, heart pounding, lightheadedness. Had another episode prior to this also when she was exerting herself. Today went to PCP office for f/u of symptom and was referred to ER. Today no symptoms. States feels well today. Follows with Dr Verdugo, worm grower. Has been having back pain and following up with PCP. Denies fever/chills, PHILLIPS, syncope, vision changes, neck pain, SOB, orthopnea, cough, sore throat, rhinorrhea, abdominal pain, paresthesias, weakness, extremity edema, rashes, urinary symptoms. Admission Exam Per Admitting Provider General: no distress, WDWN Head: normocephalic, atraumatic Eyes: conjunctiva non-injected, anicteric ENT: normal inspection external ears, nose, mucous membranes moist Neck: supple, trachea midline, non-tender Lungs: clear, no respiratory distress, no wheezing/rhonchi/rales Chest wall: +tenderness to palpation left chest wall, no discoloration noted CV: RRR, no murmur, no pretibial edema Abd: normal BS, soft, non-tender Ext: no cyanosis, no calf tenderness Neuro: A&O x 3, no focal deficits noted, normal affect Skin: warm, dry Principal Diagnosis Chest pain Presyncope Graves disease History of Torsades Discharge Data Allergies Allergy/AdvReac Type Severity Reaction Status Date / Time No Known Allergies Allergy Verified 07/29/22 18:24 Consultations 07/29/22 18:59 ED Decision to Admit Stat 07/29/22 20:51 Consult Cardiology Routine Procedures Performed Operation Date: 08/01/22 09:30 Actual Procedures p Cineradiography w/Routine Exam - Jose Verdugo MD p Cath, Left with Cors and Vent - Jose Verdugo MD Laboratory Results WBC 6.45 K/ul (4.8-10.8) 07/31/22 05:28 RBC 4.16 M/uL (4.20-5.40) L 07/31/22 05:28 Hgb 12.3 g/dl (12.0-16.0) 07/31/22 05:28 Hct 37.4 % (37.0-47.0) 07/31/22 05:28 MCV 89.9 fL (80.0-100.0) 07/31/22 05:28 MCH 29.6 pg (25.0-34.0) 07/31/22 05:28 MCHC 32.9 g/dL (32.0-36.0) 07/31/22 05:28 RDW Std Deviation 49.9 fL (36.4-46.3) H 07/31/22 05:28 RDW Coeff of Maria R 15.1 % (11.5-14.5) H 07/31/22 05:28 Plt Count 276 K/uL (130-400) 07/31/22 05:28 MPV 10.4 fL (9.4-12.4) 07/31/22 05:28 Immature Gran % (Auto) 0.2 % 07/29/22 16:04 Neut % (Auto) 80.7 % 07/29/22 16:04 Lymph % (Auto) 11.3 % 07/29/22 16:04 [place] % (Auto) 6.5 % 07/29/22 16:04 Eos % (Auto) 0.8 % 07/29/22 16:04 Baso % (Auto) 0.5 % 07/29/22 16:04 Neut # (Auto) 7.40 K/uL (1.40-6.50) H 07/29/22 16:04 Lymph # (Auto) 1.04 K/uL (1.2-3.4) L 07/29/22 16:04 [place] # (Auto) 0.60 K/uL (0.11-0.59) H 07/29/22 16:04 Eos # (Auto) 0.07 K/uL (0-0.50) 07/29/22 16:04 Baso # (Auto) 0.05 K/uL (0-0.2) 07/29/22 16:04 Immature Gran # (Auto) 0.02 K/uL (0.01-0.20) 07/29/22 16:04 PT 10.6 Seconds (9.0-12.0) 07/29/22 16:04 INR 1.0 (0.9-1.1) 07/29/22 16:04 APTT 29.3 Seconds (21.0-31.0) 07/29/22 16:04 PTT Ratio 1.0 07/29/22 16:04 Sodium 141 mmol/L (136-145) 08/01/22 07:12 Potassium 3.5 mmol/L (3.5-5.1) 08/01/22 07:12 Chloride 104 mmol/L (98-107) 08/01/22 07:12 Carbon Dioxide 30 mmol/L (21-32) 08/01/22 07:12 Anion Gap 7 (3-11) 08/01/22 07:12 BUN 17 mg/dl (6-23) 08/01/22 07:12 Creatinine 0.68 mg/dl (0.6-1.2) 08/01/22 07:12 Est Cr Clr Drug Dosing 85.7 ml/min 08/01/22 07:12 Est GFR ( Amer) 109.4 ml/min 08/01/22 07:12 Est GFR (Non-Af Amer) 94.4 ml/min 08/01/22 07:12 BUN/Creatinine Ratio 25.0 (10-20) H 08/01/22 07:12 Glucose 125 mg/dl (70-99(Fasting)) H 08/01/22 07:12 POC Glucose 119 mg/dl (70-99) H 08/01/22 06:10 Estimat Average Glucose 177 mg/dl 07/30/22 05:19 Hemoglobin A1c 7.8 % (4.5-5.6) H 07/30/22 05:19 Calcium 9.2 mg/dl (8.6-10.3) 08/01/22 07:12 Magnesium 1.9 mg/dl (1.7-2.4) 07/31/22 05:28 Total Bilirubin 0.7 mg/dl (0.2-1.0) 07/29/22 16:04 AST 23 U/L (13-39) 07/29/22 16:04 ALT 18 U/L (7-52) 07/29/22 16:04 Alkaline Phosphatase 63 U/L (34-104) 07/29/22 16:04 Troponin I High Sens 18.7 pg/ml (0-14) H 07/30/22 05:19 Total Protein 7.4 gm/dl (6.0-8.3) 07/29/22 16:04 Albumin 4.7 gm/dl (3.4-5.0) 07/29/22 16:04 Globulin 2.7 gm/dl (2.5-4.0) 07/29/22 16:04 Albumin/Globulin Ratio 1.7 (0.9-2) 07/29/22 16:04 Triglycerides 125 mg/dl (0-150) 07/30/22 05:19 Cholesterol 149 mg/dl (0-200) 07/30/22 05:19 LDL Cholesterol, Calc 63 mg/dl 07/30/22 05:19 VLDL Cholesterol, Calc 25 mg/dl (0-30) 07/30/22 05:19 HDL Cholesterol 61 mg/dl 07/30/22 05:19 Cholesterol/HDL Ratio 2.4 (0-5) 07/30/22 05:19 TSH 0.126 uIu/ml (0.300-4.500) L 07/29/22 16:04 Free T4 0.80 ng/dl (0.61-1.60) 07/29/22 16:04 Urine Color Yellow 07/29/22 22:15 Urine Appearance Clear (Clear) 07/29/22 22:15 Urine pH 5.0 (4.5-7.5) 07/29/22 22:15 Ur Specific [place] 1.013 (1.000-1.030) 07/29/22 22:15 Urine Protein Negative (Negative) 07/29/22 22:15 Urine Glucose (UA) Negative (Negative) 07/29/22 22:15 Urine Ketones Negative (Negative) 07/29/22 22:15 Urine Blood Negative (Negative) 07/29/22 22:15 Urine Nitrite Negative (Negative) 07/29/22 22:15 Urine Bilirubin Negative (Negative) 07/29/22 22:15 Urine Urobilinogen Negative (Negative) 07/29/22 22:15 Ur Leukocyte Esterase 1+ (Negative) H 07/29/22 22:15 Urine WBC (Auto) 1-5 /hpf (0-5) 07/29/22 22:15 Urine RBC (Auto) 0-4 /hpf (0-4) 07/29/22 22:15 U Hyaline Cast (Auto) 0 /lpf (0-5) 07/29/22 22:15 U Epithel Cells (Auto) 10-20 /lpf (0-5) H 07/29/22 22:15 Urine Bacteria (Auto) Negative (Negative) 07/29/22 22:15 SARS-CoV-2, RNA, NAAT NEGATIVE (NEGATIVE) 07/29/22 19:03 Impressions Chest X-Ray 07/29/22 17:05 SINGLE VIEW CHEST CLINICAL HISTORY: Atypical chest pain FINDINGS: An AP, portable, upright chest radiograph is compared to study dated 02/11/2022 and correlated with chest CT dated 09/09/2020. The heart is mildly enlarged. The pulmonary vasculature is noncongestive. Atelectasis is seen at the lung bases. The lungs and pleural spaces are otherwise clear. No pneumothorax is seen. The bony thorax is grossly intact. IMPRESSION: No active disease in the chest. ACT 112: Negative or not required by law. Electronically signed by: Julio Cain M.D. 07/29/2022 6:06 PM Ordered Studies 08/01/22 06:33 CL Cath Imgs for PACS use only Routine Hospital Course (1) Chest pain: (2) History of torsades de pointe due to drug: Patient is 62 y/o F with PMH drug-induced torsades de points, LBBB, dermatomyositis, on chronic steroid, interstitial lung disease, HTN, HLD, Graves' disease with recurrent episodes of lightheadedness, diaphoresis, nausea chest pain with exertion. Last episode occurred yesterday. Chest pain Presyncope on 08/01/23 H/O left bundle branch block Mild elevation of troponin --CXR:No active disease in the chest. --ECHO: Left ventricle is normal in size. Moderate to severe left ventricle hypertrophy with mild asymmetric thickening of the basilar septum. Septal motion is consistent with conduction abnormality. No regional wall motion abnormality. EF 50 to 55% aortic valve sclerosis moderate, without significant aortic valvular stenosis -- Lipid panel within normal limits --S/P Cardiac Cath:Right dominant coronary anatomy with normal coronary arteries and normal LV systolic function, normal left end-diastolic pressure Continue aspirin, Lipitor Appreciate cardiology input Needs follow up with Cardiology upon discharge Needs Instrumentation Engineer for 14 days as outpatient (3) Hypertension: Continue losartan HCTZ held today (4) DM type 2 (diabetes mellitus, type 2): A1c: 6.2 on 03/11/2022 Hold home metformin NovoLog sliding scale per protocol (5) Dermatomyositis: On chronic steroid Continue methylprednisone Follows with rheumatology outpatient (6) LBBB (left bundle branch block): Chronic LBBB (7) Graves disease: Continue methimazole TSH low, normal free T4 Follows with endocrinology as outpatient: Arielle Avalos PA-C [facility] Advised to follow-up with oil pumper as outpatient Plan DVT Prophylaxis Lovenox SQ Code Status Full code Total Time Total Time Spent Total Time Spent (In Minutes): 45 minutes Discharge Plan Discharge Items Patient Disposition: Home - Self-Care Reason For Visit: CHEST PAIN Discharge Diagnosis: Chest pain Presyncope Graves disease History of Torsades Activity: Per Instructions section Exercise/Sports: Wait until after follow-up appointment Non-emergency contact: Primary Care Provider and Car Construction Superintendent Call non-emergency contact if: you have any medication questions, your symptoms worsen, your pain is concerning for you and you have a fever Follow-up/Referrals: Eddie Man MD [Primary Care Provider] - (Date & Time 08/08/2022 9:00 AM Provider Eddie Man MD Department Family Practice [facility] *Your thyroid labs have been faxed to Endocrinology, Arielle Avalos PA-C, in [place].* ) Diet: Heart Healthy Addtl Attending Provider Instructions: Follow-up with your primary care physician on 08/08/2022 9:00 AM Follow-up with your worm grower Dr. Verdugo as advised. -- Get institution director for 14 days (Zio Patch) as recommended by your worm grower. Follow-up with PCP/worm grower for further recommendations. Seek immediate medical attention if your symptoms reoccur or worsen Please take all medications as instructed on discharge list below. Please call if you have any questions or problems. You can reach a [facility] hospitalist on duty at [facility] 24 hours a day by calling [phone] [facility] Orthopedic Rn Provider Instructions: ACTIVITY RECOMMENDATIONS: Excess manipulation of the wrist should be avoided for the next 24-48 hours. * No lifting over 2 pounds (approximately a 1/2 gallon of milk) with the utilized arm for 24 hours. * No strenuous activity such as bowling or tennis for 3 days. * Keep the site of the procedure covered with a bandage for 24 hours. *You may shower the day after the procedure. Do not take a tub bath or submerge the puncture site in water for the next 3 days. *Do not operate any motorized equipment for 3 days. SPECIAL CARE INSTRUCTIONS: The site may be slightly bruised and sore following your procedure. Should any of the following occur, contact the Dr. who performed your procedure. 1. Redness/inflammation, swelling, chills, or fever, or colored drainage at procedure site within 3-7 days after your procedure. 2. Coldness, discoloration, ongoing numbness, severe pain, or swelling. Expect mild tingling of hand and tenderness at the puncture site for up to three days. If this persists beyond three days, or other symptoms develop, notify the Dr. who performed your procedure. BLEEDING: If the procedure site on your wrist begins to bleed, do not panic 1. Place 1 or 2 fingers firmly just slightly above the insertion site to stop the bleeding. You may be able to feel your pulse as you hold pressure. 2. Lift your finger after 5 minutes to see if the bleeding has stopped. 3. Once the bleeding has stopped, gently wipe the wrist area clean with a bandage. * If the bleeding from your wrist does not stop after 10 minutes, or if there is a large amount of bleeding or spurting, call 911 (do not drive yourself to the hospital). SKIN IRRITATION: * You may experience some redness and/or swelling in the area where radiation was administered. If any skin irritation occurs, please contact your family physician. FOLLOW UP VISIT: Keep any scheduled doctor appointments. Pending Studies at Discharge: No Stand-Alone Forms: [facility], Smoking Cessation Medications and DC Order Prescriptions: Continued atorvastatin [Lipitor] 40 mg Tablet 40 mg PO QAM milk thistle 500 mg Capsule 500 mg PO QAM methylprednisolone [Medrol] 4 mg Tablet 4 mg PO QAM cyanocobalamin (vitamin B-12) [Vitamin B-12] 1,000 mcg Tablet 1,000 mcg PO HS pantoprazole [Protonix] 40 mg Tablet,Delayed Release (Dr/Ec) 40 mg PO QAM hydrochlorothiazide 25 mg Tablet 25 mg PO QAM cyclobenzaprine 5 mg Tablet 5 mg PO HS PRN (Reason: Muscle Spasm) calcium carbonate-vitamin D3 [Calcium 500 + D] 500 mg(1,250mg) -200 unit Tablet 1 tab PO QAM pregabalin [Lyrica] 75 mg Capsule 75 mg PO TID methimazole 10 mg Tablet 20 mg PO QAM biotin 1,000 mcg Tablet,Chewable 1,000 mcg PO HS ferrous sulfate 325 mg (65 mg iron) Tablet 325 mg PO Q OTHER DAY Patient Comments: takes at hs losartan 25 mg tablet 25 mg PO QAM metformin 500 mg tablet extended release 24 hr 1,000 mg PO QAM diclofenac sodium 1 % Gel 1 g TOPICAL QID PRN (Reason: Pain) amoxicillin 500 mg tablet 2,000 mg PO DIRECTED PRN (Reason: 1 HOUR PRIOR TO DENTAL APPT.) Rx Instructions: 4 tabs 1 hour prior to procedure acetaminophen 500 mg capsule 1,000 mg PO DIRECTED PRN (Reason: Pain) potassium chloride 20 mEq tablet,ER particles/crystals 20 meq PO DAILY erythromycin 5 mg/gram (0.5 %) ointment 1 applic ophthalmic (eye) HS Discharge Orders: Discharge Order (Routine); Ordered 08/01/22 Ordered By: Conrado Mukherjee/Other Patient Handouts: Managing Type 2 Diabetes Admission Data Admit Date/Time: 07/30/22 15:55 Attending Provider: Conrado Blackman Admit Provider: Antelmo Byrd Primary Care Provider: Eddie Man Other Providers: Antelmo Byrd ; Jose Verdugo
--- NOTE | 2022-08-01 17:39 | Cardiology Progress Note ---
Date of Service August 01, 2022 Assessment & Plan (1) Pre-syncope: (2) LBBB (left bundle branch block): (3) Hypertension: Plan Patient is a 62-year-old female with complex history as outlined but notable for left bundle branch block chronically, hypertension with left hypertrophy and past medication induced torsades. She presents now with exertional symptoms of chest tightness diaphoresis and lightheadedness and heart pounding but not racing Troponins mildly elevated EKG not helpful given left bundle branch block Echocardiogram as in past demonstrates dyssynergy of the septum without distinct regional wall motion abnormality but low normal LV function 08/01/2022 Cardiac catheterization today normal coronaries and normal LV systolic function normal left end-diastolic pressures. No arrhythmias on telemetry Plan: Patient be discharged home today with standard postcatheterization recommendations. No changes to medications. Outpatient follow-up with Zio patch 14-day and EP reevaluation Admission and Anticipated Discharge Date Admission Date: July 30, 2022 Subjective Patient seen and examined both pre and post diagnostic cardiac catheterization No issues or complaints overnight. Tolerated cardiac catheterization well. Study demonstrated normal coronary arteries and normal LV systolic function. Telemetry no arrhythmias or pauses. Patient ambulatory in room without difficulty. Right radial access site healing well Review of Systems Review of Systems: All systems reviewed & are unremarkable except as noted in Subjective Physical Exam Constitutional: WD/WN, vitals as above Eyes: PERRL, conjunctivae normal, anicteric sclerae ENMT: Mallampati Class: III Neck: trachea midline, no thyromegaly Respiratory: normal respiratory effort, lungs clear to auscultation Cardiovascular: RRR, no murmur, no edema Rate/Rhythm: regular rate and regular rhythm Heart Sounds: normal S1 and normal S2; no gallop and no murmur Palpation: normal PMI Vessels: normal carotid upstroke and radial pulses present; no JVD and no carotid bruit Extremities: no edema Gastrointestinal (Abdomen): normal bowel sounds, soft, nontender, no hepatosplenomegaly Musculoskeletal: no cyanosis or clubbing, extremities motor strength 5/5 Skin: no rashes, warm and dry Neurologic: PERRL, EOMI, accommodation nl, no face palsy, no dysarthria Psychiatric: A+Ox3, euthymic affect Results & Data Vital Signs (Past 12 Hours) Vital Signs Temp Pulse Pulse Resp BP BP Pulse Ox 08/01/22 16:12 60 14 137/78 98 08/01/22 16:07 37.0 C 60 18 147/66 H 98 08/01/22 14:12 36.7 C 55 L 15 137/79 99 08/01/22 13:12 52 L 16 127/61 99 08/01/22 12:42 64 16 123/72 99 08/01/22 12:12 36.8 C 54 L 14 134/73 99 08/01/22 12:08 56 L 18 155/70 H 141/56 H 96 08/01/22 11:55 49 L 18 155/70 H 08/01/22 07:44 36.5 C 55 L 18 147/66 H 97 O2 Del Method 08/01/22 16:12 Room Air 08/01/22 16:07 Room Air 08/01/22 14:12 Room Air 08/01/22 13:12 Room Air 08/01/22 12:42 Room Air 08/01/22 12:12 Room Air 08/01/22 12:08 Room Air 08/01/22 11:55 Room Air 08/01/22 07:44 Room Air Laboratory Results Laboratory Results - last 24 hr 07/31/22 07/31/22 08/01/22 20:29 23:13 06:10 Sodium Potassium Chloride Carbon Dioxide Anion Gap BUN Creatinine Est Cr Clr Drug Dosing Est GFR ( Amer) Est GFR (Non-Af Amer) BUN/Creatinine Ratio Glucose POC Glucose 149 H 144 H 119 H Calcium 08/01/22 07:12 Sodium 141 Potassium 3.5 Chloride 104 Carbon Dioxide 30 Anion Gap 7 BUN 17 Creatinine 0.68 Est Cr Clr Drug Dosing 85.7 Est GFR ( Amer) 109.4 Est GFR (Non-Af Amer) 94.4 BUN/Creatinine Ratio 25.0 H Glucose 125 H POC Glucose Calcium 9.2 Diagnostic Findings Cardiac catheterization 08/01/2022 Summary of Findings Impression: Right dominant coronary anatomy with normal coronary arteries and normal LV systolic function, normal left end-diastolic pressure
== END 2022-08-01 18:30 | disposition home or self-care (01) | DRG 287 ==
LOC: 4W 15:38 → ED 15:38 → SUATTDRO 19:25 → 4W 19:53 → SUATTDRO 07-30 15:55

== ENCOUNTER 2022-12-15 09:11 | Inpatient (IN) ==
--- NOTE | 2022-12-15 09:30 | Emergency Department Note ---
Impression & Plan Chest pain, Non-ST elevation [place] (NSTEMI) ED Provider Note HISTORY OF PRESENT ILLNESS: Patient is a 62-year-old female presenting with left sided chest pain. Patient reports she has been having intermittent episodes of left-sided chest pain under her left breast that radiates up into her left shoulder and down her left arm for the past 5 days. Reports that the pain feels like a sharp jabbing sensation that last for few seconds and then goes away. She denies any significant s hortness of breath. She reports some associated nausea. She saw her primary care provider today and reportedly had an abnormal EKG and was sent to the ER for further evaluation. Patient denies any DVT or PE history. She is not on any anticoagulation. Denies any history of cardiac stents. She last had a heart catheterization in July 2022. She denies any chest pain arrival to the ER. ROS: as above PHYSICAL EXAM: Constitutional: Patient appears in no acute distress. HENT: Head: Normocephalic and atraumatic. Eyes: EOMI, PERRL Mouth/Throat: Mucous membranes moist. Neck: Trachea midline. Neck supple. Cardiovascular: RRR, No murmurs, rubs or gallops. Intact distal pulses. Pulmonary/Chest: No respiratory distress. Breath sounds clear and equal bilaterally. No wheezes or rales. Abdominal: Abdomen soft, no tenderness, rebound or guarding. Musculoskeletal: No edema, tenderness or deformity noted. Skin: Warm and dry. No rash, erythema, pallor or cyanosis Psychiatric: Appropriate mood and affect for situation. Neurological: Alert and keenly responsive. CN II-XII grossly intact, moving all extremities equally and fully. MDM: - Vitals signs showed hypertension - History obtained via patient. Patient presents with left-sided chest wall pain. Patient reports intermittent states of chest wall pain over the last 5 days. Reports it is a jabbing sensation that lasts for few seconds then goes away. She denies any significant shortness of breath. Does report some associated nausea. Denies any chest pain at this time. Denies any DVT or PE history. She is not on any anticoagulation. - Chronic conditions affecting care: DM-2; HLD; splenic artery aneurysm - Differential diagnoses include, but are not limited to: Acute coronary syndrome; pulmonary embolism; dissection; tension pneumothorax; esophageal rupture; pneumonia - Order placed for continuous cardiac monitoring. At this time, monitor showed rate of 60 bpm with normal sinus rhythm, per my interpretation. - External medical records reviewed. Cardiac catheterization procedure note from July 2022 was reviewed. No stents were placed and the coronary anatomy was all normal. EF noted to be 60%. - EKG reviewed by myself showed normal sinus rhythm. Rate 60 bpm. QTc 456. No acute ischemic changes. Noted to have a left bundle branch block. Patient was noted to have a left bundle branch block in July 2022. - Laboratory workup interpreted by myself showed normal WBC; stable electrolytes; elevated troponin (16.2); elevated dimer (670) - CXR negative for pneumonia, per my interpretation. - Repeat troponin elevated (18.9 --> 18.4) - CT PE negative for PE. Noted to have cardiomegaly. - Patient given 0.4 mg SL nitro with little improvement in symptoms. - Heart score 4 (History +1 moderately suspicious; EKG +0; Age +1; Risk factors +1; Initial troponin +1), amounting to a moderate score. - Discussion was had with social services aide about patient's case and need for admission. - Hospitalist consulted for admission - [facility] ASSESSMENT AND PLAN: Diagnosis: chest pain; NSTEMI Plan: admit Past Med/Surg History Medical History Aftercare following right hip joint replacement surgery Anemia Autoimmune hepatitis Follows with GI (Dr. Rahman) Carotid artery stenosis <50% stenosis to bilateral ICAs per 10/2021 carotid doppler (cardio recommends repeat study in two years) Chronic back pain + LE radiation Chronic steroid use Methylprednisolone 4mg daily Dermatomyositis Follows with rheumatology f/u Dr. 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 Hyperlipidemia Pt denies, HLD noted per S records Interstitial lung disease IPMN (intraductal papillary mucinous neoplasm) Left bundle branch block Chronic dating back to at least 2017-F/U DR [place] VYAS (nonalcoholic steatohepatitis) Neurogenic claudication due to lumbar spinal stenosis Pancreatic cyst Under observation Panniculitis 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- on chronic steroids*/plaquenil per rheumatology Pulmonary nodules Under surveillance Renal artery aneurysm Under surveillance Splenic artery aneurysm Under surveillance Thymus disorder Recent diagnosis, under surveillance Trigeminal neuralgia Surgical History History of appendectomy History of arthroscopy of left knee History of cholecystectomy History of colonoscopy + polypectomy History of esophagogastroduodenoscopy (EGD) History of hand surgery Granuloma excision (right hand x2) History of hernia repair Left inguinal History of hysterectomy Partial + LSO + with left ovary and salpingectomy History of lumbar spinal fusion History of oophorectomy, unilateral Right History of right hip replacement Right ZULEIKA (06/21/20): Grade view 1, MAC#3, ETT 7.5 at [facility] ("general anesthetic was implemented at the patient's request" per operative report) History of surgery excisional biopsy left hip mass @ [facility] Dr. Flowers 11/17/21 History of tonsillectomy and adenoidectomy History of total right knee replacement Hx of bilateral cataract extraction Status post right knee replacement Family History Other No family history of adverse response to anesthesia No significant family history Social History Smoking Status: Never smoker Second Hand Exposure: No; Do You Dip or Chew Tobacco: No; Hx Alcohol Use: No Hx Substance Use: No Preferred Language: Kyrgyz Communication Ability: Effective Visual Impairment: No Limitations Deaf Interpreter Required: No Beliefs That Will Affect Care: None marital status: Current Living Situation: Spouse current occupational status: disabled Feels Safe at Home: Yes Assistive Devices: None Allergies Allergies Allergy/AdvReac Type Severity Reaction Status Date / Time No Known Allergies Allergy Verified 07/29/22 18:24 Home Meds Home Medications Medication Instructions Recorded Confirmed atorvastatin 40 mg tablet (Lipitor) 40 mg PO QAM 08/15/19 12/15/22 calcium carbonate 500 mg-vitamin 2 tab PO QAM 08/15/19 12/15/22 D3 5 mcg (200 unit) tablet (Calcium 500 + D) cyanocobalamin (vitamin B-12) 1,000 mcg PO HS 08/15/19 12/15/22 1,000 mcg tablet (Vitamin B-12) cyclobenzaprine 5 mg tablet 5 mg PO HS PRN Muscle Spasm 08/15/19 12/15/22 hydrochlorothiazide 25 mg tablet 25 mg PO QAM 08/15/19 12/15/22 methylprednisolone 4 mg tablet 4 mg PO QAM 08/15/19 12/15/22 (Medrol) milk thistle 500 mg capsule 500 mg PO QAM 08/15/19 12/15/22 pantoprazole 40 mg tablet,delayed 40 mg PO QAM 08/15/19 12/15/22 release (Protonix) pregabalin 75 mg capsule (Lyrica) See Rx Instructions .Route .COMPLEX 08/15/19 12/15/22 diclofenac sodium 1 % topical gel 1 g topical QID PRN Pain 06/20/20 12/15/22 losartan 25 mg tablet 25 mg PO QAM 06/20/20 12/15/22 metformin 500 mg tablet,extended 1,000 mg PO QAM 06/20/20 12/15/22 release 24 hr methimazole 10 mg tablet 15 mg PO QAM 07/29/21 12/15/22 biotin 1,000 mcg chewable tablet 1,000 mcg PO HS 08/02/21 12/15/22 ferrous sulfate 325 mg (65 mg 325 mg PO Q OTHER DAY 11/03/21 12/15/22 iron) tablet acetaminophen 500 mg capsule 1,000 mg PO DIRECTED PRN Pain 07/29/22 12/15/22 erythromycin 5 mg/gram (0.5 %) eye 1 applic ophthalmic (eye) HS 07/29/22 12/15/22 ointment potassium chloride 20 mEq 20 meq PO QAM 07/29/22 12/15/22 tablet,extended release(part/cryst) Previous Rx's Medication Instructions Recorded amoxicillin 500 mg tablet 2,000 mg PO DIRECTED PRN 1 HOUR 12/05/22 PRIOR TO DENTAL APPT. #8 tabs Results & Data (ED) Vital Signs Vital Signs - 24 hr 12/15/22 09:16 12/15/22 09:26 12/15/22 09:26 Temperature 36.7 C Temperature Source Temporal Artery Scan Pulse Rate 62 Pulse Rate [Apical] 65 Pulse Rate from SpO2 Sensor Pulse Rhythm [Apical] Pulse Strength [Apical] Respiratory Rate 18 18 Respiratory Effort / Characteristics Respiratory Depth Normal Respiratory Pattern Blood Pressure 162/93 H Blood Pressure [Left Arm] 185/83 H Blood Pressure Mean 116 Blood Pressure Mean [Left Arm] 117 Pulse Oximetry 98 97 96 Oxygen Delivery Method Room Air Room Air Room Air Sepsis Recent Fever Within 48 Hours No Sepsis New/Unexplained Change in Mental Status No Sepsis Action Taken by Nursing No Action Required 12/15/22 09:36 12/15/22 09:33 12/15/22 09:40 Temperature Temperature Source Pulse Rate 60 57 L 56 L Pulse Rate [Apical] Pulse Rate from SpO2 Sensor 58 L 57 L Pulse Rhythm [Apical] Pulse Strength [Apical] Respiratory Rate 21 18 Respiratory Effort / Characteristics Respiratory Depth Respiratory Pattern Blood Pressure Blood Pressure [Left Arm] Blood Pressure Mean Blood Pressure Mean [Left Arm] Pulse Oximetry 98 97 Oxygen Delivery Method Sepsis Recent Fever Within 48 Hours Sepsis New/Unexplained Change in Mental Status Sepsis Action Taken by Nursing 12/15/22 09:50 12/15/22 10:00 12/15/22 10:10 Temperature Temperature Source Pulse Rate 56 L 55 L 55 L Pulse Rate [Apical] Pulse Rate from SpO2 Sensor 56 L 54 L 54 L Pulse Rhythm [Apical] Pulse Strength [Apical] Respiratory Rate 14 17 18 Respiratory Effort / Characteristics Respiratory Depth Respiratory Pattern Blood Pressure Blood Pressure [Left Arm] Blood Pressure Mean Blood Pressure Mean [Left Arm] Pulse Oximetry 98 97 98 Oxygen Delivery Method Sepsis Recent Fever Within 48 Hours Sepsis New/Unexplained Change in Mental Status Sepsis Action Taken by Nursing 12/15/22 10:20 12/15/22 10:36 12/15/22 11:04 Temperature Temperature Source Pulse Rate 60 65 Pulse Rate [Apical] 54 L Pulse Rate from SpO2 Sensor 59 L 66 Pulse Rhythm [Apical] Regular Pulse Strength [Apical] Normal Respiratory Rate 14 11 L 18 Respiratory Effort / Characteristics Non-Labored Respiratory Depth Normal Respiratory Pattern Regular Blood Pressure Blood Pressure [Left Arm] 145/66 H Blood Pressure Mean Blood Pressure Mean [Left Arm] 92 Pulse Oximetry 97 94 99 Oxygen Delivery Method Room Air Sepsis Recent Fever Within 48 Hours Sepsis New/Unexplained Change in Mental Status Sepsis Action Taken by Nursing 12/15/22 13:23 12/15/22 13:42 Temperature Temperature Source Pulse Rate 71 Pulse Rate [Apical] 66 Pulse Rate from SpO2 Sensor Pulse Rhythm [Apical] Regular Pulse Strength [Apical] Normal Respiratory Rate 18 Respiratory Effort / Characteristics Non-Labored Spontaneous Respiratory Depth Normal Respiratory Pattern Regular Blood Pressure Blood Pressure [Left Arm] 148/79 H Blood Pressure Mean Blood Pressure Mean [Left Arm] 102 Pulse Oximetry 95 Oxygen Delivery Method Room Air Sepsis Recent Fever Within 48 Hours Sepsis New/Unexplained Change in Mental Status Sepsis Action Taken by Nursing Laboratory Data 12/15/22 09:26 12/15/22 09:26 Lab Results 12/15/22 12/15/22 12/15/22 Range/Units 09:26 09: 09:26 WBC 7.75 (4.8-10.8) K/ul RBC 4.44 (4.20-5.40) M/uL Hgb 13.4 (12.0-16.0) g/dl Hct 40.9 (37.0-47.0) % MCV 92.1 (80.0-100.0) fL MCH 30.2 (25.0-34.0) pg MCHC 32.8 (32.0-36.0) g/dL RDW Std Deviation 48.0 H (36.4-46.3) fL RDW Coeff of Maria R 14.2 (11.5-14.5) % Plt Count 279 (130-400) K/uL MPV 10.4 (9.4-12.4) fL Immature Gran % (Auto) 0.3 % Neut % (Auto) 55.5 % Lymph % (Auto) 27.4 % [place] % (Auto) 13.4 % Eos % (Auto) 2.6 % Baso % (Auto) 0.8 % Neut # (Auto) 4.31 (1.40-6.50) K/uL Lymph # (Auto) 2.12 (1.20-3.40) K/uL [place] # (Auto) 1.04 H (0.11-0.59) K/uL Eos # (Auto) 0.20 (0.00-0.50) K/uL Baso # (Auto) 0.06 (0.00-0.20) K/uL Immature Gran # (Auto) 0.02 (0.01-0.20) K/uL PT 10.6 (9.0-12.0) Seconds INR 1.0 (0.9-1.1) D-Dimer 670 H* (0-500) ug/L FEU Sodium 141 (136-145) mmol/L Potassium 3.7 (3.5-5.1) mmol/L Chloride 102 (98-107) mmol/L Carbon Dioxide 30 (21-32) mmol/L Anion Gap 9 (3-11) BUN 16 (6-23) mg/dl Creatinine 0.90 (0.6-1.2) mg/dl Est Cr Clr Drug Dosing 64.0 ml/min Est GFR ( Amer) 80.0 ml/min Est GFR (Non-Af Amer) 69.0 ml/min BUN/Creatinine Ratio 17.8 (10-20) Glucose 134 H (70-99(Fasting)) mg/dl Calcium 10.1 (8.6-10.3) mg/dl Total Bilirubin 0.9 (0.2-1.0) mg/dl AST 19 (13-39) U/L ALT 16 (7-52) U/L Alkaline Phosphatase 84 (34-104) U/L Troponin I High Sens 16.2 H (0-14) pg/ml Total Protein 7.2 (6.0-8.3) gm/dl Albumin 4.5 (3.4-5.0) gm/dl Globulin 2.7 (2.5-4.0) gm/dl Albumin/Globulin Ratio 1.7 (0.9-2) Lipase 28 (11-82) U/L 12/15/22 12/15/22 Range/Units 11:26 13:18 WBC (4.8-10.8) K/ul RBC (4.20-5.40) M/uL Hgb (12.0-16.0) g/dl Hct (37.0-47.0) % MCV (80.0-100.0) fL MCH (25.0-34.0) pg MCHC (32.0-36.0) g/dL RDW Std Deviation (36.4-46.3) fL RDW Coeff of Maria R (11.5-14.5) % Plt Count (130-400) K/uL MPV (9.4-12.4) fL Immature Gran % (Auto) % Neut % (Auto) % Lymph % (Auto) % [place] % (Auto) % Eos % (Auto) % Baso % (Auto) % Neut # (Auto) (1.40-6.50) K/uL Lymph # (Auto) (1.20-3.40) K/uL [place] # (Auto) (0.11-0.59) K/uL Eos # (Auto) (0.00-0.50) K/uL Baso # (Auto) (0.00-0.20) K/uL Immature Gran # (Auto) (0.01-0.20) K/uL PT (9.0-12.0) Seconds INR (0.9-1.1) D-Dimer (0-500) ug/L FEU Sodium (136-145) mmol/L Potassium (3.5-5.1) mmol/L Chloride (98-107) mmol/L Carbon Dioxide (21-32) mmol/L Anion Gap (3-11) BUN (6-23) mg/dl Creatinine (0.6-1.2) mg/dl Est Cr Clr Drug Dosing ml/min Est GFR ( Amer) ml/min Est GFR (Non-Af Amer) ml/min BUN/Creatinine Ratio (10-20) Glucose (70-99(Fasting)) mg/dl Calcium (8.6-10.3) mg/dl Total Bilirubin (0.2-1.0) mg/dl AST (13-39) U/L ALT (7-52) U/L Alkaline Phosphatase (34-104) U/L Troponin I High Sens 18.9 H 18.4 H (0-14) pg/ml Total Protein (6.0-8.3) gm/dl Albumin (3.4-5.0) gm/dl Globulin (2.5-4.0) gm/dl Albumin/Globulin Ratio (0.9-2) Lipase (11-82) U/L Administered Medications Discontinued Medications Ioversol (Ioversol 350 Mg 125ml Prefilled Syringe) 120 ml IV ONCE ONE Stop: 12/15/22 10:31 Last Admin: 12/15/22 10:30 Dose: 120 ml Documented By: LONNIE Nitroglycerin (Nitroglycerin Sl 0.4 Mg/Tab Tab) 0.4 mg SL NOW STA Stop: 12/15/22 14:11 Last Admin: 12/15/22 14:15 Dose: 0.4 mg Documented By: LANIE Imaging Data Radiologist's Impression: Chest X-Ray 12/15/22 09:19 XR chest 1V portable HISTORY: 62 years-old Female Chest pain, nonspecific COMPARISON: 07/29/2022 TECHNIQUE: AP view of the chest FINDINGS: Cardiac silhouette is enlarged. Mild right hemidiaphragm elevation. Subsegmental bibasilar atelectasis. No pneumothorax, large pleural effusion or overt pulmonary edema. Degenerative changes of the shoulders and spine. IMPRESSION: No acute process. ACT 112: Negative or not required by law. The above report was generated using voice recognition software. It may contain grammatical, syntax or spelling errors. Electronically signed by: Ciro Graham M.D. 12/15/2022 9:54 AM Chest CTA 12/15/22 10:09 CT angio chest PE protocol CT DOSE: 800.82 mGy.cm HISTORY: 62 years-old Female with PE. Acute shortness of breath with chest pain TECHNIQUE: Multiple CTA images of the chest were obtained after the intravenous administration of 120 ml Optiray. Coronal and sagittal MIPS were obtained from the axial data set and were submitted for review. All measurements were obtained according to NASCET criteria. A dose lowering technique was utilized adhering to the principles of ALARA. COMPARISON: Chest radiograph of same day, CTA chest 09/09/2020 FINDINGS: CTA: Moderate cardiomegaly. Unremarkable thoracic aorta. No pulmonary emboli identified. Limited images aeration of the subsegmental branches secondary to respiratory motion. CT CHEST: Thyroid goiter with nodule measuring up to 3.4 cm on the right. No lymphadenopathy. No pneumothorax, pleural effusion or overt pulmonary edema. Ill-defined bilateral groundglass densities with linear consolidation and air trapping. No lobar airspace consolidation, suspicious pulmonary nodules or masses. Central airways are patent. Cholecystectomy. 10 mm peripherally calcified splenic artery aneurysm. Unremarkable soft tissues. No acute fracture. IMPRESSION: 1. Cardiomegaly without pulmonary emboli identified. 2. Mild patchy bilateral groundglass densities with mosaic attenuation suggestive of atelectasis with air trapping. 3. No lymphadenopathy. 4. Cholecystectomy. ACT 112: Negative or not required by law. The above report was generated using voice recognition software. It may contain grammatical, syntax or spelling errors. Electronically signed by: Ciro Graham M.D. 12/15/2022 11:00 AM Discharge Plan Visit Data Chief Complaint: Cardiac Assessment Stated Complaint: DOC REF,CHEST PAIN,L ARM PAIN,ABNORMAL EKG ED Provider: Claribel Turner Discharge Problem: Chest pain, Non-ST elevation [place] (NSTEMI) Forms Stand Alone Forms: [facility] [facility] Prescriptions Prescriptions: No Action amoxicillin 500 mg tablet 2,000 mg PO DIRECTED PRN (Reason: 1 HOUR PRIOR TO DENTAL APPT.) Qty: 8 4RF Rx Instructions: 4 tabs 1 hour prior to procedure atorvastatin [Lipitor] 40 mg Tablet 40 mg PO QAM milk thistle 500 mg Capsule 500 mg PO QAM methylprednisolone [Medrol] 4 mg Tablet 4 mg PO QAM cyanocobalamin (vitamin B-12) [Vitamin B-12] 1,000 mcg Tablet 1,000 mcg PO HS pantoprazole [Protonix] 40 mg Tablet,Delayed Release (Dr/Ec) 40 mg PO QAM hydrochlorothiazide 25 mg Tablet 25 mg PO QAM cyclobenzaprine 5 mg Tablet 5 mg PO HS PRN (Reason: Muscle Spasm) calcium carbonate-vitamin D3 [Calcium 500 + D] 500 mg(1,250mg) -200 unit Tablet 2 tab PO QAM pregabalin [Lyrica] 75 mg Capsule See Rx Instructions .ROUTE .COMPLEX Rx Instructions: 150mg by mouth in the morning and 75mg by mouth in the evening methimazole 10 mg Tablet 15 mg PO QAM biotin 1,000 mcg Tablet,Chewable 1,000 mcg PO HS ferrous sulfate 325 mg (65 mg iron) Tablet 325 mg PO Q OTHER DAY Patient Comments: takes at hs losartan 25 mg tablet 25 mg PO QAM metformin 500 mg tablet extended release 24 hr 1,000 mg PO QAM diclofenac sodium 1 % Gel 1 g TOPICAL QID PRN (Reason: Pain) acetaminophen 500 mg capsule 1,000 mg PO DIRECTED PRN (Reason: Pain) potassium chloride 20 mEq tablet,ER particles/crystals 20 meq PO QAM erythromycin 5 mg/gram (0.5 %) ointment 1 applic ophthalmic (eye) HS Referrals Referrals: Eddie Man MD [Primary Care Provider] -
[2022-12-15 09:39] LABS: Basophils # (auto) 0.06 K/uL (0.00-0.20); Basophils % (auto) 0.8 %; Eosinophils % (auto) 2.6 %; Hematocrit (blood only) 40.9 % (37.0-47.0); Hemoglobin 13.4 g/dl (12.0-16.0); Immature Granulocytes # (auto) 0.02 K/uL (0.01-0.20); Immature Granulocytes % (auto) 0.3 %; Lymphocytes # (auto) 2.12 K/uL (1.20-3.40); Lymphocytes % (auto) 27.4 %; Mean Corpuscular Hemoglobin 30.2 pg (25.0-34.0); Mean Corpuscular Hgb Conc 32.8 g/dL (32.0-36.0); Mean Corpuscular Volume 92.1 fL (80.0-100.0); Mean Platelet Volume 10.4 fL (9.4-12.4); Monocytes # (auto) 1.04 K/uL (0.11-0.59); Monocytes % (auto) 13.4 %; Neutrophils # (auto) 4.31 K/uL (1.40-6.50); Neutrophils % (auto) 55.5 %; Platelet Count 279 K/uL (130-400); RDW Coefficient of Variation 14.2 % (11.5-14.5); Red Blood Count 4.44 M/uL (4.20-5.40); White Blood Count 7.75 K/ul (4.8-10.8)
--- NOTE | 2022-12-15 09:56 | XRay Report ---
XR chest 1V portable HISTORY: 62 years-old Female Chest pain, nonspecific COMPARISON: 07/29/2022 TECHNIQUE: AP view of the chest FINDINGS: Cardiac silhouette is enlarged. Mild right hemidiaphragm elevation. Subsegmental bibasilar atelectasi s. No pneumothorax, large pleural effusion or overt pulmonary edema. Degenerative changes of the shou lders and spine. IMPRESSION: No acute process. ACT 112: Negative or not required by law. The above report was generated using voice recognition software. It may contain grammatical, syntax o r spelling errors. Electronically signed by: Ciro Graham M.D. 12/15/2022 9:54 AM
[2022-12-15 09:59] LABS: Alanine Aminotransferase 16 U/L (7-52); Albumin Globulin Ratio 1.7 (0.9-2); Albumin Level 4.5 gm/dl (3.4-5.0); Alkaline Phosphatase 84 U/L (34-104); Anion Gap 9 (3-11); Aspartate Aminotransferase 19 U/L (13-39); BUN Creatinine Ratio 17.8 (10-20); Bilirubin,Total 0.9 mg/dl (0.2-1.0); Blood Urea Nitrogen 16 mg/dl (6-23); Calcium 10.1 mg/dl (8.6-10.3); Carbon Dioxide 30 mmol/L (21-32); Chloride 102 mmol/L (98-107); Globulin 2.7 gm/dl (2.5-4.0); Glucose 134 mg/dl (70-99(Fasting)); Lipase 28 U/L (11-82); Potassium 3.7 mmol/L (3.5-5.1); Sodium 141 mmol/L (136-145); Total Protein 7.2 gm/dl (6.0-8.3)
[2022-12-15 10:05] LABS: Troponin I High Sensitivity 16.2 pg/ml (0-14)
[2022-12-15 10:06] LABS: Prothrombin Time 10.6 Seconds (9.0-12.0)
[2022-12-15 10:08] LABS: D Dimer 670 ug/L FEU (0-500)
[2022-12-15] MEDS ORDERED: IOVERSOL 350 MG 125mL Prefilled Syringe IV ONE (10:30)
--- NOTE | 2022-12-15 11:02 | CT Scan Report ---
CT angio chest PE protocol CT DOSE: 800.82 mGy.cm HISTORY: 62 years-old Female with PE. Acute shortness of breath with chest pain TECHNIQUE: Multiple CTA images of the chest were obtained after the intravenous administration of 120 ml Optiray. Coronal and sagittal MIPS were obtained from the axial data set and were submitted for review. All measurements were obtained according to NASCET criteria. A dose lowering technique was u tilized adhering to the principles of ALARA. COMPARISON: Chest radiograph of same day, CTA chest 09/09/2020 FINDINGS: CTA: Moderate cardiomegaly. Unremarkable thoracic aorta. No pulmonary emboli identified. Limited images ae ration of the subsegmental branches secondary to respiratory motion. CT CHEST: Thyroid goiter with nodule measuring up to 3.4 cm on the right. No lymphadenopathy. No pneumothorax, pleural effusion or overt pulmonary edema. Ill-defined bilateral groundglass densities with linear co nsolidation and air trapping. No lobar airspace consolidation, suspicious pulmonary nodules or masses . Central airways are patent. Cholecystectomy. 10 mm peripherally calcified splenic artery aneurysm. Unremarkable soft tissues. No acute fracture. IMPRESSION: 1. Cardiomegaly without pulmonary emboli identified. 2. Mild patchy bilateral groundglass densities with mosaic attenuation suggestive of atelectasis with air trapping. 3. No lymphadenopathy. 4. Cholecystectomy. ACT 112: Negative or not required by law. The above report was generated using voice recognition software. It may contain grammatical, syntax o r spelling errors. Electronically signed by: Ciro Graham M.D. 12/15/2022 11:00 AM
[2022-12-15] MEDS ORDERED: NITROGLYCERIN SL 0.4 MG/TAB TAB SL STA (14:10)
--- NOTE | 2022-12-15 14:16 | History & Physical Report ---
Date of Service December 15, 2022 Assessment & Plan (1) Chest pain: (2) Non-sustained ventricular tachycardia: (3) Graves disease: (4) LBBB (left bundle branch block): (5) DM type 2 (diabetes mellitus, type 2): (6) Chronic steroid use: Plan This is a 62-year-old female who has a significant past medical history of T2DM, HTN, HLD, LBBB, renal artery aneurysm, splenic artery aneurysm, hx of drug- induced torsades status post knee surgery, thyroiditis, GERD, autoimmune hepati tis, VYAS, history of drug-induced osteonecrosis of the jaw, dermatomyositis, chronic systemic steroids who presents ED secondary to chest pain x 5 days. Chest Pain Non-Sustained VTACH Chronic LBBB hx of Torsades 2/2 left knee surgery anesthetic Admit to PCU Consult cardiology -discussed case with Dr. Stone given pt had a symptomatic episode of NSVT with lightheaded and dizziness @ 1453. Further reports another episode while going to [place] @ 14:18 noted on rhythm strip Pt had 3 trops thus far unchanged recent heart cath 07/2022 with normal coronary arteries Cardiac MRI done 11/[address] Montoya - Dr. Stone will coordinate with her regarding possible defib will replete K and Mag to keep > 4.0 and 2.0 respectively obtain TSH levels - pt has graves disease dx in 2020 and has been having very freq med adjustments due to instability of thyroid levels, CT scan notes 3.4CM goiter Rlobe daily ecg echocardiogram will repeat trop, obtain CBC, CMP, Mag, a1c, lipid panel in a.m. will obtain CT a/p as on exam pt is tender to touch LUQ and given report of diarrea will w/o colitis Graves disease pt follows Endo at [place] but has not formally seen a provider has had freq dose adjustments of methimazole she does need to establish with Endo either locally or obtain appt at [facility] T2DM last a1c 7.7 in 09/2022 hold metformin lantus/novolog per protocol L splenic artery aneurysm-surveillance and stable, 1cm L main renal artery aneurysm -surveillance and stable, 1.37cm Dermatomyositis - no acute exac, continue daily methylprednisolone, follows Dr. 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 Clement, please see addendum A total of 120 was spent coordinating, documenting, and providing care for this patient excluding time spent in the performance of separately billed services. This included personally viewing all current laboratories and imaging studies, medication reconciliation, outpatient chart review, and discussion with specialists. History of Present Illness Chief Complaint: L sided chest pain x 5 days. Primary Care Provider: Eddie Man MD This is a 62-year-old female who has a significant past medical history of T2DM, HTN, HLD, mildly, LBBB, renal artery aneurysm, splenic artery aneurysm, hx of drug-induced torsades status post knee surgery, thyroiditis, GERD, autoimmune hepatitis, VYAS, history of drug-induced osteonecrosis of the jaw, dermatomyositis, new granulomatous disease, chronic systemic steroids who presents ED secondary to chest pain x 5 days. She states last Monday she felt unwell and had some diarrhea. On Monday and Monday she was very fatigued and slept a lot of the day and complained of this left-sided chest pain that radiated to her left arm and shoulder and underneath her left breast. The pain was constant and has progressively gotten worse since the weekend. She describes pain as an ache but has had episodes of sharp shooting pain. This pain is not associated with diaphoresis, lightheadedness, dizziness or shortness of breath. She has experienced intermittent nausea. She does have history of acid reflux due to being on high doses of prednisone and does not feel this is similar. She has never had anything like this before. Symptoms are not made worse with movement, deep breathing or exertion. She has not tried anything at home to help symptoms. She did have 1 nitroglycerin in ED which did not help her symptoms but gave her headache. She denies any other recent illness. She does explain an episode yesterday that occurred where she got very hot and sweaty and flushed requiring her to sit down. She also experienced some lightheadedness and dizziness. The symptoms resolved on their own. During our evaluation at approximately 1453 patient experience similar episode of lightheadedness and dizziness and noted on the monitor was a short run of V. tach she denies any fever, chills, sweats, hemoptysis, cough, URI symptoms, vomiting, diarrhea, melena, hematochezia, dysuria or increased urgency or frequency with urination. Patient was hospitalized in July secondary to chest pain. She had a similar troponin profile and underwent cardiac testing and eventual cardiac catheterization which was negative for obstruction. She also recently underwent cardiac MRI on 11/08/2022 which revealed normal LV function, LV cavity size with mildly enlarged, LV thickness is mildly increased, resting perfusion imaging is normal, atypical mid wall enhancement noted in septal segments, findings of dilated cardiomyopathy with minimal scarring, LVEF 55%, no myocardial infarction noted on imaging. She does follow with EP Dr. Montoya 2/ palpitations, LBBB, hx of Torsades. Allergies Allergy/AdvReac Type Severity Reaction Status Date / Time No Known Allergies Allergy Verified 07/29/22 18:24 Home Medications Medication Instructions Recorded Confirmed Type atorvastatin 40 mg tablet (Lipitor) 40 mg PO QAM 08/15/19 12/15/22 History calcium carbonate 500 mg-vitamin 2 tab PO QAM 08/15/19 12/15/22 History D3 5 mcg (200 unit) tablet (Calcium 500 + D) cyanocobalamin (vitamin B-12) 1,000 mcg PO HS 08/15/19 12/15/22 History 1,000 mcg tablet (Vitamin B-12) cyclobenzaprine 5 mg tablet 5 mg PO HS PRN Muscle Spasm 08/15/19 12/15/22 History hydrochlorothiazide 25 mg tablet 25 mg PO QAM 08/15/19 12/15/22 History methylprednisolone 4 mg tablet 4 mg PO QAM 08/15/19 12/15/22 History (Medrol) milk thistle 500 mg capsule 500 mg PO QAM 08/15/19 12/15/22 History pantoprazole 40 mg tablet,delayed 40 mg PO QAM 08/15/19 12/15/22 History release (Protonix) pregabalin 75 mg capsule (Lyrica) See Rx Instructions .Route .COMPLEX 08/15/19 12/15/22 History diclofenac sodium 1 % topical gel 1 g topical QID PRN Pain 06/20/20 12/15/22 History losartan 25 mg tablet 25 mg PO QAM 06/20/20 12/15/22 History metformin 500 mg tablet,extended 1,000 mg PO QAM 06/20/20 12/15/22 History release 24 hr methimazole 10 mg tablet 15 mg PO QAM 07/29/21 12/15/22 History biotin 1,000 mcg chewable tablet 1,000 mcg PO HS 08/02/21 12/15/22 History ferrous sulfate 325 mg (65 mg 325 mg PO Q OTHER DAY 11/03/21 12/15/22 History iron) tablet acetaminophen 500 mg capsule 1,000 mg PO DIRECTED PRN Pain 07/29/22 12/15/22 History erythromycin 5 mg/gram (0.5 %) eye 1 applic ophthalmic (eye) HS 07/29/22 12/15/22 History ointment potassium chloride 20 mEq 20 meq PO QAM 07/29/22 12/15/22 History tablet,extended release(part/cryst) amoxicillin 500 mg tablet 2,000 mg PO DIRECTED PRN 1 HOUR 12/05/22 12/15/22 Rx PRIOR TO DENTAL APPT. #8 tabs Past Med/Surg History Medical History Aftercare following right hip joint replacement surgery Anemia Autoimmune hepatitis Follows with GI (Dr. Rahman) Carotid artery stenosis <50% stenosis to bilateral ICAs per 10/2021 carotid doppler (cardio recommends repeat study in two years) Chronic back pain + LE radiation Chronic steroid use Methylprednisolone 4mg daily Dermatomyositis Follows with rheumatology f/u Dr. Kirk-[facility] Reason for plaquenil/methylprednisolone 4mg daily per pt Diabetic neuropathy DM type 2 (diabetes mellitus, type 2) NIDDM DVT prophylaxis Encounter for pre-operative examination GERD (gastroesophageal reflux disease) Graves disease Last seen by endo 10/20/21- methimazole increased to bring patient into high normal range with TSH; follow up in office in six months History of blood transfusion r/t childbirth History of COVID-19 02/2021 > slight cough, low grade fever, treated with antibodies > resolved History of torsades de pointe due to drug Hyperlipidemia Pt denies, HLD noted per S records Interstitial lung disease IPMN (intraductal papillary mucinous neoplasm) Left bundle branch block Chronic dating back to at least 2017-F/U DR [place] VYAS (nonalcoholic steatohepatitis) Neurogenic claudication due to lumbar spinal stenosis Pancreatic cyst Under observation Panniculitis 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- on chronic steroids*/plaquenil per rheumatology Pulmonary nodules Under surveillance Renal artery aneurysm Under surveillance Splenic artery aneurysm Under surveillance Thymus disorder Recent diagnosis, under surveillance Trigeminal neuralgia Surgical History History of appendectomy History of arthroscopy of left knee History of cholecystectomy History of colonoscopy + polypectomy History of esophagogastroduodenoscopy (EGD) History of hand surgery Granuloma excision (right hand x2) History of hernia repair Left inguinal History of hysterectomy Partial + LSO + with left ovary and salpingectomy History of lumbar spinal fusion History of oophorectomy, unilateral Right History of right hip replacement Right ZULEIKA (06/21/20): Grade view 1, MAC#3, ETT 7.5 at [facility] ("general anesthe tic was implemented at the patient's request" per operative report) History of surgery excisional biopsy left hip mass @ [facility] Dr. Flowers 11/17/21 History of tonsillectomy and adenoidectomy History of total right knee replacement Hx of bilateral cataract extraction Status post right knee replacement Family History Other No family history of adverse response to anesthesia No significant family history Social History Smoking Status: Never smoker Second Hand Exposure: No; Do You Dip or Chew Tobacco: No; Hx Alcohol Use: No Hx Substance Use: No Preferred Language: Tongan Communication Ability: Effective Visual Impairment: No Limitations Warp Dyeing Tender Required: No Beliefs That Will Affect Care: None marital status: Current Living Situation: Spouse current occupational status: disabled Feels Safe at Home: Yes Assistive Devices: None Review of Systems Review of Systems: All systems reviewed & are unremarkable except as noted in HPI & below Physical Exam Physical Exam: Constitutional: WD/WN, vitals as above, NAD, sitting up in bed, pleasant, conversing easily Head: Normocephalic, Atraumatic Eyes: PERRL, conjunctivae normal, anicteric sclerae, exophthalmus ENMT: external ear and nose normal, oropharynx normal Neck: trachea midline, no thyromegaly normal visual inspection Respiratory: normal respiratory effort, lungs clear to auscultation, no wheeze, rales, rhonchi. Normal insp/exp effort, no accessory muscle use Cardiovascular: RRR, no murmur, no edema Vessels: no JVD or carotid bruit Chest: normal inspection of chest Abdomen: normal bowel sounds, soft, +TTP LUQ, no hepatosplenomegaly Musculoskeletal: no cyanosis or clubbing, extremities motor strength 5/5 Skin: no rashes, warm and dry normal turgor Neurologic: PERRL, EOMI, accommodation nl, no face palsy, no dysarthria CN's II-XI intact bilaterally and moves all extremities Psychiatric: A+Ox3, euthymic affect Lymphatic: no cervical or axillary lymphadenopathy : deferred Results & Data Results & Data Vital Signs (Past 12 Hours) Vital Signs Temp Pulse Pulse Resp BP BP Pulse Ox 12/15/22 13:42 71 12/15/22 13:23 66 18 148/79 H 95 12/15/22 11:04 54 L 18 145/66 H 99 12/15/22 10:36 65 11 L 94 12/15/22 10:20 60 14 97 12/15/22 10:10 55 L 18 98 12/15/22 10:00 55 L 17 97 12/15/22 09:50 56 L 14 98 12/15/22 09:40 56 L 18 97 12/15/22 09:33 57 L 21 98 12/15/22 09:36 60 12/15/22 09:26 65 18 185/83 H 96 12/15/22 09:26 97 12/15/22 09:16 36.7 C 62 18 162/93 H 98 O2 Del Method 12/15/22 13:42 12/15/22 13:23 Room Air 12/15/22 11:04 Room Air 12/15/22 10:36 12/15/22 10:20 12/15/22 10:10 12/15/22 10:00 12/15/22 09:50 12/15/22 09:40 12/15/22 09:33 12/15/22 09:36 12/15/22 09:26 Room Air 12/15/22 09:26 Room Air 12/15/22 09:16 Room Air Diagnostic Findings Chest X-Ray 12/15/22 09:19 XR chest 1V portable HISTORY: 62 years-old Female Chest pain, nonspecific COMPARISON: 07/29/2022 TECHNIQUE: AP view of the chest FINDINGS: Cardiac silhouette is enlarged. Mild right hemidiaphragm elevation. Subsegmental bibasilar atelectasis. No pneumothorax, large pleural effusion or overt pulm onary edema. Degenerative changes of the shoulders and spine. IMPRESSION: No acute process. ACT 112: Negative or not required by law. The above report was generated using voice recognition software. It may contain grammatical, syntax or spelling errors. Electronically signed by: Ciro Graham M.D. 12/15/2022 9:54 AM Chest CTA 12/15/22 10:09 CT angio chest PE protocol CT DOSE: 800.82 mGy.cm HISTORY: 62 years-old Female with PE. Acute shortness of breath with chest pain TECHNIQUE: Multiple CTA images of the chest were obtained after the intravenous administration of 120 ml Optiray. Coronal and sagittal MIPS were obtained from the axial data set and were submitted for review. All measurements were obtained according to NASCET criteria. A dose lowering technique was utilized adhering to the principles of ALARA. COMPARISON: Chest radiograph of same day, CTA chest 09/09/2020 FINDINGS: CTA: Moderate cardiomegaly. Unremarkable thoracic aorta. No pulmonary emboli identified. Limited images aeration of the subsegmental branches secondary to respiratory motion. CT CHEST: Thyroid goiter with nodule measuring up to 3.4 cm on the right. No lymphadenopathy. No pneumothorax, pleural effusion or overt pulmonary edema. Ill-defined bilateral groundglass densities with linear consolidation and air trapping. No lobar airspace consolidation, suspicious pulmonary nodules or masses. Central airways are patent. Cholecystectomy. 10 mm peripherally calcified splenic artery aneurysm. Unremarkable soft tissues. No acute fracture. IMPRESSION: 1. Cardiomegaly without pulmonary emboli identified. 2. Mild patchy bilateral groundglass densities with mosaic attenuation suggestive of atelectasis with air trapping. 3. No lymphadenopathy. 4. Cholecystectomy. ACT 112: Negative or not required by law. The above report was generated using voice recognition software. It may contain grammatical, syntax or spelling errors. Electronically signed by: Ciro Graham M.D. 12/15/2022 11:00 AM Medications Administered Medication List Discontinued Medications Ioversol (Ioversol 350 Mg 125ml Prefilled Syringe) 120 ml IV ONCE ONE Stop: 12/15/22 10:31 Last Admin: 12/15/22 10:30 Dose: 120 ml Documented By: LONNIE Nitroglycerin (Nitroglycerin Sl 0.4 Mg/Tab Tab) 0.4 mg SL NOW STA Stop: 12/15/22 14:11 Last Admin: 12/15/22 14:15 Dose: 0.4 mg Documented By: LANIE ECG Rate (beats per minute): 60 Rhythm: normal sinus Findings: + LBBB Comparison ECG Date: from (07/2022) Additional Comments: No change, independently reviewed by me COVID-19 Results Results COVID-19 Adm Lab Results: RBC 3.95 M/uL (4.20-5.40) L 12/16/22 WBC 7.03 K/ul (4.8-10.8) 12/16/22 Hgb 12.5 g/dl (12.0-16.0) 12/16/22 Hct 36.0 % (37.0-47.0) L 12/16/22 Plt Count 222 K/uL (130-400) 12/16/22 Neutrophils (%) (Auto) 64.4 % 12/16/22 Lymphocytes (%) (Auto) 21.6 % 12/16/22 Monocytes # (Auto) 0.70 K/uL (0.11-0.59) H 12/16/22 Eosinophils # (Auto) 0.20 K/uL (0.00-0.50) 12/16/22 Immature Granulocyte % (Auto) 0.3 % 12/16/22 Neutrophils # (Auto) 4.53 K/uL (1.40-6.50) 12/16/22 Lymphocytes # (Auto) 1.52 K/uL (1.20-3.40) 12/16/22 Monocytes # (Auto) 0.70 K/uL (0.11-0.59) H 12/16/22 Eosinophils # (Auto) 0.20 K/uL (0.00-0.50) 12/16/22 Basophils # (Auto) 0.06 K/uL (0.00-0.20) 12/16/22 Immature Granulocyte # (Auto) 0.02 K/uL (0.01-0.20) 3 Na 138 mmol/L (136-145) 12/16/22 K 3.9 mmol/L (3.5-5.1) 12/16/22 Cl 106 mmol/L (98-107) 12/16/22 CO2 28 mmol/L (21-32) 12/16/22 Anion Gap 4 (3-11) 12/16/22 BUN 17 mg/dl (6-23) 12/16/22 Creatinine 0.89 mg/dl (0.6-1.2) 12/16/22 BUN/Creatinine Ratio 19.1 (10-20) 12/16/22 Glucose Level 103 mg/dl (70-99(Fasting)) H 12/16/22 Ca 9.3 mg/dl (8.6-10.3) 12/16/22 Total Bilirubin 0.9 mg/dl (0.2-1.0) 12/16/22 AST/SGOT 16 U/L (13-39) 12/16/22 ALT/SGPT 14 U/L (7-52) 12/16/22 Alkaline Phosphatase 75 U/L (34-104) 12/16/22 Total Protein 6.1 gm/dl (6.0-8.3) 12/16/22 Albumin 3.9 gm/dl (3.4-5.0) 12/16/22 Globulin 2.2 gm/dl (2.5-4.0) L 12/16/22 Albumin/Globulin Ratio 1.8 (0.9-2) 12/16/22 CRP < 0.50 mg/dl (0-0.5) 12/15/22 D-Dimer 670 ug/L FEU (0-500) H* 12/15/22 INR 1.0 (0.9-1.1) 12/15/22 Triglycerides Level 73 mg/dl (0-150) 12/16/22 Chest X-Ray 12/15/22 Code Status & VTE Plan Code Status FULL CODE Supervising Physician Co-Signing Physician Notes Pt seen and examined by myself, Gaviota Clement MD on the day of service. Care was coordinated with Beckie Stewart PA-C. Please refer to her note for additional information. 62yoF who follows with cardiology for persistent palpitations, Hx of torsades, LBBB presenting with chest pain for about 5 days. On exam, her left sided chest pain is reproducible. However, while in the room, pt had a brief run of v tach and stated she felt dizzy. Follows with electrophysiology outpatient, had unremarkable cardiac cath earlier this year and recent cardiac MRI. Cardiology consult placed. Appreciate recs. PCU for further telemetry monitoring. Otherwise as above.
[2022-12-15 15:00] LABS: C Reactive Protein < 0.50 mg/dl (0-0.5)
[2022-12-15] MEDS ORDERED: POTASSIUM CHLORIDE CRTAB 20 MEQ TABCR PO STA (15:11)
[2022-12-15 15:32] LABS: Magnesium 1.8 mg/dl (1.7-2.4)
[2022-12-15] MEDS: MAGNESIUM SULFATE / D5W 1 GM/100 ML BAG IV SCH ×2 (16:08→17:08)
[2022-12-15 16:36] LABS: Thyroid Stimulating Hormone 0.121 uIu/ml (0.300-4.500)
[2022-12-15 17:07] LABS: T4 Free Thyroxine 0.63 ng/dl (0.61-1.60)
--- NOTE | 2022-12-15 17:28 | CT Scan Report ---
CT abd pelvis wo con CLINICAL HISTORY: left upper abd pain TECHNIQUE: Helical axial images of the abdomen and pelvis were obtained. Automated dose lowering tech niques and/or adjustment according to patient size were utilized for this exam. This exam was perfor med without intravenous contrast. CT DOSE: 1211.45 mGy.cm COMPARISON: Comparison is made to CT abdomen pelvis 08/31/2019 FINDINGS: Lower chest: Bibasilar atelectasis versus scarring is seen. Bilateral enlargement is seen. Liver: Unremarkable. No focal lesions are seen. Gallbladder and biliary tree: Patient is status post cholecystectomy. Remnant gallbladder is seen. No intra- or extrahepatic biliary ductal dilation. Pancreas: Unremarkable, no focal lesions. Spleen: Unremarkable. Adrenals: Unremarkable. Kidneys and ureters: Nonobstructive nephrolithiasis is seen. Bladder: Unremarkable. Reproductive organs: Patient is status post hysterectomy. Bowel: Patient is status post appendectomy. Lymph nodes Retroperitoneal: Unremarkable. Pelvic: Unremarkable. Mesenteric: Unremarkable. Peritoneum: Normal. Vessels: Atherosclerotic calcifications are seen. Calcified aneurysm of the left renal artery inciden tally noted as well as a calcified aneurysm of the splenic artery. Abdominal wall: Unremarkable. Bones: Vertebral Arthroplasty and L4-L5 posterior fixation hardware is seen. Extensive degenerative c hanges are seen in the upper lumbar spine. IMPRESSION: No acute abnormalities to explain left upper quadrant pain. ACT 112: Negative or not required by law. Electronically signed by: Ino Lorenz M.D. 12/15/2022 5:27 PM
--- NOTE | 2022-12-15 17:52 | Cardiology Consultation ---
Date of Consultation December 15, 2022 Assessment & Plan (1) Chest pain: -Recommended further observation for the chest discomfort. Although her symptoms are concerning, coronary angiography performed in July of this year was normal with angiographically normal coronary arteries and is reassuring. We will update patient's echocardiogram. (2) Non-sustained ventricular tachycardia: -Patient with underlying left bundle branch block. History of torsades. She debriefed 8 beat run of monomorphic wide-complex tachycardia that could be ventricular in etiology, or due to aberrant conduction. She is not on a beta- wilber due to relative bradycardia at baseline. She has not had hernán syncope. She is no longer on Plaquenil. She has received repletion with potassium and magnesium, with noted levels that were at the lower limits of normal. Case to be reviewed with electrophysiology. Patient has a longstanding history of Graves' disease and is on methimazole with dose recently adjusted in November. TSH remains low at 0.121 micro national units per liter. Free T4 within normal limits. History of Present Illness Attending Physician: Gaviota Clement MD History of Present Illness Maddi Rice is a 62-year-old female seen in cardiology consultation per the request of Beckie Stewart PA-C for the evaluation of chest discomfort and wide-complex tachycardia. Patient has a longstanding history of left bundle branch block. Her recent cardiac work-up dates back to January, when she was witnessed to have an episode of polymorphic ventricular tachycardia shortly after knee replacement surgery with QT prolongation thought to perhaps be related to having received the local anesthetic bupivacaine at that time with noted treatment with Plaquenil as well. EKG revealed left bundle branch block with QRS duration of just over 160 ms. Echocardiogram revealed abnormal septal motion consistent with left bundle branch block, and low normal LVEF in the range of 50-55%. In July, she presented with chest discomfort and a mild elevation in troponin. Angiographically normal coronary arteries were noted at that time. Outpatient work-up has included an electrophysiology evaluation. Genetic testing revealed 2 genes with variants of unknown significance ABCC9 can be associated with dilated cardiomyopathy, Brugada syndrome, and atrial fibrillation. GAA can be associated glycogen storage disease and Pompeii disease. Cardiac MRI performed as an outpatient 11/08/2022 revealed atypical mid wall enhancement in the septal segment on the late gadolinium enhanced images. The right ventricular ejection fraction was normal at 54% the left ventricular ejection fraction was normal at 56%. Today the patient presents with several days of waxing and waning chest discomfort initially under her left breast. She became concerned when she had a pain that radiated down her left arm. 3 high sensitive troponin measurements have been obtained that have been mildly elevated at 16.2, 18.9, and 18.4 (normal range 0-14 PG per mL). These measurements are similar to those observed at the time of her admission when cardiac catheterization was performed in July,. At the time of her admission examination she had a momentary episode of subjective palpitation and lightheadedness while in bed that was correlated with an 8 beat run of wide-complex tachycardia with a rate of 200 bpm consistent with nonsustained ventricular tachycardia. The patient and an additional brief episode of tachycardia but this seems to perhaps be a sinus tachycardia in the setting of left bundle branch block and occurred with aerobic exertion. Allergies Allergy/AdvReac Type Severity Reaction Status Date / Time No Known Allergies Allergy Verified 07/29/22 18:24 Home Medications Medication Instructions Recorded Confirmed Type atorvastatin 40 mg tablet (Lipitor) 40 mg PO QAM 08/15/19 12/15/22 History calcium carbonate 500 mg-vitamin 2 tab PO QAM 08/15/19 12/15/22 History D3 5 mcg (200 unit) tablet (Calcium 500 + D) cyanocobalamin (vitamin B-12) 1,000 mcg PO HS 08/15/19 12/15/22 History 1,000 mcg tablet (Vitamin B-12) cyclobenzaprine 5 mg tablet 5 mg PO HS PRN Muscle Spasm 08/15/19 12/15/22 History hydrochlorothiazide 25 mg tablet 25 mg PO QAM 08/15/19 12/15/22 History methylprednisolone 4 mg tablet 4 mg PO QAM 08/15/19 12/15/22 History (Medrol) milk thistle 500 mg capsule 500 mg PO QAM 08/15/19 12/15/22 History pantoprazole 40 mg tablet,delayed 40 mg PO QAM 08/15/19 12/15/22 History release (Protonix) pregabalin 75 mg capsule (Lyrica) See Rx Instructions .Route .COMPLEX 08/15/19 12/15/22 History diclofenac sodium 1 % topical gel 1 g topical QID PRN Pain 06/20/20 12/15/22 History losartan 25 mg tablet 25 mg PO QAM 06/20/20 12/15/22 History metformin 500 mg tablet,extended 1,000 mg PO QAM 06/20/20 12/15/22 History release 24 hr methimazole 10 mg tablet 15 mg PO QAM 07/29/21 12/15/22 History biotin 1,000 mcg chewable tablet 1,000 mcg PO HS 08/02/21 12/15/22 History ferrous sulfate 325 mg (65 mg 325 mg PO Q OTHER DAY 11/03/21 12/15/22 History iron) tablet acetaminophen 500 mg capsule 1,000 mg PO DIRECTED PRN Pain 07/29/22 12/15/22 History erythromycin 5 mg/gram (0.5 %) eye 1 applic ophthalmic (eye) HS 07/29/22 12/15/22 History ointment potassium chloride 20 mEq 20 meq PO QAM 07/29/22 12/15/22 History tablet,extended release(part/cryst) amoxicillin 500 mg tablet 2,000 mg PO DIRECTED PRN 1 HOUR 12/05/22 12/15/22 Rx PRIOR TO DENTAL APPT. #8 tabs Patient History Medical History Aftercare following right hip joint replacement surgery Anemia Autoimmune hepatitis Follows with GI (Dr. Rahman) Carotid artery stenosis <50% stenosis to bilateral ICAs per 10/2021 carotid doppler (cardio recommends repeat study in two years) Chronic back pain + LE radiation Chronic steroid use Methylprednisolone 4mg daily Dermatomyositis Follows with rheumatology f/u Dr. 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 Hyperlipidemia Pt denies, HLD noted per [facility] records Interstitial lung disease IPMN (intraductal papillary mucinous neoplasm) Left bundle branch block Chronic dating back to at least 2016-F/U DR [place] VYAS (nonalcoholic steatohepatitis) Neurogenic claudication due to lumbar spinal stenosis Pancreatic cyst Under observation Panniculitis 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- on chronic steroids*/plaquenil per rheumatology Pulmonary nodules Under surveillance Renal artery aneurysm Under surveillance Splenic artery aneurysm Under surveillance Thymus disorder Recent diagnosis, under surveillance Trigeminal neuralgia Surgical History History of appendectomy History of arthroscopy of left knee History of cholecystectomy History of colonoscopy + polypectomy History of esophagogastroduodenoscopy (EGD) History of hand surgery Granuloma excision (right hand x2) History of hernia repair Left inguinal History of hysterectomy Partial + LSO + with left ovary and salpingectomy History of lumbar spinal fusion History of oophorectomy, unilateral Right History of right hip replacement Right ZULEIKA (06/21/20): Grade view 1, MAC#3, ETT 7.5 at [facility] ("general anesthetic was implemented at the patient's request" per operative report) History of surgery excisional biopsy left hip mass @ [facility] Dr. Flowers 11/17/21 History of tonsillectomy and adenoidectomy History of total right knee replacement Hx of bilateral cataract extraction Status post right knee replacement Family History Other No family history of adverse response to anesthesia No significant family history Social History Smoking Status: Never smoker Second Hand Exposure: No; Do You Dip or Chew Tobacco: No; Hx Alcohol Use: No Hx Substance Use: No Preferred Language: [place] Communication Ability: Effective Visual Impairment: No Limitations Recreation Professor Required: No Beliefs That Will Affect Care: None marital status: Current Living Situation: Spouse current occupational status: disabled Feels Safe at Home: Yes Assistive Devices: None Review of Systems Review of Systems: All systems reviewed & are unremarkable except as noted in HPI & below Physical Exam Constitutional: WD/WN, vitals as above Respiratory: normal respiratory effort, lungs clear to auscultation Cardiovascular: RRR, no murmur, no edema Gastrointestinal (Abdomen): normal bowel sounds, soft, nontender, no hepatosplenomegaly Neurologic: PERRL, EOMI, accommodation nl, no face palsy, no dysarthria Results & Data Vital Signs (Past 12 Hours) Vital Signs Temp Pulse Pulse Resp BP BP Pulse Ox 12/15/22 16:32 55 L 19 151/75 H 95 12/15/22 14:57 62 12/15/22 15:18 72 18 143/78 H 99 12/15/22 15:05 62 18 137/71 99 12/15/22 13:42 71 12/15/22 13:23 66 18 148/79 H 95 12/15/22 11:04 54 L 18 145/66 H 99 12/15/22 10:36 65 11 L 94 12/15/22 10:20 60 14 97 12/15/22 10:10 55 L 18 98 12/15/22 10:00 55 L 17 97 12/15/22 09:50 56 L 14 98 12/15/22 09:40 56 L 18 97 12/15/22 09:33 57 L 21 98 12/15/22 09:36 60 12/15/22 09:26 65 18 185/83 H 96 12/15/22 09:26 97 12/15/22 09:16 36.7 C 62 18 162/93 H 98 O2 Del Method 12/15/22 16:32 Room Air 12/15/22 14:57 12/15/22 15:18 Room Air 12/15/22 15:05 Room Air 12/15/22 13:42 12/15/22 13:23 Room Air 12/15/22 11:04 Room Air 12/15/22 10:36 12/15/22 10:20 12/15/22 10:10 12/15/22 10:00 12/15/22 09:50 12/15/22 09:40 12/15/22 09:33 12/15/22 09:36 12/15/22 09:26 Room Air 12/15/22 09:26 Room Air 12/15/22 09:16 Room Air Diagnostic Findings EKG reveals sinus rhythm at 60 bpm with left bundle branch block, QRS duration 146 ms, corrected QT interval 456 ms. A Zio patch monitor was worn as an outpatient for 13 days, 23 hours. Predominant rhythm was sinus rhythm with left bundle branch block, with average rate of 66 bpm. It was noted that QRS morphology changes were observed throughout the recording. 14 episodes of supraventricular tachycardia were observed, some of which correlated with subjective symptoms. An episode of Mobitz type II second-degree AV block was observed that lasted a total of 2 seconds that occurred at 7:31 PM and was not associated with symptoms.
[2022-12-15] MEDS ORDERED: POLYETHYLENE (MIRALAX) 17 GM PACK PO PRN (17:57)
[2022-12-15] MEDS ORDERED: DEXTROSE 50% 50 ML SYRINGE IV PRN (17:57)
[2022-12-15] MEDS ORDERED: GLUCOSE 10 TAB/TUBE PO PRN (17:57)
[2022-12-15] MEDS ORDERED: MAGNESIUM HYDROXIDE SUSP 30 ML UDC PO PRN (17:57)
[2022-12-15] MEDS ORDERED: GLUCAGON FOR INJ 1 MG VIAL SQ PRN (17:57)
[2022-12-15] MEDS ORDERED: GLUCOSE 40% GEL 15 GM TUBE PO PRN (17:57)
[2022-12-15] MEDS ORDERED: ALUMINUM/MAGNESIUM SUSP 30 ML UDC PO PRN (17:57)
[2022-12-15] MEDS ORDERED: CARBOHYDRATES FOR HYPOGLYCEMIA PO PRN (17:57)
--- NOTE | 2022-12-15 18:58 | Electrocardiogram Report ---
Test Reason : Blood Pressure : / mmHG Vent. Rate : 060 BPM Atrial Rate : 060 BPM P-R Int : 176 ms QRS Dur : 146 ms QT Int : 456 ms P-R-T Axes : 057 -42 110 degrees QTc Int : 456 ms Normal sinus rhythm Left axis deviation Left bundle branch block Abnormal ECG When compared with ECG of 30-JUL-2022 05:35, No significant change was found Confirmed by Bartolo Pimentel ([id number]) on 12/15/2022 6:57:43 PM Referred By: Eddie Man Confirmed By:Jeffrey Pimentel
[2022-12-15] MEDS: INSULIN ASPART PER UNIT CHARGE SC SCH (19:00)
[2022-12-15] MEDS: PREGABALIN 75 MG CAP PO SCH (21:02)
[2022-12-15] MEDS: CYANOCOBALAMIN (B-12) 500 MCG TABLET PO SCH (21:03)
[2022-12-15] MEDS: ERYTHROMYCIN OP OINT 5 MG/GM 3.5 GM TUBE OP SCH (21:05)
[2022-12-15] MEDS: LANTUS PER UNIT CHARGE SQ SCH (21:06)
[2022-12-15] MEDS: ACETAMINOPHEN 325 MG TAB PO PRN (23:49)
[2022-12-16 05:15] LABS: Basophils # (auto) 0.06 K/uL (0.00-0.20); Basophils % (auto) 0.9 %; Eosinophils % (auto) 2.8 %; Hemoglobin 12.5 g/dl (12.0-16.0); Immature Granulocytes # (auto) 0.02 K/uL (0.01-0.20); Immature Granulocytes % (auto) 0.3 %; Lymphocytes # (auto) 1.52 K/uL (1.20-3.40); Lymphocytes % (auto) 21.6 %; Mean Corpuscular Hemoglobin 31.6 pg (25.0-34.0); Mean Corpuscular Hgb Conc 34.7 g/dL (32.0-36.0); Mean Corpuscular Volume 91.1 fL (80.0-100.0); Mean Platelet Volume 10.8 fL (9.4-12.4); Neutrophils # (auto) 4.53 K/uL (1.40-6.50); Neutrophils % (auto) 64.4 %; Platelet Count 222 K/uL (130-400); RDW Coefficient of Variation 14.1 % (11.5-14.5); RDW Standard Deviation 47.6 fL (36.4-46.3); Red Blood Count 3.95 M/uL (4.20-5.40); White Blood Count 7.03 K/ul (4.8-10.8)
[2022-12-16 05:32] LABS: Albumin Globulin Ratio 1.8 (0.9-2); Albumin Level 3.9 gm/dl (3.4-5.0); BUN Creatinine Ratio 19.1 (10-20); Bilirubin,Total 0.9 mg/dl (0.2-1.0); Calcium 9.3 mg/dl (8.6-10.3); Chol HDL Ratio 2.4 (0-5); Creatinine Clr Calc Pharmacy 64.7 ml/min; Est GFR (African American) 81.1 ml/min; Globulin 2.2 gm/dl (2.5-4.0); Magnesium 2.2 mg/dl (1.7-2.4); Potassium 3.9 mmol/L (3.5-5.1); Total Protein 6.1 gm/dl (6.0-8.3)
[2022-12-16] MEDS: INSULIN ASPART PER UNIT CHARGE SC SCH ×5 (07:11→20:45)
[2022-12-16 08:13] LABS: Estimated Average Glucose 160 mg/dl; Hemoglobin A1C 7.2 % (4.5-5.6)
[2022-12-16] MEDS: POTASSIUM CHLORIDE CRTAB 20 MEQ TABCR PO SCH (08:34)
[2022-12-16] MEDS: methylPREDNISolone 4 MG TAB PO SCH (08:34)
[2022-12-16] MEDS: LOSARTAN POTASSIUM 25 MG TAB PO SCH (08:34)
[2022-12-16] MEDS: ENOXAPARIN INJ 40 MG/0.4 ML SYR SQ SCH (08:34)
[2022-12-16] MEDS: ATORVASTATIN 40 MG TAB PO SCH (08:35)
[2022-12-16] MEDS: hydroCHLOROthiazide 25 MG TAB PO SCH (08:35)
[2022-12-16] MEDS: PANTOprazole 40 MG TAB PO SCH (08:35)
[2022-12-16] MEDS: methIMAzole 5 MG TABLET PO SCH (08:35)
[2022-12-16] MEDS: CALCIUM 600MG + VIT D 400 IU TAB PO SCH (08:35)
[2022-12-16] MEDS: FERROUS SULFATE 325 MG TAB PO SCH (08:35)
[2022-12-16] MEDS: PREGABALIN 75 MG CAP PO SCH (08:39)
[2022-12-16] MEDS ORDERED: PREGABALIN 150 MG CAP PO SCH (09:00)
[2022-12-16 10:04] LABS: Troponin I High Sensitivity 16.6 pg/ml (0-14)
--- NOTE | 2022-12-16 10:49 | Cardiology Progress Note ---
Date of Service December 16, 2022 Assessment & Plan (1) Chest pain: (2) Non-sustained ventricular tachycardia: (3) LBBB (left bundle branch block): (4) Dermatomyositis: Plan: 62-year-old female with a longstanding history of dermatomyositis and left bundle branch block with QRS duration ranging from 140 ms to 160 ms depending upon EKG tracing. On 02/02/2022 she had undergone left knee replacement. Surgery was performed with local anesthetic with additional bupivacaine administered just prior to completion of the procedure. Once the tourniquet was removed the patient was observed to have a deterioration in her cardiac rhythm with increasing ventricular ectopy, bigeminy, and ultimately pulseless polymorphic wide-complex tachycardia. CPR was initiated with spontaneous recovery of pulse and rhythm. No countershock was administered. Postoperative EKG revealed chronic left bundle branch block with corrected QT interval of 550 ms. The patient's Plaquenil was discontinued at that time and she remains on chronic corticosteroid therapy with methylprednisolone 4 mg daily for treatment of her dermatomyositis. She was also on methimazole for treatment of Graves' disease with ongoing hyperthyroidism, dose recently adjusted November,. The patient has a longstanding history of chest discomfort. Had undergone previous cardiac CT in 2020 that was normal. In July, she presented with chest discomfort and a minimal elevation in her high-sensitivity troponin. Cardiac catheterization took place with angiographically normal coronary arteries. Noted family history of sudden cardiac with father having had a prior history of TIA events, no known cardiac disease, and in his sleep at the age of 65. The patient's brother has a history of multiple loss of consciousness episodes underwent a pacemaker, but subsequent was found to have a brain problem underwent temporal lobectomy. Outpatient work-up has included an electrophysiology evaluation. Genetic testing revealed 2 genes with variants of unknown significance ABCC9 can be associated with dilated cardiomyopathy, Brugada syndrome, and atrial fibrillation. GAA can be associated glycogen storage disease and Pompeii disease. Cardiac MRI performed as an outpatient 11/08/2022 revealed atypical mid wall enhancement in the septal segment on the late gadolinium enhanced images. The right ventricular ejection fraction was normal at 54% the left ventricular ejection fraction was normal at 56%. -Although patient presented for evaluation of chest discomfort, her work-up at this point I feel is reassuring with stable findings on repeat echocardiography this admission. In a. Minimal elevation in her HS troponin with flat trend, and similar levels compared to that which prompted cardiac catheterization July,. I think the likelihood of her chest symptoms being due to coronary disease is low. -The typical cardiac manifestation of dermatomyositis is progressive bradycardia arrhythmias. The patient did undergo a previous Zio patch monitor as an outpat ient that revealed a transient episode of Mobitz type II second-degree AV block that lasted 2 seconds (Aug, 2022). -While the patient was in the emergency department yesterday an 8 beat run of wide-complex tachycardia with rate of around 200 bpm was observed. At the time of the event the patient was being examined by the admitting team, and noted a transient sensation of lightheadedness. She has had no documented syncopal episodes with the exception of that which occurred in the setting of her knee surgery. Case discussed with Dr Montoya who has been following her from an electrophysiology standpoint. The appearance of her echocardiogram and cardiac MRI raise concerns of a possible variant of hypertrophic cardiomyopathy. There are case reports of ventricular tachycardia in the setting of dermatomyositis and myocarditis. I question if the abnormal gadolinium uptake in the interventricular septum is suggestive of an old nidus of inflammation. The patient's baseline heart rate in the 60s, it is difficult to add beta- wilber therapy. Given the patient's family history, I have concerns with regards to the patient's potential risk for sudden cardiac despite her normal ejection fraction. Considerations include an implantable loop recorder to monitor the frequency and duration of events with not nonsustained ventricular tachycardia episodes observed at the time of her Zio patch in August. Other considerations include AICD with pacemaker capability to allow for the additional of a beta wilber. Patient to remain in hospital for further observation. If she has additional arrhythmias on telemetry, the next step may be more clear. Admission and Anticipated Discharge Date Admission Date: December 15, 2022 Subjective Patient seen in cardiology follow-up. She remained in the emergency department, room B8, as a telemetry overflow patient last night. She is accompanied by her , Geronimo. She still has vague chest discomfort at rest that does not sound characteristic of angina. No more discomfort rating down her left arm. She denies any additional subjective palpitations or lightheadedness. Telemetry reveals sinus rhythm with left bundle branch block in the 60s. Review of Systems Review of Systems: All systems reviewed & are unremarkable except as noted in HPI & below Physical Exam Physical Exam: Temp Pulse Resp BP Pulse Ox O2 Del Method 36.6 C 56 L 20 170/71 H 100 Room Air 12/16/22 07:18 12/16/22 08:31 12/16/22 08:31 12/16/22 08:31 12/16/22 08:31 12/16/22 08:31 Constitutional: WD/WN, vitals as above Respiratory: normal respiratory effort, lungs clear to auscultation Cardiovascular: RRR, no murmur, no edema Gastrointestinal (Abdomen): normal bowel sounds, soft, nontender, no hepatosplenomegaly Neurologic: PERRL, EOMI, accommodation nl, no face palsy, no dysarthria Results & Data Laboratory Results Cardiac Enzymes 12/15/22 12/15/22 12/15/22 Range/Units 11:26 13:18 19:09 AST (13-39) U/L Troponin I High Sens 18.9 H 18.4 H 15.8 H (0-14) pg/ml 12/16/22 Range/Units 04:44 AST 16 (13-39) U/L Troponin I High Sens 16.6 H (0-14) pg/ml Lipids 12/16/22 Range/Units 04:44 Triglycerides 73 (0-150) mg/dl Cholesterol 144 (0-200) mg/dl HDL Cholesterol 60 mg/dl Cholesterol/HDL Ratio 2.4 (0-5) CBC 12/16/22 Range/Units 04:44 WBC 7.03 (4.8-10.8) K/ul RBC 3.95 L (4.20-5.40) M/uL Hgb 12.5 (12.0-16.0) g/dl Hct 36.0 L (37.0-47.0) % Plt Count 222 (130-400) K/uL Neut # (Auto) 4.53 (1.40-6.50) K/uL Lymph # (Auto) 1.52 (1.20-3.40) K/uL [place] # (Auto) 0.70 H (0.11-0.59) K/uL Eos # (Auto) 0.20 (0.00-0.50) K/uL Baso # (Auto) 0.06 (0.00-0.20) K/uL Comprehensive Metabolic Panel 12/16/22 Range/Units 04:44 Sodium 138 (136-145) mmol/L Potassium 3.9 (3.5-5.1) mmol/L Chloride 106 (98-107) mmol/L Carbon Dioxide 28 (21-32) mmol/L BUN 17 (6-23) mg/dl Creatinine 0.89 (0.6-1.2) mg/dl Glucose 103 H (70-99(Fasting)) mg/dl Calcium 9.3 (8.6-10.3) mg/dl AST 16 (13-39) U/L ALT 14 (7-52) U/L Alkaline Phosphatase 75 (34-104) U/L Total Protein 6.1 (6.0-8.3) gm/dl Albumin 3.9 (3.4-5.0) gm/dl Intake and Output 12/15/22 12/16/22 12/16/22 22:59 06:59 14:59 Intake Total 320 / 320 0 / 320 Balance 320 / 320 0 / 320 Intake: IV 200 / 200 Magnesium Sulfate / D5w 1 gm In 200 / 200 100 ml @ 50 mls/hr IV Q2H [facility] Rx#:[id number] Oral 120 / 120 0 / 120 Other: Weight 75.7 kg Weight Measurement Method Built in [facility] Patient Weight 12/17/22 06:59 Weight 75.7 kg Diagnostic Findings EKG performed 12/15/2022 at 9:23 AM and interpreted independently: Sinus rhythm at 60 bpm with left bundle branch block, QRS duration 146 ms, corrected QT interval 556 ms. Echocardiogram performed today 12/16/2022 and interpreted independently: There is moderate to severe concentric left ventricular hypertrophy with mild asymmetric thickening of the nasal septum. The septal wall motion is consistent with left bundle branch block, otherwise no regional wall motion abnormalities, LVEF 50- 55%, moderate aortic valve sclerosis without stenosis. Study unchanged compared to the previous in July,. Summary of cardiac MRI performed 11/08/2022 within the [employer] system: The left ventricular systolic function is normal. The left ventricular cavity size is mildly enlarged.The LV wall thickness is mildly increased.The left ventricular wall motion is normal. Rest perfusion imaging is normal. Atypical midwall enhancement noted in septal segment(s) on late gadolinium enhanced imaging. Findings of dilated cardiomyopathy with mid wall scarring. The calculated RV ejection fraction is 54%. The calculated LV ejection fraction is 56%. There is no myocardial infarction noted on late gadolinium enhanced imaging. All the myocardial segments are viable.
--- NOTE | 2022-12-16 13:41 | Hospitalist Progress Note ---
Date of Service December 16, 2022 Assessment & Plan (1) Chest pain: (2) Non-sustained ventricular tachycardia: (3) Graves disease: (4) LBBB (left bundle branch block): (5) DM type 2 (diabetes mellitus, type 2): (6) Chronic steroid use: Plan 62-year-old female who has a significant past medical history of T2DM, HTN, HLD, LBBB, renal artery aneurysm, splenic artery aneurysm, hx of drug-induced torsades status post knee surgery, thyroiditis, GERD, autoimmune hepatitis, VYAS, history of drug-induced osteonecrosis of the jaw, dermatomyositis, chronic systemic steroids who presents ED 12/15 secondary to chest pain x 5 days. She is being managed for the following: Chest Pain Non-Sustained VTACH Chronic LBBB hx of Torsades 2/2 left knee surgery anesthetic Pt had a symptomatic episode of NSVT with lightheaded and dizziness @ 1453 on 12/15. Further reports another episode while going to [place] @ 14:18 noted on rhythm strip. Recent heart cath 07/2022 with normal coronary arteries. Cardiac MRI done 11/2022, follows w/ Dr. Montoya. Trops flat trend below 20. EKG w/ sinus francia and LBBB. ECHO w/ EF of 50-55%, LV systolic fxn nl, mod to severe LVH w/ mild asymmetric thickening of the basilar septum. Monitor and replete K and Mag to keep > 4.0 and 2.0 respectively Cardiology on board, continue telemetry monitoring, further plan to be decided. Graves disease pt follows Endo at [place] but has not formally seen a provider has had freq dose adjustments of methimazole. Free T4 WNL. she does need to establish with Endo either locally or obtain appt [place] [facility] notes 3.4 CM goiter R lobe, follow-up with PCP for USG thyroid, FNAB and referral to ENT. Re-establish and f/u w/ ENDO on DC. T2DM last a1c 7.7 in 09/2022 hold metformin lantus/novolog per protocol L splenic artery aneurysm-surveillance and stable, 1cm L main renal artery aneurysm -surveillance and stable, 1.37cm Dermatomyositis - no acute exac, continue daily methylprednisolone, follows Dr. 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 Patient was lying in bed comfortably, not in acute distress, denies any further chest pain. On room air. She denies any headache or dizziness or fever or flulike illness recently. Physical Exam Physical Exam: GENERAL: Alert and oriented x3. NAD, on RA. HEENT: No pallor, no icterus. Pupils equal, round and reactive to light. Oral mucosa moist. NECK: No JVD, no neck masses. HEART: S1 and S2 heard. Regular rate and rhythm. No murmur, no gallop. RESPIRATORY SYSTEM: Normal AP diameter. No accessory muscle use. No wheezing, no crackles. ABDOMEN: Soft, bowel sounds present, nontender, no distention. CENTRAL NERVOUS SYSTEM: No facial droop. Speech is clear. Obeys simple commands. Moves extremities. EXTREMITIES: No edema, no erythema seen. Results & Data Results & Data Vital Signs (Past 12 Hours) Vital Signs Temp Pulse Pulse Resp BP BP Pulse Ox 12/16/22 08:31 56 L 20 170/71 H 100 12/16/22 07:18 36.6 C 57 L 17 143/65 H 95 12/16/22 07:06 49 L 12/16/22 03:20 52 L 14 92 12/16/22 03:10 51 L 13 93 12/16/22 03:00 54 L 15 92 12/16/22 03:00 104/55 L 12/16/22 02:50 58 L 13 92 12/16/22 02:40 56 L 16 93 12/16/22 02:30 56 L 15 92 12/16/22 02:30 119/63 12/16/22 02:20 55 L 16 92 12/16/22 02:10 54 L 18 94 12/16/22 02:01 52 L 15 93 12/16/22 02:01 123/64 12/16/22 02:00 52 L 16 94 12/16/22 01:50 55 L 24 94 12/16/22 01:40 52 L 16 93 12/16/22 01:30 58 L 14 95 12/16/22 01:30 161/70 H 12/16/22 03:30 O2 Del Method 12/16/22 08:31 Room Air 12/16/22 07:18 Room Air 12/16/22 07:06 12/16/22 03:20 12/16/22 03:10 12/16/22 03:00 12/16/22 03:00 12/16/22 02:50 12/16/22 02:40 12/16/22 02:30 12/16/22 02:30 12/16/22 02:20 12/16/22 02:10 12/16/22 02:01 12/16/22 02:01 12/16/22 02:00 12/16/22 01:50 12/16/22 01:40 12/16/22 01:30 12/16/22 01:30 12/16/22 03:30 Room Air
--- NOTE | 2022-12-16 18:45 | Electrocardiogram Report ---
Test Reason : Blood Pressure : / mmHG Vent. Rate : 055 BPM Atrial Rate : 055 BPM P-R Int : 176 ms QRS Dur : 150 ms QT Int : 442 ms P-R-T Axes : 039 -29 145 degrees QTc Int : 422 ms Sinus bradycardia Left bundle branch block Abnormal ECG When compared with ECG of 15-DEC-2022 09:23, No significant change was found Confirmed by Bartolo Pimentel ([id number]) on 12/16/2022 6:45:12 PM Referred By: Eddie Man Confirmed By:Jeffrey Pimentel
[2022-12-16] MEDS: LANTUS PER UNIT CHARGE SQ SCH (20:44)
[2022-12-16] MEDS: CYANOCOBALAMIN (B-12) 500 MCG TABLET PO SCH (20:46)
[2022-12-16] MEDS: ERYTHROMYCIN OP OINT 5 MG/GM 3.5 GM TUBE OP SCH (20:47)
[2022-12-16] MEDS ORDERED: Nursing to Pharmacy Communication SCH (21:00)
[2022-12-16] MEDS: PREGABALIN 150 MG CAP PO SCH (21:08)
[2022-12-17 05:16] LABS: Hematocrit (blood only) 37.6 % (37.0-47.0); Hemoglobin 12.7 g/dl (12.0-16.0); Mean Corpuscular Hemoglobin 30.4 pg (25.0-34.0); Mean Corpuscular Hgb Conc 33.8 g/dL (32.0-36.0); Mean Platelet Volume 10.5 fL (9.4-12.4); Platelet Count 235 K/uL (130-400); RDW Coefficient of Variation 14.2 % (11.5-14.5); RDW Standard Deviation 46.9 fL (36.4-46.3); Red Blood Count 4.18 M/uL (4.20-5.40); White Blood Count 6.33 K/ul (4.8-10.8)
[2022-12-17 05:29] LABS: Calcium 9.9 mg/dl (8.6-10.3); Creatinine Clr Calc Pharmacy 69.2 ml/min; Est GFR (African American) 89.5 ml/min; Est GFR (Non-African American) 77.2 ml/min; Magnesium 1.8 mg/dl (1.7-2.4); Phosphorus 4.5 mg/dl (2.5-4.9); Potassium 3.5 mmol/L (3.5-5.1)
[2022-12-17] MEDS: INSULIN ASPART PER UNIT CHARGE SC SCH ×4 (07:35→21:00)
[2022-12-17] MEDS ORDERED: MAGNESIUM SULFATE / D5W 1 GM/100 ML BAG IV ONE (07:40)
[2022-12-17] MEDS ORDERED: POTASSIUM CHLORIDE CRTAB 20 MEQ TABCR PO STA (07:40)
[2022-12-17] MEDS: ATORVASTATIN 40 MG TAB PO SCH (08:23)
[2022-12-17] MEDS: CALCIUM 600MG + VIT D 400 IU TAB PO SCH (08:23)
[2022-12-17] MEDS: LOSARTAN POTASSIUM 25 MG TAB PO SCH (08:24)
[2022-12-17] MEDS: ENOXAPARIN INJ 40 MG/0.4 ML SYR SQ SCH ×2 (08:24→08:29)
[2022-12-17] MEDS: hydroCHLOROthiazide 25 MG TAB PO SCH (08:24)
[2022-12-17] MEDS: methylPREDNISolone 4 MG TAB PO SCH (08:25)
[2022-12-17] MEDS: methIMAzole 5 MG TABLET PO SCH (08:25)
[2022-12-17] MEDS: POTASSIUM CHLORIDE CRTAB 20 MEQ TABCR PO SCH (08:26)
[2022-12-17] MEDS: PANTOprazole 40 MG TAB PO SCH (08:26)
[2022-12-17] MEDS: PREGABALIN 75 MG CAP PO SCH (08:27)
--- NOTE | 2022-12-17 08:48 | Electrocardiogram Report ---
Test Reason : Blood Pressure : / mmHG Vent. Rate : 056 BPM Atrial Rate : 056 BPM P-R Int : 172 ms QRS Dur : 160 ms QT Int : 510 ms P-R-T Axes : 063 -29 143 degrees QTc Int : 492 ms Sinus bradycardia Left bundle branch block Abnormal ECG When compared with ECG of 16-DEC-2022 12:48, QT has lengthened Confirmed by John Ramesh ([id number]) on 12/17/2022 8:48:26 AM Referred By: Eddie Man Confirmed By:John Ramesh
--- NOTE | 2022-12-17 11:26 | Cardiology Progress Note ---
Date of Service December 17, 2022 Assessment & Plan (1) Chest pain: (2) Non-sustained ventricular tachycardia: (3) LBBB (left bundle branch block): (4) Dermatomyositis: Plan: 62-year-old female with a longstanding history of dermatomyositis and left bundle branch block with QRS duration ranging from 140 ms to 160 ms depending upon EKG tracing. Plaquenil discontinued after episode of ventricular tachycardia 01/2022. She remains on chronic corticosteroid therapy with methylprednisolone 4 mg daily for treatment of her dermatomyositis. She was also on methimazole for treatment of Graves' disease with ongoing hyperthyroidism, dose recently adjusted November,. The patient has a longstanding history of chest discomfort. Had undergone previous cardiac CT in 2020 that was normal. In July, she presented with chest discomfort and a minimal elevation in her high-sensitivity troponin. Cardiac catheterization took place with angiographically normal coronary arteries. 8 beat christie of symptomatic nonsustained ventricular tachycardia at 200 bpm ob served in the emergency department 12/15/2022. Transient lightheadedness reported without overt syncope. Case discussed with Dr Montoya who has been following her from an electrophysiology standpoint. As previously noted, appearance of her echocardiogram and cardiac MRI raise concerns of a possible variant of hypertrophic cardiomyopathy. There are case reports of ventricular tachycardia in the setting of dermatomyositis and myocarditis. Electrophysiology will evaluate patient today to consider ICD implantation on Monday. Patient agreeable to remain in hospital for further observation and telemetry monitoring. Admission and Anticipated Discharge Date Admission Date: December 15, 2022 Subjective Patient seen and examined at the bedside. PVCs as well as 5 beat ventricular runs recorded overnight. No sustained ventricular tachycardia. Denies recurrent chest or arm pain. No orthopnea or PND. Family present at bedside. Review of Systems Review of Systems: All systems reviewed & are unremarkable except as noted in Subjective Physical Exam Constitutional: well nourished; no acute distress Respiratory: no respiratory distress, no labored breathing and no retractions Auscultation: lungs clear to auscultation bilaterally; no crackles, no rales, no rhonchi and no wheezes Cardiovascular: Rate/Rhythm: regular rate and regular rhythm Heart Sounds: normal S1, normal S2 and + murmur (2/6 systolic ejection murmur heard best at the R2ICS) Vessels: radial pulses present; no JVD and no carotid bruit Gastrointestinal (Abdomen): Inspection/Auscultation: abdomen normal to inspection and normal bowel sounds; abdomen not distended Percussion/Palpation: abdomen soft; abdomen nontender, no guarding and abdomen not rigid Neurologic: CN's II-XI intact bilaterally and moves all extremities; no focal motor deficits Results & Data Vital Signs (Past 12 Hours) Vital Signs Temp Pulse Pulse Resp BP BP Pulse Ox 12/17/22 11:17 36.4 C L 56 L 22 163/77 H 96 12/17/22 07:41 36.4 C L 57 L 15 161/83 H 98 12/17/22 05:00 57 L 13 12/17/22 04:55 36.5 C 159/73 H 12/17/22 04:55 61 15 94 12/16/22 23:40 57 L 17 12/16/22 23:30 57 L 18 12/16/22 23:20 66 18 O2 Del Method 12/17/22 11:17 Room Air 12/17/22 07:41 Room Air 12/17/22 05:00 12/17/22 04:55 12/17/22 04:55 12/16/22 23:40 12/16/22 23:30 12/16/22 23:20 Laboratory Results CBC 12/17/22 Range/Units 04:48 WBC 6.33 (4.8-10.8) K/ul RBC 4.18 L (4.20-5.40) M/uL Hgb 12.7 (12.0-16.0) g/dl Hct 37.6 (37.0-47.0) % Plt Count 235 (130-400) K/uL Comprehensive Metabolic Panel 12/17/22 Range/Units 04:48 Sodium 139 (136-145) mmol/L Potassium 3.5 (3.5-5.1) mmol/L Chloride 103 (98-107) mmol/L Carbon Dioxide 28 (21-32) mmol/L BUN 18 (6-23) mg/dl Creatinine 0.82 (0.6-1.2) mg/dl Glucose 131 H (70-99(Fasting)) mg/dl Calcium 9.9 (8.6-10.3) mg/dl Intake and Output 12/16/22 12/17/22 12/17/22 22:59 06:59 14:59 Intake Total 200 / 200 100 / 100 Balance 200 / 200 100 / 100 Intake: IV 100 / 100 Magnesium Sulfate / D5w 1 gm In 100 / 100 100 ml @ 50 mls/hr IV ONE ONE Rx#:[id number] Oral 200 / 200 Other: # Unmeasured Voids 2 1 Weight 73.5 kg 72.9 kg Weight Measurement Method Built in [facility] Built in [facility]
--- NOTE | 2022-12-17 17:05 | Hospitalist Progress Note ---
Date of Service December 17, 2022 Assessment & Plan (1) Chest pain: (2) Non-sustained ventricular tachycardia: (3) Graves disease: (4) LBBB (left bundle branch block): (5) DM type 2 (diabetes mellitus, type 2): (6) Chronic steroid use: Plan 62-year-old female who has a significant past medical history of T2DM, HTN, HLD, LBBB, renal artery aneurysm, splenic artery aneurysm, hx of drug-induced torsades status post knee surgery, thyroiditis, GERD, autoimmune hepatitis, VYAS, history of drug-induced osteonecrosis of the jaw, dermatomyositis, chronic systemic steroids who presents ED 12/15 secondary to chest pain x 5 days. She is being managed for the following: Chest Pain Non-Sustained VTACH Chronic LBBB hx of Torsades 2/2 left knee surgery anesthetic Pt had a symptomatic episode of NSVT with lightheaded and dizziness @ 1453 on 12/15. Further reports another episode while going to [place] @ 14:18 noted on rhythm strip. Recent heart cath 07/2022 with normal coronary arteries. Cardiac MRI done 11/2022, follows w/ Dr. Montoya. Trops flat trend below 20. EKG w/ sinus francia and LBBB. ECHO w/ EF of 50-55%, LV systolic fxn nl, mod to severe LVH w/ mild asymmetric thickening of the basilar septum. Monitor and replete K and Mag to keep > 4.0 and 2.0 respectively Cardiology on board, continue telemetry monitoring, further plan to be decided. Awati EP cathyal for further recs. Graves disease pt follows Endo at [place] but has not formally seen a provider has had freq dose adjustments of methimazole. Free T4 WNL. she does need to establish with Endo either locally or obtain appt [place] [facility] [place] scan notes 3.4 CM goiter R lobe, follow-up with PCP for USG thyroid, FNAB and referral to ENT. Pt has been made aware. Re-establish and f/u w/ ENDO on [place]. T2DM last a1c 7.7 in 09/2022 hold metformin lantus/novolog per protocol L splenic artery aneurysm-surveillance and stable, 1cm L main renal artery aneurysm -surveillance and stable, 1.37cm Dermatomyositis - no acute exac, continue daily methylprednisolone, follows Dr. 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 Patient was lying in bed comfortably, not in acute distress, denies any further chest pain. On room air. She denies any headache or dizziness or fever or flulike illness recently. PVCs as well as 5 beat ventricular runs recorded overnight. Physical Exam Physical Exam: GENERAL: Alert and oriented x3. NAD, on RA. HEENT: No pallor, no icterus. Pupils equal, round and reactive to light. Oral mucosa moist. NECK: No JVD, no neck masses. HEART: S1 and S2 heard. Regular rate and rhythm. No murmur, no gallop. RESPIRATORY SYSTEM: Normal AP diameter. No accessory muscle use. No wheezing, no crackles. ABDOMEN: Soft, bowel sounds present, nontender, no distention. CENTRAL NERVOUS SYSTEM: No facial droop. Speech is clear. Obeys simple commands. Moves extremities. EXTREMITIES: No edema, no erythema seen. Results & Data Results & Data Vital Signs (Past 12 Hours) Vital Signs Temp Pulse Resp BP Pulse Ox O2 Del Method 12/17/22 16:55 36.6 C 55 L 15 137/63 97 Room Air 12/17/22 11:17 36.4 C L 56 L 22 163/77 H 96 Room Air 12/17/22 07:41 36.4 C L 57 L 15 161/83 H 98 Room Air
--- NOTE | 2022-12-17 20:50 | Cardiology Consultation ---
Date of Consultation December 17, 2022 Assessment & Plan (1) Non-sustained ventricular tachycardia: Pt has recurrent NSVT with underlying co-morbidities that I believe are a variant of hypertrophic cardiomyopathy. Her co-morbidities of torsades VT, father with SCD, abnormal cardiac MRI for septal wall scarring and LVH and her recurrent symptomatic NSVT on telemetry this admission and her Sinus bradycardia all put her at high risk for SCD. I had a long discussion today with the patient and her and I recommend that she have at least a dual chamber ICD prior to discharge. Now if she has evidence of higher degree AV block then I would recommend a BiV ICD-she had one brief episode on an out patient zio patch monitor-for I do feel at some juncture in her lifetime given her prominant Left bundle she will need RV pacing and i do not want it from the RV apical ICD lead. I discussed the procedure and potential risks with the patient and her - they expressed an understanding and agree to proceed. Procedure Tuesday 12/19 after noonish NPO after midnight (2) Pre-syncope: I think she is have near syncope from NSVT with underlying substrate of a form of hypertrophic cardiomyopathy with scar in her septal wall. 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: she is at a high risk of recurrent ventricular sustained arrhythmias as noted above-benefit form an ICD (4) LBBB (left bundle branch block): I think she will eventually have higher degree AV block and would need a left bundle pacing lead at some juncture to prevent apical RV pacing-if we see worsening AV block would do a BiV over a dual chamber (5) Family history of sudden cardiac (SCD): proving her risk of SCD is high given her family history (6) LVH (left ventricular hypertrophy): i think she has a variant of hypertrophic cardiomyopathy (7) Sinus bradycardia: she has irreversible symptomatic sinus bradycardia and therfore needs a atrial pacing lead for a dual ICD at minimum prior to discharge Plan pt for an ICD on monday History of Present Illness Reason for Consultation: arrhythmias Requesting Physician: Dr. Nix Attending Physician: Romelia Loja MD History of Present Illness Pt presented to [facility] due to atypical chest pains. She is known to me from the office. She has a history of Torsades VT at the time of a TKR-further cardiac work up was found to have genes of uncertain significance for dilated cardiomyopathies. During her hospital stay she has had symptomatic NSVT as well as some PAT. Her echo confirms LVH with septal wall slightly more prominant. EP was consulted for further recommendations She reports episodes of palpitations with associated lightheadedness and dizziness; no overt syncope Chest pain is atypical sounding No SOB Allergies Allergy/AdvReac Type Severity Reaction Status Date / Time No Known Allergies Allergy Verified 07/29/22 18:24 Home Medications Medication Instructions Recorded Confirmed Type atorvastatin 40 mg tablet (Lipitor) 40 mg PO QAM 08/15/19 12/15/22 History calcium carbonate 500 mg-vitamin 2 tab PO QAM 08/15/19 12/15/22 History D3 5 mcg (200 unit) tablet (Calcium 500 + D) cyanocobalamin (vitamin B-12) 1,000 mcg PO HS 08/15/19 12/15/22 History 1,000 mcg tablet (Vitamin B-12) cyclobenzaprine 5 mg tablet 5 mg PO HS PRN Muscle Spasm 08/15/19 12/15/22 History hydrochlorothiazide 25 mg tablet 25 mg PO QAM 08/15/19 12/15/22 History methylprednisolone 4 mg tablet 4 mg PO QAM 08/15/19 12/15/22 History (Medrol) milk thistle 500 mg capsule 500 mg PO QAM 08/15/19 12/15/22 History pantoprazole 40 mg tablet,delayed 40 mg PO QAM 08/15/19 12/15/22 History release (Protonix) pregabalin 75 mg capsule (Lyrica) See Rx Instructions .Route .COMPLEX 08/15/19 12/15/22 History diclofenac sodium 1 % topical gel 1 g topical QID PRN Pain 06/20/20 12/15/22 History losartan 25 mg tablet 25 mg PO QAM 06/20/20 12/15/22 History metformin 500 mg tablet,extended 1,000 mg PO QAM 06/20/20 12/15/22 History release 24 hr methimazole 10 mg tablet 15 mg PO QAM 07/29/21 12/15/22 History biotin 1,000 mcg chewable tablet 1,000 mcg PO HS 08/02/21 12/15/22 History ferrous sulfate 325 mg (65 mg 325 mg PO Q OTHER DAY 11/03/21 12/15/22 History iron) tablet acetaminophen 500 mg capsule 1,000 mg PO DIRECTED PRN Pain 07/29/22 12/15/22 History erythromycin 5 mg/gram (0.5 %) eye 1 applic ophthalmic (eye) HS 07/29/22 12/15/22 History ointment potassium chloride 20 mEq 20 meq PO QAM 07/29/22 12/15/22 History tablet,extended release(part/cryst) amoxicillin 500 mg tablet 2,000 mg PO DIRECTED PRN 1 HOUR 12/05/22 12/15/22 Rx PRIOR TO DENTAL APPT. #8 tabs Patient History Medical History Aftercare following right hip joint replacement surgery Anemia Autoimmune hepatitis Follows with GI (Dr. Rahman) Carotid artery stenosis <50% stenosis to bilateral ICAs per 10/2021 carotid doppler (cardio recommends repeat study in two years) Chronic back pain + LE radiation Chronic steroid use Methylprednisolone 4mg daily Dermatomyositis Follows with rheumatology f/u Dr. 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 Hyperlipidemia Pt denies, HLD noted per [facility] records Interstitial lung disease IPMN (intraductal papillary mucinous neoplasm) Left bundle branch block Chronic dating back to at least 2017-F/U DR [place] VYAS (nonalcoholic steatohepatitis) Neurogenic claudication due to lumbar spinal stenosis Pancreatic cyst Under observation Panniculitis 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- on chronic steroids*/plaquenil per rheumatology Pulmonary nodules Under surveillance Renal artery aneurysm Under surveillance Splenic artery aneurysm Under surveillance Thymus disorder Recent diagnosis, under surveillance Trigeminal neuralgia Surgical History History of appendectomy History of arthroscopy of left knee History of cholecystectomy History of colonoscopy + polypectomy History of esophagogastroduodenoscopy (EGD) History of hand surgery Granuloma excision (right hand x2) History of hernia repair Left inguinal History of hysterectomy Partial + LSO + with left ovary and salpingectomy History of lumbar spinal fusion History of oophorectomy, unilateral Right History of right hip replacement Right ZULEIKA (06/21/20): Grade view 1, MAC#3, ETT 7.5 at [facility] ("general anesthetic was implemented at the patient's request" per operative report) History of surgery excisional biopsy left hip mass @ [facility] Dr. 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 Required: No Beliefs That Will Affect Care: None marital status: Current Living Situation: Spouse current occupational status: disabled Other Information That Helps Us Care for You: No Feels Safe at Home: Yes Safety Concerns: Feels Safe At This Time Assistive Devices: Stair Lift Review of Systems Review of Systems: All systems reviewed & are unremarkable except as noted in HPI & below Physical Exam Physical Exam: aaox3, NAD NC/AT, EOMI Supple No JVD Nrl S1/S2, No murmur CTA b/l no w/r/r soft nt/nd no LE edema b/l skin intact no focal deficits \\ Results & Data Vital Signs (Past 12 Hours) Vital Signs Temp Pulse Resp BP Pulse Ox O2 Del Method 12/17/22 16:55 36.6 C 55 L 15 137/63 97 Room Air 12/17/22 11:17 36.4 C L 56 L 22 163/77 H 96 Room Air Laboratory Results Abnormal Lab Results 12/16/22 12/17/22 12/17/22 20:42 04:48 04:48 WBC 6.33 RBC 4.18 L Hgb 12.7 Hct 37.6 MCV 90.0 MCH 30.4 MCHC 33.8 RDW Std Deviation 46.9 H RDW Coeff of Maria R 14.2 Plt Count 235 MPV 10.5 Sodium 139 Potassium 3.5 Chloride 103 Carbon Dioxide 28 Anion Gap 8 BUN 18 Creatinine 0.82 Est Cr Clr Drug Dosing 69.2 Est GFR ( Amer) 89.5 Est GFR (Non-Af Amer) 77.2 BUN/Creatinine Ratio 22.0 H Glucose 131 H POC Glucose 130 H Calcium 9.9 Phosphorus 4.5 Magnesium 1.8 12/17/22 12/17/22 12/17/22 07:12 11:14 16:35 WBC RBC Hgb Hct MCV MCH MCHC RDW Std Deviation RDW Coeff of Maria R Plt Count MPV Sodium Potassium Chloride Carbon Dioxide Anion Gap BUN Creatinine Est Cr Clr Drug Dosing Est GFR ( Amer) Est GFR (Non-Af Amer) BUN/Creatinine Ratio Glucose POC Glucose 129 H 132 H 162 H Calcium Phosphorus Magnesium Diagnostic Findings ECG: SB LBBB Echo:EF ok with LVH noted Cardiac MRI from out pt: +mid septal infarct and LVH noted out pt Gene + for genes variant uncertain significance noted Medications Administered Current Inpatient Medications Acetaminophen (Acetaminophen 325 Mg Tab) 650 mg PO Q4H PRN PRN Reason: Pain or Fever Stop: 01/14/23 17:56 Last Admin: 12/15/22 23:49 Dose: 650 mg Al Hydrox/Mg Hydrox/Simethicone (Aluminum/Magnesium Susp 30 Ml Udc) 15 ml PO Q4H PRN PRN Reason: Dyspepsia Stop: 01/14/23 17:56 Atorvastatin Calcium (Atorvastatin 40 Mg Tab) [facility] Stop: 01/15/23 08:59 Last Admin: 12/17/22 08:23 Dose: 40 mg Calcium/Vitamin D (Calcium 600mg + Vit D 400 Iu Tab) 2 tab PO QAM [facility] Stop: 01/15/23 08:59 Last Admin: 12/17/22 08:23 Dose: 2 tab Cyanocobalamin (Cyanocobalamin (B-12) 500 Mcg Tablet) 1,000 mcg PO [facility] Stop: 01/14/23 20:59 Last Admin: 12/16/22 20:46 Dose: 1,000 mcg Dextrose (Dextrose 50% 50 Ml Syringe) 25 - 50 ml IV UD PRN; Protocol PRN Reason: Hypoglycemia Protocol Stop: 01/14/23 17:56 Enoxaparin Sodium (Enoxaparin Inj 40 Mg/0.4 Ml Syr) 40 mg SQ QAM [facility] Stop: 01/15/23 08:59 Last Admin: 12/17/22 08:29 Dose: Not Given Erythromycin (Erythromycin Op Oint 5 Mg/Gm 3.5 Gm Tube) 1 appln OP HS [facility] Stop: 12/25/22 20:59 Last Admin: 12/16/22 20:47 Dose: 1 appln Ferrous Sulfate (Ferrous Sulfate 325 Mg Tab) 325 mg PO Q48H [facility] Stop: 01/15/23 08:59 Last Admin: 12/16/22 08:35 Dose: 325 mg Glucagon (Glucagon For Inj 1 Mg Vial) 1 mg SQ UD PRN; Protocol PRN Reason: Hypoglycemia Protocol Stop: 01/14/23 17:56 Glucose (Glucose 10 Tab/Tube) 4 - 8 tab PO UD PRN; Protocol PRN Reason: Hypoglycemia Treatment Stop: 01/14/23 17:56 Glucose (Glucose 40% Gel 15 Gm Tube) 15 - 30 gm PO UD PRN; Protocol PRN Reason: Hypoglycemia Protocol Stop: 01/14/23 17:56 Hydrochlorothiazide (Hydrochlorothiazide 25 Mg Tab) 25 mg PO QAM [facility] Stop: 01/15/23 08:59 Last Admin: 12/17/22 08:24 Dose: 25 mg Insulin Aspart (Insulin Aspart Per Unit Charge) 0 units SC ACHS [facility] Stop: 01/14/23 18:29 Last Admin: 12/17/22 16:53 Dose: 1 units Insulin Glargine (Lantus Per Unit Charge) 0 - 5 units SQ HS [facility] Stop: 01/14/23 20:59 Last Admin: 12/16/22 20:44 Dose: Not Given Losartan Potassium (Losartan Potassium 25 Mg Tab) 25 mg PO QAM [facility] Stop: 01/15/23 08:59 Last Admin: 12/17/22 08:24 Dose: 25 mg Magnesium Hydroxide (Magnesium Hydroxide Susp 30 Ml Udc) 30 ml PO Q12H PRN PRN Reason: Constipation Stop: 01/14/23 17:56 Methimazole (Methimazole 5 Mg Tablet) 15 mg PO QAM [facility] Stop: 01/15/23 08:59 Last Admin: 12/17/22 08:25 Dose: 15 mg Methylprednisolone (Methylprednisolone 4 Mg Tab) 4 mg PO QAM [facility] Stop: 01/15/23 08:59 Last Admin: 12/17/22 08:25 Dose: 4 mg Miscellaneous (Carbohydrates For Hypoglycemia ) 15 - 30 gm PO UD PRN PRN Reason: Hypoglycemia Protocol Stop: 01/14/23 17:56 Pantoprazole Sodium (Pantoprazole 40 Mg Tab) [facility] Stop: 01/15/23 08:59 Last Admin: 12/17/22 08:26 Dose: 40 mg Polyethylene Glycol (Polyethylene (Miralax) 17 Gm Pack) 17 gm PO DAILY PRN PRN Reason: Constipation Stop: 01/14/23 17:56 Potassium Chloride (Potassium Chloride Crtab 20 Meq Tabcr) 20 meq [facility] Stop: 01/15/23 08:59 Last Admin: 12/17/22 08:26 Dose: 20 meq Pregabalin (Pregabalin 150 Mg Cap) 150 mg PO QPM [facility] Stop: 01/15/23 20:59 Last Admin: 12/16/22 21:08 Dose: 150 mg Pregabalin (Pregabalin 75 Mg Cap) 75 mg PO QAM [facility] Stop: 01/16/23 08:59 Last Admin: 12/17/22 08:27 Dose: 75 mg
[2022-12-17] MEDS: PREGABALIN 150 MG CAP PO SCH (21:00)
[2022-12-17] MEDS: LANTUS PER UNIT CHARGE SQ SCH (21:00)
[2022-12-17] MEDS: CYANOCOBALAMIN (B-12) 500 MCG TABLET PO SCH (21:01)
[2022-12-17] MEDS: ERYTHROMYCIN OP OINT 5 MG/GM 3.5 GM TUBE OP SCH (21:02)
[2022-12-18 04:44] LABS: BUN Creatinine Ratio 25.4 (10-20); Creatinine Clr Calc Pharmacy 79.7 ml/min; Est GFR (African American) 106.5 ml/min; Est GFR (Non-African American) 91.9 ml/min; Magnesium 1.9 mg/dl (1.7-2.4); Potassium 3.5 mmol/L (3.5-5.1)
[2022-12-18] MEDS: INSULIN ASPART PER UNIT CHARGE SC SCH ×4 (07:19→21:10)
[2022-12-18] MEDS ORDERED: MAGNESIUM SULFATE / D5W 1 GM/100 ML BAG IV ONE ×2 (07:42→19:06)
[2022-12-18] MEDS ORDERED: POTASSIUM CHLORIDE CRTAB 20 MEQ TABCR PO STA ×2 (07:42→20:36)
[2022-12-18] MEDS: hydroCHLOROthiazide 25 MG TAB PO SCH (08:13)
[2022-12-18] MEDS: ATORVASTATIN 40 MG TAB PO SCH (08:13)
[2022-12-18] MEDS: ENOXAPARIN INJ 40 MG/0.4 ML SYR SQ SCH (08:13)
[2022-12-18] MEDS: methIMAzole 5 MG TABLET PO SCH (08:13)
[2022-12-18] MEDS: methylPREDNISolone 4 MG TAB PO SCH (08:13)
[2022-12-18] MEDS: FERROUS SULFATE 325 MG TAB PO SCH (08:13)
[2022-12-18] MEDS: PANTOprazole 40 MG TAB PO SCH (08:13)
[2022-12-18] MEDS: CALCIUM 600MG + VIT D 400 IU TAB PO SCH (08:13)
[2022-12-18] MEDS: POTASSIUM CHLORIDE CRTAB 20 MEQ TABCR PO SCH (08:15)
[2022-12-18] MEDS ORDERED: LOSARTAN POTASSIUM 50 MG TAB PO ONE (08:15)
[2022-12-18] MEDS: PREGABALIN 75 MG CAP PO SCH (08:15)
[2022-12-18] MEDS ORDERED: LOSARTAN POTASSIUM 25 MG TAB PO ONE (08:15)
[2022-12-18] MEDS ORDERED: LORazepam 0.5 MG TAB PO STA (09:52)
[2022-12-18] MEDS: ACETAMINOPHEN 325 MG TAB PO PRN (10:49)
--- NOTE | 2022-12-18 10:59 | Cardiology Progress Note ---
Date of Service December 18, 2022 Assessment & Plan (1) Non-sustained ventricular tachycardia: (2) LBBB (left bundle branch block): (3) Chest pain: (4) Dermatomyositis: Plan: 62-year-old female with a longstanding history of dermatomyositis and left bundle branch block with QRS duration ranging from 140 ms to 160 ms depending upon EKG tracing. Plaquenil discontinued after episode of ventricular tachycardia 01/2022. She remains on chronic corticosteroid therapy with methylprednisolone 4 mg daily for treatment of her dermatomyositis. She was also on methimazole for treatment of Graves' disease with ongoing hyperthyroidism, dose recently adjusted November,. The patient has a longstanding history of chest discomfort. Had undergone previous cardiac CT in 2020 that was normal. In July, she presented with chest discomfort and a minimal elevation in her high-sensitivity troponin. Cardiac catheterization took place with angiographically normal coronary arteries. Chest pain likely noncardiac. 8 beat christie of symptomatic nonsustained ventricular tachycardia at 200 bpm observed in the emergency department 12/15/2022. Transient lightheadedness reported without overt syncope. No recurrence over the past 24 hours on telemetry. Case discussed with Dr Montoya who has been following her from an electrophysiology standpoint. As previously noted, appearance of her echocardiogram and cardiac MRI raise concerns of a possible variant of hype rtrophic cardiomyopathy. Dr. Ivana Claros recommending ICD implantation, however, patient is requesting a second opinion. I have placed a consult [facility]el [facility]. Patient will be n.p.o. except medications after midnight. Admission and Anticipated Discharge Date Admission Date: December 15, 2022 Subjective Patient seen and examined at the bedside. Feeling well this morning. No recurrent ventricular tachycardia overnight. Telemetry reveals sinus rhythm and sinus bradycardia. No recurrent chest pain. Denies shortness of breath. No lightheadedness or dizziness. [facility] Review of Systems Review of Systems: All systems reviewed & are unremarkable except as noted in Subjective Physical Exam Constitutional: well nourished; no acute distress Respiratory: no respiratory distress, no labored breathing and no retractions Auscultation: lungs clear to auscultation bilaterally; no crackles, no rales, no rhonchi and no wheezes Cardiovascular: Rate/Rhythm: regular rate and regular rhythm Heart Sounds: normal S1, normal S2 and + murmur (2/6 systolic ejection murmur heard best at the R2ICS) Vessels: radial pulses present; no JVD and no carotid bruit Gastrointestinal (Abdomen): Inspection/Auscultation: abdomen normal to inspection and normal bowel sounds; abdomen not distended Percussion/Palpation: abdomen soft; abdomen nontender, no guarding and abdomen not rigid Neurologic: CN's II-XI intact bilaterally and moves all extremities; no focal motor deficits Results & Data Vital Signs (Past 12 Hours) Vital Signs Temp Pulse Pulse Resp BP BP Pulse Ox 12/18/22 09:28 82 17 98 12/18/22 06:58 58 L 23 178/86 H 97 12/18/22 06:58 36.4 C L 12/18/22 04:00 36.6 C 50 L 16 161/70 H 96 12/17/22 23:11 56 L O2 Del Method FiO2 12/18/22 09:28 Room Air 21 12/18/22 06:58 Room Air 12/18/22 06:58 12/18/22 04:00 Room Air 12/17/22 23:11 Laboratory Results Comprehensive Metabolic Panel 12/18/22 Range/Units 04:02 Sodium 138 (136-145) mmol/L Potassium 3.5 (3.5-5.1) mmol/L Chloride 104 (98-107) mmol/L Carbon Dioxide 28 (21-32) mmol/L BUN 18 (6-23) mg/dl Creatinine 0.71 (0.6-1.2) mg/dl Glucose 128 H (70-99(Fasting)) mg/dl Calcium 10.0 (8.6-10.3) mg/dl Intake and Output 12/17/22 12/18/22 12/18/22 22:59 06:59 14:59 Intake Total 400 / 900 400 / 900 100 / 100 Output Total 2 / 2 Balance 398 / 898 400 / 898 100 / 100 Intake: IV 100 / 100 Magnesium Sulfate / D5w 1 gm In 100 / 100 100 ml @ 50 mls/hr IV ONE ONE Rx#:[id number] Oral 400 / 800 400 / 800 Output: # Bowel Movements 2 / 2 Other: # Unmeasured Voids 2 1 Weight 73.1 kg Weight Measurement Method Built in [facility]
--- NOTE | 2022-12-18 12:54 | Electrocardiogram Report ---
Test Reason : Blood Pressure : / mmHG Vent. Rate : 077 BPM Atrial Rate : 077 BPM P-R Int : 172 ms QRS Dur : 158 ms QT Int : 416 ms P-R-T Axes : 000 -28 150 degrees QTc Int : 470 ms Sinus rhythm with marked sinus arrhythmia Left bundle branch block Abnormal ECG When compared with ECG of 17-DEC-2022 04:59, No significant change was found Confirmed by John Ramesh ([id number]) on 12/18/2022 12:54:04 PM Referred By: Eddie Man Confirmed By:John Ramesh
--- NOTE | 2022-12-18 14:34 | Hospitalist Progress Note ---
Date of Service December 18, 2022 Assessment & Plan (1) Chest pain: (2) Non-sustained ventricular tachycardia: (3) Graves disease: (4) LBBB (left bundle branch block): (5) DM type 2 (diabetes mellitus, type 2): (6) Chronic steroid use: Plan 62-year-old female who has a significant past medical history of T2DM, HTN, HLD, LBBB, renal artery aneurysm, splenic artery aneurysm, hx of drug-induced torsades status post knee surgery, thyroiditis, GERD, autoimmune hepatitis, VYAS, history of drug-induced osteonecrosis of the jaw, dermatomyositis, chronic systemic steroids who presents ED 12/15 secondary to chest pain x 5 days. She is being managed for the following: Chest Pain Non-Sustained VTACH Chronic LBBB hx of Torsades 2/2 left knee surgery anesthetic Pt had a symptomatic episode of NSVT with lightheaded and dizziness @ 1453 on 12/15. Further reports another episode while going to [place] @ 14:18 noted on rhythm strip. Recent heart cath 07/2022 with normal coronary arteries. Cardiac MRI done 11/2022, follows w/ Dr. Montoya. Trops flat trend below 20. EKG w/ sinus francia and LBBB. ECHO w/ EF of 50-55%, LV systolic fxn nl, mod to severe LVH w/ mild asymmetric thickening of the basilar septum. Monitor and replete K and Mag to keep > 4.0 and 2.0 respectively Cardiology on board, continue telemetry monitoring. Possible EP procedure zenaida. NPO midnight, lovenox on hold. BP on higher side, increased losartan to 50 mg daily, will continue monitoring. Graves disease pt follows Endo at [place] but has not formally seen a provider has had freq dose adjustments of methimazole. Free T4 WNL. she does need to establish with Endo either locally or obtain appt at [facility] [place] CT scan notes 3.4 CM goiter R lobe, follow-up with PCP for USG thyroid, FNAB and referral to ENT. Pt has been made aware. Re-establish and f/u w/ ENDO on DC. T2DM last a1c 7.7 in 09/2022 hold metformin lantus/novolog per protocol L splenic artery aneurysm-surveillance and stable, 1cm L main renal artery aneurysm -surveillance and stable, 1.37cm Dermatomyositis - no acute exac, continue daily methylprednisolone, follows Dr. 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 FULL CODE PCP: Magda Dispo: PCU Admission and Anticipated Discharge Date Admission Date: December 15, 2022 Subjective Patient seen and examined at bedside as a follow-up of nonsustained medical tachycardia, chest pain. Patient was lying in bed comfortably, not in acute distress, denies any further chest pain. On room air. Patient upset in AM and went into brief vtach in AM, resolved spontaneously. will add ativan for anxiety. No chest pain/lightheadedness during the event She denies any headache or dizziness or fever or flulike illness recently. Physical Exam Physical Exam: GENERAL: Alert and oriented x3. NAD, on RA. HEENT: No pallor, no icterus. Pupils equal, round and reactive to light. Oral mucosa moist. NECK: No JVD, no neck masses. HEART: S1 and S2 heard. Regular rate and rhythm. No murmur, no gallop. RESPIRATORY SYSTEM: Normal AP diameter. No accessory muscle use. No wheezing, no crackles. ABDOMEN: Soft, bowel sounds present, nontender, no distention. CENTRAL NERVOUS SYSTEM: No facial droop. Speech is clear. Obeys simple commands. Moves extremities. EXTREMITIES: No edema, no erythema seen. Results & Data Results & Data Vital Signs (Past 12 Hours) Vital Signs Temp Pulse Pulse Resp BP BP Pulse Ox 12/18/22 11:25 51 L 15 130/55 L 12/18/22 10:48 53 L 20 158/70 H 12/18/22 10:05 56 L 19 169/74 H 98 12/18/22 09:26 78 13 199/98 H 98 12/18/22 09:23 77 20 188/102 H 97 12/18/22 09:20 102 H 15 213/112 H 96 12/18/22 11:25 36.6 C 12/18/22 09:28 82 17 98 12/18/22 06:58 58 L 23 178/86 H 97 12/18/22 06:58 36.4 C L 12/18/22 04:00 36.6 C 50 L 16 161/70 H 96 O2 Del Method FiO2 12/18/22 11:25 12/18/22 10:48 12/18/22 10:05 Room Air 12/18/22 09:26 Room Air 12/18/22 09:23 Room Air 12/18/22 09:20 Room Air 12/18/22 11:25 12/18/22 09:28 Room Air 21 12/18/22 06:58 Room Air 12/18/22 06:58 12/18/22 04:00 Room Air
[2022-12-18 20:07] LABS: BUN Creatinine Ratio 17.5 (10-20); Creatinine Clr Calc Pharmacy 54.9 ml/min; Est GFR (African American) 67.9 ml/min; Est GFR (Non-African American) 58.6 ml/min; Magnesium 2.1 mg/dl (1.7-2.4); Potassium 3.9 mmol/L (3.5-5.1)
[2022-12-18 20:29] LABS: Troponin I High Sensitivity 15.3 pg/ml (0-14)
[2022-12-18] MEDS: CYANOCOBALAMIN (B-12) 500 MCG TABLET PO SCH (21:10)
[2022-12-18] MEDS: LANTUS PER UNIT CHARGE SQ SCH (21:10)
[2022-12-18] MEDS: PREGABALIN 150 MG CAP PO SCH (21:10)
[2022-12-18] MEDS: ERYTHROMYCIN OP OINT 5 MG/GM 3.5 GM TUBE OP SCH (21:11)
[2022-12-18] MEDS: LORazepam 0.5 MG TAB PO PRN (22:57)
[2022-12-18 23:40] LABS: Partial Thromboplastin Ratio 1.1; Partial Thromboplastin Time 30.2 Seconds (21.0-31.0)
[2022-12-19 06:23] LABS: BUN Creatinine Ratio 23.2 (10-20); Calcium 9.3 mg/dl (8.6-10.3); Est GFR (African American) 89.5 ml/min; Est GFR (Non-African American) 77.2 ml/min; Potassium 3.9 mmol/L (3.5-5.1)
[2022-12-19] MEDS: INSULIN ASPART PER UNIT CHARGE SC SCH ×4 (08:01→20:36)
[2022-12-19] MEDS: hydroCHLOROthiazide 25 MG TAB PO SCH (09:16)
[2022-12-19] MEDS: ATORVASTATIN 40 MG TAB PO SCH (09:16)
[2022-12-19] MEDS: CALCIUM 600MG + VIT D 400 IU TAB PO SCH (09:16)
[2022-12-19] MEDS: methylPREDNISolone 4 MG TAB PO SCH (09:17)
[2022-12-19] MEDS: LOSARTAN POTASSIUM 50 MG TAB PO SCH (09:17)
[2022-12-19] MEDS: methIMAzole 5 MG TABLET PO SCH (09:17)
[2022-12-19] MEDS: PANTOprazole 40 MG TAB PO SCH (09:17)
[2022-12-19] MEDS: POTASSIUM CHLORIDE CRTAB 20 MEQ TABCR PO SCH (09:20)
[2022-12-19] MEDS: PREGABALIN 75 MG CAP PO SCH (09:20)
[2022-12-19] MEDS ORDERED: LIDOCAINE 1% LOCAL 20 ML VIAL ONE ×2 (09:30→12:53)
[2022-12-19] MEDS ORDERED: BUPIVACAINE 0.25% PF 30 ML VIAL ONE (09:30)
[2022-12-19] MEDS ORDERED: WATER, STERILE FOR INJ 10 ML VIAL ONE (09:30)
[2022-12-19] MEDS ORDERED: VANCOMYCIN HCL 1000MG/20ML VIAL ONE (09:30)
[2022-12-19] MEDS ORDERED: POTASSIUM CHLORIDE CRTAB 20 MEQ TABCR PO STA (11:33)
[2022-12-19] MEDS ORDERED: MAGNESIUM SULFATE / D5W 1 GM/100 ML BAG IV ONE (11:33)
--- NOTE | 2022-12-19 11:37 | Hospitalist Progress Note ---
Date of Service December 19, 2022 Assessment & Plan (1) Chest pain: (2) Non-sustained ventricular tachycardia: (3) Graves disease: (4) LBBB (left bundle branch block): (5) DM type 2 (diabetes mellitus, type 2): (6) Chronic steroid use: Plan 62-year-old female who has a significant past medical history of T2DM, HTN, HLD, LBBB, renal artery aneurysm, splenic artery aneurysm, hx of drug-induced torsades status post knee surgery, thyroiditis, GERD, autoimmune hepatitis, VYAS, history of drug-induced osteonecrosis of the jaw, dermatomyositis, chronic systemic steroids who presents ED 12/15 secondary to chest pain x 5 days. She is being managed for the following: Chest Pain Non-Sustained VTACH Chronic LBBB hx of Torsades 2/2 left knee surgery anesthetic Pt had a symptomatic episode of NSVT with lightheaded and dizziness @ 1453 on 12/15. Further reports another episode while going to [place] @ 14:18 noted on rhythm strip. Recent heart cath 07/2022 with normal coronary arteries. Cardiac MRI done 11/2022, follows w/ Dr. Montoya. Trops flat trend below 20. EKG w/ sinus francia and LBBB. ECHO w/ EF of 50-55%, LV systolic fxn nl, mod to severe LVH w/ mild asymmetric thickening of the basilar septum. Monitor and replete K and Mag to keep > 4.0 and 2.0 respectively Cardiology on board, continue telemetry monitoring. Possible EP procedure today. NPO, lovenox on hold. BP on higher side in hosp, increased losartan to 50 mg daily, will continue mon itoring. EP on board, appreciate recs. Graves disease pt follows Endo at [place] but has not formally seen a provider has had freq dose adjustments of methimazole. Free T4 WNL. she does need to establish with Endo either locally or obtain appt [place] [facility] [place] notes 3.4 CM goiter R lobe, follow-up with PCP for USG thyroid, FNAB and referral to ENT. Pt has been made aware. Re-establish and f/u w/ ENDO on DC. T2DM last a1c 7.7 in 09/2022 hold metformin lantus/novolog per protocol L splenic artery aneurysm-surveillance and stable, 1cm L main renal artery aneurysm -surveillance and stable, 1.37cm Dermatomyositis - no acute exac, continue daily methylprednisolone, follows Dr. 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 FULL CODE PCP: Magda Dispo: PCU Admission and Anticipated Discharge Date Admission Date: December 15, 2022 Subjective Patient seen and examined at bedside as a follow-up of nonsustained medical tachycardia, chest pain. Patient was lying in bed comfortably, not in acute distress, denies any further chest since last evening. On room air. Had ?SVT last evening w/ chest discomfort, had Vtach x 15 beats later in today AM w/ "weird feeling" in the chest. Resolved spontaneously. Will give KCL 20 meq po and mg 1 gm iv. Denies other ROS. Plan for EP procedure around noon today. Physical Exam Physical Exam: GENERAL: Alert and oriented x3. NAD, on RA. HEENT: No pallor, no icterus. Pupils equal, round and reactive to light. Oral mucosa moist. NECK: No JVD, no neck masses. HEART: S1 and S2 heard. Regular rate and rhythm. No murmur, no gallop. RESPIRATORY SYSTEM: Normal AP diameter. No accessory muscle use. No wheezing, no crackles. ABDOMEN: Soft, bowel sounds present, nontender, no distention. CENTRAL NERVOUS SYSTEM: No facial droop. Speech is clear. Obeys simple commands. Moves extremities. EXTREMITIES: No edema, no erythema seen. Results & Data Results & Data Vital Signs (Past 12 Hours) Vital Signs Temp Pulse Pulse Resp BP BP Pulse Ox 12/19/22 08:00 52 L 12/19/22 07:07 55 L 16 144/72 H 97 12/19/22 07:07 36.4 C L 12/19/22 05:30 36.7 C 60 18 136/69 98 O2 Del Method 12/19/22 08:00 12/19/22 07:07 Room Air 12/19/22 07:07 12/19/22 05:30 Room Air
[2022-12-19] MEDS ORDERED: fentaNYL citrate PF 100 MCG/2 ML VIAL ONE (11:56)
[2022-12-19] MEDS ORDERED: MIDAZOLAM HCL 5 MG/ML 1 ML VIAL ONE (11:56)
[2022-12-19] MEDS ORDERED: ceFAZolin 330 MG/ML 1 GM VIAL ONE (11:56)
--- NOTE | 2022-12-19 11:58 | Pre Anesthesia Assessment ---
Date of Service December 19, 2022 Pre Sedation Assessment Vital Signs Temp Pulse Pulse Resp BP BP BP 12/19/22 11:54 60 18 120/75 12/19/22 11:23 61 13 120/75 12/19/22 11:23 36.5 C 12/19/22 08:00 52 L 12/19/22 07:07 55 L 16 144/72 H 12/19/22 07:07 36.4 C L 12/19/22 05:30 36.7 C 60 18 136/69 12/18/22 23:10 55 L 12/18/22 23:00 52 L 15 12/18/22 22:52 56 L 18 12/18/22 22:52 36.7 C 145/70 H 12/18/22 22:30 55 L 16 12/18/22 22:06 60 20 12/18/22 20:00 36.7 C 60 16 149/68 H 12/18/22 16:00 49 L 12/18/22 16:06 52 L 16 161/72 H 12/18/22 16:06 36.5 C Pulse Ox O2 Del Method 12/19/22 11:54 97 Room Air 12/19/22 11:23 97 Room Air 12/19/22 11:23 12/19/22 08:00 12/19/22 07:07 97 Room Air 12/19/22 07:07 12/19/22 05:30 98 Room Air 12/18/22 23:10 12/18/22 23:00 12/18/22 22:52 99 12/18/22 22:52 12/18/22 22:30 12/18/22 22:06 12/18/22 20:00 98 Room Air 12/18/22 16:00 12/18/22 16:06 97 Room Air 12/18/22 16:06 Cardiovascular + regular rhythm and + bradycardic Respiratory + respiratory effort normal Pre-Sedation Airway Assessment Smoking Status: Never smoker Hx Sleep Apnea: No Hx Difficult Intubation: No Short, Thick Neck: No Thyromental Distance: > or= 3.5 Finger Breadths Oral Cavity: + WNL Mallampati Class: III ASA: ASA3 NPO Status Date of Last Intake of Fluids: 12/19/22 Time of Last Intake of Fluids: 11:00 Procedure Planning Contraindications for Sedation: none Current Medications Reviewed: Yes Notes The planned sedation has been discussed with the patient. Informed Consent was obtained. I have identified the patient, determined the appropriateness of sedation and have assessed the patient immediately prior to the procedure. All medicine(s) and interventions are by my order.
--- NOTE | 2022-12-19 12:00 | Electrocardiogram Report ---
Test Reason : Blood Pressure : / mmHG Vent. Rate : 054 BPM Atrial Rate : 054 BPM P-R Int : 166 ms QRS Dur : 150 ms QT Int : 476 ms P-R-T Axes : 065 -34 145 degrees QTc Int : 451 ms Sinus bradycardia Left axis deviation Left bundle branch block Abnormal ECG When compared with ECG of 18-DEC-2022 09:24, No significant change was found Confirmed by John Ramesh ([id number]) on 12/19/2022 11:59:53 AM Referred By: Eddie Man Confirmed By:John Ramesh
[2022-12-19] MEDS ORDERED: oxyCODONE HCL IR 5 MG TAB (IMMEDIATE RELEASE) PO PRN (13:09)
--- NOTE | 2022-12-19 13:09 | Post Anesthesia Assessment ---
Date of Service December 19, 2022 Post Sedation Assessment Vital Signs Temp Pulse Pulse Resp BP BP BP 12/19/22 11:54 60 18 120/75 12/19/22 11:23 61 13 120/75 12/19/22 11:23 36.5 C 12/19/22 08:00 52 L 12/19/22 07:07 55 L 16 144/72 H 12/19/22 07:07 36.4 C L 12/19/22 05:30 36.7 C 60 18 136/69 12/18/22 23:10 55 L 12/18/22 23:00 52 L 15 12/18/22 22:52 56 L 18 12/18/22 22:52 36.7 C 145/70 H 12/18/22 22:30 55 L 16 12/18/22 22:06 60 20 12/18/22 20:00 36.7 C 60 16 149/68 H 12/18/22 16:00 49 L 12/18/22 16:06 52 L 16 161/72 H 12/18/22 16:06 36.5 C Pulse Ox O2 Del Method 12/19/22 11:54 97 Room Air 12/19/22 11:23 97 Room Air 12/19/22 11:23 12/19/22 08:00 12/19/22 07:07 97 Room Air 12/19/22 07:07 12/19/22 05:30 98 Room Air 12/18/22 23:10 12/18/22 23:00 12/18/22 22:52 99 12/18/22 22:52 12/18/22 22:30 12/18/22 22:06 12/18/22 20:00 98 Room Air 12/18/22 16:00 12/18/22 16:06 97 Room Air 12/18/22 16:06 Recovery Score Activity: Moves 4 extremities Respiration: Deep Breath/Cough Circulation: +/-20% PreAnes Value Consciousness: Arouseable (by name) Oxygen Saturation: > 92% On Room Air Discharge Sedation Level of Care: Fast Track Phase II Post Sedation Plan On clinical assessment, the patient appears to have tolerated the sedation without complications. Patient is recovering as anticipated. Patient will continue to be monitored by nursing and may be discharged when sedation discharge criteria are met per below protocol. Upon Completions of procedure up to 15 minutes continue every 5 minute vital signs and the P.A.R. score; then discharge to a Phase I or Fast Track to Phase II per the following guidelines: * Discharge Patient to appropriate Phase II area if PAR is 8 or greater or return to pre- procedure baseline. The post - procedure orders will be as directed. * If PAR score is less than 8 or not return to pre-procedure baseline then patient will follow Phase I monitoring till PAR is reached for Phase II. The Phase I may be done in procedure room or may call to secure a Phase I area. * If naloxone or flumazenil are used for reversal, hold in Phase I for continued monitoring from when last reversal dose was given for a minimum of 60 minutes or longer pending the nurse and/or physician discretion of patient condition before discharge to Phase II. Please call the Sedation Physician to re-evaluate and complete post-note for discharge to Phase II area. Do NOT discharge from procedure sedation or Phase 1 until post- sedation evaluation note is complete by procedure /sedation MD Sedation Discharge Instructions to be given to the patient at discharge to home.
--- NOTE | 2022-12-19 13:09 | Electrophysiology Report ---
Date of Service December 19, 2022 Electrophysiology Procedure Electrophysiology Procedure Report Procedure performed: Implantation of dual-chamber ICD Staff doctor of naprapathic medicine: Bartolo Pimentel MD Indication: The patient is a 62-year-old woman admitted to the hospital with symptoms of presyncope. She was noted on telemetry to have episodes of tachycardia. Also bradycardia at baseline. Based on her symptoms she was felt to be a good candidate for permanent pacemaker due to symptomatic nonreversible sinus node dysfunction. Dual-chamber device was selected he is currently in sinus rhythm which to maintain AV synchrony. An ICD was selected as she has a comorbidity of hypertrophic cardiomyopathy and nonsustained ventricular tachycardia. Procedure in detail: The patient was informed of the risks benefits and alternatives to the intended procedure and she wished to proceed. She was taken to the electrophysiology suite in a fasting state. A preoperative antibiotic had been administered. The patient was monitored electrocardiographically throughout today's procedure and conscious sedation was administered per protocol. The left upper pectoral area is prepped and draped in usual sterile fashion. This area was anesthetized using subcutaneous administration of a xylocaine solution. An incision was made at this site and carried down to the prepectoralis fascia using sharp dissection. Electrocautery was also employed for dissection as well as for hemostasis. A de vice pocket was fashioned tissues above the pectoralis muscle. Subsequent to this maneuver the left axillary vein was accessed using modified Seldinger technique. Sheaths were placed over guidewires at this site and used to facilitate passage of the pacing leads to the respective chambers under fluoroscopic guidance. This included right atrial and right ventricular leads. Adequate sensing and threshold parameters were obtained prior to Active fixation of the leads to the endocardial surface. The proximal portion leads were then sutured the prepectoral fascia using nonabsorbable suture. The device pocket was irrigated with antibiotic solution. The leads were then attached to the device. The device and leads were then placed in the pocket and pocket was closed in 3 layers of absorbable suture. Steri-Strips and sterile dressing were applied. The device was tested noninvasively prior to conclusion the procedure. The patient tolerated procedure well there no immediate complications. Equipment used: New pulse generator: Hardboard Coating Machine Operator [employer]. Model number: [id number] serial number [id number] Right atrial lead: Hardboard Coating Machine Operator [employer]. Model number: [id number] serial number [id number] Right ventricular lead: Hardboard Coating Machine Operator [employer]. Model number: [id number] serial number [id number] Measured data: Right atrial lead: P-waves measured 5.5 mV. Pacing threshold was 0.6 volts at 0.5 milliseconds with a pacing impedance of 672 Ohms Right ventricular lead: R-waves measured 17.8 mV. Pacing threshold 0.5 volts at 0.4 milliseconds with a pacing impedance of 532 Ohms Impression: Successful implantation of dual-chamber ICD MNPG Electrophysiology codes ICD Procedure 1: ICD: 75286 Insert single or dual ICD system PG Moderate Sedation Codes Moderate Sedation Codes Procedure 1: Sedation/Anesthesia: 78637 Mod Sedation by the same physician;Init15 Min Child Age 5 & Up Procedure 2: Sedation/Anesthesia: 95186 Mod Sedation by the same physician; Ea [id number] Minutes
[2022-12-19] MEDS ORDERED: METOPROLOL TARTRATE 25 MG TAB PO STA (15:22)
[2022-12-19] MEDS ORDERED: ceFAZolin 1000MG 1,000 MG/7.5 ML SYR IV ONE (20:15)
[2022-12-19] MEDS: CYANOCOBALAMIN (B-12) 500 MCG TABLET PO SCH (20:36)
[2022-12-19] MEDS: METOPROLOL TARTRATE 25 MG TAB PO SCH (20:36)
[2022-12-19] MEDS: LANTUS PER UNIT CHARGE SQ SCH (20:37)
[2022-12-19] MEDS: PREGABALIN 150 MG CAP PO SCH (20:39)
[2022-12-19] MEDS: ACETAMINOPHEN 325 MG TAB PO PRN (20:39)
[2022-12-19] MEDS: ERYTHROMYCIN OP OINT 5 MG/GM 3.5 GM TUBE OP SCH (20:40)
[2022-12-20] MEDS: LORazepam 0.5 MG TAB PO PRN (00:53)
[2022-12-20 05:28] LABS: Hematocrit (blood only) 41.1 % (37.0-47.0); Hemoglobin 13.7 g/dl (12.0-16.0); Mean Corpuscular Hemoglobin 30.7 pg (25.0-34.0); Mean Corpuscular Hgb Conc 33.3 g/dL (32.0-36.0); Mean Corpuscular Volume 92.2 fL (80.0-100.0); Mean Platelet Volume 10.5 fL (9.4-12.4); Platelet Count 243 K/uL (130-400); RDW Coefficient of Variation 13.9 % (11.5-14.5); Red Blood Count 4.46 M/uL (4.20-5.40)
[2022-12-20 05:33] LABS: BUN Creatinine Ratio 24.4 (10-20); Calcium 9.7 mg/dl (8.6-10.3); Creatinine Clr Calc Pharmacy 68.8 ml/min; Est GFR (African American) 89.5 ml/min; Est GFR (Non-African American) 77.2 ml/min; Phosphorus 4.5 mg/dl (2.5-4.9); Potassium 3.7 mmol/L (3.5-5.1)
--- NOTE | 2022-12-20 07:27 | XRay Report ---
XR chest 2V PA/lateral HISTORY: 62 years-old Female EXACT TIME ORDERED Evaluate for pneumothorax and l status post placemen t of a left subclavian pacer COMPARISON: 12/15/2022 TECHNIQUE: PA and lateral views of the chest FINDINGS: Cardiac silhouette is mildly enlarged. Status post placement of a dual lead left subclavian pacer/AIC D. No pneumothorax, pleural effusion or airspace consolidation. Mild right hemidiaphragmatic elevatio n. Sigmoidal scoliosis of the spine. IMPRESSION: Status post placement of a dual lead left subclavian pacer/AICD. No postprocedural pneumo thorax. ACT 112: Negative or not required by law. The above report was generated using voice recognition software. It may contain grammatical, syntax o r spelling errors. Electronically signed by: Ciro Graham M.D. 12/20/2022 7:25 AM
[2022-12-20] MEDS: INSULIN ASPART PER UNIT CHARGE SC SCH (08:01)
[2022-12-20] MEDS: FERROUS SULFATE 325 MG TAB PO SCH (08:51)
[2022-12-20] MEDS: hydroCHLOROthiazide 25 MG TAB PO SCH (08:51)
[2022-12-20] MEDS: ATORVASTATIN 40 MG TAB PO SCH (08:51)
[2022-12-20] MEDS: CALCIUM 600MG + VIT D 400 IU TAB PO SCH (08:51)
[2022-12-20] MEDS: PANTOprazole 40 MG TAB PO SCH (08:52)
[2022-12-20] MEDS: METOPROLOL TARTRATE 25 MG TAB PO SCH (08:52)
[2022-12-20] MEDS: methylPREDNISolone 4 MG TAB PO SCH (08:52)
[2022-12-20] MEDS: methIMAzole 5 MG TABLET PO SCH (08:52)
[2022-12-20] MEDS: LOSARTAN POTASSIUM 50 MG TAB PO SCH (08:52)
[2022-12-20] MEDS: POTASSIUM CHLORIDE CRTAB 20 MEQ TABCR PO SCH (08:55)
[2022-12-20] MEDS: PREGABALIN 75 MG CAP PO SCH (08:58)
--- NOTE | 2022-12-20 10:18 | Cardiology Progress Note ---
Date of Service December 20, 2022 Assessment & Plan (1) Sinus bradycardia: Plan: She appears to have undergone successful implantation of a dual-chamber ICD yesterday. No evident complication. Chest x-ray demonstrated stable lead position. No pneumothorax. No hematoma. Device interrogation revealed good sensing threshold on both leads. She will be stable for discharge from my standpoint. I would agree with the addition of metoprolol for suppression of h er tachycardia. She should keep the wound dry and the Steri-Strips intact until follow-up next week. She should refrain from lifting left arm above the shoulder behind the neck for 6 weeks. Admission and Anticipated Discharge Date Admission Date: December 15, 2022 Subjective This morning patient claimed he feeling well. She had some very transient dizziness when getting up from bed earlier this morning. Minimal discomfort at the device implant site. Physical Exam Physical Exam: Evaluation the device implant site did not reveal any evidence of hematoma. Very mild ecchymosis. No swelling or erythema. Results & Data Vital Signs (Past 12 Hours) Vital Signs Temp Pulse Pulse Resp BP Pulse Ox O2 Del Method 12/20/22 10:05 60 12/20/22 07:49 36.9 C 60 18 114/73 96 Room Air 12/20/22 04:00 36.5 C 61 16 134/68 96 Room Air 12/20/22 00:00 60 16 119/67 93 Room Air 12/20/22 01:00 60 12/20/22 00:00 37.0 C Diagnostic Findings Chest x-ray demonstrated stable lead position. No pneumothorax I performed a complete device interrogation which revealed normal sensing threshold parameters on both the atrial and ventricular lead.
--- NOTE | 2022-12-20 10:46 | Discharge Summary ---
Date of Service December 20, 2022 Admission HPI Per Admitting Provider This is a 62-year-old female who has a significant past medical history of T2DM, HTN, HLD, mildly, LBBB, renal artery aneurysm, splenic artery aneurysm, hx of drug-induced torsades status post knee surgery, thyroiditis, GERD, autoimmune hepatitis, VYAS, history of drug-induced osteonecrosis of the jaw, dermatomyositis, new granulomatous disease, chronic systemic steroids who presents ED secondary to chest pain x 5 days. She states last Monday she felt unwell and had some diarrhea. On Monday and Monday she was very fatigued and slept a lot of the day and complained of this left-sided chest pain that radia rolanda to her left arm and shoulder and underneath her left breast. The pain was constant and has progressively gotten worse since the weekend. She describes pain as an ache but has had episodes of sharp shooting pain. This pain is not associated with diaphoresis, lightheadedness, dizziness or shortness of breath. She has experienced intermittent nausea. She does have history of acid reflux due to being on high doses of prednisone and does not feel this is similar. She has never had anything like this before. Symptoms are not made worse with movement, deep breathing or exertion. She has not tried anything at home to help symptoms. She did have 1 nitroglycerin in ED which did not help her symptoms but gave her headache. She denies any other recent illness. She does explain an episode yesterday that occurred where she got very hot and sweaty and flushed requiring her to sit down. She also experienced some lightheadedness and dizziness. The symptoms resolved on their own. During our evaluation at approximately 1453 patient experience similar episode of lightheadedness and dizziness and noted on the monitor was a short run of V. tach she denies any fever, chills, sweats, hemoptysis, cough, URI symptoms, vomiting, diarrhea, melena, hematochezia, dysuria or increased urgency or frequency with urination. Patient was hospitalized in July secondary to chest pain. She had a similar troponin profile and underwent cardiac testing and eventual cardiac catheterization which was negative for obstruction. She also recently underwent cardiac MRI on 11/08/2022 which revealed normal LV function, LV cavity size with mildly enlarged, LV thickness is mildly increased, resting perfusion imaging is normal, atypical mid wall enhancement noted in septal segments, findings of dilated cardiomyopathy with minimal scarring, LVEF 55%, no myocardial infarction noted on imaging. She does follow with EP Dr. Montoya 2/2 palpitations, LBBB, hx of Torsades. Admission Exam Per Admitting Provider Constitutional: WD/WN, vitals as above, NAD, sitting up in bed, pleasant, conversing easily Head: Normocephalic, Atraumatic Eyes: PERRL, conjunctivae normal, anicteric sclerae, exophthalmus ENMT: external ear and nose normal, oropharynx normal Neck: trachea midline, no thyromegaly normal visual inspection Respiratory: normal respiratory effort, lungs clear to auscultation, no wheeze, rales, rhonchi. Normal insp/exp effort, no accessory muscle use Cardiovascular: RRR, no murmur, no edema Vessels: no JVD or carotid bruit Chest: normal inspection of chest Abdomen: normal bowel sounds, soft, +TTP LUQ, no hepatosplenomegaly Musculoskeletal: no cyanosis or clubbing, extremities motor strength 5/5 Skin: no rashes, warm and dry normal turgor Neurologic: PERRL, EOMI, accommodation nl, no face palsy, no dysarthria CN's II-XI intact bilaterally and moves all extremities Psychiatric: A+Ox3, euthymic affect Lymphatic: no cervical or axillary lymphadenopathy : deferred Principal Diagnosis Chest pain Nonsustained V. tach Sinus bradycardia Status post ICD implant 12/19/2022 History of Graves' disease Discharge Exam GENERAL: Alert and oriented x3. NAD, on RA. HEENT: No pallor, no icterus. Pupils equal, round and reactive to light. Oral mucosa moist. NECK: No JVD, no neck masses. HEART: S1 and S2 heard. Regular rate and rhythm. No murmur, no gallop. Left upper chest w/ clean steri strip overlying recent ICD placement. RESPIRATORY SYSTEM: Normal AP diameter. No accessory muscle use. No wheezing, no crackles. ABDOMEN: Soft, bowel sounds present, nontender, no distention. CENTRAL NERVOUS SYSTEM: No facial droop. Speech is clear. Obeys simple commands. Moves extremities. EXTREMITIES: No edema, no erythema seen. Discharge Data Allergies Allergy/AdvReac Type Severity Reaction Status Date / Time No Known Allergies Allergy Verified 07/29/22 18:24 Consultations 12/15/22 14:11 ED Decision to Admit Stat 12/15/22 15:05 Consult Cardiology Routine 12/18/22 10:53 Consult Cardiac Electrophysiology Routine Procedures Performed Operation Date: 12/19/22 12:00 Actual Procedures p ICD Implant - Bartolo Pimentel MD Ordered Studies 12/15/22 10:09 CT for pulmonary embolism PE [CT angio chest PE protocol] Stat 12/15/22 15:43 CT Abd and Pelvis [CT abd pelvis wo con] Routine 12/19/22 09:45 EP Lab Images for PACS ONCE Hospital Course (1) Chest pain: (2) Non-sustained ventricular tachycardia: (3) Graves disease: (4) LBBB (left bundle branch block): (5) DM type 2 (diabetes mellitus, type 2): (6) Chronic steroid use: Plan 62-year-old female who has a significant past medical history of T2DM, HTN, HLD, LBBB, renal artery aneurysm, splenic artery aneurysm, hx of drug-induced torsades status post knee surgery, thyroiditis, GERD, autoimmune hepatitis, VYAS, history of drug-induced osteonecrosis of the jaw, dermatomyositis, chronic systemic steroids who presents ED 12/15 secondary to chest pain x 5 days. She was managed for the following: Chest Pain Non-Sustained VTACH Chronic LBBB hx of Torsades 2/2 left knee surgery anesthetic Pt had a symptomatic episode of NSVT with lightheaded and dizziness @ 1453 on 12/15. Further reports another episode while going to [place] @ 14:18 noted on rhythm strip. Recent heart cath 07/2022 with normal coronary arteries. Cardiac MRI done 11/2022, follows w/ Dr. Montoya. Trops flat trend below 20. EKG w/ sinus francia and LBBB. ECHO w/ EF of 50-55%, LV systolic fxn nl, mod to severe LVH w/ mild asymmetric thickening of the basilar septum. Monitor and replete K and Mag to keep > 4.0 and 2.0 respectively Cardiology on board, metoprolol added. f/u w/ card as OP s/p implantation of dual-chamber ICD, f/u w/ EP in 1 week PCP and labs in a week. Graves disease pt follows Endo at [place] but has not formally seen a provider has had freq dose adjustments of methimazole. Free T4 WNL. she does need to establish with Endo either locally or obtain app[place] [facility] [place] notes 3.4 CM goiter R lobe, follow-up with PCP for USG thyroid, FNAB and referral to ENT. Pt has been made aware. Re-establish and f/u w/ ENDO on DC. T2DM last a1c 7.7 in 09/2022 hold metformin lantus/novolog per protocol L splenic artery aneurysm-surveillance and stable, 1cm L main renal artery aneurysm -surveillance and stable, 1.37cm Dermatomyositis - no acute exac, continue daily methylprednisolone, follows Dr. 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 FULL CODE PCP: Magda Dispo: PCU Patient being discharged to home with following instruction at the point of discharge: Follow-up with your primary care physician within a week time and likely you will need labs CBC/CMP/magnesium/phosphorus. Follow-up with your cardiology in about 2 weeks time upon discharge. Follow-up with the EP doctor [Dr. Pimentel] in 1 week time upon discharge. Keep your wound dry and the Steri-Strips intact until follow-up next with your EP doctor. Do not lift your arm above the shoulder and behind the neck for 6 weeks. Reestablish with endocrinology and follow-up for your history of Graves' disease, and further work-up for right lobe thyroid nodule 3.4 cm as OP. Take your medications as prescribed. Please make sure that you are able to get your medications today by calling your pharmacy before you leave the hospital so that your treatment continuity is not broken. Home Health Attestation I certify that this patient is under my care and that I, or a physicians title i instructional assistant working with me, had a face to-face encounter that meets the home health [id number] encounter requirements with this patient. The encounter with the patient was in whole, or in part, for the following medical condition, which is the primary reason for home health care (list medical condition): I certify that, based on my findings, the following services are medically necessary home health services: My clinical findings support the need for the above services because: Further, I certify that my clinical findings support that this patient is homebound (i.e. absences from home require considerable and taxing effort and are for medical reasons or sikhism services or infrequently or of short duration when for other reasons) because: Certification for Home Health Services: Based on the above findings, I certify that this patient is confined to the home and needs intermittent shelter care, physical therapy and/or speech therapy or continues to need occupational therapy. The patient is under my care, and I have initiated the establishment of the plan of care. This patient will be followed by a physician who will periodically review the plan of care. Total Time Total Time Spent Total Time Spent (In Minutes): 45 Discharge Plan Discharge Items Patient Disposition: Home - Self-Care Reason For Visit: CHEST PAIN Discharge Diagnosis: Chest pain Nonsustained V. tach Sinus bradycardia Status post ICD implant 12/19/2022 History of Graves' disease Activity: Per Instructions section Lifting: No more than 10 pounds Lifting Comment: No lifting left arm above shoulder behind neck for 6 weeks Bathing: Keep incision dry Bathing Comment: Keep wound dry and Steri-Strips intact until follow-up next week Non-emergency contact: Primary Care Provider Call non-emergency contact if: you have any medication questions and your temperature is above 101 Follow-up/Referrals: Eddie Man MD [Primary Care Provider] - Diet: Carb Consistent or DM2 Addtl Attending Provider Instructions: Follow-up with your primary care physician within a week time and likely you will need labs CBC/CMP/magnesium/phosphorus. Follow-up with your cardiology in about 2 weeks time upon discharge. Follow-up with the EP doctor [Dr. Pimentel] in 1 week time upon discharge. Keep your wound dry and the Steri-Strips intact until follow-up next with your EP doctor. Do not lift your arm above the shoulder and behind the neck for 6 weeks. Reestablish with endocrinology and follow-up for your history of Graves' disease, and further work-up for right lobe thyroid nodule 3.4 cm as OP. Take your medications as prescribed. Please make sure that you are able to get your medications today by calling your pharmacy before you leave the hospital so that your treatment continuity is not broken. Pending Studies at Discharge: No Stand-Alone Forms: My [employer], Smoking Cessation Medications and DC Order Prescriptions: New metoprolol tartrate 25 mg Tablet 25 mg PO BID Qty: 60 0RF Continued amoxicillin 500 mg tablet 2,000 mg PO DIRECTED PRN (Reason: 1 HOUR PRIOR TO DENTAL APPT.) Qty: 8 4RF Rx Instructions: 4 tabs 1 hour prior to procedure atorvastatin [Lipitor] 40 mg Tablet 40 mg PO QAM milk thistle 500 mg Capsule 500 mg PO QAM methylprednisolone [Medrol] 4 mg Tablet 4 mg PO QAM cyanocobalamin (vitamin B-12) [Vitamin B-12] 1,000 mcg Tablet 1,000 mcg PO HS pantoprazole [Protonix] 40 mg Tablet,Delayed Release (Dr/Ec) 40 mg PO QAM hydrochlorothiazide 25 mg Tablet 25 mg PO QAM cyclobenzaprine 5 mg Tablet 5 mg PO HS PRN (Reason: Muscle Spasm) calcium carbonate-vitamin D3 [Calcium 500 + D] 500 mg(1,250mg) -200 unit Tablet 2 tab PO QAM pregabalin [Lyrica] 75 mg Capsule See Rx Instructions .ROUTE .COMPLEX Rx Instructions: 150mg by mouth in the morning and 75mg by mouth in the evening methimazole 10 mg Tablet 15 mg PO QAM biotin 1,000 mcg Tablet,Chewable 1,000 mcg PO HS ferrous sulfate 325 mg (65 mg iron) Tablet 325 mg PO Q OTHER DAY Patient Comments: takes at hs losartan 25 mg tablet 25 mg PO QAM metformin 500 mg tablet extended release 24 hr 1,000 mg PO QAM diclofenac sodium 1 % Gel 1 g TOPICAL QID PRN (Reason: Pain) acetaminophen 500 mg capsule 1,000 mg PO DIRECTED PRN (Reason: Pain) potassium chloride 20 mEq tablet,ER particles/crystals 20 meq PO QAM erythromycin 5 mg/gram (0.5 %) ointment 1 applic ophthalmic (eye) HS Discharge Orders: Discharge Order (Routine); Ordered 12/20/22 Ordered By: Romelia Mukherjee/Other Patient Handouts: Managing Type 2 Diabetes, Diabetes: Meal Planning Admission Data Admit Date/Time: 12/15/22 15:36 Attending Provider: Romelia Loja Admit Provider: Gaviota Clement Primary Care Provider: Eddie Man Other Providers: Frank Stone ; Gaviota Clement ; Bartolo Pimentel
--- NOTE | 2022-12-20 14:36 | Cardiology Progress Note ---
Date of Service December 20, 2022 Assessment & Plan (1) Non-sustained ventricular tachycardia: (2) LBBB (left bundle branch block): (3) Chest pain: (4) Dermatomyositis: Plan Status post ICD implantation 12/19/2022 without complication. Beta-wilber initiated with improvement of supraventricular tachycardia and ventricular ectopy. Continue metoprolol tartrate 25 mg twice daily. Cardiology follow-up in [address] Verdugo. Consider transition to metoprolol succinate during visit. Postprocedural activity restrictions discussed. All questions answered to patient's satisfaction. Admission and Anticipated Discharge Date Admission Date: December 15, 2022 Subjective Patient seen examined the bedside. Feeling well post ICD implantation. Beta- wilber initiated yesterday. Marked reduction of ectopy overnight on telemetry. Feeling much better this AM. Review of Systems Review of Systems: All systems reviewed & are unremarkable except as noted in Subjective Physical Exam Constitutional: well nourished; no acute distress Respiratory: no respiratory distress, no labored breathing and no retractions Auscultation: lungs clear to auscultation bilaterally; no crackles, no rales, no rhonchi and no wheezes Cardiovascular: Rate/Rhythm: regular rate and regular rhythm Heart Sounds: normal S1, normal S2 and + murmur (2/6 systolic ejection murmur heard best at the R2ICS) Vessels: radial pulses present; no JVD and no carotid bruit Gastrointestinal (Abdomen): Inspection/Auscultation: abdomen normal to inspection and normal bowel sounds; abdomen not distended Percussion/Palpation: abdomen soft; abdomen nontender, no guarding and abdomen not rigid Neurologic: CN's II-XI intact bilaterally and moves all extremities; no focal motor deficits Results & Data Vital Signs (Past 12 Hours) Vital Signs Temp Pulse Pulse Resp BP BP Pulse Ox 12/20/22 11:27 36.9 C 60 18 121/82 114/73 96 12/20/22 10:05 60 12/20/22 07:49 36.9 C 60 18 114/73 96 12/20/22 04:00 36.5 C 61 16 134/68 96 O2 Del Method 12/20/22 11:27 12/20/22 10:05 12/20/22 07:49 Room Air 12/20/22 04:00 Room Air Laboratory Results CBC 12/20/22 Range/Units 04:49 WBC 6.90 (4.8-10.8) K/ul RBC 4.46 (4.20-5.40) M/uL Hgb 13.7 (12.0-16.0) g/dl Hct 41.1 (37.0-47.0) % Plt Count 243 (130-400) K/uL Comprehensive Metabolic Panel 12/20/22 Range/Units 04:49 Sodium 140 (136-145) mmol/L Potassium 3.7 (3.5-5.1) mmol/L Chloride 102 (98-107) mmol/L Carbon Dioxide 30 (21-32) mmol/L BUN 20 (6-23) mg/dl Creatinine 0.82 (0.6-1.2) mg/dl Glucose 114 H (70-99(Fasting)) mg/dl Calcium 9.7 (8.6-10.3) mg/dl Intake and Output 12/19/22 12/20/22 12/20/22 22:59 06:59 14:59 Other: # Unmeasured Voids 1 1 Weight 72.6 kg Patient Weight 12/21/22 06:59 Weight 72.6 kg
--- NOTE | 2022-12-20 15:29 | Electrocardiogram Report ---
Test Reason : Blood Pressure : / mmHG Vent. Rate : 064 BPM Atrial Rate : 064 BPM P-R Int : 206 ms QRS Dur : 156 ms QT Int : 468 ms P-R-T Axes : 025 -31 131 degrees QTc Int : 482 ms Atrial-paced rhythm with occasional Premature ventricular complexes Left axis deviation Left bundle branch block Abnormal ECG When compared with ECG of 18-DEC-2022 18:43, Electronic atrial pacemaker has replaced Sinus rhythm Confirmed by John Ramesh ([id number]) on 12/20/2022 3:28:53 PM Referred By: Eddie Man Confirmed By:John Ramesh
== END 2022-12-20 11:51 | disposition home or self-care (01) | DRG 227 ==
LOC: ED 09:11 → SUATTDRO 15:36 → EDINP 15:36 → 1E 12-16 14:47 → 2S 12-20 07:05
PROC: EPB.ICD (2022-12-19 12:00)